=== PATIENT | female | born 1935 | race Caucasian/White ===

== ENCOUNTER 2018-06-21 13:04 | Inpatient (IN) | payer MEDICARE ==
[~2018-06-21] VITALS: Ht 157.5 cm; Wt 98.5 kg
[2018-06-21] MEDS ORDERED: WARF-31 PO (14:57)
[2018-06-21] MEDS ORDERED: MULT1CAP15 PO (14:57)
[2018-06-21] MEDS ORDERED: DOCU-109 PO (14:57)
[2018-06-21] MEDS ORDERED: GARL10002 PO (14:57)
[2018-06-21] MEDS ORDERED: OMEG1CAP38 PO (14:57)
[2018-06-21] MEDS ORDERED: LISI10TA2 PO (14:57)
[2018-06-21] MEDS ORDERED: SIMV40TA3 PO (14:57)
[2018-06-21 15:00] VITALS: BP 118/55
[2018-06-21] MEDS ORDERED: CHOL200074 PO (15:03)
[2018-06-21] MEDS ORDERED: ALEN70TA5 PO (15:03)
[2018-06-21] MEDS ORDERED: ACET500T68 PO (15:03)
[2018-06-21] MEDS ORDERED: INSU100I13 SQ (15:09)
[2018-06-21] MEDS ORDERED: INSU100I17 SQ (15:09)
[2018-06-21] MEDS ORDERED: ISOS30TA4 PO (15:09)
[2018-06-21] MEDS ORDERED: ALPR0.254 PO (15:09)
[2018-06-21] MEDS ORDERED: OMEP20TA63 PO (15:09)
[2018-06-21] MEDS ORDERED: CITA10TA4 PO (15:11)
[2018-06-21] MEDS ORDERED: CLOP75TA PO (15:11)
[2018-06-21] MEDS ORDERED: VIT1TABL32 PO (15:19)
[2018-06-21] MEDS ORDERED: BUME2TAB PO (15:19)
[2018-06-21] MEDS ORDERED: CHOL4POW3 PO (15:19)
[2018-06-21] MEDS ORDERED: DIPH25CA58 PO (15:24)
[2018-06-21] MEDS ORDERED: METH2.5T PO (15:24)
[2018-06-21] MEDS ORDERED: CARV3.122 PO (15:38)
[2018-06-21] MEDS ORDERED: IV NORMAL SALINE 1000ML BAG 1,000 ML IV ONE (15:45)
[2018-06-21 16:24] LABS: BASO % 1 % (0-3); EOS % 0 % (0-3); HEMATOCRIT 24.5 % (36.0-47.0); LYMPH # 0.9 x10^3/uL (1.0-4.8); LYMPH % 11 % (24-48); MEAN CORPUSCULAR HEMOGLOBIN 27 pg (25-35); MEAN CORPUSCULAR HGB CONC 33 g/dL (31-37); MEAN CORPUSCULAR VOLUME 83 fL (79-100); MONO # 0.5 x10^3/uL (0.0-1.1); MONO % 7 % (0-9); NEUT # 6.5 x10^3uL (1.8-7.7); NEUT % 81 % (31-73); PLATELET COUNT 369 x10^3/uL (140-400); RED BLOOD COUNT 2.94 x10^6/uL (3.50-5.40); RED CELL DISTRIBUTION WIDTH 19.7 % (11.5-14.5)
[2018-06-21 16:54] LABS: ALBUMIN 2.4 g/dL (3.4-5.0); ALBUMIN/GLOBULIN RATIO 0.6 (1.0-1.7); CALCIUM 7.7 mg/dL (8.5-10.1); GFR 53.1; POTASSIUM 3.7 mmol/L (3.5-5.1); TOTAL BILIRUBIN 0.5 mg/dL (0.2-1.0); TOTAL PROTEIN 6.6 g/dL (6.4-8.2)
[2018-06-21 19:00] VITALS: BP 126/49
[2018-06-21 19:43] LABS: PROTHROMBIN TIME PATIENT 39.9 SEC (11.7-14.0)
[2018-06-21] MEDS: cefTRIAXone IV Push 1 GM VIAL. IVP SCH (19:50)
[2018-06-21] MEDS: SIMVASTATIN 40 MG TABLET. PO SCH (20:43)
[2018-06-21] MEDS: MULTIVITAMIN I-VITE TABLET. PO SCH (20:43)
[2018-06-21] MEDS: CARVEDILOL 3.125 MG TABLET. PO SCH (20:43)
[2018-06-21] MEDS: ACETAMINOPHEN 500 MG TABLET PO SCH (20:44)
[2018-06-21] MEDS: diphenhydrAMINE HCL 25 MG CAPSULE PO SCH (21:11)
[2018-06-21 23:00] VITALS: BP 125/51
[2018-06-22 02:51] VITALS: BP 122/46
[2018-06-22 07:00] VITALS: BP 127/58
[2018-06-22] MEDS: INSULIN GLARGINE 300 UNITS/3 ML INSULN.PEN. SQ SCH (08:00)
[2018-06-22] MEDS: INSULIN LISPRO 300 UNITS/3 ML INSULN.PEN. SQ SCH ×3 (08:00→17:09)
[2018-06-22] MEDS: CLOPIDOGREL BISULFATE 75 MG TABLET PO SCH (08:33)
[2018-06-22] MEDS: DOCUSATE SODIUM 100 MG CAPSULE. PO SCH (08:33)
[2018-06-22] MEDS: MULTIVITAMIN I-VITE TABLET. PO SCH ×2 (08:33→20:25)
[2018-06-22] MEDS: PANTOPRAZOLE 40 MG TABLET.DR. PO SCH (08:33)
[2018-06-22] MEDS: ACETAMINOPHEN 500 MG TABLET PO SCH ×2 (08:33→20:25)
[2018-06-22] MEDS: CITALOPRAM 10 MG TABLET. PO SCH (08:33)
[2018-06-22] MEDS: CARVEDILOL 3.125 MG TABLET. PO SCH ×2 (08:34→16:10)
[2018-06-22] MEDS: ISOSORBIDE MONONITRATE ER 30 MG TAB.ER.24H PO SCH (08:34)
[2018-06-22] MEDS: BUMETANIDE 1 MG TABLET. PO SCH (08:34)
[2018-06-22] MEDS: OMEGA-3 FATTY ACIDS/FISH OIL 1,000 MG CAPSULE. PO SCH (08:34)
[2018-06-22] MEDS: LISINOPRIL 10 MG TABLET PO SCH (08:34)
[2018-06-22] MEDS: CHOLESTYRAMINE/ASPARTAME 4 GM PACKET PO SCH (08:36)
[2018-06-22 09:52] LABS: BILIRUBIN,URINE NEGATIVE (NEG); CLARITY,URINE CLEAR; COLOR,URINE YELLOW; NITRITE,URINE NEGATIVE (NEG); PROTEIN,URINE NEGATIVE (NEG-TRACE); UROBILINOGEN,URINE 0.2 mg/dL (0.2 mg/dL)
[2018-06-22 10:02] LABS: SQUAMOUS EPITHELIAL CELL,UR FEW /LPF
[2018-06-22 10:04] LABS: BACTERIA,URINE FEW /HPF (0-FEW); RBC,URINE OCC /HPF (0-2)
--- NOTE | 2018-06-22 10:43 | PDOC ---
GENERAL General: feels somewhat better this am. minimal sweating overnight and no chills. remains sob. Hb office earlier this week was 8.6 and is 8.0 this am. willl check cxr this am and get GI consult for iron deficiency anemia. continue antibiotics with profound chills and sweats prior to admission. patient denies any hematochezia, melena, or hematemesis. see dictated H&P. VITAL SIGNS Vital Signs: Vital Signs Date Time Temp Pulse Resp B/P (MAP) Pulse Ox O2 Delivery O2 Flow Rate FiO2 06/22/18 08:34 101 127/58 06/22/18 07:24 Room Air 06/22/18 07:00 97.8 16 98 97.8 I & O I & O Intake and Output 06/22/18 07:00 Intake Total 400 ml Output Total 350 ml Balance 50 ml Intake Oral 400 ml Output Urine Total 350 ml ALLERGIES Allergies: Allergies Coded Allergies Type Severity Reaction Last Updated Verified milk Allergy Intermediate 06/21/18 Yes montelukast Allergy Intermediate 06/21/18 Yes MEDS Medications: Current Medications Medications (Trade) Dose Ordered Sig/Frank Start Time Stop Time Status Last Admin Dose Admin Acetaminophen (Tylenol) 1,000 mg BID 06/21/18 21:00 06/22/18 08:33 1,000 MG Alprazolam (Xanax) 0.25 mg PRN Q6HRS PRN 06/21/18 18:45 Bumetanide (Bumex) 2 mg DAILY 06/22/18 09:00 06/22/18 08:34 2 MG Carvedilol (Coreg) 3.125 mg BIDWMEALS 06/21/18 21:00 06/22/18 08:34 3.125 MG Ceftriaxone Sodium 1 gm/ Dextrose 50 ml @ 100 mls/hr Q24H 06/21/18 15:45 UNV Ceftriaxone Sodium (Rocephin) 1 gm Q24H 06/21/18 17:00 06/21/18 19:50 1 GM Cholestyramine Resin (Questran Light) 4 gm DAILY 06/22/18 09:00 Citalopram Hydrobromide (CeleXA) 10 mg DAILY 06/22/18 09:00 06/22/18 08:33 10 MG Clopidogrel Bisulfate (Plavix) 75 mg DAILY 06/22/18 09:00 06/22/18 08:33 75 MG Diphenhydramine HCl (Benadryl) 50 mg QHS 06/21/18 21:00 06/21/18 21:11 50 MG Docusate Sodium (Colace) 100 mg DAILY 06/22/18 09:00 06/22/18 08:33 100 MG Fish Oil (Fish Oil) 1,000 mg DAILY 06/22/18 09:00 06/22/18 08:34 1,000 MG Insulin Glargine (Lantus) 20 units [id number] 06/22/18 08:00 Insulin Human Lispro (HumaLOG) 5 units TIDWMEALS 06/22/18 08:00 Isosorbide Mononitrate (Imdur) 30 mg DAILY 06/22/18 09:00 06/22/18 08:34 30 MG Lisinopril (Prinivil) 10 mg DAILY 06/22/18 09:00 06/22/18 08:34 10 MG Methotrexate (Rheumatrex) 15 mg WEEKLY 06/27/18 09:00 Multivitamins/ Minerals (I-Myah) 1 tab BID 06/21/18 21:00 06/22/18 08:33 1 TAB Non-Formulary Medication (Alendronate Sodium ) 70 mg WEEKLY 06/28/18 09:00 UNV Pantoprazole Sodium (Protonix) 40 mg DAILYAC 06/22/18 07:30 06/22/18 08:33 40 MG Simvastatin (Zocor) 40 mg QHS 06/21/18 21:00 06/21/18 20:43 40 MG Sodium Chloride 1,000 ml @ 125 mls/hr 1X ONCE 06/21/18 15:45 06/21/18 23:44 DC 06/21/18 19:50 125 MLS/HR Warfarin Sodium (Coumadin Per Physician) 1 each PRN DAILY PRN 06/21/18 20:00 Warfarin Sodium (Coumadin) 7.5 mg DAILY16 06/22/18 16:00 LAB Lab: Laboratory Tests Test 06/21/18 16:05 06/21/18 20:35 06/22/18 07:04 06/22/18 09:20 White Blood Count 8.0 x10^3/uL (4.0-11.0) Red Blood Count 2.94 x10^6/uL (3.50-5.40) Hemoglobin 8.0 g/dL (12.0-15.5) Hematocrit 24.5 % (36.0-47.0) Mean Corpuscular Volume 83 fL (79-100) Mean Corpuscular Hemoglobin 27 pg (25-35) Mean Corpuscular Hemoglobin Concent 33 g/dL (31-37) Red Cell Distribution Width 19.7 % (11.5-14.5) Platelet Count 369 x10^3/uL (140-400) Neutrophils (%) (Auto) 81 % (31-73) Lymphocytes (%) (Auto) 11 % (24-48) Monocytes (%) (Auto) 7 % (0-9) Eosinophils (%) (Auto) 0 % (0-3) Basophils (%) (Auto) 1 % (0-3) Neutrophils # (Auto) 6.5 x10^3uL (1.8-7.7) Lymphocytes # (Auto) 0.9 x10^3/uL (1.0-4.8) Monocytes # (Auto) 0.5 x10^3/uL (0.0-1.1) Eosinophils # (Auto) 0.0 x10^3/uL (0.0-0.7) Basophils # (Auto) 0.0 x10^3/uL (0.0-0.2) Prothrombin Time 39.9 SEC (11.7-14.0) Prothromb Time International Ratio 4.2 (0.8-1.1) Sodium Level 136 mmol/L (136-145) Potassium Level 3.7 mmol/L (3.5-5.1) Chloride Level 102 mmol/L (98-107) Carbon Dioxide Level 26 mmol/L (21-32) Anion Gap 8 (6-14) Blood Urea Nitrogen 17 mg/dL (7-20) Creatinine 1.0 mg/dL (0.6-1.0) Estimated GFR (Cockcroft-Gault) 53.1 BUN/Creatinine Ratio 17 (6-20) Glucose Level 110 mg/dL (70-99) Calcium Level 7.7 mg/dL (8.5-10.1) Iron Level 15 ug/dL (50-170) Total Iron Binding Capacity 216 ug/dL (250-450) Iron Saturation 7 % (15-34) Ferritin 141 ng/mL (8-252) Total Bilirubin 0.5 mg/dL (0.2-1.0) Aspartate Amino Transf (AST/SGOT) 21 U/L (15-37) Alanine Aminotransferase (ALT/SGPT) 27 U/L (14-59) Alkaline Phosphatase 157 U/L (46-116) Total Protein 6.6 g/dL (6.4-8.2) Albumin 2.4 g/dL (3.4-5.0) Albumin/Globulin Ratio 0.6 (1.0-1.7) Glucose (Fingerstick) 98 mg/dL (70-99) 96 mg/dL (70-99) Urine Collection Type Unknown Urine Color Yellow Urine Clarity Clear Urine pH 6.0 Urine Specific [place] 1.015 Urine Protein Negative mg/dL (NEG-TRACE) Urine Glucose (UA) Negative mg/dL (NEG) Urine Ketones (Stick) Negative mg/dL (NEG) Urine Blood Negative (NEG) Urine Nitrite Negative (NEG) Urine Bilirubin Negative (NEG) Urine Urobilinogen Dipstick 0.2 mg/dL (0.2 mg/dL) Urine Leukocyte Esterase Negative (NEG) Urine RBC Occ /HPF (0-2) Urine WBC 1-4 /HPF (0-4) Urine Squamous Epithelial Cells Few /LPF Urine Bacteria Few /HPF (0-FEW) Urine Mucus Slight /LPF ARTHUR GUERRA MD Jun 22, 2018 10:43
[2018-06-22 10:48] VITALS: BP 123/48
--- NOTE | 2018-06-22 11:22 | HP ---
ADMIT DATE: 06/21/2018 CHIEF COMPLAINT AND HISTORY OF PRESENT ILLNESS: This is an 82-year-old white female well known to me from followup in the office. The patient was seen earlier in the week with complaints of shortness of breath with exertion and possibly some chest pressure with the same. Workup at that point in time found her to be anemic with hemoglobin of 8.6 and decreased red blood cell indices. She was rechecked on the day of admission, was worse and now was reporting night sweats as well as chills, soaking sheets in the bed and having to change clothes. She appeared quite ill in the office and it was elected to admit her to have further workup of her new-onset shortness of breath, possibly related to the anemia as well as the sweats and chills. PAST MEDICAL HISTORY: Remarkable for prior TIAs. She has had coronary artery disease with prior stenting. PAST SURGICAL HISTORY: She has had prior breast cancer with a right mastectomy and left lumpectomy. She has had bilateral knee replacements. MEDICATIONS: Brought with the patient, listed on the computer and have been addressed. ALLERGIES: SHE IS ALLERGIC TO MONTELUKAST AND MILK. SOCIAL HISTORY: She is , nonsmoker, nondrinker, does not abuse drugs, has a very supportive family. FAMILY HISTORY: Noncontributory. REVIEW OF SYSTEMS: As mentioned above. PHYSICAL EXAMINATION: GENERAL: She is well-developed, well-nourished white female, who appears ill. VITAL SIGNS: Stable. She is afebrile in the office. Blood pressure is low at 90/50 which is out of character for her; pulse is not elevated, however, and is in the 80s. HEAD, EYES, EARS, NOSE, AND THROAT: Remarkable for pallor of the conjunctivae. NECK: Supple without bruit or thyromegaly. CHEST: Reveals distant breath sounds, but clear. HEART: Irregularly irregular without S3, S4 or murmur. Rate is 80. ABDOMEN: Soft, nontender, without hepatosplenomegaly or mass. EXTREMITIES: Without cyanosis, clubbing, or significant edema. NEUROLOGIC: She is intact. IMPRESSION: 1. New-onset shortness of breath with anemia. 2. Chills, sweats of uncertain etiology. 3. Atrial fibrillation. 4. Coronary artery disease. PLAN: The patient has been admitted, workup for infection as well as followup of her new-onset anemia will be done. I am going to check iron levels. In addition, antibiotics will be started pending further investigation. The patient will be monitored, managed and treated appropriately. ARTHUR GUERRA MD DR: MAYA/vandana JOB#: [id number] / [id number]
--- NOTE | 2018-06-22 12:01 | RAD ---
Chest, PA and Lateral: Technique: PA and lateral views of the chest were obtained. History: Shortness of breath, chills. Comparison: None available. Findings: Mild cardiomegaly. Median sternotomy wires identified. There is mild prominent appearing bilateral interstitial lung markings.. Moderate degenerative changes thoracic spine.. The pleural margins are clear. Impression: Mild prominent appearing bilateral interstitial lung markings likely congestive changes.. Electronically signed by: Driss Gill MD (06/22/2018 11:58 AM) [facility]
[2018-06-22 12:47] LABS: PROTHROMBIN TIME PATIENT 41.1 SEC (11.7-14.0)
[2018-06-22] MEDS: WARFARIN 7.5 MG TABLET. PO SCH (14:15)
--- NOTE | 2018-06-22 14:20 | PDOC2 ---
GI CONSULT Reason For Consult: DANIEL HPI: HPI: Pleasant 82 y/o female admitted for evaluation of recent anemia and BELL. Here has iron studies c/w DANIEL superimposed on ACD. Has h/o heartburn in the past; taking daily omeprazole. Some recent vague swallowing issues, not clearly true dysphagia. No PUD, Liver or Pancreatic history. S/p cole. No tobacco, alcohol use of note. On Plavix and coumadin at home; INR a bit prolonged here. Denies overt blood in stool or melena. No N, V. 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 Has had occasional constipation. Wt/appetite OK. Thinks had remote colonoscopy ([facility]? ) in the past. Recalls no findings. No prior EGD. GIFH negative. PMH: PMH: ASHD, TIA's, HLP, HTN, Breast cancer (rubia?), OA, DM, anxiety/depression. S/p coronary stenting, CABG, left lumpectomy, right mastectomy, bilateral TKR's. FH: Family History: Other (No GI issues.) Social History: Smoke: No ALCOHOL: none Drugs: None ROS: GEN: Denies fevers, chills, sweats HEENT: Denies blurred vision, sore throat CV: Denies chest pain RESP: Exertional shortness of air, no cough GI: Per HPI : Denies hematuria, dysuria ENDO: Denies weight changes NEURO: Denies confusion, dizziness MSK: Denies weakness, joint pain/swelling SKIN: Denies jaundice, pruritus Vitals: Vitals: Vital Signs Date Time Temp Pulse Resp B/P (MAP) Pulse Ox O2 Delivery O2 Flow Rate FiO2 06/22/18 10:48 98.3 89 16 123/48 (73) 93 Room Air 98.3 Labs: Labs: Laboratory Tests Test 06/21/18 16:05 06/21/18 20:35 06/22/18 07:04 06/22/18 09:20 White Blood Count 8.0 x10^3/uL (4.0-11.0) Red Blood Count 2.94 x10^6/uL (3.50-5.40) Hemoglobin 8.0 g/dL (12.0-15.5) Hematocrit 24.5 % (36.0-47.0) Mean Corpuscular Volume 83 fL (79-100) Mean Corpuscular Hemoglobin 27 pg (25-35) Mean Corpuscular Hemoglobin Concent 33 g/dL (31-37) Red Cell Distribution Width 19.7 % (11.5-14.5) Platelet Count 369 x10^3/uL (140-400) Neutrophils (%) (Auto) 81 % (31-73) Lymphocytes (%) (Auto) 11 % (24-48) Monocytes (%) (Auto) 7 % (0-9) Eosinophils (%) (Auto) 0 % (0-3) Basophils (%) (Auto) 1 % (0-3) Neutrophils # (Auto) 6.5 x10^3uL (1.8-7.7) Lymphocytes # (Auto) 0.9 x10^3/uL (1.0-4.8) Monocytes # (Auto) 0.5 x10^3/uL (0.0-1.1) Eosinophils # (Auto) 0.0 x10^3/uL (0.0-0.7) Basophils # (Auto) 0.0 x10^3/uL (0.0-0.2) Prothrombin Time 39.9 SEC (11.7-14.0) Prothromb Time International Ratio 4.2 (0.8-1.1) Sodium Level 136 mmol/L (136-145) Potassium Level 3.7 mmol/L (3.5-5.1) Chloride Level 102 mmol/L (98-107) Carbon Dioxide Level 26 mmol/L (21-32) Anion Gap 8 (6-14) Blood Urea Nitrogen 17 mg/dL (7-20) Creatinine 1.0 mg/dL (0.6-1.0) Estimated GFR (Cockcroft-Gault) 53.1 BUN/Creatinine Ratio 17 (6-20) Glucose Level 110 mg/dL (70-99) Calcium Level 7.7 mg/dL (8.5-10.1) Iron Level 15 ug/dL (50-170) Total Iron Binding Capacity 216 ug/dL (250-450) Iron Saturation 7 % (15-34) Ferritin 141 ng/mL (8-252) Total Bilirubin 0.5 mg/dL (0.2-1.0) Aspartate Amino Transf (AST/SGOT) 21 U/L (15-37) Alanine Aminotransferase (ALT/SGPT) 27 U/L (14-59) Alkaline Phosphatase 157 U/L (46-116) Total Protein 6.6 g/dL (6.4-8.2) Albumin 2.4 g/dL (3.4-5.0) Albumin/Globulin Ratio 0.6 (1.0-1.7) Glucose (Fingerstick) 98 mg/dL (70-99) 96 mg/dL (70-99) Urine Collection Type Unknown Urine Color Yellow Urine Clarity Clear Urine pH 6.0 Urine Specific [place] 1.015 Urine Protein Negative mg/dL (NEG-TRACE) Urine Glucose (UA) Negative mg/dL (NEG) Urine Ketones (Stick) Negative mg/dL (NEG) Urine Blood Negative (NEG) Urine Nitrite Negative (NEG) Urine Bilirubin Negative (NEG) Urine Urobilinogen Dipstick 0.2 mg/dL (0.2 mg/dL) Urine Leukocyte Esterase Negative (NEG) Urine RBC Occ /HPF (0-2) Urine WBC 1-4 /HPF (0-4) Urine Squamous Epithelial Cells Few /LPF Urine Bacteria Few /HPF (0-FEW) Urine Mucus Slight /LPF Test 06/22/18 12:20 06/22/18 12:25 Prothrombin Time 41.1 SEC (11.7-14.0) Prothromb Time International Ratio 4.4 (0.8-1.1) Glucose (Fingerstick) 140 mg/dL (70-99) ACD iron studies, but <10% saturation believable. Allergies: Coded Allergies: milk (Verified Allergy, Intermediate, 06/21/18) montelukast (Verified Allergy, Intermediate, 06/21/18) Medications: Current Medications Medications (Trade) Dose Ordered Sig/Frank Route PRN Reason Start Time Stop Time Status Last Admin Dose Admin Sodium Chloride 1,000 ml @ 125 mls/hr 1X ONCE IV 06/21/18 15:45 06/21/18 23:44 DC 06/21/18 19:50 Ceftriaxone Sodium (Rocephin) 1 gm Q24H IVP 06/21/18 17:00 06/21/18 19:50 Acetaminophen (Tylenol) 1,000 mg BID PO 06/21/18 21:00 06/22/18 08:33 Carvedilol (Coreg) 3.125 mg BIDWMEALS PO 06/21/18 21:00 06/22/18 08:34 Citalopram Hydrobromide (CeleXA) 10 mg DAILY PO 06/22/18 09:00 06/22/18 08:33 Clopidogrel Bisulfate (Plavix) 75 mg DAILY PO 06/22/18 09:00 06/22/18 08:33 Diphenhydramine HCl (Benadryl) 50 mg QHS PO 06/21/18 21:00 06/21/18 21:11 Docusate Sodium (Colace) 100 mg DAILY PO 06/22/18 09:00 06/22/18 08:33 Isosorbide Mononitrate (Imdur) 30 mg DAILY PO 06/22/18 09:00 06/22/18 08:34 Lisinopril (Prinivil) 10 mg DAILY PO 06/22/18 09:00 06/22/18 08:34 Multivitamins/ Minerals (I-Myah) 1 tab BID PO 06/21/18 21:00 06/22/18 08:33 Bumetanide (Bumex) 2 mg DAILY PO 06/22/18 09:00 06/22/18 08:34 Fish Oil (Fish Oil) 1,000 mg DAILY PO 06/22/18 09:00 06/22/18 08:34 Pantoprazole Sodium (Protonix) 40 mg DAILYAC PO 06/22/18 07:30 06/22/18 08:33 Simvastatin (Zocor) 40 mg QHS PO 06/21/18 21:00 06/21/18 20:43 Imaging: Imaging: No GI imaging. PE: GEN: NAD HEENT: Atraumatic, PERRLA LUNGS: CTAB HEART: IRRR, no murmurs ABD: NABS, S/ND/NT, no masses EXTREMITY: Maybe trace edema, LE's SKIN: No rashes, no jaundice NEURO/PSYCH: A & O 3 A/P: A/P: IMP: Iron deficiency anemia, cause uncertain, but worthy of investigation at some point. Clinical GERD, maintained on PPI. S/p cole. 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 H/o remote colonoscopy, findings unclear. Elevated INR above therapeutic. REC: Would continue whatever non-GI w/u you have planned. Hold warfarin and allow INR to fall. Will check our EMR and see if prior endoscopies there. Ultimately should consider holloway-endoscopy. Will check thyroid; apparently some FH of this. --other pending. Thank you for allowing me to assist in the care of this patient. Please call if questions. PAO THOMAS MD Jun 22, 2018 14:20
[2018-06-22 15:00] VITALS: BP 115/40
[2018-06-22] MEDS: cefTRIAXone IV Push 1 GM VIAL. IVP SCH (16:10)
[2018-06-22 19:59] VITALS: BP 133/55
[2018-06-22] MEDS: SIMVASTATIN 40 MG TABLET. PO SCH (20:25)
[2018-06-22] MEDS: diphenhydrAMINE HCL 25 MG CAPSULE PO SCH (20:25)
[2018-06-22 22:54] LABS: FECAL OB PT NEGATIVE (NEG)
[2018-06-22] MEDS: ALPRAZolam 0.25 MG TABLET PO PRN (23:10)
[2018-06-22 23:24] VITALS: BP 147/48
[2018-06-23 03:45] VITALS: BP 137/51
[2018-06-23 05:09] LABS: BASO % 1 % (0-3); EOS # 0.1 x10^3/uL (0.0-0.7); EOS % 1 % (0-3); HEMATOCRIT 23.5 % (36.0-47.0); HEMOGLOBIN 7.8 g/dL (12.0-15.5); LYMPH # 1.2 x10^3/uL (1.0-4.8); LYMPH % 21 % (24-48); MEAN CORPUSCULAR HEMOGLOBIN 28 pg (25-35); MEAN CORPUSCULAR HGB CONC 33 g/dL (31-37); MEAN CORPUSCULAR VOLUME 84 fL (79-100); MONO # 0.6 x10^3/uL (0.0-1.1); MONO % 10 % (0-9); NEUT % 67 % (31-73); PLATELET COUNT 327 x10^3/uL (140-400); RED BLOOD COUNT 2.82 x10^6/uL (3.50-5.40); RED CELL DISTRIBUTION WIDTH 19.4 % (11.5-14.5)
[2018-06-23 05:18] LABS: PROTHROMBIN TIME PATIENT 37.1 SEC (11.7-14.0)
[2018-06-23 07:00] VITALS: BP 113/62
[2018-06-23] MEDS: INSULIN GLARGINE 300 UNITS/3 ML INSULN.PEN. SQ SCH (08:00)
[2018-06-23] MEDS: INSULIN LISPRO 300 UNITS/3 ML INSULN.PEN. SQ SCH ×3 (08:00→16:56)
[2018-06-23] MEDS: OMEGA-3 FATTY ACIDS/FISH OIL 1,000 MG CAPSULE. PO SCH (08:07)
[2018-06-23] MEDS: CLOPIDOGREL BISULFATE 75 MG TABLET PO SCH (08:07)
[2018-06-23] MEDS: BUMETANIDE 1 MG TABLET. PO SCH (08:07)
[2018-06-23] MEDS: MULTIVITAMIN I-VITE TABLET. PO SCH ×2 (08:07→21:07)
[2018-06-23] MEDS: PANTOPRAZOLE 40 MG TABLET.DR. PO SCH (08:08)
[2018-06-23] MEDS: CARVEDILOL 3.125 MG TABLET. PO SCH ×2 (08:08→16:07)
[2018-06-23] MEDS: DOCUSATE SODIUM 100 MG CAPSULE. PO SCH (08:08)
[2018-06-23] MEDS: CITALOPRAM 10 MG TABLET. PO SCH (08:08)
[2018-06-23] MEDS: ACETAMINOPHEN 500 MG TABLET PO SCH ×2 (08:08→21:00)
[2018-06-23] MEDS: ISOSORBIDE MONONITRATE ER 30 MG TAB.ER.24H PO SCH (08:08)
[2018-06-23] MEDS: LISINOPRIL 10 MG TABLET PO SCH (08:08)
[2018-06-23] MEDS: CHOLESTYRAMINE/ASPARTAME 4 GM PACKET PO SCH (08:10)
[2018-06-23] MEDS: WARFARIN 7.5 MG TABLET. PO SCH (08:44)
[2018-06-23 11:00] VITALS: BP 114/57
--- NOTE | 2018-06-23 11:40 | PDOC ---
G I PROGRESS NOTE Subjective Dyspneic last night. Physical Exam Lungs clear anteriorly. RRR Abdomen soft, not tender nor distended. Review of Relevant I have reviewed the following items aviva (where applicable) has been applied. Labs Laboratory Tests Test 06/21/18 16:05 06/21/18 20:35 06/22/18 07:04 06/22/18 09:20 White Blood Count 8.0 x10^3/uL (4.0-11.0) Red Blood Count 2.94 x10^6/uL (3.50-5.40) Hemoglobin 8.0 g/dL (12.0-15.5) Hematocrit 24.5 % (36.0-47.0) Mean Corpuscular Volume 83 fL (79-100) Mean Corpuscular Hemoglobin 27 pg (25-35) Mean Corpuscular Hemoglobin Concent 33 g/dL (31-37) Red Cell Distribution Width 19.7 % (11.5-14.5) Platelet Count 369 x10^3/uL (140-400) Neutrophils (%) (Auto) 81 % (31-73) Lymphocytes (%) (Auto) 11 % (24-48) Monocytes (%) (Auto) 7 % (0-9) Eosinophils (%) (Auto) 0 % (0-3) Basophils (%) (Auto) 1 % (0-3) Neutrophils # (Auto) 6.5 x10^3uL (1.8-7.7) Lymphocytes # (Auto) 0.9 x10^3/uL (1.0-4.8) Monocytes # (Auto) 0.5 x10^3/uL (0.0-1.1) Eosinophils # (Auto) 0.0 x10^3/uL (0.0-0.7) Basophils # (Auto) 0.0 x10^3/uL (0.0-0.2) Prothrombin Time 39.9 SEC (11.7-14.0) Prothromb Time International Ratio 4.2 (0.8-1.1) Sodium Level 136 mmol/L (136-145) Potassium Level 3.7 mmol/L (3.5-5.1) Chloride Level 102 mmol/L (98-107) Carbon Dioxide Level 26 mmol/L (21-32) Anion Gap 8 (6-14) Blood Urea Nitrogen 17 mg/dL (7-20) Creatinine 1.0 mg/dL (0.6-1.0) Estimated GFR (Cockcroft-Gault) 53.1 BUN/Creatinine Ratio 17 (6-20) Glucose Level 110 mg/dL (70-99) Calcium Level 7.7 mg/dL (8.5-10.1) Iron Level 15 ug/dL (50-170) Total Iron Binding Capacity 216 ug/dL (250-450) Iron Saturation 7 % (15-34) Ferritin 141 ng/mL (8-252) Total Bilirubin 0.5 mg/dL (0.2-1.0) Aspartate Amino Transf (AST/SGOT) 21 U/L (15-37) Alanine Aminotransferase (ALT/SGPT) 27 U/L (14-59) Alkaline Phosphatase 157 U/L (46-116) Total Protein 6.6 g/dL (6.4-8.2) Albumin 2.4 g/dL (3.4-5.0) Albumin/Globulin Ratio 0.6 (1.0-1.7) Glucose (Fingerstick) 98 mg/dL (70-99) 96 mg/dL (70-99) Urine Collection Type Unknown Urine Color Yellow Urine Clarity Clear Urine pH 6.0 Urine Specific [place] 1.015 Urine Protein Negative mg/dL (NEG-TRACE) Urine Glucose (UA) Negative mg/dL (NEG) Urine Ketones (Stick) Negative mg/dL (NEG) Urine Blood Negative (NEG) Urine Nitrite Negative (NEG) Urine Bilirubin Negative (NEG) Urine Urobilinogen Dipstick 0.2 mg/dL (0.2 mg/dL) Urine Leukocyte Esterase Negative (NEG) Urine RBC Occ /HPF (0-2) Urine WBC 1-4 /HPF (0-4) Urine Squamous Epithelial Cells Few /LPF Urine Bacteria Few /HPF (0-FEW) Urine Mucus Slight /LPF Test 06/22/18 12:20 06/22/18 12:25 06/22/18 17:02 06/22/18 20:30 Prothrombin Time 41.1 SEC (11.7-14.0) Prothromb Time International Ratio 4.4 (0.8-1.1) Glucose (Fingerstick) 140 mg/dL (70-99) 165 mg/dL (70-99) 139 mg/dL (70-99) Test 06/22/18 22:00 06/23/18 04:30 06/23/18 06:58 06/23/18 10:44 Stool Occult Blood Negative (NEG) White Blood Count 6.0 x10^3/uL (4.0-11.0) Red Blood Count 2.82 x10^6/uL (3.50-5.40) Hemoglobin 7.8 g/dL (12.0-15.5) Hematocrit 23.5 % (36.0-47.0) Mean Corpuscular Volume 84 fL (79-100) Mean Corpuscular Hemoglobin 28 pg (25-35) Mean Corpuscular Hemoglobin Concent 33 g/dL (31-37) Red Cell Distribution Width 19.4 % (11.5-14.5) Platelet Count 327 x10^3/uL (140-400) Neutrophils (%) (Auto) 67 % (31-73) Lymphocytes (%) (Auto) 21 % (24-48) Monocytes (%) (Auto) 10 % (0-9) Eosinophils (%) (Auto) 1 % (0-3) Basophils (%) (Auto) 1 % (0-3) Neutrophils # (Auto) 4.0 x10^3uL (1.8-7.7) Lymphocytes # (Auto) 1.2 x10^3/uL (1.0-4.8) Monocytes # (Auto) 0.6 x10^3/uL (0.0-1.1) Eosinophils # (Auto) 0.1 x10^3/uL (0.0-0.7) Basophils # (Auto) 0.0 x10^3/uL (0.0-0.2) Prothrombin Time 37.1 SEC (11.7-14.0) Prothromb Time International Ratio 3.9 (0.8-1.1) Glucose (Fingerstick) 112 mg/dL (70-99) 191 mg/dL (70-99) Laboratory Tests Test 06/22/18 12:20 06/22/18 12:25 06/22/18 17:02 06/22/18 20:30 Prothrombin Time 41.1 SEC (11.7-14.0) Prothromb Time International Ratio 4.4 (0.8-1.1) Glucose (Fingerstick) 140 mg/dL (70-99) 165 mg/dL (70-99) 139 mg/dL (70-99) Test 06/22/18 22:00 06/23/18 04:30 06/23/18 06:58 06/23/18 10:44 Stool Occult Blood Negative (NEG) White Blood Count 6.0 x10^3/uL (4.0-11.0) Red Blood Count 2.82 x10^6/uL (3.50-5.40) Hemoglobin 7.8 g/dL (12.0-15.5) Hematocrit 23.5 % (36.0-47.0) Mean Corpuscular Volume 84 fL (79-100) Mean Corpuscular Hemoglobin 28 pg (25-35) Mean Corpuscular Hemoglobin Concent 33 g/dL (31-37) Red Cell Distribution Width 19.4 % (11.5-14.5) Platelet Count 327 x10^3/uL (140-400) Neutrophils (%) (Auto) 67 % (31-73) Lymphocytes (%) (Auto) 21 % (24-48) Monocytes (%) (Auto) 10 % (0-9) Eosinophils (%) (Auto) 1 % (0-3) Basophils (%) (Auto) 1 % (0-3) Neutrophils # (Auto) 4.0 x10^3uL (1.8-7.7) Lymphocytes # (Auto) 1.2 x10^3/uL (1.0-4.8) Monocytes # (Auto) 0.6 x10^3/uL (0.0-1.1) Eosinophils # (Auto) 0.1 x10^3/uL (0.0-0.7) Basophils # (Auto) 0.0 x10^3/uL (0.0-0.2) Prothrombin Time 37.1 SEC (11.7-14.0) Prothromb Time International Ratio 3.9 (0.8-1.1) Glucose (Fingerstick) 112 mg/dL (70-99) 191 mg/dL (70-99) Medications Current Medications Sodium Chloride 1,000 ml @ 125 mls/hr 1X ONCE IV Last administered on at 19:50; Start 06/21/18 at 15:45; Stop 06/21/18 at 23:44; Status DC Ceftriaxone Sodium 1 gm/ Dextrose 50 ml @ 100 mls/hr Q24H IV ; Start 06/21/18 at 15:45; Status UNV Ceftriaxone Sodium (Rocephin) 1 gm Q24H IVP Last administered on 06/22/18 16:10 ; Start 06/21/18 at 17:00 Acetaminophen (Tylenol) 1,000 mg BID PO Last administered on 06/23/18 08:08; Start 06/21/18 at 21:00 Alprazolam (Xanax) 0.25 mg PRN Q6HRS PRN PO ANXIETY / AGITATION Last administered on 06/22/18 23:10; Start 06/21/18 at 18:45 Carvedilol (Coreg) 3.125 mg BIDWMEALS PO Last administered on 06/23/18 08:08; Start 06/21/18 at 21:00 Cholestyramine Resin (Questran Light) 4 gm DAILY PO ; Start 06/22/18 at 09:00 Citalopram Hydrobromide (CeleXA) 10 mg DAILY PO Last administered on 06/23/18 08:08; Start 06/22/18 at 09:00 Clopidogrel Bisulfate (Plavix) 75 mg DAILY PO Last administered on 06/23/18 08: 07; Start 06/22/18 at 09:00 Diphenhydramine HCl (Benadryl) 50 mg QHS PO Last administered on 06/22/18at 20:25 ; Start 06/21/18 at 21:00 Docusate Sodium (Colace) 100 mg DAILY PO Last administered on 06/23/18 08:08; Start 06/22/18 at 09:00 Insulin Glargine (Lantus) 20 units DAILYWBKFT SQ ; Start 06/22/18 at 08:00 Isosorbide Mononitrate (Imdur) 30 mg DAILY PO Last administered on 06/23/18 08: 08; Start 06/22/18 at 09:00 Lisinopril (Prinivil) 10 mg DAILY PO Last administered on 06/23/18 08:08; Start 06/22/18 at 09:00 Multivitamins/ Minerals (I-Myah) 1 tab BID PO Last administered on 06/23/18at 08: 07; Start 06/21/18 at 21:00 Non-Formulary Medication (Alendronate Sodium ) 70 mg WEEKLY PO ; Start 06/28/18 at 09:00; Status UNV Bumetanide (Bumex) 2 mg DAILY PO Last administered on 06/23/18at 08:07; Start 06/22/18 at 09:00 Insulin Human Lispro (HumaLOG) 5 units TIDWMEALS SQ Last administered on at 11:26; Start 06/22/18 at 08:00 Methotrexate (Rheumatrex) 15 mg WEEKLY PO ; Start 06/27/18 at 09:00 Fish Oil (Fish Oil) 1,000 mg DAILY PO Last administered on 06/23/18at 08:07; Start 06/22/18 at 09:00 Pantoprazole Sodium (Protonix) 40 mg DAILYAC PO Last administered on 06/23/18at 08:08; Start 06/22/18 at 07:30 Simvastatin (Zocor) 40 mg QHS PO Last administered on 06/22/18at 20:25; Start 06/21/18 at 21:00 Warfarin Sodium (Coumadin) 7.5 mg DAILY16 PO ; Start 06/22/18 at 16:00; Stop 06/23 at 11:25; Status DC Warfarin Sodium (Coumadin Per Physician) 1 each PRN DAILY PRN MC SEE COMMENTS; Start 06/21/18 at 20:00 Active Scripts Active Reported Carvedilol 3.125 Mg Tablet 3.125 Mg PO BID Methotrexate (Methotrexate Sodium) 2.5 Mg Tablet 6 Tab PO WEEKLY Benadryl (Diphenhydramine Hcl) 25 Mg Capsule 2 Cap PO QHS Bumetanide 2 Mg Tablet 2 Mg PO DAILY Ocuvite Tablet (Vit A,C & E/Lutein/Minerals) 1 Each Tablet 1 Each PO BID Prevalite Packet (Cholestyramine/Aspartame) 4 Gm Powd.pack 4 Gm PO Citalopram Hbr (Citalopram Hydrobromide) 10 Mg Tablet 10 Mg PO DAILY Clopidogrel (Clopidogrel Bisulfate) 75 Mg Tablet 75 Mg PO DAILY Alprazolam 0.25 Mg Tablet 0.25 Mg PO PRN Q6HRS PRN Isosorbide Mononitrate Er (Isosorbide Mononitrate) 30 Mg Tab.er.24h 30 Mg PO DAILY Prilosec Otc (Omeprazole Magnesium) 20 Mg Tablet.dr 20 Mg PO DAILY Novolog Flexpen (Insulin Aspart) 100 Unit/1 Ml Insuln.pen 5 Unit SQ TIDBFRMEAL Lantus Solostar (Insulin Glargine,Hum.rec.anlog) 100 Unit/1 Ml Insuln.pen 20 Unit SQ DAILYWBKFT Acetaminophen 500 Mg Tablet 2 Tab PO BID Vitamin D-3 (Cholecalciferol (Vitamin D3)) 2,000 Unit Capsule 1,000 Unit PO Alendronate Sodium 70 Mg Tablet 70 Mg PO WEEKLY Warfarin Sodium 5 Mg Tablet 1.5 Tab PO DAILY Lisinopril 10 Mg Tablet 10 Mg PO DAILY Simvastatin 40 Mg Tablet 40 Mg PO DAILY Colace (Docusate Sodium) 100 Mg Capsule 100 Mg PO Garlic 1,000 Mg Capsule 1,000 Mg PO Multivitamins (Multivitamin) 1 Each Capsule 1 Each PO [place] 3 Fish Oil Softgel ([place]-3 Fatty Acids/Fish Oil) 1 Each Capsule.dr 1 Each PO DAILY Vitals/I & O Vital Sign - Last 24 Hours 06/22/18 06/22/18 06/22/18 06/22/18 15:00 16:10 19:59 20:00 Temp 97.4 97.4 97.4 97.4 Pulse 77 77 85 Resp 28 20 B/P (MAP) 115/40 (65) 115/40 133/55 (81) Pulse Ox 93 96 O2 Delivery Room Air Room Air Room Air 06/22/18 06/23/18 06/23/18 06/23/18 23:24 03:45 07:00 07:03 Temp 97.4 97.5 97.5 97.4 97.5 97.5 Pulse 95 80 85 Resp 20 16 16 B/P (MAP) 147/48 (81) 137/51 (79) 113/62 (79) Pulse Ox 97 96 96 O2 Delivery Nasal Cannula Nasal Cannula Nasal Cannula Room Air O2 Flow Rate 2.0 2.0 2.0 06/23/18 06/23/18 06/23/18 06/23/18 08:08 08:08 08:08 11:00 Temp 98.0 98.0 Pulse 85 85 85 67 Resp 18 B/P (MAP) 113/62 113/62 113/62 114/57 (76) Pulse Ox 96 O2 Delivery Nasal Cannula O2 Flow Rate 2.0 Intake and Output 06/22/18 06/22/18 06/23/18 15:00 23:00 07:00 Intake Total 200 ml 240 ml Balance 200 ml 240 ml Assessment DANIEL H/o Ferrell's, woefully overdue for surveillance. H/o adenoms, same. UTI/breathing issues. Plan of Care: Continue current Tx, Mgmt Plan of Care Note When feasible, merits holloway-endoscopy. PAO THOMAS MD Jun 23, 2018 11:40
[2018-06-23] MEDS ORDERED: FUROSEMIDE 40 MG/4 ML VIAL. IVP ONE (12:00)
[2018-06-23 15:00] VITALS: BP 114/48
[2018-06-23] MEDS: cefTRIAXone IV Push 1 GM VIAL. IVP SCH (16:09)
[2018-06-23 19:05] VITALS: BP 126/45
[2018-06-23] MEDS: diphenhydrAMINE HCL 25 MG CAPSULE PO SCH (21:06)
[2018-06-23] MEDS: SIMVASTATIN 40 MG TABLET. PO SCH (21:07)
[2018-06-23 23:00] VITALS: BP 129/49
[2018-06-23] MEDS: ALPRAZolam 0.25 MG TABLET PO PRN (23:27)
--- NOTE | 2018-06-23 23:59 | PN ---
DATE: 06/23/2018 LOCATION: She is in room 648. SUBJECTIVE: The patient is awake and alert; still having short of breath, particularly overnight. Discussion with nursing states that anytime she does get up and go to the bathroom or anything exertional. She is quite short of breath, but also her heart rate increases up in the 130s and 140s with the AFib, which may be part of her shortness of breath in addition OBJECTIVE: VITAL SIGNS: Stable. She is afebrile. Intake greater than output. Hemoglobin decreased at 7.8 this morning. Heme tested stool has been negative. Sugars are good. INR has drifted down to 3.9 and Coumadin will be held again this morning. Once again, she is having AFib with increased rates with exertion. Her GI suggested TSH and we will check that in addition. CHEST: Clear. HEART: Regular. ABDOMEN: Benign. IMPRESSION: 1. Shortness of breath, multifactorial with possibilities of the iron deficiency anemia, congestive heart failure and atrial fibrillation with rapid ventricular response. 2. Iron deficiency anemia. 3. Diabetes. 4. Coagulopathy. PLAN: I am going to ask Cardiology to see her in consultation today. Her Coumadin will be held. I am also going to give her a dose of IV Lasix x 1 this morning. We will continue to follow INRs. GI is planning for panendoscopy after coagulopathy is resolved as noted. ARTHUR GUERRA MD DR: MAYA/vandana JOB#: [id number] / [id number]
[2018-06-24 03:00] VITALS: BP 99/45
[2018-06-24 05:40] LABS: BASO # 0.1 x10^3/uL (0.0-0.2); BASO % 1 % (0-3); EOS # 0.1 x10^3/uL (0.0-0.7); EOS % 1 % (0-3); HEMATOCRIT 23.7 % (36.0-47.0); HEMOGLOBIN 7.8 g/dL (12.0-15.5); LYMPH # 1.4 x10^3/uL (1.0-4.8); LYMPH % 23 % (24-48); MEAN CORPUSCULAR HEMOGLOBIN 27 pg (25-35); MEAN CORPUSCULAR HGB CONC 33 g/dL (31-37); MEAN CORPUSCULAR VOLUME 83 fL (79-100); MONO # 0.5 x10^3/uL (0.0-1.1); MONO % 9 % (0-9); NEUT % 66 % (31-73); PLATELET COUNT 338 x10^3/uL (140-400); RED BLOOD COUNT 2.85 x10^6/uL (3.50-5.40); RED CELL DISTRIBUTION WIDTH 19.6 % (11.5-14.5); WHITE BLOOD COUNT 6.1 x10^3/uL (4.0-11.0)
[2018-06-24 05:54] LABS: PROTHROMBIN TIME PATIENT 26.8 SEC (11.7-14.0)
[2018-06-24 06:34] LABS: CALCIUM 8.2 mg/dL (8.5-10.1); CREATININE 0.8 mg/dL (0.6-1.0); GFR 68.7; POTASSIUM 3.8 mmol/L (3.5-5.1)
[2018-06-24 07:00] VITALS: BP 114/56
[2018-06-24] MEDS: INSULIN LISPRO 300 UNITS/3 ML INSULN.PEN. SQ SCH ×4 (08:00→18:35)
[2018-06-24] MEDS: CHOLESTYRAMINE/ASPARTAME 4 GM PACKET PO SCH (08:32)
[2018-06-24] MEDS: MULTIVITAMIN I-VITE TABLET. PO SCH ×2 (08:34→20:42)
[2018-06-24] MEDS: CLOPIDOGREL BISULFATE 75 MG TABLET PO SCH (08:34)
[2018-06-24] MEDS: PANTOPRAZOLE 40 MG TABLET.DR. PO SCH (08:34)
[2018-06-24] MEDS: DOCUSATE SODIUM 100 MG CAPSULE. PO SCH (08:34)
[2018-06-24] MEDS: OMEGA-3 FATTY ACIDS/FISH OIL 1,000 MG CAPSULE. PO SCH (08:34)
[2018-06-24] MEDS: CITALOPRAM 10 MG TABLET. PO SCH (08:34)
[2018-06-24] MEDS: ACETAMINOPHEN 500 MG TABLET PO SCH ×2 (08:34→20:42)
[2018-06-24] MEDS: BUMETANIDE 1 MG TABLET. PO SCH (08:34)
[2018-06-24] MEDS: ISOSORBIDE MONONITRATE ER 30 MG TAB.ER.24H PO SCH (08:35)
[2018-06-24] MEDS: LISINOPRIL 10 MG TABLET PO SCH (08:35)
[2018-06-24] MEDS: CARVEDILOL 3.125 MG TABLET. PO SCH ×2 (08:36→18:27)
[2018-06-24] MEDS: INSULIN GLARGINE 300 UNITS/3 ML INSULN.PEN. SQ SCH (10:17)
--- NOTE | 2018-06-24 10:52 | PDOC2 ---
MILDRED BETANCUR CLAIMS COORDINATOR 06/24/18 1052: CARDIAC CONSULT DATE OF CONSULT Date of Consult DATE: 06/24/18 TIME: 10:45 REASON FOR CONSULT Reason for Consult: afib, rvr, chf REFERRING PHYSICIAN Referring Physician: gildardo SOURCE Source: Caregiver, Patient (who is a poor historian) HISTORY OF PRESENT ILLNESS HISTORY OF PRESENT ILLNESS 82 year old female admitted from unknown location fo anemia. EKG demonstrates atrial fibrillation. C/O chest pain in the lower sternal region not clear associated with exertion and without associated symptoms. Has not seen usual neurodiagnostic tech @ [facility] in 2+ years. Anticoagulated with therapeutic INR POA. Hypokalemic POA; Mg level not evaluated. Reason for Visit: atrial fib, CP PAST MEDICAL HISTORY Cardiovascular: CAD, HTN, Hyperlipidemia CENTRAL NERVOUS SYSTEM: CVA, TIA GI: GERD Heme/Onc: Cancer (breast) Musculoskeletal: Osteoarthritis Rheumatologic: Rheumatoid arthritis Endocrine: Diabetes PAST SURGICAL HISTORY Past Surgical History: CABG (details unknown ), Total knee replacement ( bilateral ) FAMILY HISTORY Family History: Family History Unknown SOCIAL HISTORY Smoke: Quit ALCOHOL: other (daily beer ) Drugs: None CURRENT MEDICATIONS CURRENT MEDICATIONS Current Medications Medications (Trade) Dose Ordered Sig/Frank Route PRN Reason Start Time Stop Time Status Last Admin Dose Admin Furosemide (Lasix) 40 mg 1X ONCE IVP 06/23/18 12:00 06/23/18 12:01 DC 06/23/18 12:05 ALLERGIES ALLERGIES: Coded Allergies: milk (Verified Allergy, Intermediate, 06/21/18) montelukast (Verified Allergy, Intermediate, 06/21/18) ROS General: No: Chills, Night Sweats, Fatigue, Malaise, Appetite, Other PSYCHOLOGICAL ROS: No: Anxiety, Behavioral Disorder, Concentration difficultie , Decreased libido, Depression, Disorientation, Hallucinations, Hostility, Irritablity, Memory difficulties, Mood Swings, Obsessive thoughts, Physical abuse, Sexual abuse, Sleep disturbances, Suicidal ideation, Other Eyes: No Blurry vision, No Decreased vision, No Double vision, No Dry eyes, No Excessive tearing, No Eye Pain, No Itchy Eyes, No Loss of vision, No Photophobia , No Scotomata, No Uses contacts, No Uses glasses, No Other HEENT: No: Heacaches, Visual Changes, Hearing change, Nasal congestion, Nasal discharge, Oral lesions, Sinus pain, Sore Throat, Epistaxis, Sneezing, Snoring, Tinnitus, Vertigo, Vocal changes, Other ALLERGY AND IMMUNOLOGY: No: Hives, Insect Bite Sensitivity, Itchy/Watery Eyes, Nasal Congestion, Post Nasal Drip, Seasonal Allergies, Other Hematological and Lymphatic: No: Bleeding Problems, Blood Clots, Blood Transfusions, Brusing, Night Sweats, Pallor, Swollen Lymph Nodes, Other ENDOCRINE: No: Breast Changes, Galactorrhea, Hair Pattern Changes, Hot Flashes , Malaise/lethargy, Mood Swings, Palpitations, Polydipsia/polyuria, Skin Changes , Temperature Intolerance, Unexpected Weight Changes, Other Respiratory: No: Cough, Hemoptysis, Orthopnea, Pleuritic Pain, Shortness of breath, SOB with excertion, Sputum Changes, Stridor, Tachypnea, Wheezing, Other Cardiovascular: yes Chest Pain; No Palpitations, No Orthopnea, No Paroxysmal Noc. Dyspnea, No Edema, No Lt Headedness, No Other Gastrointestinal: No Nausea, No Vomiting, No Abdominal Pain, No Diarrhea, No Constipation, No Melena, No Hematochezia, No Other Genitourinary: No Dysuria, No Frequency, No Incontinence, No Hematuria, No Retention, No Discharge, No Urgency, No Pain, No Flank Pain, No Other Musculoskeletal: No Gait Disturbance, No Joint Pain, No Joint Stiffness, No Joint Swelling, No Muscle Pain, No Muscular Weakness, No Pain In:, No Swelling In:, No Other Neurological: No Behavorial Changes, No Bowel/Bladder ControlChng, No Confusion , No Dizziness, No Gait Disturbance, No Headaches, No Impaired Coord/balance, No Memory Loss, No Numbness/Tingling, No Seizures, No Speech Problems, No Tremors, No Visual Changes, No Weakness, No Other Skin: No Dry Skin, No Eczema, No Hair Changes, No Lumps, No Mole Changes, No Mottling, No Nail Changes, No Pruritus, No Rash, No Skin Lesion Changes, No Other, No Acne PHYSICAL EXAM General: Alert, Cooperative HEENT: Atraumatic Lungs: Clear to auscultation Heart: Normal S1, Normal S2, Other (IRRR) Abdomen: Soft Extremities: Normal pulses Skin: No rashes Neuro: Normal speech Psych/Mental Status: Mood NL MUSCULOSKELETAL: Osteoarthritic changes both hands VITALS VITALS Vital Signs Date Time Temp Pulse Resp B/P (MAP) Pulse Ox O2 Delivery O2 Flow Rate FiO2 06/24/18 08:36 93 114/56 06/24/18 08:00 Nasal Cannula 2.0 06/24/18 07:00 98.1 22 93 98.1 LABS Lab: Laboratory Tests Test 06/23/18 16:40 06/23/18 21:37 06/24/18 04:50 06/24/18 06:59 Glucose (Fingerstick) 137 mg/dL (70-99) 174 mg/dL (70-99) 126 mg/dL (70-99) White Blood Count 6.1 x10^3/uL (4.0-11.0) Red Blood Count 2.85 x10^6/uL (3.50-5.40) Hemoglobin 7.8 g/dL (12.0-15.5) Hematocrit 23.7 % (36.0-47.0) Mean Corpuscular Volume 83 fL (79-100) Mean Corpuscular Hemoglobin 27 pg (25-35) Mean Corpuscular Hemoglobin Concent 33 g/dL (31-37) Red Cell Distribution Width 19.6 % (11.5-14.5) Platelet Count 338 x10^3/uL (140-400) Neutrophils (%) (Auto) 66 % (31-73) Lymphocytes (%) (Auto) 23 % (24-48) Monocytes (%) (Auto) 9 % (0-9) Eosinophils (%) (Auto) 1 % (0-3) Basophils (%) (Auto) 1 % (0-3) Neutrophils # (Auto) 4.0 x10^3uL (1.8-7.7) Lymphocytes # (Auto) 1.4 x10^3/uL (1.0-4.8) Monocytes # (Auto) 0.5 x10^3/uL (0.0-1.1) Eosinophils # (Auto) 0.1 x10^3/uL (0.0-0.7) Basophils # (Auto) 0.1 x10^3/uL (0.0-0.2) Prothrombin Time 26.8 SEC (11.7-14.0) Prothromb Time International Ratio 2.6 (0.8-1.1) Sodium Level 138 mmol/L (136-145) Potassium Level 3.8 mmol/L (3.5-5.1) Chloride Level 102 mmol/L (98-107) Carbon Dioxide Level 26 mmol/L (21-32) Anion Gap 10 (6-14) Blood Urea Nitrogen 15 mg/dL (7-20) Creatinine 0.8 mg/dL (0.6-1.0) Estimated GFR (Cockcroft-Gault) 68.7 Glucose Level 135 mg/dL (70-99) Calcium Level 8.2 mg/dL (8.5-10.1) Test 06/24/18 09:30 Lactic Acid Level 0.7 mmol/L (0.4-2.0) IMAGES IMAGES CXR: Mild prominent appearing bilateral interstitial lung markings likely congestive changes.. ASSESSMENT/PLAN ASSESSMENT/PLAN 1. atrial fibrillation --occurring in the setting of hypokalemia and likely hypomagnesemia; suspect this is not new as she is anticoagulated --replace elytes; recheck labs in a.m. --TTE to evaluate for valvular disease --request records from 2. stroke/TIA history --continue Plavix 3. HTN --control with meds [facility] JIM MD 06/24/18 1939: CARDIAC CONSULT ASSESSMENT/PLAN ASSESSMENT/PLAN Pt. seen and examined. Agree with above ACTUARIAL TRAINEE note with following comments. Presenting with anemia. Likely chronic afib. Echo reviewed - she has severe LV dysfunction. will need to compare to records. No chest pain. with anemia, poor cath candidate. COnsider outpt ICD based on goals of care. Continue excellent HF med regimen. Thanks. Will follow. MILDRED BETANCUR APRN Jun 24, 2018 10:52 MC JIM MD Jun 24, 2018 19:39
[2018-06-24 11:00] VITALS: BP 121/50
[2018-06-24] MEDS ORDERED: POTASSIUM CHLORIDE 20 MEQ TABLET.ER. PO ONE (12:30)
[2018-06-24] MEDS ORDERED: MAGNESIUM SULFATE 4GM 100 ML IV ONE (13:00)
--- NOTE | 2018-06-24 13:27 | PDOC ---
Subjective: Subjective: Just feels "pooped" today. Not much appetite today but ate well yesterday. Objective: Vital Signs: Vital Signs Date Time Temp Pulse Resp B/P (MAP) Pulse Ox O2 Delivery O2 Flow Rate FiO2 06/24/18 11:00 96.4 84 20 121/50 (73) 96 Nasal Cannula 2.0 96.4 Labs: Laboratory Tests Test 06/23/18 16:40 06/23/18 21:37 06/24/18 04:50 06/24/18 06:59 Glucose (Fingerstick) 137 mg/dL 174 mg/dL 126 mg/dL White Blood Count 6.1 x10^3/uL Red Blood Count 2.85 x10^6/uL Hemoglobin 7.8 g/dL Hematocrit 23.7 % Mean Corpuscular Volume 83 fL Mean Corpuscular Hemoglobin 27 pg Mean Corpuscular Hemoglobin Concent 33 g/dL Red Cell Distribution Width 19.6 % Platelet Count 338 x10^3/uL Neutrophils (%) (Auto) 66 % Lymphocytes (%) (Auto) 23 % Monocytes (%) (Auto) 9 % Eosinophils (%) (Auto) 1 % Basophils (%) (Auto) 1 % Neutrophils # (Auto) 4.0 x10^3uL Lymphocytes # (Auto) 1.4 x10^3/uL Monocytes # (Auto) 0.5 x10^3/uL Eosinophils # (Auto) 0.1 x10^3/uL Basophils # (Auto) 0.1 x10^3/uL Prothrombin Time 26.8 SEC Prothromb Time International Ratio 2.6 Sodium Level 138 mmol/L Potassium Level 3.8 mmol/L Chloride Level 102 mmol/L Carbon Dioxide Level 26 mmol/L Anion Gap 10 Blood Urea Nitrogen 15 mg/dL Creatinine 0.8 mg/dL Estimated GFR (Cockcroft-Gault) 68.7 Glucose Level 135 mg/dL Calcium Level 8.2 mg/dL Magnesium Level 1.2 mg/dL Test 06/24/18 09:30 06/24/18 10:23 Lactic Acid Level 0.7 mmol/L Glucose (Fingerstick) 112 mg/dL PE: GEN: NAD, doing crossword puzzle in chair LUNGS: NC HEART: RR ABD: soft, non-tender NEURO/PSYCH: A & O 3 A/P: DANIEL H/o Ferrell's and adenomatous colon polyps - on PPI, overdue for EGD/colon A Fib, coagulopathy - INR 2.6 -- Needs EGD and colonoscopy eventually. Continue PPI. RUBEN BOYD Jun 24, 2018 13:26
[2018-06-24 15:00] VITALS: BP 140/51
[2018-06-24] MEDS: cefTRIAXone IV Push 1 GM VIAL. IVP SCH (18:28)
--- NOTE | 2018-06-24 18:29 | PN ---
DATE: SUBJECTIVE: The patient is sleeping, but awakens easily. States she is still short of breath with any sort of exertion, but is good at rest. She denies any chest pain or feeling of palpitations. OBJECTIVE: VITAL SIGNS: Stable. She is afebrile. CHEST: Clear. HEART: Irregular. ABDOMEN: Benign. EXTREMITIES: Without significant edema. LABORATORY DATA: Hemoglobin is stable at 7.8. Sugars have been good. INR has fallen to 2.6. ASSESSMENT: 1. Shortness of breath, ongoing, multifactorial with iron deficiency anemia as well as AFib with a rapid ventricular response with any sort of activity. 2. Diabetes. 3. Coagulopathy, improving. PLAN: We will continue to hold Coumadin at this point in time and await Cardiology evaluation to try to deal with the AFib issues. GI may indeed do panendoscopy prior to discharge with iron deficiency anemia, although she has had heme-negative stools during this admission. ARTHUR GUERRA MD DR: MAYA/vandana JOB#: [id number] / [id number]
[2018-06-24 19:05] VITALS: BP 126/61
[2018-06-24] MEDS: SIMVASTATIN 40 MG TABLET. PO SCH (20:42)
[2018-06-24] MEDS: diphenhydrAMINE HCL 25 MG CAPSULE PO SCH (20:42)
[2018-06-24 23:05] VITALS: BP 121/49
--- NOTE | 2018-06-25 00:32 | CARD ---
MR#: [id number] Date of Study: 06/24/2018 Ordering Physician: MILDRED BETANCUR, Referring Physician: ARTHUR GUERRA Tech: Sharon Morejon RDCS APPROVED REPORT EXAM: Two-dimensional and M-mode echocardiogram with Doppler and color Doppler. Other Information HR: 87bpm Rhythm : Atrial Fibrillation INDICATION Atrial Fibrillation RISK FACTORS Obesity 2D DIMENSIONS Left Atrium(2D)3.7 (1.6-4.0cm)IVSd1.4 (0.7-1.1cm) Aortic Root(2D)3.2 (2.0-3.7cm)LVDd5.6 (3.9-5.9cm) LVOT Diameter2.0 (1.8-2.4cm)PWd1.0 (0.7-1.1cm) LVDs5.1 (2.5-4.0cm)FS (%) 8.0 % SV26.8 mlLVEF(%)32.0 (>50%) Aortic Valve AoV Peak Brennon.148.0cm/sAoV VTI29.5cm AO Peak GR.8.8mmHgLVOT Peak Brennon.103.3cm/s LVOT VTI 20.01cmAO Mean GR.5mmHg LANA (VMAX)1.52ei1AON (VTI)2.20cm2 Mitral Valve MV E Peak Gr.94mmHgMV DECEL [id number] MV HML75koBDF (PHT)3.74cm2 Pulmonary Valve PV Peak Ngokwsfb42.9cm/sPV Peak Grad.4mmHg Tricuspid Valve TR P. [id number]/sRAP [id number] TR Peak Gr.38mmHg LEFT VENTRICLE The left ventricle is mildly dilated. Proximal septal thickening is noted. Left ventricle systolic fu nction is moderately to severely impaired. The Ejection Fraction is 30-35%. Septal motion consistent with post-operative state. Moderate to severe global hypokinesis. Tissue Doppler imaging reveals mode rate left ventricular diastolic dysfunction. RIGHT VENTRICLE The right ventricle is normal size. There is normal right ventricular wall thickness. The right ventr icular systolic function is mild diminished. ATRIA The left atrium size is normal. The right atrium size is normal. The interatrial septum is intact wit h no evidence for an atrial septal defect or patent foramen ovale as noted on 2-D or Doppler imaging. AORTIC VALVE The aortic valve is calcified and grossly trileaflet. Doppler and Color Flow revealed moderate aortic regurgitation. There is no significant aortic valvular stenosis. MITRAL VALVE Moderate mitral annular calcification. There is no mitral valve stenosis. Doppler and Color-flow reve aled moderate mitral regurgitation. TRICUSPID VALVE The tricuspid valve is normal in structure and function. Doppler and Color Flow revealed moderate tri cuspid regurgitation.The PA pressure was estimated at 53 mmHg. There is no tricuspid valve stenosis. PULMONIC VALVE The pulmonic valve is not well visualized. Doppler and Color Flow revealed trace pulmonic valvular re gurgitation. There is no pulmonic valvular stenosis. GREAT VESSELS The aortic root is normal in size. The IVC is dilated and collapses <50% with inspiration. PERICARDIAL EFFUSION There is no evidence of significant pericardial effusion. Critical Notification Critical Value: No <Conclusion> Left ventricle systolic function is moderately to severely impaired. The Ejection Fraction is 30-35%. Septal motion consistent with post-operative state. Moderate to severe global hypokinesis. The right ventricular systolic function is mild diminished. Doppler and Color Flow revealed moderate aortic regurgitation. Doppler and Color-flow revealed moderate mitral regurgitation. Doppler and Color Flow revealed moderate tricuspid regurgitation.The PA pressure was estimated at 53 mmHg. Signed by : Austen Kimball, Electronically Approved : 06/24/2018 19:26:46
[2018-06-25 03:05] VITALS: BP 130/48
[2018-06-25 04:45] LABS: PROTHROMBIN TIME PATIENT 19.5 SEC (11.7-14.0)
[2018-06-25 07:00] VITALS: BP 134/57
[2018-06-25 08:04] LABS: CALCIUM 8.2 mg/dL (8.5-10.1); CREATININE 0.8 mg/dL (0.6-1.0); GFR 68.7; POTASSIUM 4.3 mmol/L (3.5-5.1)
[2018-06-25] MEDS: INSULIN GLARGINE 300 UNITS/3 ML INSULN.PEN. SQ SCH (08:15)
[2018-06-25] MEDS: BUMETANIDE 1 MG TABLET. PO SCH (08:17)
[2018-06-25] MEDS: OMEGA-3 FATTY ACIDS/FISH OIL 1,000 MG CAPSULE. PO SCH (08:17)
[2018-06-25] MEDS: CLOPIDOGREL BISULFATE 75 MG TABLET PO SCH (08:17)
[2018-06-25] MEDS: PANTOPRAZOLE 40 MG TABLET.DR. PO SCH (08:18)
[2018-06-25] MEDS: CARVEDILOL 3.125 MG TABLET. PO SCH ×2 (08:18→17:53)
[2018-06-25] MEDS: ACETAMINOPHEN 500 MG TABLET PO SCH ×3 (08:18→20:29)
[2018-06-25] MEDS: MULTIVITAMIN I-VITE TABLET. PO SCH ×2 (08:18→20:29)
[2018-06-25] MEDS: CITALOPRAM 10 MG TABLET. PO SCH (08:19)
[2018-06-25] MEDS: DOCUSATE SODIUM 100 MG CAPSULE. PO SCH ×2 (08:19→08:26)
[2018-06-25] MEDS: ISOSORBIDE MONONITRATE ER 30 MG TAB.ER.24H PO SCH (08:19)
[2018-06-25] MEDS: CHOLESTYRAMINE/ASPARTAME 4 GM PACKET PO SCH (08:26)
[2018-06-25] MEDS: LISINOPRIL 10 MG TABLET PO SCH (08:29)
[2018-06-25 11:00] VITALS: BP 122/46
--- NOTE | 2018-06-25 11:40 | PDOC ---
Subjective: Subjective: Some shortness of breath today, just not feeling the best. Appetite is better. Stooled twice today. Was told she'd probably have a colonoscopy tomorrow - wants low-volume prep. Objective: Objective: D/w Armida/cardiology - trying to get outside records, A Fib probably not new but EF 30-35%, valvular disease - consider cath? (though poor candidate w/ anemia) Vital Signs: Vital Signs Date Time Temp Pulse Resp B/P (MAP) Pulse Ox O2 Delivery O2 Flow Rate FiO2 06/25/18 11:00 98.0 91 16 122/46 (71) 93 Room Air 98.0 06/24/18 20:00 2.0 Labs: Laboratory Tests Test 06/24/18 16:30 06/24/18 18:18 06/24/18 20:56 06/25/18 03:00 Glucose (Fingerstick) 65 mg/dL 180 mg/dL 117 mg/dL Prothrombin Time 19.5 SEC Prothromb Time International Ratio 1.7 Sodium Level 138 mmol/L Potassium Level 4.3 mmol/L Chloride Level 103 mmol/L Carbon Dioxide Level 29 mmol/L Anion Gap 6 Blood Urea Nitrogen 13 mg/dL Creatinine 0.8 mg/dL Estimated GFR (Cockcroft-Gault) 68.7 Glucose Level 116 mg/dL Calcium Level 8.2 mg/dL Magnesium Level 2.0 mg/dL Test 06/25/18 07:19 06/25/18 10:33 Glucose (Fingerstick) 114 mg/dL 209 mg/dL Imaging: Echo <Conclusion> Left ventricle systolic function is moderately to severely impaired. The Ejection Fraction is 30-35%. Septal motion consistent with post-operative state. Moderate to severe global hypokinesis. The right ventricular systolic function is mild diminished. Doppler and Color Flow revealed moderate aortic regurgitation. Doppler and Color-flow revealed moderate mitral regurgitation. Doppler and Color Flow revealed moderate tricuspid regurgitation.The PA pressure was estimated at 53 mmHg. 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 A Fib, coagulopathy - INR now 1.7, Warfarin and Plavix held -- Will review timing of EGD/colon w/ Dr. Zabala. RUBEN BOYD Jun 25, 2018 11:40
--- NOTE | 2018-06-25 11:41 | PN ---
DATE: 06/25/2018 LOCATION: Room 648. SUBJECTIVE: The patient is awake, alert, sitting in chair. She is waiting to eat her breakfast this morning due to not receiving pills yet. She states she is still short of breath with going to the bathroom, but no problems at rest. She denies any chest pain or feelings of palpitation once again. OBJECTIVE: VITAL SIGNS: Stable. She is afebrile. CHEST: Clear. HEART: Irregular. ABDOMEN: Benign. EXTREMITIES: Without significant edema. LABORATORY DATA: Sugars have been good, morning BMP is good. INR is down to 1.7 this morning. Echo yesterday shows an ejection fraction of 30%-35%. IMPRESSION: 1. Shortness of breath ongoing, multifactorial with iron deficiency anemia, as well as congestive heart failure. 2. Atrial fibrillation with rapid ventricular response with activity. 3. Cardiomyopathy. 4. Diabetes. 5. Coagulopathy, improving. PLAN: We will continue to hold Coumadin and I have instructed nursing to hold Plavix. Hopefully, able to do panendoscopy tomorrow for the iron deficiency anemia prior to considering discharge. We will await final Cardiology suggestions regarding any further medicine changes, etc. ARTHUR GUERRA MD DR: MAYA/vandana JOB#: [id number] / [id number]
[2018-06-25] MEDS: INSULIN LISPRO 300 UNITS/3 ML INSULN.PEN. SQ SCH ×2 (12:07→18:03)
[2018-06-25 15:00] VITALS: BP 141/47
--- NOTE | 2018-06-25 15:22 | PDOC ---
MILDRED BETANCUR HEAD STILL OPERATOR 06/25/18 1522: CARDIO Progress Notes Date and Time Date of Service 06/25/2018 Time of Evaluation initial evaluation about 1030 returned after evaluation of outside records Subjective Subjective: No Chest Pain, No shortness of breath, No Palpitations, No Dizziness Vitals Vitals Vital Signs Date Time Temp Pulse Resp B/P (MAP) Pulse Ox O2 Delivery O2 Flow Rate FiO2 06/25/18 11:00 98.0 91 16 122/46 (71) 93 Room Air 98.0 06/24/18 20:00 2.0 Weight Weight [ ] Input and Output Intake and Output Intake and Output 06/25/18 07:00 Intake Total 970 ml Balance 970 ml Intake Oral 970 ml # Voids 6 Laboratory Labs Laboratory Tests Test 06/24/18 16:30 06/24/18 18:18 06/24/18 20:56 06/25/18 03:00 Glucose (Fingerstick) 65 mg/dL (70-99) 180 mg/dL (70-99) 117 mg/dL (70-99) Prothrombin Time 19.5 SEC (11.7-14.0) Prothromb Time International Ratio 1.7 (0.8-1.1) Sodium Level 138 mmol/L (136-145) Potassium Level 4.3 mmol/L (3.5-5.1) Chloride Level 103 mmol/L (98-107) Carbon Dioxide Level 29 mmol/L (21-32) Anion Gap 6 (6-14) Blood Urea Nitrogen 13 mg/dL (7-20) Creatinine 0.8 mg/dL (0.6-1.0) Estimated GFR (Cockcroft-Gault) 68.7 Glucose Level 116 mg/dL (70-99) Calcium Level 8.2 mg/dL (8.5-10.1) Magnesium Level 2.0 mg/dL (1.8-2.4) Test 06/25/18 07:19 06/25/18 10:33 Glucose (Fingerstick) 114 mg/dL (70-99) 209 mg/dL (70-99) Microbiology Micro Microbiology 06/24/18 Blood Culture - Preliminary, Resulted NO GROWTH AFTER 1 DAY Physical Exam HEENT: Neck Supple W Full Motion Chest: Symmetric LUNGS: Clear to Auscultation Heart: murmurs (2/6LSB), other (IRRR; tele: atrial fib) Abdomen: Soft N/T Neurology: alert, oriented Assessment Assessment 1. atrial fibrillation --occurring in the setting of hypokalemia and hypomagnesemia; suspect this is not new as she is anticoagulated --K and Mg WNL today --rate controlled --TTE with depressed LVEF of 30-35%; TTE done 03/2017 with EF of 35-40% and noted some improvement since 04/2016; unfortunately no other records received --OAC on hold for GI evaluation 2. stroke/TIA history --continue Plavix 3. cardiomyopathy, presumed ischemic --continue BB, ACEI, and long-acting nitrates --consider diuretics & alpha agonist in the outpatient setting --discuss ICD in outpatient setting --as depressed LVEF not a new finding, would not pursue further evaluation at this point 4. CAD with previous CABG --details unknown 5. HTN --control with meds 6. HLD --check FLP --continue statin therapy 7. anemia --GI evaluation in progress MC JIM MD 06/25/18 1549: CARDIO Progress Notes Plan Plan Agree with above nurse practitioner note. Continue GI evaluation. She'll follow- up in the heart failure clinic in the near future. MILDRED BETANCUR APRN Jun 25, 2018 15:22 MC JIM MD Jun 25, 2018 15:49
[2018-06-25] MEDS: cefTRIAXone IV Push 1 GM VIAL. IVP SCH (18:06)
[2018-06-25 19:05] VITALS: BP 138/51
[2018-06-25] MEDS: SIMVASTATIN 40 MG TABLET. PO SCH (20:29)
[2018-06-25] MEDS: diphenhydrAMINE HCL 25 MG CAPSULE PO SCH (20:30)
[2018-06-25 23:05] VITALS: BP 126/57
[2018-06-25] MEDS: ALPRAZolam 0.25 MG TABLET PO PRN (23:28)
[2018-06-26 01:28] LABS: CHOLESTEROL/HDL RATIO 3.5
[2018-06-26 03:05] VITALS: BP 136/45
[2018-06-26 07:58] VITALS: BP 141/57
[2018-06-26] MEDS: DOCUSATE SODIUM 100 MG CAPSULE. PO SCH (08:57)
[2018-06-26] MEDS: MULTIVITAMIN I-VITE TABLET. PO SCH ×2 (08:57→21:26)
[2018-06-26] MEDS: OMEGA-3 FATTY ACIDS/FISH OIL 1,000 MG CAPSULE. PO SCH (08:57)
[2018-06-26] MEDS: CHOLESTYRAMINE/ASPARTAME 4 GM PACKET PO SCH (08:57)
[2018-06-26] MEDS: PANTOPRAZOLE 40 MG TABLET.DR. PO SCH (08:57)
[2018-06-26] MEDS: ACETAMINOPHEN 500 MG TABLET PO SCH ×2 (08:57→21:47)
[2018-06-26] MEDS: BUMETANIDE 1 MG TABLET. PO SCH (08:57)
[2018-06-26] MEDS: CITALOPRAM 10 MG TABLET. PO SCH (08:57)
[2018-06-26] MEDS: CLOPIDOGREL BISULFATE 75 MG TABLET PO SCH (08:57)
[2018-06-26] MEDS: CARVEDILOL 3.125 MG TABLET. PO SCH ×2 (08:58→16:17)
[2018-06-26] MEDS: LISINOPRIL 10 MG TABLET PO SCH (08:58)
[2018-06-26] MEDS: ISOSORBIDE MONONITRATE ER 30 MG TAB.ER.24H PO SCH (08:58)
[2018-06-26] MEDS: INSULIN LISPRO 300 UNITS/3 ML INSULN.PEN. SQ SCH ×3 (09:20→17:25)
[2018-06-26] MEDS: INSULIN GLARGINE 300 UNITS/3 ML INSULN.PEN. SQ SCH (09:22)
--- NOTE | 2018-06-26 09:26 | PDOC ---
Subjective: Subjective: In restroom, says she's doing fine. Objective: Objective: D/w Armida/cardiology yesterday - ok for 'scopes. 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 -- Prep in progress for EGD and colonoscopy tomorrow afternoon. RUBEN BOYD Jun 26, 2018 09:26
[2018-06-26 10:14] LABS: PROTHROMBIN TIME PATIENT 17.4 SEC (11.7-14.0)
[2018-06-26 11:17] VITALS: BP 136/53
[2018-06-26] MEDS ORDERED: MAGNESIUM CITRATE 296 ML SOLUTION. PO ONE (12:00)
[2018-06-26] MEDS ORDERED: BISACODYL 5 MG TABLET.DR. PO ONE ×2 (12:30→14:00)
[2018-06-26] MEDS ORDERED: POLYETHYLENE GLYCOL 3350 238 GM POWDER PO ONE (13:00)
[2018-06-26 15:34] VITALS: BP 126/43
[2018-06-26] MEDS: cefTRIAXone IV Push 1 GM VIAL. IVP SCH (16:17)
--- NOTE | 2018-06-26 19:14 | PN ---
DATE: 06/26/2018 She is in room 648. SUBJECTIVE: The patient sound asleep this morning, resting quietly. She was not awakened. OBJECTIVE: VITAL SIGNS: Stable. She is afebrile. Sugars have been decent. CHEST: Clear. HEART: Irregular. ABDOMEN: Benign. INR is pending this morning. She has had no hematochezia since admission. IMPRESSION: 1. Shortness of breath, multifactorial with iron deficiency anemia as well as congestive heart failure and atrial fibrillation with at times a rapid response with activity. 2. Cardiomyopathy. 3. Diabetes. 4. Coagulopathy, improving. PLAN: Continue to hold Coumadin with plans on panendoscopy today or tomorrow. Otherwise, same with any further medication adjustments per Cardiology. ARTHUR GUERRA MD DR: MAYA/vandana JOB#: [id number] / [id number]
[2018-06-26 19:37] VITALS: BP 119/81
[2018-06-26] MEDS: SIMVASTATIN 40 MG TABLET. PO SCH (21:26)
[2018-06-26] MEDS: diphenhydrAMINE HCL 25 MG CAPSULE PO SCH (21:47)
[2018-06-26 23:23] VITALS: BP 142/47
[2018-06-27 03:37] VITALS: BP 108/48
[2018-06-27 04:59] LABS: BASO # 0.1 x10^3/uL (0.0-0.2); BASO % 1 % (0-3); EOS # 0.1 x10^3/uL (0.0-0.7); EOS % 2 % (0-3); HEMATOCRIT 26.2 % (36.0-47.0); LYMPH # 1.6 x10^3/uL (1.0-4.8); LYMPH % 22 % (24-48); MEAN CORPUSCULAR HEMOGLOBIN 29 pg (25-35); MEAN CORPUSCULAR HGB CONC 34 g/dL (31-37); MEAN CORPUSCULAR VOLUME 84 fL (79-100); MONO # 0.6 x10^3/uL (0.0-1.1); MONO % 8 % (0-9); NEUT # 4.7 x10^3uL (1.8-7.7); NEUT % 67 % (31-73); PLATELET COUNT 390 x10^3/uL (140-400); RED BLOOD COUNT 3.13 x10^6/uL (3.50-5.40); RED CELL DISTRIBUTION WIDTH 20.1 % (11.5-14.5); WHITE BLOOD COUNT 7.1 x10^3/uL (4.0-11.0)
[2018-06-27 05:06] LABS: PROTHROMBIN TIME PATIENT 16.9 SEC (11.7-14.0)
[2018-06-27 05:54] LABS: ANISOCYTOSIS SLIGHT; PLT ESTIMATE ADEQUATE (ADEQUATE)
[2018-06-27] MEDS ORDERED: IV RINGERS,LACTATED 1000ML 1,000 ML IV SCH (07:00)
[2018-06-27] MEDS: PANTOPRAZOLE 40 MG TABLET.DR. PO SCH (07:30)
[2018-06-27 07:40] VITALS: BP 134/52
[2018-06-27] MEDS: CARVEDILOL 3.125 MG TABLET. PO SCH ×2 (08:00→17:22)
[2018-06-27] MEDS: INSULIN LISPRO 300 UNITS/3 ML INSULN.PEN. SQ SCH ×3 (08:00→17:27)
[2018-06-27] MEDS: INSULIN GLARGINE 300 UNITS/3 ML INSULN.PEN. SQ SCH (08:00)
[2018-06-27] MEDS: ACETAMINOPHEN 500 MG TABLET PO SCH ×2 (09:00→21:24)
[2018-06-27] MEDS: OMEGA-3 FATTY ACIDS/FISH OIL 1,000 MG CAPSULE. PO SCH (09:00)
[2018-06-27] MEDS: CLOPIDOGREL BISULFATE 75 MG TABLET PO SCH (09:00)
[2018-06-27] MEDS: METHOTREXATE SODIUM 2.5 MG TABLET PO SCH (09:00)
[2018-06-27] MEDS: LISINOPRIL 10 MG TABLET PO SCH (09:00)
[2018-06-27] MEDS: CITALOPRAM 10 MG TABLET. PO SCH (09:00)
[2018-06-27] MEDS: BUMETANIDE 1 MG TABLET. PO SCH (09:00)
[2018-06-27] MEDS: CHOLESTYRAMINE/ASPARTAME 4 GM PACKET PO SCH (09:00)
[2018-06-27] MEDS: DOCUSATE SODIUM 100 MG CAPSULE. PO SCH (09:00)
[2018-06-27] MEDS: MULTIVITAMIN I-VITE TABLET. PO SCH ×2 (09:00→21:24)
[2018-06-27] MEDS: ISOSORBIDE MONONITRATE ER 30 MG TAB.ER.24H PO SCH (09:00)
[2018-06-27] MEDS ORDERED: diphenhydrAMINE 50 MG/ML VIAL IVP ONE (09:30)
--- NOTE | 2018-06-27 11:09 | PDOC ---
CARDIO Progress Notes Date and Time Date of Service 06/27/2018 Time of Evaluation 0950 Subjective Subjective: No Chest Pain, No shortness of breath, No Palpitations, No Dizziness Vitals Vitals Vital Signs Date Time Temp Pulse Resp B/P (MAP) Pulse Ox O2 Delivery O2 Flow Rate FiO2 06/27/18 08:00 Room Air 2.0 06/27/18 07:40 97.9 86 20 134/52 (79) 92 97.9 Weight Weight [ ] Input and Output Intake and Output Intake and Output 06/27/18 07:00 Intake Total 1350 ml Output Total 10 ml Balance 1340 ml Intake Oral 1350 ml Urine/Stool Mix 10 ml # Voids 10 Laboratory Labs Laboratory Tests Test 06/26/18 11:46 06/26/18 16:50 06/26/18 20:35 06/27/18 04:00 Glucose (Fingerstick) 112 mg/dL (70-99) 87 mg/dL (70-99) 136 mg/dL (70-99) White Blood Count 7.1 x10^3/uL (4.0-11.0) Red Blood Count 3.13 x10^6/uL (3.50-5.40) Hemoglobin 9.0 g/dL (12.0-15.5) Hematocrit 26.2 % (36.0-47.0) Mean Corpuscular Volume 84 fL (79-100) Mean Corpuscular Hemoglobin 29 pg (25-35) Mean Corpuscular Hemoglobin Concent 34 g/dL (31-37) Red Cell Distribution Width 20.1 % (11.5-14.5) Platelet Count 390 x10^3/uL (140-400) Neutrophils (%) (Auto) 67 % (31-73) Lymphocytes (%) (Auto) 22 % (24-48) Monocytes (%) (Auto) 8 % (0-9) Eosinophils (%) (Auto) 2 % (0-3) Basophils (%) (Auto) 1 % (0-3) Neutrophils # (Auto) 4.7 x10^3uL (1.8-7.7) Lymphocytes # (Auto) 1.6 x10^3/uL (1.0-4.8) Monocytes # (Auto) 0.6 x10^3/uL (0.0-1.1) Eosinophils # (Auto) 0.1 x10^3/uL (0.0-0.7) Basophils # (Auto) 0.1 x10^3/uL (0.0-0.2) Platelet Estimate Adequate (ADEQUATE) Anisocytosis Slight Prothrombin Time 16.9 SEC (11.7-14.0) Prothromb Time International Ratio 1.4 (0.8-1.1) Test 06/27/18 07:26 Glucose (Fingerstick) 112 mg/dL (70-99) Microbiology Micro Microbiology 06/24/18 Blood Culture - Preliminary, Resulted NO GROWTH AFTER 3 DAYS Physical Exam HEENT: Neck Supple W Full Motion Chest: Symmetric LUNGS: Clear to Auscultation Heart: murmurs (2/6LSB), irregularly irregular (AFIB rate controlled) Abdomen: Soft N/T Extremities: No Edema, No Calf Tenderness Neurology: alert, oriented, follow commands Assessment Assessment 1. AFIB: possibly paroxysmal, Presently rate controlled. Was on xarelto in the past. 2. Hx of CVA 3. 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 Compensated 4. CAD with previous CABG x4 on 06/29/2009, TEJEDA to LAD and Diagonal as Y graft , SVG to OM/RCA. Stable no cardiac symptoms. 5. HTN: controlled 6. HLP: well controlled 7. Anemia with possible GI bleed: EGD and colonoscopy today. Hgb now at 9. 8. DM2 Recommendations 1. Continue with current cardiac regimen/secondary prevention measures including diuretic. 2. Pt wishes to follow up in our office as an outpt and will be seen in CHF clinic in 1-2 weeks. 3. Unknown last ischemic workup as records were reviewed and no records noted. Will consider for outpt stress test. 4. Continue with plavix. If warfarin could not be resumed for stroke prevention then may need at least 81 mg of ECASA. 5. Will reevaluate EF with an echo in 3 months and will note any need for AICD. Lifevest is a consideration. 6. FR 2L and daily wt. Tolerated bowel prep. GISELA HALLMAN APRN Jun 27, 2018 11:09
[2018-06-27] MEDS ORDERED: LIDOCAINE 1% PF 2 ML VIAL. ID PRN (13:00)
[2018-06-27] MEDS ORDERED: MIDAZOLAM HCL/PF 2 MG/2 ML VIAL. IV PRN (13:00)
[2018-06-27] MEDS ORDERED: fentaNYL PF VIAL 100 MCG/2 ML VIAL IV PRN ×2 (13:00)
[2018-06-27] MEDS ORDERED: PROPOFOL 20 ML IV ONE (13:08)
[2018-06-27] MEDS: IV RINGERS,LACTATED 1000ML 1,000 ML IV SCH ×2 (13:12→20:54)
[2018-06-27] MEDS ORDERED: LIDOCAINE 2% PF Vial for OR 5 ML VIAL. ONE (13:20)
--- NOTE | 2018-06-27 14:09 | PDOC4 ---
PROCEDURE Procedure EGD/biopsies, colonoscopy Indication: ICA, h/o polyps, h/o Ferrell's w/o surveillance. Meds: per anesthesia Findings: E--Multiple nodules, 30-35 cm, with area on posterior wall at ~31cm suggestive of malignancy. Multiple biopsies taken. G--Small HH D--Normal to second portion. HANNAH: normal --Colonoscope advanced to cecum; appy and ic valve id'd. Mucosa normal/fair prep. No polyps, tics, masses seen. Small IH's on retroflex. Pankaj. well. IMP: Esophageal malignancy suspect, biopsies pending. HH Internal hemorrhoids. REC: Await biopsies. Oncologic opinion re: therapy if malignant; not likely candidate for definitive resection. Thanks. PAO THOMAS MD Jun 27, 2018 14:09
[2018-06-27 15:38] VITALS: BP 158/53
[2018-06-27] MEDS: cefTRIAXone IV Push 1 GM VIAL. IVP SCH (17:23)
[2018-06-27] MEDS ORDERED: IRON SUCROSE COMPLEX 500 MG in IV NORMAL SALINE 250ML 250 ML IV ONE (17:30)
--- NOTE | 2018-06-27 18:12 | PN ---
DATE: 06/27/2018 She is in room 648. SUBJECTIVE: The patient is awake, alert, just finished bath and is getting dressed. She is ready for panendoscopy today per GI. She does state that she is feeling better daily and feels like her shortness of breath is actually quite a bit better than it has been. OBJECTIVE: VITAL SIGNS: Stable. She is afebrile. Sugars have been decent. Hemoglobin is up to 9 this morning. INR is down to 1.4. CHEST: Clear. HEART: Regular. ABDOMEN: Benign. IMPRESSION: 1. Shortness of breath, multifactorial with iron deficiency anemia, congestive heart failure and atrial fibrillation. 2. Cardiomyopathy. 3. Diabetes. 4. Coagulopathy, resolved. PLAN: We will await results of panendoscopy today and final suggestions by Cardiology as far as management of congestive heart failure and atrial fibrillation with a rapid ventricular response at times with likely discharge tomorrow. ARTHUR GUERRA MD DR: MAYA/vandana JOB#: [id number] / [id number]
[2018-06-27 19:00] VITALS: BP 146/46
[2018-06-27] MEDS ORDERED: LACTOBACILLUS RHAMNOSUS GG 1 CAPSULE. PO SCH (21:00)
[2018-06-27] MEDS: diphenhydrAMINE HCL 25 MG CAPSULE PO SCH (21:24)
[2018-06-27] MEDS: SIMVASTATIN 40 MG TABLET. PO SCH (21:24)
[2018-06-27 23:00] VITALS: BP 139/47
[2018-06-28 02:59] VITALS: BP 143/61
--- NOTE | 2018-06-28 03:28 | CONS ---
DATE OF CONSULTATION: 06/27/2018 REQUESTING PHYSICIAN: Dr. Braeden Zabala. REASON FOR CONSULTATION: Possible esophageal cancer. HISTORY OF PRESENT ILLNESS: The patient is an 82-year-old female who was seen by Dr. Diaz in 05/2018 with complaints of shortness of breath with exertion and chest discomfort. Workup at that point revealed that she was anemic with hemoglobin of 8.6. Her symptoms got worse and hence she was admitted to [facility] on 06/21/2018 when her hemoglobin was noted to be 8.0. Iron studies revealed decreased iron saturation of 7% with an iron level of 15 and TIBC 216 and ferritin of 141 on 06/21/2018. GI consultation was obtained and she underwent upper endoscopy on 06/27/2018 which revealed multiple nodules in the esophagus with an area on the posterior wall at 31 cm suggestive of malignancy and biopsies were obtained. I was asked to see the patient for further evaluation of possible malignancy and its management. The patient does report dysphagia to solid foods. She reports that she has not had any significant weight loss or loss of appetite. PAST MEDICAL HISTORY: TIA, coronary artery disease, history of prior stent placement and CABG. She has hyperlipidemia, hypertension, osteoarthritis, breast cancer, diabetes mellitus, anxiety, history of left lumpectomy and right mastectomy. FAMILY HISTORY: Negative for any esophageal cancer. SOCIAL HISTORY: No smoking or alcohol abuse. REVIEW OF SYSTEMS: A 12-point review of system was performed. Pertinent positives are mentioned in the history of present illness. Rest of the system review is negative. PHYSICAL EXAMINATION: GENERAL APPEARANCE: The patient is an 82-year-old female who is in no acute cardiorespiratory distress. VITAL SIGNS: Blood pressure 158/53, temperature 97.5. HEENT: Head atraumatic, normocephalic. Eyes, no icterus. NECK: Supple. CHEST: Bilaterally symmetrical. HEART: S1, S2 normal. ABDOMEN: Soft, nontender. CENTRAL NERVOUS SYSTEM: No focal deficits. LYMPHATICS: No lymphadenopathy. SKIN: No rashes. PSYCHOLOGIC: Mood and affect are appropriate. MUSCULOSKELETAL: No joint effusions. LABORATORY DATA: WBC 8.0, hemoglobin 8, and platelet count 369 on 06/21/2018 with a ferritin of 141, iron saturation 7%, iron level of 15, TIBC 216. Sodium 136, potassium 3.7, creatinine 1.0, calcium 7.7. Alkaline phosphatase 157, albumin 2.4. IMPRESSION AND PLAN: 1. Esophageal nodules clinically concerning for esophageal cancer noted on EGD done on 06/27/2018. Biopsies have been obtained and results are pending. I would proceed with staging workup with a CT chest, abdomen and pelvis and a bone scan. Considering her age and comorbidities, treatment options would be definitive radiation therapy versus combined chemoradiation. I will also consult Radiation Oncology for an opinion. I discussed in detail with the patient. She understands and agrees with the plan. 2. Anemia. Iron deficiency is noted with very decreased iron saturation, but the ferritin is normal. I will proceed with Venofer 500 mg IV x 1 dose. 3. Coronary artery disease. Her ejection fraction on echocardiogram done on 06/24/2018 was only 30-35%. Appreciate Cardiology management. MICHAEL VIDES MD DR: FLETCHER/vandana JOB#: [id number] / [id number]
[2018-06-28] MEDS ORDERED: CONTRAST GIVEN. MC PRN (06:15)
[2018-06-28] MEDS ORDERED: IOHEXOL 240 MG/ML 50ML VIAL. PO ONE (06:15)
[2018-06-28] MEDS ORDERED: IOHEXOL 300 MG/ML 100ML VIAL. IV ONE (06:15)
[2018-06-28 07:00] VITALS: BP 154/56
[2018-06-28 07:28] LABS: BASO # 0.1 x10^3/uL (0.0-0.2); BASO % 1 % (0-3); EOS # 0.1 x10^3/uL (0.0-0.7); EOS % 2 % (0-3); HEMATOCRIT 26.1 % (36.0-47.0); HEMOGLOBIN 8.6 g/dL (12.0-15.5); LYMPH # 1.4 x10^3/uL (1.0-4.8); LYMPH % 22 % (24-48); MEAN CORPUSCULAR HEMOGLOBIN 28 pg (25-35); MEAN CORPUSCULAR HGB CONC 33 g/dL (31-37); MEAN CORPUSCULAR VOLUME 84 fL (79-100); MONO # 0.6 x10^3/uL (0.0-1.1); MONO % 10 % (0-9); NEUT % 65 % (31-73); PLATELET COUNT 361 x10^3/uL (140-400); RED BLOOD COUNT 3.11 x10^6/uL (3.50-5.40); RED CELL DISTRIBUTION WIDTH 20.3 % (11.5-14.5); RETIC COUNT 3.3 % (0.5-2.5); WHITE BLOOD COUNT 6.1 x10^3/uL (4.0-11.0)
[2018-06-28 07:47] LABS: ALBUMIN 2.3 g/dL (3.4-5.0); ALBUMIN/GLOBULIN RATIO 0.5 (1.0-1.7); CALCIUM 8.7 mg/dL (8.5-10.1); CREATININE 0.8 mg/dL (0.6-1.0); GFR 68.7; POTASSIUM 3.8 mmol/L (3.5-5.1); TOTAL BILIRUBIN 0.4 mg/dL (0.2-1.0); TOTAL PROTEIN 6.9 g/dL (6.4-8.2)
[2018-06-28] MEDS: INSULIN GLARGINE 300 UNITS/3 ML INSULN.PEN. SQ SCH (08:00)
[2018-06-28] MEDS: BUMETANIDE 1 MG TABLET. PO SCH (08:57)
[2018-06-28] MEDS: ACETAMINOPHEN 500 MG TABLET PO SCH ×2 (08:57→20:55)
[2018-06-28] MEDS: OMEGA-3 FATTY ACIDS/FISH OIL 1,000 MG CAPSULE. PO SCH (08:58)
[2018-06-28] MEDS: ASPIRIN ENTERIC COATED 81 MG TABLET.DR. PO SCH (08:58)
[2018-06-28] MEDS: CITALOPRAM 10 MG TABLET. PO SCH (08:59)
[2018-06-28] MEDS: MULTIVITAMIN I-VITE TABLET. PO SCH ×2 (08:59→20:55)
[2018-06-28] MEDS: DOCUSATE SODIUM 100 MG CAPSULE. PO SCH (08:59)
[2018-06-28] MEDS: PANTOPRAZOLE 40 MG TABLET.DR. PO SCH (09:00)
[2018-06-28] MEDS ORDERED: NON FORMULARY ITEM (Alendronate Sodium 70 MG) PO SCH (09:00)
[2018-06-28] MEDS: ISOSORBIDE MONONITRATE ER 30 MG TAB.ER.24H PO SCH (09:00)
[2018-06-28] MEDS: LISINOPRIL 10 MG TABLET PO SCH (09:01)
[2018-06-28] MEDS: CARVEDILOL 3.125 MG TABLET. PO SCH ×2 (09:02→17:49)
--- NOTE | 2018-06-28 09:11 | PDOC ---
Objective: Objective: Reviewed w/ RN - out of room for imaging, apparently now admits to some dysphagia. Reviewed Dr. Madera's note. Vital Signs: Vital Signs Date Time Temp Pulse Resp B/P (MAP) Pulse Ox O2 Delivery O2 Flow Rate FiO2 06/28/18 07:00 97.5 79 24 154/56 (88) 96 Nasal Cannula 2.0 97.5 Labs: Laboratory Tests Test 06/27/18 17:16 06/27/18 20:38 06/28/18 06:05 06/28/18 07:42 Glucose (Fingerstick) 196 mg/dL 189 mg/dL 121 mg/dL White Blood Count 6.1 x10^3/uL Red Blood Count 3.11 x10^6/uL Hemoglobin 8.6 g/dL Hematocrit 26.1 % Mean Corpuscular Volume 84 fL Mean Corpuscular Hemoglobin 28 pg Mean Corpuscular Hemoglobin Concent 33 g/dL Red Cell Distribution Width 20.3 % Platelet Count 361 x10^3/uL Neutrophils (%) (Auto) 65 % Lymphocytes (%) (Auto) 22 % Monocytes (%) (Auto) 10 % Eosinophils (%) (Auto) 2 % Basophils (%) (Auto) 1 % Neutrophils # (Auto) 4.0 x10^3uL Lymphocytes # (Auto) 1.4 x10^3/uL Monocytes # (Auto) 0.6 x10^3/uL Eosinophils # (Auto) 0.1 x10^3/uL Basophils # (Auto) 0.1 x10^3/uL Reticulocyte Count (auto) 3.3 % Sodium Level 141 mmol/L Potassium Level 3.8 mmol/L Chloride Level 104 mmol/L Carbon Dioxide Level 28 mmol/L Anion Gap 9 Blood Urea Nitrogen 9 mg/dL Creatinine 0.8 mg/dL Estimated GFR (Cockcroft-Gault) 68.7 BUN/Creatinine Ratio 11 Glucose Level 114 mg/dL Calcium Level 8.7 mg/dL Total Bilirubin 0.4 mg/dL Aspartate Amino Transf (AST/SGOT) 17 U/L Alanine Aminotransferase (ALT/SGPT) 17 U/L Alkaline Phosphatase 125 U/L Total Protein 6.9 g/dL Albumin 2.3 g/dL Albumin/Globulin Ratio 0.5 Imaging: EGD 06/27/18 E--Multiple nodules, 30-35 cm, with area on posterior wall at ~31cm suggestive of malignancy. Multiple biopsies taken. G--Small HH D--Normal to second portion. --Colonoscope advanced to cecum; appy and ic valve id'd. Mucosa normal/fair prep. No polyps, tics, masses seen. Small IH's on retroflex. IMP: Esophageal malignancy suspect, biopsies pending. HH Internal hemorrhoids. 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 RUBEN BOYD Jun 28, 2018 09:11
[2018-06-28] MEDS: INSULIN LISPRO 300 UNITS/3 ML INSULN.PEN. SQ SCH ×3 (09:12→18:04)
--- NOTE | 2018-06-28 10:23 | RAD ---
Examination: CT chest abdomen pelvis with oral and IV contrast HISTORY: History of staging of esophageal cancer COMPARISON: None available TECHNIQUE: Axial CT images of the chest abdomen pelvis were performed with IV contrast. Oral contrast was used. Coronal and sagittally. Performed Exposure: One or more of the following individualized dose reduction techniques were utilized for this examination: 1. Automated exposure control 2. Adjustment of the mA and/or kV according to patient size 3. Use of iterative reconstruction technique FINDINGS: The visualized thyroid gland grossly appears unremarkable. The central airways are patent. Moderate cardiomegaly. Diffuse coronary artery calcifications. Small hiatal hernia is identified. There are multiple mediastinal lymph nodes identified with the largest measuring 1.8 cm in the pretracheal region. There is a small nodule identified in the right apical lung anteriorly measuring 5.5 mm, the smaller nodule identified in the right upper lobe of the lung anteriorly measuring 4 mm, 3 mm nodule identified in the right lateral upper lobe the lung, 5 mm nodule identified in the superior right lower lobe of the lung. Linear airspace opacity identified in the left lingula likely atelectasis or scarring. There is mild prominent appearing bilateral interstitial lung markings. There is heterogeneous appearance of the liver with decreased attenuation likely hepatic steatosis. The visualized spleen demonstrates a few calcified granulomas. Cholecystectomy clips identified. There is mild thickening of the distal esophagus with small hiatal hernia. Few paraesophageal lymph nodes identified to the right of the upper esophagus with the largest measuring 1.9 cm. The stomach is mildly distended. The small bowel is nondilated Feces and gas noted in the colon. The bilateral kidneys enhance symmetrically. Severe aortic atherosclerosis Moderate degenerative changes identified in the thoracic lumbar spine. There are surgical changes in the right breast. IMPRESSION: 1. Multiple mediastinal lymph nodes identified and few paraesophageal lymph nodes could be reactive or metastatic. Consider PET CT scan for further evaluation. 2. Scattered multiple lung nodules with the largest measuring 5.5 mm in the right apical lung. 3. Mild thickening of the distal esophagus. 4. Coronary artery calcifications. 5. Hepatic steatosis. 6. Mild lung congestive changes. Electronically signed by: Driss Gill MD (06/28/2018 10:20 AM) [id number]
[2018-06-28 10:50] VITALS: BP 149/52
[2018-06-28] MEDS: CHOLESTYRAMINE/ASPARTAME 4 GM PACKET PO SCH (12:27)
--- NOTE | 2018-06-28 13:33 | RAD ---
Radionuclide bone scan, 06/28/2018: HISTORY: Esophageal cancer, anemia Whole-body imaging was performed following IV injection of 26.9 mCi of technetium 99m MDP. No previous bone scan is available at this time for comparison purposes. The following findings are delineated: 1. Mildly increased activity at the right wrist, knees and shoulders is likely arthritic in nature. 2. Activity of the radionuclide about the skeleton and major joints is otherwise unremarkable. 3. Normal activity is present in both kidneys and the bladder. IMPRESSION: No bone scan findings to suggest osseous metastatic disease. Electronically signed by: Kobi Sofia MD (06/28/2018 1:29 PM) [facility]
--- NOTE | 2018-06-28 13:38 | PDOC ---
CARDIO Progress Notes Date and Time Date of Service 06/28/2018 Time of Evaluation 1300 Subjective Subjective: No Chest Pain, No shortness of breath, No Palpitations Vitals Vitals Vital Signs Date Time Temp Pulse Resp B/P (MAP) Pulse Ox O2 Delivery O2 Flow Rate FiO2 06/28/18 10:50 96.4 91 20 149/52 (84) 97 Nasal Cannula 2.0 96.4 Weight Weight [ ] Input and Output Intake and Output Intake and Output 06/28/18 07:00 Intake Total 1180 ml Output Total 1 ml Balance 1179 ml Intake Oral 880 ml IV Total 300 ml Urine/Stool Mix 1 ml # Voids 4 Laboratory Labs Laboratory Tests Test 06/27/18 17:16 06/27/18 20:38 06/28/18 06:05 06/28/18 07:42 Glucose (Fingerstick) 196 mg/dL (70-99) 189 mg/dL (70-99) 121 mg/dL (70-99) White Blood Count 6.1 x10^3/uL (4.0-11.0) Red Blood Count 3.11 x10^6/uL (3.50-5.40) Hemoglobin 8.6 g/dL (12.0-15.5) Hematocrit 26.1 % (36.0-47.0) Mean Corpuscular Volume 84 fL (79-100) Mean Corpuscular Hemoglobin 28 pg (25-35) Mean Corpuscular Hemoglobin Concent 33 g/dL (31-37) Red Cell Distribution Width 20.3 % (11.5-14.5) Platelet Count 361 x10^3/uL (140-400) Neutrophils (%) (Auto) 65 % (31-73) Lymphocytes (%) (Auto) 22 % (24-48) Monocytes (%) (Auto) 10 % (0-9) Eosinophils (%) (Auto) 2 % (0-3) Basophils (%) (Auto) 1 % (0-3) Neutrophils # (Auto) 4.0 x10^3uL (1.8-7.7) Lymphocytes # (Auto) 1.4 x10^3/uL (1.0-4.8) Monocytes # (Auto) 0.6 x10^3/uL (0.0-1.1) Eosinophils # (Auto) 0.1 x10^3/uL (0.0-0.7) Basophils # (Auto) 0.1 x10^3/uL (0.0-0.2) Reticulocyte Count (auto) 3.3 % (0.5-2.5) Sodium Level 141 mmol/L (136-145) Potassium Level 3.8 mmol/L (3.5-5.1) Chloride Level 104 mmol/L (98-107) Carbon Dioxide Level 28 mmol/L (21-32) Anion Gap 9 (6-14) Blood Urea Nitrogen 9 mg/dL (7-20) Creatinine 0.8 mg/dL (0.6-1.0) Estimated GFR (Cockcroft-Gault) 68.7 BUN/Creatinine Ratio 11 (6-20) Glucose Level 114 mg/dL (70-99) Calcium Level 8.7 mg/dL (8.5-10.1) Total Bilirubin 0.4 mg/dL (0.2-1.0) Aspartate Amino Transf (AST/SGOT) 17 U/L (15-37) Alanine Aminotransferase (ALT/SGPT) 17 U/L (14-59) Alkaline Phosphatase 125 U/L (46-116) Total Protein 6.9 g/dL (6.4-8.2) Albumin 2.3 g/dL (3.4-5.0) Albumin/Globulin Ratio 0.5 (1.0-1.7) Test 06/28/18 11:50 Glucose (Fingerstick) 130 mg/dL (70-99) Microbiology Micro Microbiology 06/24/18 Blood Culture - Preliminary, Resulted NO GROWTH AFTER 4 DAYS Physical Exam HEENT: Neck Supple W Full Motion Chest: Symmetric LUNGS: Clear to Auscultation Heart: irregularly irregular (AFIB rate controlled) Abdomen: Soft N/T Extremities: No Calf Tenderness Neurology: alert, oriented, follow commands Assessment Assessment 1. AFIB: persistent. remains rate controlled. 2. Hx of CVA 3. 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 Compensated 4. CAD with previous CABG x4 on 06/29/2009, TEJEDA to LAD and Diagonal as Y graft , SVG to OM/RCA. Stable no cardiac symptoms. 5. HTN: controlled 6. HLP: well controlled 7. Anemia with GI bleed: due to #8. Hgb mean at 7-8s currently 8. Esophageal nodules suggesting malignancy: Possible AVM as well per GI. Hemonc following. 9. DM2 Recommendations 1. Continue with current cardiac regimen/secondary prevention measures including diuretic. 2. Pt wishes to follow up in our office as an outpt and could be seen in CHF clinic in 1-2 weeks. 3. Discussed with GI and would prefer to be off plavix and anticoagulation. Continue with ASA for stroke prevention. 4. Awaiting biopsies and potential treatment plan for pt. Will equate CA treatment plan, life expectancy in regards to pursuing future cardiac intervention measures such as ischemic workup, AICD placement 5. FR 2L and daily wt. 6. Discussed with pharmacy and will change the time for jolene. GISELA HALLMAN APRN Jun 28, 2018 13:38
[2018-06-28 14:50] VITALS: BP_SYST 113; BP_SYST 125; BP_DIAS 41; BP_DIAS 43
--- NOTE | 2018-06-28 16:04 | PDOC ---
PROGRESS NOTES Subjective Subjective HPI -f/u of Esophageal nodules clinically concerning for esophageal cancer noted on EGD done on 06/27/2018. ROS - no CP Objective Objective Vital Signs Date Time Temp Pulse Resp B/P (MAP) Pulse Ox O2 Delivery O2 Flow Rate FiO2 06/28/18 14:50 95.7 83 20 125/41 (69) 91 Room Air 95.7 113/43 (66) 06/28/18 10:50 2.0 Intake and Output 06/28/18 07:00 Intake Total 1180 ml Output Total 1 ml Balance 1179 ml Intake Oral 880 ml IV Total 300 ml Urine/Stool Mix 1 ml # Voids 4 Physical Exam Heart: Normal S1, Normal S2 General: Alert, Oriented X3, No acute distress Lungs: Clear to auscultation Neuro: Normal speech Psych/Mental Status: Mental status NL Assessment Assessment IMPRESSION AND PLAN: 1. Esophageal nodules clinically concerning for esophageal cancer noted on EGD done on 06/27/2018. Biopsies have been obtained and results are pending. CT chest, abdomen and pelvis 06/28/18 Multiple mediastinal lymph nodes identified and few paraesophageal lymph nodes could be reactive or metastatic. Plan PET CT scan for further evaluation. Scattered multiple lung nodules with the largest measuring 5.5 mm in the right apical lung. Bone scan 06/28/18 is neg. Considering her age and comorbidities, treatment options would be definitive radiation therapy versus combined chemoradiation. I also d/w DR Alcala, Radiation Oncology and Dr Zabala. I discussed in detail with the patient. She understands and agrees with the plan. 2. Anemia. Iron deficiency is noted with very decreased iron saturation, but the ferritin is normal. s/p Venofer 500 mg IV x 1 dose 06/27/18. 3. Coronary artery disease. Her ejection fraction on echocardiogram done on 06/24/2018 was only 30-35%. Appreciate Cardiology management. Comment Review of Relevant I have reviewed the following items aviva (where applicable) has been applied. Labs Laboratory Tests Test 06/26/18 16:50 06/26/18 20:35 06/27/18 04:00 06/27/18 07:26 Glucose (Fingerstick) 87 mg/dL (70-99) 136 mg/dL (70-99) 112 mg/dL (70-99) White Blood Count 7.1 x10^3/uL (4.0-11.0) Red Blood Count 3.13 x10^6/uL (3.50-5.40) Hemoglobin 9.0 g/dL (12.0-15.5) Hematocrit 26.2 % (36.0-47.0) Mean Corpuscular Volume 84 fL (79-100) Mean Corpuscular Hemoglobin 29 pg (25-35) Mean Corpuscular Hemoglobin Concent 34 g/dL (31-37) Red Cell Distribution Width 20.1 % (11.5-14.5) Platelet Count 390 x10^3/uL (140-400) Neutrophils (%) (Auto) 67 % (31-73) Lymphocytes (%) (Auto) 22 % (24-48) Monocytes (%) (Auto) 8 % (0-9) Eosinophils (%) (Auto) 2 % (0-3) Basophils (%) (Auto) 1 % (0-3) Neutrophils # (Auto) 4.7 x10^3uL (1.8-7.7) Lymphocytes # (Auto) 1.6 x10^3/uL (1.0-4.8) Monocytes # (Auto) 0.6 x10^3/uL (0.0-1.1) Eosinophils # (Auto) 0.1 x10^3/uL (0.0-0.7) Basophils # (Auto) 0.1 x10^3/uL (0.0-0.2) Platelet Estimate Adequate (ADEQUATE) Anisocytosis Slight Prothrombin Time 16.9 SEC (11.7-14.0) Prothromb Time International Ratio 1.4 (0.8-1.1) Test 06/27/18 17:16 06/27/18 20:38 06/28/18 06:05 06/28/18 07:42 Glucose (Fingerstick) 196 mg/dL (70-99) 189 mg/dL (70-99) 121 mg/dL (70-99) White Blood Count 6.1 x10^3/uL (4.0-11.0) Red Blood Count 3.11 x10^6/uL (3.50-5.40) Hemoglobin 8.6 g/dL (12.0-15.5) Hematocrit 26.1 % (36.0-47.0) Mean Corpuscular Volume 84 fL (79-100) Mean Corpuscular Hemoglobin 28 pg (25-35) Mean Corpuscular Hemoglobin Concent 33 g/dL (31-37) Red Cell Distribution Width 20.3 % (11.5-14.5) Platelet Count 361 x10^3/uL (140-400) Neutrophils (%) (Auto) 65 % (31-73) Lymphocytes (%) (Auto) 22 % (24-48) Monocytes (%) (Auto) 10 % (0-9) Eosinophils (%) (Auto) 2 % (0-3) Basophils (%) (Auto) 1 % (0-3) Neutrophils # (Auto) 4.0 x10^3uL (1.8-7.7) Lymphocytes # (Auto) 1.4 x10^3/uL (1.0-4.8) Monocytes # (Auto) 0.6 x10^3/uL (0.0-1.1) Eosinophils # (Auto) 0.1 x10^3/uL (0.0-0.7) Basophils # (Auto) 0.1 x10^3/uL (0.0-0.2) Reticulocyte Count (auto) 3.3 % (0.5-2.5) Sodium Level 141 mmol/L (136-145) Potassium Level 3.8 mmol/L (3.5-5.1) Chloride Level 104 mmol/L (98-107) Carbon Dioxide Level 28 mmol/L (21-32) Anion Gap 9 (6-14) Blood Urea Nitrogen 9 mg/dL (7-20) Creatinine 0.8 mg/dL (0.6-1.0) Estimated GFR (Cockcroft-Gault) 68.7 BUN/Creatinine Ratio 11 (6-20) Glucose Level 114 mg/dL (70-99) Calcium Level 8.7 mg/dL (8.5-10.1) Total Bilirubin 0.4 mg/dL (0.2-1.0) Aspartate Amino Transf (AST/SGOT) 17 U/L (15-37) Alanine Aminotransferase (ALT/SGPT) 17 U/L (14-59) Alkaline Phosphatase 125 U/L (46-116) Total Protein 6.9 g/dL (6.4-8.2) Albumin 2.3 g/dL (3.4-5.0) Albumin/Globulin Ratio 0.5 (1.0-1.7) Test 06/28/18 11:50 Glucose (Fingerstick) 130 mg/dL (70-99) Laboratory Tests Test 06/27/18 17:16 06/27/18 20:38 06/28/18 06:05 06/28/18 07:42 Glucose (Fingerstick) 196 mg/dL (70-99) 189 mg/dL (70-99) 121 mg/dL (70-99) White Blood Count 6.1 x10^3/uL (4.0-11.0) Red Blood Count 3.11 x10^6/uL (3.50-5.40) Hemoglobin 8.6 g/dL (12.0-15.5) Hematocrit 26.1 % (36.0-47.0) Mean Corpuscular Volume 84 fL (79-100) Mean Corpuscular Hemoglobin 28 pg (25-35) Mean Corpuscular Hemoglobin Concent 33 g/dL (31-37) Red Cell Distribution Width 20.3 % (11.5-14.5) Platelet Count 361 x10^3/uL (140-400) Neutrophils (%) (Auto) 65 % (31-73) Lymphocytes (%) (Auto) 22 % (24-48) Monocytes (%) (Auto) 10 % (0-9) Eosinophils (%) (Auto) 2 % (0-3) Basophils (%) (Auto) 1 % (0-3) Neutrophils # (Auto) 4.0 x10^3uL (1.8-7.7) Lymphocytes # (Auto) 1.4 x10^3/uL (1.0-4.8) Monocytes # (Auto) 0.6 x10^3/uL (0.0-1.1) Eosinophils # (Auto) 0.1 x10^3/uL (0.0-0.7) Basophils # (Auto) 0.1 x10^3/uL (0.0-0.2) Reticulocyte Count (auto) 3.3 % (0.5-2.5) Sodium Level 141 mmol/L (136-145) Potassium Level 3.8 mmol/L (3.5-5.1) Chloride Level 104 mmol/L (98-107) Carbon Dioxide Level 28 mmol/L (21-32) Anion Gap 9 (6-14) Blood Urea Nitrogen 9 mg/dL (7-20) Creatinine 0.8 mg/dL (0.6-1.0) Estimated GFR (Cockcroft-Gault) 68.7 BUN/Creatinine Ratio 11 (6-20) Glucose Level 114 mg/dL (70-99) Calcium Level 8.7 mg/dL (8.5-10.1) Total Bilirubin 0.4 mg/dL (0.2-1.0) Aspartate Amino Transf (AST/SGOT) 17 U/L (15-37) Alanine Aminotransferase (ALT/SGPT) 17 U/L (14-59) Alkaline Phosphatase 125 U/L (46-116) Total Protein 6.9 g/dL (6.4-8.2) Albumin 2.3 g/dL (3.4-5.0) Albumin/Globulin Ratio 0.5 (1.0-1.7) Test 06/28/18 11:50 Glucose (Fingerstick) 130 mg/dL (70-99) Microbiology 06/24/18 Blood Culture - Preliminary, Resulted NO GROWTH AFTER 4 DAYS Medications Current Medications Sodium Chloride 1,000 ml @ 125 mls/hr 1X ONCE IV Last administered on 19:50; Start 06/21/18 at 15:45; Stop 06/21/18 at 23:44; Status DC Ceftriaxone Sodium 1 gm/ Dextrose 50 ml @ 100 mls/hr Q24H IV ; Start 06/21/18 at 15:45; Status UNV Ceftriaxone Sodium (Rocephin) 1 gm Q24H IVP Last administered on 06/27/18at 17:23 ; Start 06/21/18 at 17:00 Acetaminophen (Tylenol) 1,000 mg BID PO Last administered on 06/28/18at 08:57; Start 06/21/18 at 21:00 Alprazolam (Xanax) 0.25 mg PRN Q6HRS PRN PO ANXIETY / AGITATION Last administered on 06/25/18at 23:28; Start 06/21/18 at 18:45 Carvedilol (Coreg) 3.125 mg BIDWMEALS PO Last administered on 06/28/18at 09:02; Start 06/21/18 at 21:00 Cholestyramine Resin (Questran Light) 4 gm DAILY PO Last administered on 08:57; Start 06/22/18 at 09:00; Stop 06/28/18 at 07:46; Status DC Citalopram Hydrobromide (CeleXA) 10 mg DAILY PO Last administered on 06/28/18 08:59; Start 06/22/18 at 09:00 Clopidogrel Bisulfate (Plavix) 75 mg DAILY PO Last administered on 06/26/18 08: 57; Start 06/22/18 at 09:00; Stop 06/27/18 at 15:20; Status DC Diphenhydramine HCl (Benadryl) 50 mg QHS PO Last administered on 06/27/18 21:24 ; Start 06/21/18 at 21:00 Docusate Sodium (Colace) 100 mg DAILY PO Last administered on 06/28/18 08:59; Start 06/22/18 at 09:00 Insulin Glargine (Lantus) 20 units DAILYWBKFT SQ Last administered on 08:00; Start 06/22/18 at 08:00 Isosorbide Mononitrate (Imdur) 30 mg DAILY PO Last administered on 06/28/18 09 :00; Start 06/22/18 at 09:00 Lisinopril (Prinivil) 10 mg DAILY PO Last administered on 06/28/18 09:01; Start 06/22/18 at 09:00 Multivitamins/ Minerals (I-Myah) 1 tab BID PO Last administered on 06/28/18 08 :59; Start 06/21/18 at 21:00 Non-Formulary Medication (Alendronate Sodium ) 70 mg WEEKLY PO ; Start 06/28/18 at 09:00; Status UNV Bumetanide (Bumex) 2 mg DAILY PO Last administered on 06/28/18 08:57; Start at 09:00 Insulin Human Lispro (HumaLOG) 5 units TIDWMEALS SQ Last administered on 12:31; Start 06/22/18 at 08:00 Methotrexate (Rheumatrex) 15 mg WEEKLY PO Last administered on 06/27/18at 09:00; Start 06/27/18 at 09:00 Fish Oil (Fish Oil) 1,000 mg DAILY PO Last administered on 06/28/18at 08:58; Start 06/22/18 at 09:00 Pantoprazole Sodium (Protonix) 40 mg DAILYAC PO Last administered on 06/28/18at 09:00; Start 06/22/18 at 07:30 Simvastatin (Zocor) 40 mg QHS PO Last administered on 06/27/18at 21:24; Start 06/21/18 at 21:00 Warfarin Sodium (Coumadin) 7.5 mg DAILY16 PO ; Start 06/22/18 at 16:00; Stop 06/23 at 11:25; Status DC Warfarin Sodium (Coumadin Per Physician) 1 each PRN DAILY PRN MC SEE COMMENTS; Start 06/21/18 at 20:00; Stop 06/27/18 at 15:20; Status DC Furosemide (Lasix) 40 mg 1X ONCE IVP Last administered on 06/23/18at 12:05; Start 06/23/18 at 12:00; Stop 06/23/18 at 12:01; Status DC Magnesium Sulfate/ Dextrose 100 ml @ 25 mls/hr 1X ONCE IV Last administered on 06/24/18at 12:16; Start 06/24/18 at 13:00; Stop 06/24/18 at 16:59; Status DC Potassium Chloride (Klor-Con) 40 meq 1X ONCE PO Last administered on 06/24/18at 12:15; Start 06/24/18 at 12:30; Stop 06/24/18 at 12:31; Status DC Polyethylene Glycol (miraLAX Powder BULK BOTTLE) 238 gm 1X ONCE PO Last administered on 06/26/18at 13:55; Start 06/26/18 at 13:00; Stop 06/26/18 at 13:01; Status DC Magnesium Citrate (Citroma) 296 ml 1X ONCE PO Last administered on 06/26/18at 12 :58; Start 06/26/18 at 12:00; Stop 06/26/18 at 12:01; Status DC Bisacodyl (Dulcolax Tab) 10 mg 1X ONCE PO Last administered on 06/26/18at 12:58 ; Start 06/26/18 at 12:30; Stop 06/26/18 at 12:31; Status DC Bisacodyl (Dulcolax Tab) 10 mg 1X ONCE PO Last administered on 06/26/18at 13:55 ; Start 06/26/18 at 14:00; Stop 06/26/18 at 14:01; Status DC Ringer's Solution 1,000 ml @ 50 mls/hr Q20H IV ; Start 06/27/18 at 07:00; Stop 06/27/18 at 18:59; Status DC Diphenhydramine HCl (Benadryl) 25 mg 1X ONCE IVP Last administered on at 09:30; Start 06/27/18 at 09:30; Stop 06/27/18 at 09:31; Status DC Lactobacillus Rhamnosus (Culturelle) 1 cap BID PO ; Start 06/27/18 at 21:00; Status Cancel Midazolam HCl (Versed) 2 mg PRN 1X PRN IV PRIOR TO PROCEDURE; Start 06/27/18 at 13:00; Stop 06/28/18 at 12:59; Status DC Fentanyl Citrate (Fentanyl 2ml Vial) 25 mcg PRN Q5MIN PRN IV X 2 DOSES FOR PAIN ; Start 06/27/18 at 13:00; Stop 06/28/18 at 12:59; Status DC Fentanyl Citrate (Fentanyl 2ml Vial) 50 mcg PRN Q5MIN PRN IV X 2 DOSES FOR PAIN ; Start 06/27/18 at 13:00; Stop 06/28/18 at 12:59; Status DC Ringer's Solution 1,000 ml @ 125 mls/hr Q8H IV Last administered on 06/27/18at 13:12; Start 06/27/18 at 12:54; Stop 06/27/18 at 22:35; Status DC Lidocaine HCl (Xylocaine-Mpf 1% Vial) 2 ml 1X PRN PRN ID IV START; Start at 13:00; Stop 06/28/18 at 12:59; Status DC Aspirin (Ecotrin) 81 mg DAILYWBKFT PO Last administered on 06/28/18at 08:58; Start 06/28/18 at 08:00 Iron Sucrose 500 mg/Sodium Chloride 275 ml @ 78.571 mls/ hr 1X ONCE IV Last administered on 06/27/18at 17:30; Start 06/27/18 at 17:30; Stop 06/27/18 at 20:59; Status DC Iohexol (Omnipaque 300 Mg/ml) 75 ml 1X ONCE IV Last administered on 06/28/18at 06:15; Start 06/28/18 at 06:15; Stop 06/28/18 at 06:16; Status DC Iohexol (Omnipaque 240 Mg/ml) 50 ml 1X ONCE PO Last administered on 06/28/18at 06:15; Start 06/28/18 at 06:15; Stop 06/28/18 at 06:16; Status DC Info (CONTRAST GIVEN -- Rx MONITORING) 1 each PRN DAILY PRN MC SEE COMMENTS; Start 06/28/18 at 06:15; Stop 06/30/18 at 06:14 Cholestyramine Resin (Questran Light) 4 gm DAILY PO ; Start 06/28/18 at 13:00 Active Scripts Active Reported Carvedilol 3.125 Mg Tablet 3.125 Mg PO BID Methotrexate (Methotrexate Sodium) 2.5 Mg Tablet 6 Tab PO WEEKLY Benadryl (Diphenhydramine Hcl) 25 Mg Capsule 2 Cap PO QHS Bumetanide 2 Mg Tablet 2 Mg PO DAILY Ocuvite Tablet (Vit A,C & E/Lutein/Minerals) 1 Each Tablet 1 Each PO BID Prevalite Packet (Cholestyramine/Aspartame) 4 Gm Powd.pack 4 Gm PO Citalopram Hbr (Citalopram Hydrobromide) 10 Mg Tablet 10 Mg PO DAILY Clopidogrel (Clopidogrel Bisulfate) 75 Mg Tablet 75 Mg PO DAILY Alprazolam 0.25 Mg Tablet 0.25 Mg PO PRN Q6HRS PRN Isosorbide Mononitrate Er (Isosorbide Mononitrate) 30 Mg Tab.er.24h 30 Mg PO DAILY Prilosec Otc (Omeprazole Magnesium) 20 Mg Tablet.dr 20 Mg PO DAILY Novolog Flexpen (Insulin Aspart) 100 Unit/1 Ml Insuln.pen 5 Unit SQ TIDBFRMEAL Lantus Solostar (Insulin Glargine,Hum.rec.anlog) 100 Unit/1 Ml Insuln.pen 20 Unit SQ DAILYWBKFT Acetaminophen 500 Mg Tablet 2 Tab PO BID Vitamin D-3 (Cholecalciferol (Vitamin D3)) 2,000 Unit Capsule 1,000 Unit PO Alendronate Sodium 70 Mg Tablet 70 Mg PO WEEKLY Warfarin Sodium 5 Mg Tablet 1.5 Tab PO DAILY Lisinopril 10 Mg Tablet 10 Mg PO DAILY Simvastatin 40 Mg Tablet 40 Mg PO DAILY Colace (Docusate Sodium) 100 Mg Capsule 100 Mg PO Garlic 1,000 Mg Capsule 1,000 Mg PO Multivitamins (Multivitamin) 1 Each Capsule 1 Each PO [place] 3 Fish Oil Softgel ([place]-3 Fatty Acids/Fish Oil) 1 Each Capsule. 1 Each PO DAILY Vitals/I & O Vital Sign - Last 24 Hours 06/27/18 06/27/18 06/27/18 06/27/18 17:22 19:00 20:00 23:00 Temp 98.0 97.9 98.0 97.9 Pulse 85 88 76 Resp 20 20 B/P (MAP) 158/53 146/46 (79) 139/47 (77) Pulse Ox 97 93 O2 Delivery Nasal Cannula Room Air Room Air O2 Flow Rate 2.0 2.0 06/28/18 06/28/18 06/28/18 06/28/18 02:59 07:00 08:00 09:00 Temp 97.4 97.5 97.4 97.5 Pulse 88 79 79 Resp 18 24 B/P (MAP) 143/61 (88) 154/56 (88) 154/56 Pulse Ox 97 96 O2 Delivery Nasal Cannula Nasal Cannula Room Air O2 Flow Rate 2.0 2.0 06/28/18 06/28/18 06/28/18 06/28/18 09:01 09:02 10:50 14:50 Temp 96.4 95.7 96.4 95.7 Pulse 79 79 91 83 Resp 20 20 B/P (MAP) 154/56 154/56 149/52 (84) 125/41 (69) 113/43 (66) Pulse Ox 97 91 O2 Delivery Nasal Cannula Room Air O2 Flow Rate 2.0 Intake and Output 06/27/18 06/27/18 06/28/18 15:00 23:00 07:00 Intake Total 300 ml 630 ml 250 ml Output Total 1 ml Balance 300 ml 629 ml 250 ml MICHALE VIDES MD Jun 28, 2018 16:04
--- NOTE | 2018-06-28 16:04 | PN ---
DATE: 06/28/2018 ROOM: 648. SUBJECTIVE: The patient is awake and alert, understands the findings on EGD, yesterday was suspicious for an esophageal malignancy and is at peace with it and feels like whatever needs to be done can be done. OBJECTIVE: VITAL SIGNS: Stable. She is afebrile. Hemoglobin is 8.6. Sugars are good. EGD shows a questionable esophageal malignancy with biopsies pending, also showed hiatal hernia. She had internal hemorrhoids on colonoscopy. CHEST: Clear. HEART: Irregular. ABDOMEN: Benign. She is scheduled for CT scanning today for staging of the esophageal process. IMPRESSION: 1. Shortness of breath with iron deficiency anemia, congestive heart failure, atrial fibrillation. 2. Cardiomyopathy. 3. Diabetes. 4. Coagulopathy, resolved with holding Coumadin. 5. Possible esophageal cancer. PLAN: Await CT scanning and opinions of consultants. ARTHUR GUERRA MD DR: MAYA/vandana JOB#: [id number] / [id number]
[2018-06-28] MEDS: cefTRIAXone IV Push 1 GM VIAL. IVP SCH (17:50)
[2018-06-28 19:54] VITALS: BP 118/45
[2018-06-28] MEDS: diphenhydrAMINE HCL 25 MG CAPSULE PO SCH (20:55)
[2018-06-28] MEDS: SIMVASTATIN 40 MG TABLET. PO SCH (20:55)
[2018-06-28 23:50] VITALS: BP 131/51
[2018-06-29 03:30] VITALS: BP 128/46
--- NOTE | 2018-06-29 06:16 | CONS ---
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 She underwent endoscopy and biopsy of a posterior wall lesion at 31 cm suggested for malignancy on 06/27/2018. Result of her biopsy is in progress. We were asked to see her regarding the role of radiation treatment in her care. ICD 10 15.5 The patient is an 82-year-old woman who was admitted here from Dr. Arthur Diaz's office with complaints of shortness of breath, fatigue and absent of energy over a 2-week period. She felt like she was going to pass out. She was found to be anemic with a hemoglobin 8.6. She appeared ill in his office and was admitted for further evaluation. She underwent upper and lower endoscopy by Dr. Braeden Thomas on 06/27/2018. She had multiple nodules at 30-35 cm from the incisors. An area on the posterior wall at 31 cm from the incisors was suggested for malignancy. Multiple biopsies were taken. This was noted to be just below the squamocolumnar junction. Colonoscopy revealed normal mucosa with no polyps, masses. She underwent baseline CT scan of the chest, abdomen and pelvis on 06/28/2018. This revealed multiple mediastinal lymph nodes and paraesophageal lymph nodes reactive or metastatic. Scattered multiple lung nodules measuring up to 5.5 mm in size in the right apical region, mild thickening of the distal esophagus. She notes some difficulty in swallowing solid foods requiring her to drink with swallowing. She has had variable weight. in 12/2017 and now she is recovering with improved appetite. 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 ALLERGIES: MILK AND MONTELUKAST. MEDICATIONS: Furosemide See hospital chart for current medication list. SOCIAL HISTORY: in 12/2017. 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 No living children, 3 in childbirth. She enjoys crafts. She lives alone. She is accompanied by her niece, Candida Little, . She has no other close family here. She has a distant history of smoking and quit in 1986. Social drinker. She does not drive a car. Her niece provides transportation. PHYSICAL EXAMINATION: GENERAL: Revealed a pleasant, alert, cooperative woman in no acute distress. HEENT: Unremarkable. LYMPH NODES: She had no palpable cervical, supraclavicular or axillary adenopathy. LUNGS: Clear. HEART: Regular. ABDOMEN: Unremarkable. EXTREMITIES: She had minimal pedal edema. No clubbing or cyanosis. NEUROLOGIC: Revealed no deficits. LABORATORY STUDIES: CBC from 06/28/2018: Hemoglobin 8.6, white count 6100, platelet count 361,000. Chemistry panel from that day was unremarkable, glucose 114, creatinine 0.8, AST 17, ALT 17, alkaline phosphatase 125, albumin 2.3. 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 She has mediastinal and paraesophageal lymph nodes of uncertain significance. At this time, we await her biopsy outcome. In the event the biopsy does confirm malignancy, we would then complete her staging with outpatient PET CT scan imaging to further assess her extent of her local disease and to assess the significance of her adenopathy seen on initial staging CT scan. Her pulmonary nodules are below the threshold of PET/CT imaging and will likely remain indeterminant in etiology and will need to be followed. In the event she has regionally confined disease, she would then be considered for radiation and chemotherapy as primary treatment. Her age and comorbidities make her a poor candidate for trimodality treatment with chemoradiation followed by surgical resection. I discussed this in detail with the patient, regarding the need for biopsy confirmation and PET CT scan imaging in the event the biopsy does confirm malignancy. Thank you again for allowing us to participate in her evaluation. EULALIA UPTON MD DR: AZAR/vandana JOB#: [id number] / [id number] ARTHUR Blake MD, DORI THOMAS, BRAEDEN HARDY
[2018-06-29 07:36] VITALS: BP 141/49
--- NOTE | 2018-06-29 08:12 | PDOC ---
SUBJECTIVE Subjective Tianna is in good spirits. We discussed how to make a quick pie - whipped cream , condensed milk and koolaid mixed into a janiya cracker crust. Black raspberry is her favorite. No concerns today. Awaiting results. OBJECTIVE Objective Reviewed. Vital Signs Vital Signs Date Time Temp Pulse Resp B/P (MAP) Pulse Ox O2 Delivery O2 Flow Rate FiO2 06/29/18 07:36 97.7 79 18 141/49 (79) 98 Nasal Cannula 97.7 06/29/18 03:30 98.0 70 18 128/46 (73) 94 Room Air 98.0 06/28/18 23:50 97.8 85 18 131/51 (77) 93 Room Air 97.8 06/28/18 20:00 Room Air 2.0 06/28/18 19:54 97.5 80 20 118/45 (69) 94 Room Air 97.5 06/28/18 17:49 83 113/43 06/28/18 14:50 95.7 83 20 125/41 (69) 91 Room Air 95.7 113/43 (66) 06/28/18 10:50 96.4 91 20 149/52 (84) 97 Nasal Cannula 2.0 96.4 06/28/18 09:02 79 154/56 06/28/18 09:01 79 154/56 06/28/18 09:00 79 154/56 I & O Intake and Output 06/29/18 07:00 Intake Total 1350 ml Balance 1350 ml Intake Oral 1350 ml # Voids 7 PHYSICAL EXAM Physical Exam Alert, oriented, smiling RRR CTAB No edema in b/l LEs ASSESSMENT/PLAN Assessment/Plan 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 Diabetes - blood sugars well controlled Coagulopathy, resolved with holding Coumadin. Await biopsy results and further work up as indicated COMMENT Lab Laboratory Tests Test 06/28/18 11:50 06/28/18 17:03 06/28/18 20:16 06/29/18 07:02 Glucose (Fingerstick) 130 mg/dL (70-99) 88 mg/dL (70-99) 105 mg/dL (70-99) 91 mg/dL (70-99) JAYLA JOHNSON MD Jun 29, 2018 08:12
[2018-06-29] MEDS: PANTOPRAZOLE 40 MG TABLET.DR. PO SCH (08:34)
[2018-06-29] MEDS: OMEGA-3 FATTY ACIDS/FISH OIL 1,000 MG CAPSULE. PO SCH (08:34)
[2018-06-29] MEDS: ACETAMINOPHEN 500 MG TABLET PO SCH ×2 (08:35→20:47)
[2018-06-29] MEDS: DOCUSATE SODIUM 100 MG CAPSULE. PO SCH (08:36)
[2018-06-29] MEDS: ASPIRIN ENTERIC COATED 81 MG TABLET.DR. PO SCH (08:36)
[2018-06-29] MEDS: LISINOPRIL 10 MG TABLET PO SCH (08:36)
[2018-06-29] MEDS: BUMETANIDE 1 MG TABLET. PO SCH (08:37)
[2018-06-29] MEDS: CARVEDILOL 3.125 MG TABLET. PO SCH ×2 (08:37→17:26)
[2018-06-29] MEDS: ISOSORBIDE MONONITRATE ER 30 MG TAB.ER.24H PO SCH (08:38)
[2018-06-29] MEDS: CITALOPRAM 10 MG TABLET. PO SCH (08:38)
[2018-06-29] MEDS: CHOLESTYRAMINE/ASPARTAME 4 GM PACKET PO SCH (08:39)
[2018-06-29] MEDS: INSULIN LISPRO 300 UNITS/3 ML INSULN.PEN. SQ SCH ×3 (08:54→17:35)
[2018-06-29] MEDS: INSULIN GLARGINE 300 UNITS/3 ML INSULN.PEN. SQ SCH (08:55)
[2018-06-29 10:57] VITALS: BP 103/41
[2018-06-29] MEDS: MULTIVITAMIN I-VITE TABLET. PO SCH ×2 (12:01→20:48)
[2018-06-29 15:10] VITALS: BP 127/45
[2018-06-29] MEDS: cefTRIAXone IV Push 1 GM VIAL. IVP SCH (17:26)
[2018-06-29 19:52] VITALS: BP 119/38
[2018-06-29] MEDS: diphenhydrAMINE HCL 25 MG CAPSULE PO SCH (20:48)
[2018-06-29] MEDS: SIMVASTATIN 40 MG TABLET. PO SCH (20:48)
[2018-06-29] MEDS: ALPRAZolam 0.25 MG TABLET PO PRN (20:50)
[2018-06-29 23:51] VITALS: BP 154/57
[2018-06-30 03:10] VITALS: BP 135/41
[2018-06-30 05:42] LABS: BASO # 0.1 x10^3/uL (0.0-0.2); BASO % 1 % (0-3); EOS # 0.1 x10^3/uL (0.0-0.7); EOS % 2 % (0-3); HEMATOCRIT 25.3 % (36.0-47.0); HEMOGLOBIN 8.2 g/dL (12.0-15.5); LYMPH # 1.4 x10^3/uL (1.0-4.8); LYMPH % 20 % (24-48); MEAN CORPUSCULAR HEMOGLOBIN 27 pg (25-35); MEAN CORPUSCULAR HGB CONC 32 g/dL (31-37); MEAN CORPUSCULAR VOLUME 84 fL (79-100); MONO # 0.5 x10^3/uL (0.0-1.1); MONO % 7 % (0-9); NEUT # 5.2 x10^3uL (1.8-7.7); NEUT % 71 % (31-73); PLATELET COUNT 364 x10^3/uL (140-400); RED CELL DISTRIBUTION WIDTH 20.7 % (11.5-14.5); WHITE BLOOD COUNT 7.3 x10^3/uL (4.0-11.0)
[2018-06-30 06:09] LABS: ALBUMIN 2.3 g/dL (3.4-5.0); ALBUMIN/GLOBULIN RATIO 0.5 (1.0-1.7); CALCIUM 8.5 mg/dL (8.5-10.1); CREATININE 0.8 mg/dL (0.6-1.0); GFR 68.7; POTASSIUM 3.7 mmol/L (3.5-5.1); TOTAL BILIRUBIN 0.5 mg/dL (0.2-1.0); TOTAL PROTEIN 6.7 g/dL (6.4-8.2)
[2018-06-30 07:00] VITALS: BP 138/51
[2018-06-30] MEDS: BUMETANIDE 1 MG TABLET. PO SCH (08:14)
[2018-06-30] MEDS: MULTIVITAMIN I-VITE TABLET. PO SCH ×2 (08:15→21:04)
[2018-06-30] MEDS: OMEGA-3 FATTY ACIDS/FISH OIL 1,000 MG CAPSULE. PO SCH (08:15)
[2018-06-30] MEDS: ISOSORBIDE MONONITRATE ER 30 MG TAB.ER.24H PO SCH (08:15)
[2018-06-30] MEDS: LISINOPRIL 10 MG TABLET PO SCH (08:16)
[2018-06-30] MEDS: ASPIRIN ENTERIC COATED 81 MG TABLET.DR. PO SCH (08:16)
[2018-06-30] MEDS: CARVEDILOL 3.125 MG TABLET. PO SCH ×2 (08:16→17:30)
[2018-06-30] MEDS: CITALOPRAM 10 MG TABLET. PO SCH (08:16)
[2018-06-30] MEDS: ACETAMINOPHEN 500 MG TABLET PO SCH ×2 (08:17→21:00)
[2018-06-30] MEDS: DOCUSATE SODIUM 100 MG CAPSULE. PO SCH (08:18)
[2018-06-30] MEDS: CHOLESTYRAMINE/ASPARTAME 4 GM PACKET PO SCH (08:18)
[2018-06-30] MEDS: PANTOPRAZOLE 40 MG TABLET.DR. PO SCH (08:19)
--- NOTE | 2018-06-30 08:56 | PDOC ---
SUBJECTIVE Subjective [place] somewhat weak this morning getting up to the bathroom. Hypoglycemia down to 60 last night. OBJECTIVE Objective Reviewed. Vital Signs Vital Signs Date Time Temp Pulse Resp B/P (MAP) Pulse Ox O2 Delivery O2 Flow Rate FiO2 06/30/18 08:16 78 138/51 18 08:16 78 138/51 06/30/18 08:15 78 138/51 06/30/18 07:00 98.0 78 16 138/51 (80) 91 Room Air 98.0 06/30/18 03:10 98.2 85 18 135/41 (72) 95 Room Air 98.2 06/29/18 23:51 98.1 86 20 154/57 (89) 98 Room Air 98.1 06/29/18 20:00 Room Air 06/29/18 19:52 98.0 80 18 119/38 (65) 95 Room Air 98.0 06/29/18 17:26 58 127/45 06/29/18 15:10 97.9 58 17 127/45 (72) 97 Room Air 97.9 06/29/18 10:57 97.7 70 18 103/41 (61) 94 Room Air 97.7 I & O Intake and Output 06/30/18 07:00 Intake Total 1510 ml Balance 1510 ml Intake Oral 1510 ml # Voids 6 # Bowel Movements 1 PHYSICAL EXAM Physical Exam Alert, oriented, smiling RRR CTAB No edema in b/l LEs ASSESSMENT/PLAN Assessment/Plan 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 Diabetes Coagulopathy, resolved with holding Coumadin. Await biopsy results and further work up as indicated Given hypoglycemia, decreased Lantus from 20U to 17U and Novolog from 5U to 4U. Monitor. COMMENT Lab Laboratory Tests Test 06/29/18 11:20 06/29/18 17:25 06/29/18 20:26 06/29/18 21:14 Glucose (Fingerstick) 146 mg/dL (70-99) 72 mg/dL (70-99) 60 mg/dL (70-99) 82 mg/dL (70-99) Test 06/30/18 02:10 06/30/18 04:30 06/30/18 07:01 Glucose (Fingerstick) 125 mg/dL (70-99) 97 mg/dL (70-99) White Blood Count 7.3 x10^3/uL (4.0-11.0) Red Blood Count 3.00 x10^6/uL (3.50-5.40) Hemoglobin 8.2 g/dL (12.0-15.5) Hematocrit 25.3 % (36.0-47.0) Mean Corpuscular Volume 84 fL (79-100) Mean Corpuscular Hemoglobin 27 pg (25-35) Mean Corpuscular Hemoglobin Concent 32 g/dL (31-37) Red Cell Distribution Width 20.7 % (11.5-14.5) Platelet Count 364 x10^3/uL (140-400) Neutrophils (%) (Auto) 71 % (31-73) Lymphocytes (%) (Auto) 20 % (24-48) Monocytes (%) (Auto) 7 % (0-9) Eosinophils (%) (Auto) 2 % (0-3) Basophils (%) (Auto) 1 % (0-3) Neutrophils # (Auto) 5.2 x10^3uL (1.8-7.7) Lymphocytes # (Auto) 1.4 x10^3/uL (1.0-4.8) Monocytes # (Auto) 0.5 x10^3/uL (0.0-1.1) Eosinophils # (Auto) 0.1 x10^3/uL (0.0-0.7) Basophils # (Auto) 0.1 x10^3/uL (0.0-0.2) Sodium Level 137 mmol/L (136-145) Potassium Level 3.7 mmol/L (3.5-5.1) Chloride Level 102 mmol/L (98-107) Carbon Dioxide Level 29 mmol/L (21-32) Anion Gap 6 (6-14) Blood Urea Nitrogen 13 mg/dL (7-20) Creatinine 0.8 mg/dL (0.6-1.0) Estimated GFR (Cockcroft-Gault) 68.7 BUN/Creatinine Ratio 16 (6-20) Glucose Level 100 mg/dL (70-99) Calcium Level 8.5 mg/dL (8.5-10.1) Total Bilirubin 0.5 mg/dL (0.2-1.0) Aspartate Amino Transf (AST/SGOT) 21 U/L (15-37) Alanine Aminotransferase (ALT/SGPT) 17 U/L (14-59) Alkaline Phosphatase 111 U/L (46-116) Total Protein 6.7 g/dL (6.4-8.2) Albumin 2.3 g/dL (3.4-5.0) Albumin/Globulin Ratio 0.5 (1.0-1.7) JAYLA JOHNSON MD Jun 30, 2018 08:56
[2018-06-30 11:00] VITALS: BP 137/47
[2018-06-30] MEDS: INSULIN LISPRO 300 UNITS/3 ML INSULN.PEN. SQ SCH ×2 (12:27→17:40)
[2018-06-30 15:00] VITALS: BP 154/41
--- NOTE | 2018-06-30 15:36 | RAD ---
CT of the head without contrast, 06/30/2018: HISTORY: Left-sided weakness, slurred speech There is mild cerebral atrophy. There are mild patchy lucencies in the deep white matter bilaterally compatible with chronic ischemic change. 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 The ventricles are within normal limits in size. There is no shift of the midline structures. There is no evidence of acute intracranial hemorrhage or mass effect. IMPRESSION: 1. Chronic findings as described above. 2. No acute intracranial abnormality is detected. Note: The findings were called to the patient's nurse on the floor at 3:32 PM on 06/30/2018. PQRS Compliance Statement: One or more of the following individualized dose reduction techniques were utilized for this examination: 1. Automated exposure control 2. Adjustment of the mA and/or kV according to patient size 3. Use of iterative reconstruction technique Electronically signed by: Kobi Sofia MD (06/30/2018 3:32 PM) [facility]
[2018-06-30] MEDS ORDERED: ACETAMINOPHEN 325 MG TABLET. PO PRN (16:15)
[2018-06-30] MEDS ORDERED: HEPARIN 25,000UTS/500ML PREMIX 500 ML IV PRN (16:15)
[2018-06-30] MEDS ORDERED: ACETAMINOPHEN 650 MG SUPP.RECT. PR PRN (16:15)
[2018-06-30] MEDS ORDERED: HEPARIN for IV BOLUS 10,000 UNIT/10 ML VIAL. IV PRN (16:30)
[2018-06-30] MEDS: cefTRIAXone IV Push 1 GM VIAL. IVP SCH (17:00)
[2018-06-30 19:31] VITALS: BP 144/48
[2018-06-30] MEDS: HEPARIN 25,000UTS/500ML PREMIX 500 ML IV PRN (19:47)
[2018-06-30] MEDS: SIMVASTATIN 40 MG TABLET. PO SCH (21:04)
[2018-06-30] MEDS: diphenhydrAMINE HCL 25 MG CAPSULE PO SCH (21:04)
[2018-06-30] MEDS: ALPRAZolam 0.25 MG TABLET PO PRN (21:04)
[2018-06-30 23:40] VITALS: BP 119/44
[2018-07-01 03:24] VITALS: BP 129/40
[2018-07-01 04:30] LABS: RED BLOOD COUNT 2.87 x10^6/uL (3.50-5.40); RED CELL DISTRIBUTION WIDTH 20.6 % (11.5-14.5); WHITE BLOOD COUNT 6.7 x10^3/uL (4.0-11.0)
[2018-07-01 07:37] VITALS: BP 134/50
[2018-07-01] MEDS: BUMETANIDE 1 MG TABLET. PO SCH (08:54)
[2018-07-01] MEDS: PANTOPRAZOLE 40 MG TABLET.DR. PO SCH (08:55)
[2018-07-01] MEDS: LISINOPRIL 10 MG TABLET PO SCH (08:55)
[2018-07-01] MEDS: CARVEDILOL 3.125 MG TABLET. PO SCH ×2 (08:55→17:11)
[2018-07-01] MEDS: CITALOPRAM 10 MG TABLET. PO SCH (08:55)
[2018-07-01] MEDS: ISOSORBIDE MONONITRATE ER 30 MG TAB.ER.24H PO SCH (08:56)
[2018-07-01] MEDS: ASPIRIN ENTERIC COATED 81 MG TABLET.DR. PO SCH (08:56)
[2018-07-01] MEDS: DOCUSATE SODIUM 100 MG CAPSULE. PO SCH (08:56)
[2018-07-01] MEDS: MULTIVITAMIN I-VITE TABLET. PO SCH ×2 (08:56→20:55)
[2018-07-01] MEDS: OMEGA-3 FATTY ACIDS/FISH OIL 1,000 MG CAPSULE. PO SCH (08:57)
[2018-07-01] MEDS: ACETAMINOPHEN 500 MG TABLET PO SCH ×2 (09:00→20:55)
[2018-07-01] MEDS: CHOLESTYRAMINE/ASPARTAME 4 GM PACKET PO SCH (09:00)
[2018-07-01] MEDS: INSULIN GLARGINE 300 UNITS/3 ML INSULN.PEN. SQ SCH (09:06)
[2018-07-01] MEDS: INSULIN LISPRO 300 UNITS/3 ML INSULN.PEN. SQ SCH ×4 (09:07→17:36)
--- NOTE | 2018-07-01 09:58 | RAD ---
Bilateral Duplex Carotid Ultrasound: History: TIA/CVA. Left-sided weakness. Altered speech. Technique: Grayscale, color Doppler, and spectral Doppler imaging was performed of the arteries of the neck. Findings: Peak systolic velocity in right common carotid artery is 80 cm/sec. Peak systolic velocity in the right internal carotid artery is 104 cm/sec. Maximum end-diastolic velocity in the right internal carotid artery is 31 cm/sec. Right ICA/CCA ratio is 1.3. Peak systolic velocity in the right external carotid artery is 153 cm/sec. Peak systolic velocity in left common carotid artery is 123 cm/sec. Peak systolic velocity in the left internal carotid artery is 104 cm/sec. Maximum end-diastolic velocity in the left internal carotid artery is 28 cm/sec. Left ICA/CCA ratio is 0.8. Peak systolic velocity in the left external carotid artery is 133 cm/sec. Both vertebral arteries demonstrate antegrade flow. Grayscale imaging demonstrates calcified plaquing at the right carotid bulb extending into the internal and external carotid arteries. A lesser amount of plaque is seen involving the left carotid bulb. Impression: No hemodynamically significant internal carotid artery stenosis. Note: Stenosis calculations for carotid ultrasound studies are derived from validated velocity criteria which are known to correlate with the NASCET methodology. Electronically signed by: Braeden Hill MD (07/01/2018 9:54 AM) [place] [id number]
[2018-07-01 11:00] VITALS: BP 124/42
--- NOTE | 2018-07-01 11:17 | PDOC ---
Objective: Objective: D/w RN - fell twice yesterday, left-sided weakness, ?TIA Reviewed Dr. Alcala's note. Vital Signs: Vital Signs Date Time Temp Pulse Resp B/P (MAP) Pulse Ox O2 Delivery O2 Flow Rate FiO2 07/01/18 08:56 77 134/50 07/01/18 07:37 98.1 18 100 Room Air 98.1 06/30/18 08:00 2.0 Labs: Laboratory Tests Test 06/30/18 15:03 06/30/18 17:30 06/30/18 20:50 07/01/18 07:12 Glucose (Fingerstick) 142 mg/dL (70-99) 156 mg/dL (70-99) 141 mg/dL (70-99) 100 mg/dL (70-99) Imaging: Chest/A/P CT IMPRESSION: 1. Multiple mediastinal lymph nodes identified and few paraesophageal lymph nodes could be reactive or metastatic. Consider PET CT scan for further evaluation. 2. Scattered multiple lung nodules with the largest measuring 5.5 mm in the right apical lung. 3. Mild thickening of the distal esophagus. 4. Coronary artery calcifications. 5. Hepatic steatosis. 6. Mild lung congestive changes. Bone Scan IMPRESSION: No bone scan findings to suggest osseous metastatic disease. CT Head IMPRESSION: 1. Chronic findings as described above. 2. No acute intracranial abnormality is detected. Carotid Doppler Impression: No hemodynamically significant internal carotid artery stenosis. Brain MRI PENDING PE: Out of room, no exam. 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 RUBEN BOYD Jul 01, 2018 11:17
--- NOTE | 2018-07-01 11:39 | RAD ---
MRI of the brain without contrast 07/01/2018 Clinical History: TIA. Left-sided weakness and slurred speech. Technique: Unenhanced T1-weighted sagittal and axial, T2-weighted axial and coronal and FLAIR, gradient echo and diffusion-weighted axial images of the brain were obtained. Findings: Comparison is made to the patient's CT scan of the head dated 06/30/2018. There is generalized parenchymal atrophy. Patchy, confluent and multiple small focal areas of increased signal intensity are seen within the periventricular and subcortical white matter of both cerebral hemispheres along with the gael on the FLAIR and T2-weighted images consistent with areas of small vessel ischemic disease. Several old areas of infarction are seen scattered throughout the cerebellar hemispheres. These measure 5 mm to 1.6 cm in size. Small rounded/oval-shaped areas of restricted diffusion are seen involving the periventricular white matter of the medial right parietal lobe (measuring 1 cm in greatest diameter), the deep white matter of the left parietal occipital lobe (measuring 5 mm in greatest diameter) and near the genu on the corpus callosum within the medial right frontal lobe (measuring 7 mm in greatest diameter). They are consistent with areas of acute ischemia/infarction. There is no significant surrounding edema or associated mass effect. No additional acute parenchymal abnormality is seen. No extra-axial fluid collection is noted. Mild mucosal thickening is seen scattered throughout the paranasal sinuses. Normal flow voids are seen within the major vascular structures surrounding the brain parenchyma. IMPRESSION: Small areas of acute ischemia/infarction are seen involving the right parietal lobe, the medial left frontal lobe and the left parietal occipital lobe as outlined above. There is no significant surrounding edema or associated mass effect. The patient's nurse was notified of these findings. Electronically signed by: Gilbert Goldsmith MD (07/01/2018 11:34 AM) [id number]
[2018-07-01] MEDS: HEPARIN 25,000UTS/500ML PREMIX 500 ML IV PRN (12:23)
--- NOTE | 2018-07-01 12:37 | PDOC ---
PROGRESS NOTES Subjective Subjective HPI -f/u of Esophageal nodules ROS - fell twice yesterday Objective Objective Vital Signs Date Time Temp Pulse Resp B/P (MAP) Pulse Ox O2 Delivery O2 Flow Rate FiO2 07/01/18 11:00 97.9 79 20 124/42 (69) 92 Room Air 97.9 07/01/18 08:00 2.0 Intake and Output 07/01/18 06:59 Intake Total 825 ml Balance 825 ml Intake Oral 825 ml # Voids 9 Physical Exam Heart: Normal S1, Normal S2 General: Alert, Oriented X3, No acute distress Lungs: Clear to auscultation Neuro: Normal speech Psych/Mental Status: Mental status NL Assessment Assessment IMPRESSION AND PLAN: 1. Esophageal nodules clinically concerning for esophageal cancer noted on EGD done on 06/27/2018. Biopsies have been obtained and results are pending. CT chest, abdomen and pelvis 06/28/18 Multiple mediastinal lymph nodes identified and few paraesophageal lymph nodes could be reactive or metastatic. Plan PET CT scan for further evaluation. Scattered multiple lung nodules with the largest measuring 5.5 mm in the right apical lung. Bone scan 06/28/18 is neg. Considering her age and comorbidities, treatment options would be definitive radiation therapy versus combined chemoradiation. I also d/w DR Alcala, Radiation Oncology and Dr Zabala. I discussed in detail with the patient. She understands and agrees with the plan. 2. Anemia. Iron deficiency is noted with very decreased iron saturation, but the ferritin is normal. s/p Venofer 500 mg IV x 1 dose 06/27/18. Hb worse at 8.0 on 07/01/18, monitor cbc 3. Coronary artery disease. Her ejection fraction on echocardiogram done on 06/24/2018 was only 30-35%. Appreciate Cardiology management. 4. Falls - CT head neg. MRI brain 07/01/18: Small areas of acute ischemia/ infarction are seen involving the right parietal lobe, the medial left frontal lobe and the left parietal occipital lobe. There is no significant surrounding edema or associated mass effect. Management per primary. Comment Review of Relevant I have reviewed the following items aviva (where applicable) has been applied. Labs Laboratory Tests Test 06/29/18 17:25 06/29/18 20:26 06/29/18 21:14 06/30/18 02:10 Glucose (Fingerstick) 72 mg/dL (70-99) 60 mg/dL (70-99) 82 mg/dL (70-99) 125 mg/dL (70-99) Test 06/30/18 04:30 06/30/18 07:01 06/30/18 10:39 06/30/18 15:03 White Blood Count 7.3 x10^3/uL (4.0-11.0) Red Blood Count 3.00 x10^6/uL (3.50-5.40) Hemoglobin 8.2 g/dL (12.0-15.5) Hematocrit 25.3 % (36.0-47.0) Mean Corpuscular Volume 84 fL (79-100) Mean Corpuscular Hemoglobin 27 pg (25-35) Mean Corpuscular Hemoglobin Concent 32 g/dL (31-37) Red Cell Distribution Width 20.7 % (11.5-14.5) Platelet Count 364 x10^3/uL (140-400) Neutrophils (%) (Auto) 71 % (31-73) Lymphocytes (%) (Auto) 20 % (24-48) Monocytes (%) (Auto) 7 % (0-9) Eosinophils (%) (Auto) 2 % (0-3) Basophils (%) (Auto) 1 % (0-3) Neutrophils # (Auto) 5.2 x10^3uL (1.8-7.7) Lymphocytes # (Auto) 1.4 x10^3/uL (1.0-4.8) Monocytes # (Auto) 0.5 x10^3/uL (0.0-1.1) Eosinophils # (Auto) 0.1 x10^3/uL (0.0-0.7) Basophils # (Auto) 0.1 x10^3/uL (0.0-0.2) Sodium Level 137 mmol/L (136-145) Potassium Level 3.7 mmol/L (3.5-5.1) Chloride Level 102 mmol/L (98-107) Carbon Dioxide Level 29 mmol/L (21-32) Anion Gap 6 (6-14) Blood Urea Nitrogen 13 mg/dL (7-20) Creatinine 0.8 mg/dL (0.6-1.0) Estimated GFR (Cockcroft-Gault) 68.7 BUN/Creatinine Ratio 16 (6-20) Glucose Level 100 mg/dL (70-99) Calcium Level 8.5 mg/dL (8.5-10.1) Total Bilirubin 0.5 mg/dL (0.2-1.0) Aspartate Amino Transf (AST/SGOT) 21 U/L (15-37) Alanine Aminotransferase (ALT/SGPT) 17 U/L (14-59) Alkaline Phosphatase 111 U/L (46-116) Total Protein 6.7 g/dL (6.4-8.2) Albumin 2.3 g/dL (3.4-5.0) Albumin/Globulin Ratio 0.5 (1.0-1.7) Glucose (Fingerstick) 97 mg/dL (70-99) 158 mg/dL (70-99) 142 mg/dL (70-99) Test 06/30/18 17:30 06/30/18 20:50 07/01/18 01:40 07/01/18 07:12 Glucose (Fingerstick) 156 mg/dL (70-99) 141 mg/dL (70-99) 100 mg/dL (70-99) White Blood Count 6.7 x10^3/uL (4.0-11.0) Red Blood Count 2.87 x10^6/uL (3.50-5.40) Hemoglobin 8.0 g/dL (12.0-15.5) Hematocrit 24.0 % (36.0-47.0) Mean Corpuscular Volume 84 fL (79-100) Mean Corpuscular Hemoglobin 28 pg (25-35) Mean Corpuscular Hemoglobin Concent 33 g/dL (31-37) Red Cell Distribution Width 20.6 % (11.5-14.5) Platelet Count 344 x10^3/uL (140-400) Heparin Anti-Xa Act, Unfractionated 0.12 IU/mL (0.30-0.70) Test 07/01/18 09:25 07/01/18 11:26 Heparin Anti-Xa Act, Unfractionated 0.27 IU/mL (0.30-0.70) Glucose (Fingerstick) 127 mg/dL (70-99) Laboratory Tests Test 06/30/18 15:03 06/30/18 17:30 06/30/18 20:50 07/01/18 01:40 Glucose (Fingerstick) 142 mg/dL (70-99) 156 mg/dL (70-99) 141 mg/dL (70-99) White Blood Count 6.7 x10^3/uL (4.0-11.0) Red Blood Count 2.87 x10^6/uL (3.50-5.40) Hemoglobin 8.0 g/dL (12.0-15.5) Hematocrit 24.0 % (36.0-47.0) Mean Corpuscular Volume 84 fL (79-100) Mean Corpuscular Hemoglobin 28 pg (25-35) Mean Corpuscular Hemoglobin Concent 33 g/dL (31-37) Red Cell Distribution Width 20.6 % (11.5-14.5) Platelet Count 344 x10^3/uL (140-400) Heparin Anti-Xa Act, Unfractionated 0.12 IU/mL (0.30-0.70) Test 07/01/18 07:12 07/01/18 09:25 07/01/18 11:26 Glucose (Fingerstick) 100 mg/dL (70-99) 127 mg/dL (70-99) Heparin Anti-Xa Act, Unfractionated 0.27 IU/mL (0.30-0.70) Microbiology 06/24/18 Blood Culture - Final, Complete NO GROWTH AFTER 5 DAYS Medications Current Medications Sodium Chloride 1,000 ml @ 125 mls/hr 1X ONCE IV Last administered on at 19:50; Start 06/21/18 at 15:45; Stop 06/21/18 at 23:44; Status DC Ceftriaxone Sodium 1 gm/ Dextrose 50 ml @ 100 mls/hr Q24H IV ; Start 06/21/18 at 15:45; Status UNV Ceftriaxone Sodium (Rocephin) 1 gm Q24H IVP Last administered on 06/29/18at 17: 26; Start 06/21/18 at 17:00 Acetaminophen (Tylenol) 1,000 mg BID PO Last administered on 07/01/18at 09:00; Start 06/21/18 at 21:00 Alprazolam (Xanax) 0.25 mg PRN Q6HRS PRN PO ANXIETY / AGITATION Last administered on 06/30/18at 21:04; Start 06/21/18 at 18:45 Carvedilol (Coreg) 3.125 mg BIDWMEALS PO Last administered on 07/01/18 08:55; Start 06/21/18 at 21:00 Cholestyramine Resin (Questran Light) 4 gm DAILY PO Last administered on 08:57; Start 06/22/18 at 09:00; Stop 06/28/18 at 07:46; Status DC Citalopram Hydrobromide (CeleXA) 10 mg DAILY PO Last administered on 07/01/18 08:55; Start 06/22/18 at 09:00 Clopidogrel Bisulfate (Plavix) 75 mg DAILY PO Last administered on 06/26/18 08: 57; Start 06/22/18 at 09:00; Stop 06/27/18 at 15:20; Status DC Diphenhydramine HCl (Benadryl) 50 mg QHS PO Last administered on 06/30/18at 21: 04; Start 06/21/18 at 21:00 Docusate Sodium (Colace) 100 mg DAILY PO Last administered on 07/01/18 08:56; Start 06/22/18 at 09:00 Insulin Glargine (Lantus) 20 units DAILYWBKFT SQ Last administered on at 08:55; Start 06/22/18 at 08:00; Stop 06/30/18 at 08:32; Status DC Isosorbide Mononitrate (Imdur) 30 mg DAILY PO Last administered on 07/01/18 08 :56; Start 06/22/18 at 09:00 Lisinopril (Prinivil) 10 mg DAILY PO Last administered on 07/01/18 08:55; Start 06/22/18 at 09:00 Multivitamins/ Minerals (I-Myah) 1 tab BID PO Last administered on 07/01/18 08 :56; Start 06/21/18 at 21:00 Non-Formulary Medication (Alendronate Sodium ) 70 mg WEEKLY PO ; Start 06/28/18 at 09:00; Status UNV Bumetanide (Bumex) 2 mg DAILY PO Last administered on 07/01/18at 08:54; Start at 09:00 Insulin Human Lispro (HumaLOG) 5 units TIDWMEALS SQ Last administered on at 17:35; Start 06/22/18 at 08:00; Stop 06/30/18 at 08:32; Status DC Methotrexate (Rheumatrex) 15 mg WEEKLY PO Last administered on 06/27/18at 09:00; Start 06/27/18 at 09:00 Fish Oil (Fish Oil) 1,000 mg DAILY PO Last administered on 07/01/18at 08:57; Start 06/22/18 at 09:00 Pantoprazole Sodium (Protonix) 40 mg DAILYAC PO Last administered on 07/01/18at 08:55; Start 06/22/18 at 07:30 Simvastatin (Zocor) 40 mg QHS PO Last administered on 06/30/18at 21:04; Start at 21:00 Warfarin Sodium (Coumadin) 7.5 mg DAILY16 PO ; Start 06/22/18 at 16:00; Stop 06/23 at 11:25; Status DC Warfarin Sodium (Coumadin Per Physician) 1 each PRN DAILY PRN MC SEE COMMENTS; Start 06/21/18 at 20:00; Stop 06/27/18 at 15:20; Status DC Furosemide (Lasix) 40 mg 1X ONCE IVP Last administered on 06/23/18at 12:05; Start 06/23/18 at 12:00; Stop 06/23/18 at 12:01; Status DC Magnesium Sulfate/ Dextrose 100 ml @ 25 mls/hr 1X ONCE IV Last administered on 06/24/18at 12:16; Start 06/24/18 at 13:00; Stop 06/24/18 at 16:59; Status DC Potassium Chloride (Klor-Con) 40 meq 1X ONCE PO Last administered on 06/24/18at 12:15; Start 06/24/18 at 12:30; Stop 06/24/18 at 12:31; Status DC Polyethylene Glycol (miraLAX Powder BULK BOTTLE) 238 gm 1X ONCE PO Last administered on 06/26/18at 13:55; Start 06/26/18 at 13:00; Stop 06/26/18 at 13:01; Status DC Magnesium Citrate (Citroma) 296 ml 1X ONCE PO Last administered on 06/26/18at 12 :58; Start 06/26/18 at 12:00; Stop 06/26/18 at 12:01; Status DC Bisacodyl (Dulcolax Tab) 10 mg 1X ONCE PO Last administered on 06/26/18at 12:58 ; Start 06/26/18 at 12:30; Stop 06/26/18 at 12:31; Status DC Bisacodyl (Dulcolax Tab) 10 mg 1X ONCE PO Last administered on 06/26/18at 13:55 ; Start 06/26/18 at 14:00; Stop 06/26/18 at 14:01; Status DC Ringer's Solution 1,000 ml @ 50 mls/hr Q20H IV ; Start 06/27/18 at 07:00; Stop 06/27/18 at 18:59; Status DC Diphenhydramine HCl (Benadryl) 25 mg 1X ONCE IVP Last administered on at 09:30; Start 06/27/18 at 09:30; Stop 06/27/18 at 09:31; Status DC Lactobacillus Rhamnosus (Culturelle) 1 cap BID PO ; Start 06/27/18 at 21:00; Status Cancel Midazolam HCl (Versed) 2 mg PRN 1X PRN IV PRIOR TO PROCEDURE; Start 06/27/18 at 13:00; Stop 06/28/18 at 12:59; Status DC Fentanyl Citrate (Fentanyl 2ml Vial) 25 mcg PRN Q5MIN PRN IV X 2 DOSES FOR PAIN ; Start 06/27/18 at 13:00; Stop 06/28/18 at 12:59; Status DC Fentanyl Citrate (Fentanyl 2ml Vial) 50 mcg PRN Q5MIN PRN IV X 2 DOSES FOR PAIN ; Start 06/27/18 at 13:00; Stop 06/28/18 at 12:59; Status DC Ringer's Solution 1,000 ml @ 125 mls/hr Q8H IV Last administered on 06/27/18at 13:12; Start 06/27/18 at 12:54; Stop 06/27/18 at 22:35; Status DC Lidocaine HCl (Xylocaine-Mpf 1% Vial) 2 ml 1X PRN PRN ID IV START; Start at 13:00; Stop 06/28/18 at 12:59; Status DC Aspirin (Ecotrin) 81 mg DAILYWBKFT PO Last administered on 07/01/18at 08:56; Start 06/28/18 at 08:00 Iron Sucrose 500 mg/Sodium Chloride 275 ml @ 78.571 mls/ hr 1X ONCE IV Last administered on 06/27/18at 17:30; Start 06/27/18 at 17:30; Stop 06/27/18 at 20:59; Status DC Iohexol (Omnipaque 300 Mg/ml) 75 ml 1X ONCE IV Last administered on 06/28/18at 06:15; Start 06/28/18 at 06:15; Stop 06/28/18 at 06:16; Status DC Iohexol (Omnipaque 240 Mg/ml) 50 ml 1X ONCE PO Last administered on 06/28/18at 06:15; Start 06/28/18 at 06:15; Stop 06/28/18 at 06:16; Status DC Info (CONTRAST GIVEN -- Rx MONITORING) 1 each PRN DAILY PRN MC SEE COMMENTS; Start 06/28/18 at 06:15; Stop 06/30/18 at 06:14; Status DC Cholestyramine Resin (Questran Light) 4 gm DAILY PO ; Start 06/28/18 at 13:00 Insulin Glargine (Lantus) 17 units DAILYWBKFT SQ Last administered on at 09:06; Start 07/01/18 at 08:00 Insulin Human Lispro (HumaLOG) 4 units TIDWMEALS SQ Last administered on at 12:24; Start 06/30/18 at 12:00 Acetaminophen (Tylenol) 650 mg PRN Q6HRS PRN PO TEMP > 100.4F Last administered on 07/01/18at 08:54; Start 06/30/18 at 16:15 Acetaminophen (Tylenol Supp) 650 mg PRN Q4HRS PRN [place] TEMP > 100.4F; Start 06/30 at 16:15 Heparin Sodium/ Dextrose 500 ml @ 0 mls/hr CONT PRN IV SEE I/O RECORD; Start at 16:15; Status UNV Heparin Sodium/ Dextrose 500 ml @ 0 mls/hr CONT PRN IV SEE I/O RECORD Last administered on 07/01/18at 12:23; Start 06/30/18 at 16:30 Heparin Sodium (Porcine) (Heparin Sodium) 2,600 unit PRN Q6HRS PRN IV FOR UFH LEVEL LESS THAN 0.2 Last administered on 07/01/18at 03:31; Start 06/30/18 at 16: 30 Info (Anti-Coagulation Monitoring By Pharmacy) 1 each PRN DAILY PRN MC SEE COMMENTS; Start 06/30/18 at 16:45 Active Scripts Active Reported Carvedilol 3.125 Mg Tablet 3.125 Mg PO BID Methotrexate (Methotrexate Sodium) 2.5 Mg Tablet 6 Tab PO WEEKLY Benadryl (Diphenhydramine Hcl) 25 Mg Capsule 2 Cap PO QHS Bumetanide 2 Mg Tablet 2 Mg PO DAILY Ocuvite Tablet (Vit A,C & E/Lutein/Minerals) 1 Each Tablet 1 Each PO BID Prevalite Packet (Cholestyramine/Aspartame) 4 Gm Powd.pack 4 Gm PO Citalopram Hbr (Citalopram Hydrobromide) 10 Mg Tablet 10 Mg PO DAILY Clopidogrel (Clopidogrel Bisulfate) 75 Mg Tablet 75 Mg PO DAILY Alprazolam 0.25 Mg Tablet 0.25 Mg PO PRN Q6HRS PRN Isosorbide Mononitrate Er (Isosorbide Mononitrate) 30 Mg Tab.er.24h 30 Mg PO DAILY Prilosec Otc (Omeprazole Magnesium) 20 Mg Tablet.dr 20 Mg PO DAILY Novolog Flexpen (Insulin Aspart) 100 Unit/1 Ml Insuln.pen 5 Unit SQ TIDBFRMEAL Lantus Solostar (Insulin Glargine,Hum.rec.anlog) 100 Unit/1 Ml Insuln.pen 20 Unit SQ DAILYWBKFT Acetaminophen 500 Mg Tablet 2 Tab PO BID Vitamin D-3 (Cholecalciferol (Vitamin D3)) 2,000 Unit Capsule 1,000 Unit PO Alendronate Sodium 70 Mg Tablet 70 Mg PO WEEKLY Warfarin Sodium 5 Mg Tablet 1.5 Tab PO DAILY Lisinopril 10 Mg Tablet 10 Mg PO DAILY Simvastatin 40 Mg Tablet 40 Mg PO DAILY Colace (Docusate Sodium) 100 Mg Capsule 100 Mg PO Garlic 1,000 Mg Capsule 1,000 Mg PO Multivitamins (Multivitamin) 1 Each Capsule 1 Each PO [place] 3 Fish Oil Softgel ([place]-3 Fatty Acids/Fish Oil) 1 Each Capsule.dr 1 Each PO DAILY Vitals/I & O Vital Sign - Last 24 Hours 06/30/18 06/30/18 06/30/18 06/30/18 15:00 17:30 19:31 20:05 Temp 97.5 98.2 97.5 98.2 Pulse 80 82 86 Resp 16 20 B/P (MAP) 154/41 (78) 137/47 144/48 (80) 154/41 (78) Pulse Ox 96 93 O2 Delivery Room Air Room Air Room Air 06/30/18 07/01/18 07/01/18 07/01/18 23:40 03:24 07:37 08:00 Temp 97.6 98.1 97.6 98.1 Pulse 89 84 77 Resp 16 16 18 B/P (MAP) 119/44 (69) 129/40 (69) 134/50 (78) Pulse Ox 92 93 100 O2 Delivery Room Air Room Air Room Air Room Air O2 Flow Rate 2.0 07/01/18 07/01/18 07/01/18 07/01/18 08:55 08:55 08:56 11:00 Temp 97.9 97.9 Pulse 77 77 77 79 Resp 20 B/P (MAP) 134/50 134/50 134/50 124/42 (69) Pulse Ox 92 O2 Delivery Room Air Intake and Output 06/30/18 06/30/18 07/01/18 14:59 22:59 06:59 Intake Total 250 ml 575 ml Balance 250 ml 575 ml MICHAEL VIDES MD Jul 01, 2018 12:37
--- NOTE | 2018-07-01 12:41 | PN ---
DATE: 07/01/2018 She is in room 648. SUBJECTIVE: The patient is awake and alert. Has fell yesterday with left-sided weakness and some facial weakness as well as some dysphagia, was treated with the stroke protocol, which included a CT head, which shows chronic changes, but nothing acute and was started on heparin as her Coumadin has been on hold for her workup including the esophageal biopsies last week. OBJECTIVE: VITAL SIGNS: Stable. She is afebrile. GENERAL: She is awake and alert. CHEST: Clear. HEART: Regular. ABDOMEN: Benign. Esophageal biopsies are still pending. IMPRESSION: 1. CT scanning shows concern for metastatic disease with lymphadenopathy and some pulmonary lesions. 2. Atrial fibrillation. 3. Possible transient ischemic attack as I do not see any evidence of a definite stroke this morning. 4. Cardiomyopathy. 5. Diabetes. 6. Coagulopathy, resolved, withholding Coumadin. 7. Congestive heart failure, stable. PLAN: Await esophageal biopsies. Continue heparin currently per Neuro and will likely need to be started back on her Coumadin. Therapy is ongoing and working with her. ARTHUR GUERRA MD DR: MAYA/vandana JOB#: [id number] / [id number]
[2018-07-01] MEDS: ANTI-COAG MONITOR BY PHARMACY. MC PRN (13:07)
[2018-07-01] MEDS ORDERED: GADOBUTROL 10 MMOL/10 ML VIAL IV ONE (13:45)
--- NOTE | 2018-07-01 14:12 | PATHOLOGY ---
[facility] Accession Number: [id number] . 01 Material submitted: . DISTAL ESOPHAGUS BX AT 30 CM . 01 Clinical history: . Anemia . 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 (JPM:ang; 07/01/2018) QMS/07/01/2018 . 02 Comment: Sections of the distal esophageal biopsy at 30 cm reveal a malignant epithelial neoplasm. The malignant cells are generally present in solid nests which focally show abortive gland formation. The malignant cells possess enlarged, rounded to ovoid nuclei containing prominent nucleoli. There is focal ulceration and necrosis. There are also several segments of Ferrell's change showing low to high-grade dysplasia. The case is also seen by Dr. Leonardo Hussein, who concurs with the diagnosis. (JPM:ang; 07/01/2018) . 02 Electronically signed: . Vicente Garza MD, Pathologist NPI- [id number] . 01 Gross description: . The specimen is received in formalin, labeled "Tianna Greene, distal esophagus biopsy at 30 cm". Received are nine segments of pale enriquez soft tissue ranging in size from 0.2 to 0.5 cm in maximum dimensions. The specimen is submitted entirely in cassette A1. (CAA; 06/28/2018) QAC/QAC . 02 Pathologist provided ICD-10: C15.5, K22.70 . 02 CPT . 276301 Performed at: [address] [id number] [facility] [address], [place], [place] [id number] MD Sawyer Terrazas MD Phone: [phone] Performed at: 02 [facility] [address] [place], [place] [id number] MD Vicente Garza MD Phone: [phone]
--- NOTE | 2018-07-01 14:12 | PDOC ---
Provider Note Provider Note 82 yo woman with fatigue and anemia. UGI revealed suspicious modules in distal esophagus. Bx now positive for adenocarcinoma. CT chest indeterminant nodules in apical right lung, mediastinal and paraesophageal adenopathy thickening of distal esophagus. Over weekend she had urinary incontinence and fell in bathroom. MRI without contrast; Small acute ischemic infarctions right parietal lobe. Now on heparin. Neurological stable now. Impression: Bx proven adenocarcinoma of distal esophagus. She has mediastinal and para esophageal adenopathy worrisome for disease involvement. Lung nodules are indeterminant significance due to small size and location qcit4rsg to one lobe, Once stabilized from her other co morbid issues and discharged, we would then obtain outpatient PET/CT to complete her staging. Discussed with patient and Dr. Madera. EULALIA UPTON MD Jul 01, 2018 14:12
[2018-07-01 15:24] VITALS: BP 124/45
--- NOTE | 2018-07-01 16:21 | PDOC2 ---
NEUROLOGY CONSULT Date of Admission Date of Admission DATE: 07/01/18 TIME: 16:03 Reason for Consult Reason for Consult: IMPRESSION: Left side heaviness/weakness. Falls. Acute small right parietal lobe, left frontal and parieto-occipital lobe infarcts. Brain metastatic diseases on differential. Multiple mediastinal lymph nodes, metastatic ? Multiple lung nodules. Chest pain. AFib. DM. Respiratory distress. Right side breast cancer s/p right mastectomy and left lumpectomy. CAD/sp stents placement. CHF, EF 30-35%. Pulmonary hypertension, PA pressure 53. Anemia. Obesity. RECOMMENDATIONS/PLAN: She has been on Heparin and ASA 81 mg daily. Continue Zocor 40 mg HS. Brain MRI w contrast to help rule out metastatic diseases. Carotid A US + Doppler. Echo on 06/24/18: see above reports. Lipids: WNL. HISTORY OF THE PRESENT ILLNESS: 82-y-old female patient with above medical and oncological diseases was admitted on 06/21/18 due to chest pain, SOB and other complaints. She was noted left side weakness and heaviness, so Neurology was required for consultation. PAST MEDICAL HISTORY Cardiovascular: CAD, HTN, Hyperlipidemia CENTRAL NERVOUS SYSTEM: CVA, TIA GI: GERD Heme/Onc: Cancer (breast) Musculoskeletal: Osteoarthritis Rheumatologic: Rheumatoid arthritis Endocrine: Diabetes PAST SURGICAL HISTORY CABG (details unknown ), Total knee replacement (bilateral ) FAMILY HISTORY Family History Unknown SOCIAL HISTORY Smoke: Quit ALCOHOL: other (daily beer ) Drugs: None ALLERGIES Milk (Verified Allergy, Intermediate, 06/21/18) Montelukast (Verified Allergy, Intermediate, 06/21/18) MEDICATIONS: Refer to [facility] REVIEW OF SYSTEMS: Constitutional: Obesity. Head: No traumatic brain or head injury. Skin: No edema, or rash. Ear: No infection. Eyes: No vision loss or color blindness. Nose: No bleeding or purulent discharges. Hearing: No hearing decrease. Neck: No injury. Breast: Cancer Cardiac: CAD, AFib, s/p CABG, AFib, HTN, HLD. Pulmonary: No COPD. GI: No GI ulcer, GI bleeding. Urinary/genital: UTI. Endocrinologic: DM. Obesity. Skeletomuscular: No muscular atrophy, deformity Neurological: see HP. Psychiatric: Denies drug use/abuse. Otherwise, not [id number] review of systems. PHYSICAL EXAMINATION: General appearance is in subacute distress. HEENT: Normocephalic and nontraumatic. Eyes, nose, ears, and throat are unremarkable. Neck is supple. No lymphadenopathy. No bruits are heard over the carotid artery. No crepitus. Cardiovascular: S1, S2, irregular rate and rhythm. Pulmonary: Clear to auscultation bilaterally. Abdomen: Bowel sounds are positive. Abdomen is soft, nontender, and nondistended. Extremities: No rash, lesions, or edema. No restriction of range of motion NEUROLOGICAL EXAMINATION: Awake. Oriented partially to time, place and person, but reaction was slow. PERRL. EOMI. CN: no focal findings. Muscle tone: within normal. Muscle strength: 4+ DTR: 2- Plantar reflex: eutral response bilaterally Gait: not examined in chair. Sensory exam: no abnormal findings. No cerebellar signs elicited. F-T-N test fine Current Medications Current Medications Current Medications Sodium Chloride 1,000 ml @ 125 mls/hr 1X ONCE IV Last administered on 19:50; Start 06/21/18 at 15:45; Stop 06/21/18 at 23:44; Status DC Ceftriaxone Sodium 1 gm/ Dextrose 50 ml @ 100 mls/hr Q24H IV ; Start 06/21/18 at 15:45; Status UNV Ceftriaxone Sodium (Rocephin) 1 gm Q24H IVP Last administered on 06/29/18 17: 26; Start 06/21/18 at 17:00 Acetaminophen (Tylenol) 1,000 mg BID PO Last administered on 07/01/18 09:00; Start 06/21/18 at 21:00 Alprazolam (Xanax) 0.25 mg PRN Q6HRS PRN PO ANXIETY / AGITATION Last administered on 06/30/18 21:04; Start 06/21/18 at 18:45 Carvedilol (Coreg) 3.125 mg BIDWMEALS PO Last administered on 07/01/18 08:55; Start 06/21/18 at 21:00 Cholestyramine Resin (Questran Light) 4 gm DAILY PO Last administered on 08:57; Start 06/22/18 at 09:00; Stop 06/28/18 at 07:46; Status DC Citalopram Hydrobromide (CeleXA) 10 mg DAILY PO Last administered on 07/01/18 08:55; Start 06/22/18 at 09:00 Clopidogrel Bisulfate (Plavix) 75 mg DAILY PO Last administered on 06/26/18 08: 57; Start 06/22/18 at 09:00; Stop 06/27/18 at 15:20; Status DC Diphenhydramine HCl (Benadryl) 50 mg QHS PO Last administered on 06/30/18 21: 04; Start 06/21/18 at 21:00 Docusate Sodium (Colace) 100 mg DAILY PO Last administered on 07/01/18 08:56; Start 06/22/18 at 09:00 Insulin Glargine (Lantus) 20 units DAILYWBKFT SQ Last administered on 08:55; Start 06/22/18 at 08:00; Stop 06/30/18 at 08:32; Status DC Isosorbide Mononitrate (Imdur) 30 mg DAILY PO Last administered on 07/01/18 08 :56; Start 06/22/18 at 09:00 Lisinopril (Prinivil) 10 mg DAILY PO Last administered on 07/01/18 08:55; Start 06/22/18 at 09:00 Multivitamins/ Minerals (I-Myah) 1 tab BID PO Last administered on 07/01/18 08 :56; Start 06/21/18 at 21:00 Non-Formulary Medication (Alendronate Sodium ) 70 mg WEEKLY PO ; Start 06/28/18 at 09:00; Status UNV Bumetanide (Bumex) 2 mg DAILY PO Last administered on 07/01/18 08:54; Start at 09:00 Insulin Human Lispro (HumaLOG) 5 units TIDWMEALS SQ Last administered on 17:35; Start 06/22/18 at 08:00; Stop 06/30/18 at 08:32; Status DC Methotrexate (Rheumatrex) 15 mg WEEKLY PO Last administered on 06/27/18 09:00; Start 06/27/18 at 09:00 Fish Oil (Fish Oil) 1,000 mg DAILY PO Last administered on 07/01/18 08:57; Start 06/22/18 at 09:00 Pantoprazole Sodium (Protonix) 40 mg DAILYAC PO Last administered on 07/01/18at 08:55; Start 06/22/18 at 07:30 Simvastatin (Zocor) 40 mg QHS PO Last administered on 06/30/18at 21:04; Start at 21:00 Warfarin Sodium (Coumadin) 7.5 mg DAILY16 PO ; Start 06/22/18 at 16:00; Stop 06/23 at 11:25; Status DC Warfarin Sodium (Coumadin Per Physician) 1 each PRN DAILY PRN MC SEE COMMENTS; Start 06/21/18 at 20:00; Stop 06/27/18 at 15:20; Status DC Furosemide (Lasix) 40 mg 1X ONCE IVP Last administered on 06/23/18at 12:05; Start 06/23/18 at 12:00; Stop 06/23/18 at 12:01; Status DC Magnesium Sulfate/ Dextrose 100 ml @ 25 mls/hr 1X ONCE IV Last administered on 06/24/18at 12:16; Start 06/24/18 at 13:00; Stop 06/24/18 at 16:59; Status DC Potassium Chloride (Klor-Con) 40 meq 1X ONCE PO Last administered on 06/24/18at 12:15; Start 06/24/18 at 12:30; Stop 06/24/18 at 12:31; Status DC Polyethylene Glycol (miraLAX Powder BULK BOTTLE) 238 gm 1X ONCE PO Last administered on 06/26/18at 13:55; Start 06/26/18 at 13:00; Stop 06/26/18 at 13:01; Status DC Magnesium Citrate (Citroma) 296 ml 1X ONCE PO Last administered on 06/26/18at 12 :58; Start 06/26/18 at 12:00; Stop 06/26/18 at 12:01; Status DC Bisacodyl (Dulcolax Tab) 10 mg 1X ONCE PO Last administered on 06/26/18at 12:58 ; Start 06/26/18 at 12:30; Stop 06/26/18 at 12:31; Status DC Bisacodyl (Dulcolax Tab) 10 mg 1X ONCE PO Last administered on 06/26/18at 13:55 ; Start 06/26/18 at 14:00; Stop 06/26/18 at 14:01; Status DC Ringer's Solution 1,000 ml @ 50 mls/hr Q20H IV ; Start 06/27/18 at 07:00; Stop 06/27/18 at 18:59; Status DC Diphenhydramine HCl (Benadryl) 25 mg 1X ONCE IVP Last administered on at 09:30; Start 06/27/18 at 09:30; Stop 06/27/18 at 09:31; Status DC Lactobacillus Rhamnosus (Culturelle) 1 cap BID PO ; Start 06/27/18 at 21:00; Status Cancel Midazolam HCl (Versed) 2 mg PRN 1X PRN IV PRIOR TO PROCEDURE; Start 06/27/18 at 13:00; Stop 06/28/18 at 12:59; Status DC Fentanyl Citrate (Fentanyl 2ml Vial) 25 mcg PRN Q5MIN PRN IV X 2 DOSES FOR PAIN ; Start 06/27/18 at 13:00; Stop 06/28/18 at 12:59; Status DC Fentanyl Citrate (Fentanyl 2ml Vial) 50 mcg PRN Q5MIN PRN IV X 2 DOSES FOR PAIN ; Start 06/27/18 at 13:00; Stop 06/28/18 at 12:59; Status DC Ringer's Solution 1,000 ml @ 125 mls/hr Q8H IV Last administered on 06/27/18at 13:12; Start 06/27/18 at 12:54; Stop 06/27/18 at 22:35; Status DC Lidocaine HCl (Xylocaine-Mpf 1% Vial) 2 ml 1X PRN PRN ID IV START; Start at 13:00; Stop 06/28/18 at 12:59; Status DC Aspirin (Ecotrin) 81 mg DAILYWBKFT PO Last administered on 07/01/18at 08:56; Start 06/28/18 at 08:00 Iron Sucrose 500 mg/Sodium Chloride 275 ml @ 78.571 mls/ hr 1X ONCE IV Last administered on 06/27/18at 17:30; Start 06/27/18 at 17:30; Stop 06/27/18 at 20:59; Status DC Iohexol (Omnipaque 300 Mg/ml) 75 ml 1X ONCE IV Last administered on 06/28/18at 06:15; Start 06/28/18 at 06:15; Stop 06/28/18 at 06:16; Status DC Iohexol (Omnipaque 240 Mg/ml) 50 ml 1X ONCE PO Last administered on 06/28/18at 06:15; Start 06/28/18 at 06:15; Stop 06/28/18 at 06:16; Status DC Info (CONTRAST GIVEN -- Rx MONITORING) 1 each PRN DAILY PRN MC SEE COMMENTS; Start 06/28/18 at 06:15; Stop 06/30/18 at 06:14; Status DC Cholestyramine Resin (Questran Light) 4 gm DAILY PO ; Start 06/28/18 at 13:00 Insulin Glargine (Lantus) 17 units DAILYWBKFT SQ Last administered on at 09:06; Start 07/01/18 at 08:00 Insulin Human Lispro (HumaLOG) 4 units TIDWMEALS SQ Last administered on at 12:24; Start 06/30/18 at 12:00 Acetaminophen (Tylenol) 650 mg PRN Q6HRS PRN PO TEMP > 100.4F Last administered on 07/01/18at 08:54; Start 06/30/18 at 16:15 Acetaminophen (Tylenol Supp) 650 mg PRN Q4HRS PRN [place] TEMP > 100.4F; Start 06/30 at 16:15 Heparin Sodium/ Dextrose 500 ml @ 0 mls/hr CONT PRN IV SEE I/O RECORD; Start at 16:15; Status UNV Heparin Sodium/ Dextrose 500 ml @ 0 mls/hr CONT PRN IV SEE I/O RECORD Last administered on 07/01/18at 12:23; Start 06/30/18 at 16:30 Heparin Sodium (Porcine) (Heparin Sodium) 2,600 unit PRN Q6HRS PRN IV FOR UFH LEVEL LESS THAN 0.2 Last administered on 07/01/18at 03:31; Start 06/30/18 at 16: 30 Info (Anti-Coagulation Monitoring By Pharmacy) 1 each PRN DAILY PRN MC SEE COMMENTS Last administered on 07/01/18at 13:07; Start 06/30/18 at 16:45 Gadobutrol (Gadavist) 10 mmol 1X ONCE IV ; Start 07/01/18 at 13:45; Stop at 13:46; Status DC Active Scripts Active Reported Carvedilol 3.125 Mg Tablet 3.125 Mg PO BID Methotrexate (Methotrexate Sodium) 2.5 Mg Tablet 6 Tab PO WEEKLY Benadryl (Diphenhydramine Hcl) 25 Mg Capsule 2 Cap PO QHS Bumetanide 2 Mg Tablet 2 Mg PO DAILY Ocuvite Tablet (Vit A,C & E/Lutein/Minerals) 1 Each Tablet 1 Each PO BID Prevalite Packet (Cholestyramine/Aspartame) 4 Gm Powd.pack 4 Gm PO Citalopram Hbr (Citalopram Hydrobromide) 10 Mg Tablet 10 Mg PO DAILY Clopidogrel (Clopidogrel Bisulfate) 75 Mg Tablet 75 Mg PO DAILY Alprazolam 0.25 Mg Tablet 0.25 Mg PO PRN Q6HRS PRN Isosorbide Mononitrate Er (Isosorbide Mononitrate) 30 Mg Tab.er.24h 30 Mg PO DAILY Prilosec Otc (Omeprazole Magnesium) 20 Mg Tablet.dr 20 Mg PO DAILY Novolog Flexpen (Insulin Aspart) 100 Unit/1 Ml Insuln.pen 5 Unit SQ TIDBFRMEAL Lantus Solostar (Insulin Glargine,Hum.rec.anlog) 100 Unit/1 Ml Insuln.pen 20 Unit SQ DAILYWBKFT Acetaminophen 500 Mg Tablet 2 Tab PO BID Vitamin D-3 (Cholecalciferol (Vitamin D3)) 2,000 Unit Capsule 1,000 Unit PO Alendronate Sodium 70 Mg Tablet 70 Mg PO WEEKLY Warfarin Sodium 5 Mg Tablet 1.5 Tab PO DAILY Lisinopril 10 Mg Tablet 10 Mg PO DAILY Simvastatin 40 Mg Tablet 40 Mg PO DAILY Colace (Docusate Sodium) 100 Mg Capsule 100 Mg PO Garlic 1,000 Mg Capsule 1,000 Mg PO Multivitamins (Multivitamin) 1 Each Capsule 1 Each PO Powers 3 Fish Oil Softgel (Powers-3 Fatty Acids/Fish Oil) 1 Each Capsule. 1 Each PO DAILY Allergies Allergies: Allergies Coded Allergies Type Severity Reaction Last Updated Verified milk Allergy Intermediate 06/27/18 Yes montelukast Allergy Intermediate 06/27/18 Yes ROS Review of System The patient denies any associated fevers, chills, headache, ear pain, rhinorrhea , sore throat, stiff neck, productive cough, chest pain, shortness of breath, back or flank pain, abdominal pain, nausea, vomiting, diarrhea, constipation, dysuria, rash, numbness, weakness, tingling, incontinence, difficulty ambulating, or diaphoresis. Physical Exam Physical Exam General: Well developed, well nourished, no acute distress, well appearing HEENT: Pupils equally round and reactive to light, EOMI, no discharge, normal conjunctiva Neck: Supple, no nuchal rigidity, no JVD, trachea midline, no tenderness Cardiac: RRR, no murmurs, no gallops, no rubs Chest/Lungs: CTAB, no wheeze, no rhonchi, no crackles Abdomen: soft, non-distended, no guarding, no peritoneal signs, non-tender Back: No tenderness Extremities: no edema, pulses intact, non-tender,capillary refill <3 sec bilateral upper and lower extremities, Neuro: Alert and oriented x 4, no focal deficits, normal speech Vitals Vitals: Vital Signs Date Time Temp Pulse Resp B/P (MAP) Pulse Ox O2 Delivery O2 Flow Rate FiO2 07/01/18 15:24 97.4 81 18 124/45 (71) 95 Room Air 97.4 07/01/18 08:00 2.0 Labs Labs Laboratory Tests Test 06/29/18 17:25 06/29/18 20:26 06/29/18 21:14 06/30/18 02:10 Glucose (Fingerstick) 72 mg/dL (70-99) 60 mg/dL (70-99) 82 mg/dL (70-99) 125 mg/dL (70-99) Test 06/30/18 04:30 06/30/18 07:01 06/30/18 10:39 06/30/18 15:03 White Blood Count 7.3 x10^3/uL (4.0-11.0) Red Blood Count 3.00 x10^6/uL (3.50-5.40) Hemoglobin 8.2 g/dL (12.0-15.5) Hematocrit 25.3 % (36.0-47.0) Mean Corpuscular Volume 84 fL (79-100) Mean Corpuscular Hemoglobin 27 pg (25-35) Mean Corpuscular Hemoglobin Concent 32 g/dL (31-37) Red Cell Distribution Width 20.7 % (11.5-14.5) Platelet Count 364 x10^3/uL (140-400) Neutrophils (%) (Auto) 71 % (31-73) Lymphocytes (%) (Auto) 20 % (24-48) Monocytes (%) (Auto) 7 % (0-9) Eosinophils (%) (Auto) 2 % (0-3) Basophils (%) (Auto) 1 % (0-3) Neutrophils # (Auto) 5.2 x10^3uL (1.8-7.7) Lymphocytes # (Auto) 1.4 x10^3/uL (1.0-4.8) Monocytes # (Auto) 0.5 x10^3/uL (0.0-1.1) Eosinophils # (Auto) 0.1 x10^3/uL (0.0-0.7) Basophils # (Auto) 0.1 x10^3/uL (0.0-0.2) Sodium Level 137 mmol/L (136-145) Potassium Level 3.7 mmol/L (3.5-5.1) Chloride Level 102 mmol/L (98-107) Carbon Dioxide Level 29 mmol/L (21-32) Anion Gap 6 (6-14) Blood Urea Nitrogen 13 mg/dL (7-20) Creatinine 0.8 mg/dL (0.6-1.0) Estimated GFR (Cockcroft-Gault) 68.7 BUN/Creatinine Ratio 16 (6-20) Glucose Level 100 mg/dL (70-99) Calcium Level 8.5 mg/dL (8.5-10.1) Total Bilirubin 0.5 mg/dL (0.2-1.0) Aspartate Amino Transf (AST/SGOT) 21 U/L (15-37) Alanine Aminotransferase (ALT/SGPT) 17 U/L (14-59) Alkaline Phosphatase 111 U/L (46-116) Total Protein 6.7 g/dL (6.4-8.2) Albumin 2.3 g/dL (3.4-5.0) Albumin/Globulin Ratio 0.5 (1.0-1.7) Glucose (Fingerstick) 97 mg/dL (70-99) 158 mg/dL (70-99) 142 mg/dL (70-99) Test 06/30/18 17:30 06/30/18 20:50 07/01/18 01:40 07/01/18 07:12 Glucose (Fingerstick) 156 mg/dL (70-99) 141 mg/dL (70-99) 100 mg/dL (70-99) White Blood Count 6.7 x10^3/uL (4.0-11.0) Red Blood Count 2.87 x10^6/uL (3.50-5.40) Hemoglobin 8.0 g/dL (12.0-15.5) Hematocrit 24.0 % (36.0-47.0) Mean Corpuscular Volume 84 fL (79-100) Mean Corpuscular Hemoglobin 28 pg (25-35) Mean Corpuscular Hemoglobin Concent 33 g/dL (31-37) Red Cell Distribution Width 20.6 % (11.5-14.5) Platelet Count 344 x10^3/uL (140-400) Heparin Anti-Xa Act, Unfractionated 0.12 IU/mL (0.30-0.70) Test 07/01/18 09:25 07/01/18 11:26 Heparin Anti-Xa Act, Unfractionated 0.27 IU/mL (0.30-0.70) Glucose (Fingerstick) 127 mg/dL (70-99) Laboratory Tests Test 06/30/18 17:30 06/30/18 20:50 07/01/18 01:40 07/01/18 07:12 Glucose (Fingerstick) 156 mg/dL (70-99) 141 mg/dL (70-99) 100 mg/dL (70-99) White Blood Count 6.7 x10^3/uL (4.0-11.0) Red Blood Count 2.87 x10^6/uL (3.50-5.40) Hemoglobin 8.0 g/dL (12.0-15.5) Hematocrit 24.0 % (36.0-47.0) Mean Corpuscular Volume 84 fL (79-100) Mean Corpuscular Hemoglobin 28 pg (25-35) Mean Corpuscular Hemoglobin Concent 33 g/dL (31-37) Red Cell Distribution Width 20.6 % (11.5-14.5) Platelet Count 344 x10^3/uL (140-400) Heparin Anti-Xa Act, Unfractionated 0.12 IU/mL (0.30-0.70) Test 07/01/18 09:25 07/01/18 11:26 Heparin Anti-Xa Act, Unfractionated 0.27 IU/mL (0.30-0.70) Glucose (Fingerstick) 127 mg/dL (70-99) OLVIN JONES MD Jul 01, 2018 16:21
[2018-07-01] MEDS: cefTRIAXone IV Push 1 GM VIAL. IVP SCH (17:11)
[2018-07-01 19:10] VITALS: BP 140/48
[2018-07-01] MEDS: diphenhydrAMINE HCL 25 MG CAPSULE PO SCH (20:54)
[2018-07-01] MEDS: SIMVASTATIN 40 MG TABLET. PO SCH (20:55)
[2018-07-01 23:05] VITALS: BP 123/45
[2018-07-02] MEDS: HEPARIN 25,000UTS/500ML PREMIX 500 ML IV PRN ×2 (02:34→18:26)
[2018-07-02 03:11] VITALS: BP 130/47
[2018-07-02 07:35] VITALS: BP 128/48
[2018-07-02] MEDS: CHOLESTYRAMINE/ASPARTAME 4 GM PACKET PO SCH (09:00)
[2018-07-02] MEDS: PANTOPRAZOLE 40 MG TABLET.DR. PO SCH (10:21)
[2018-07-02] MEDS: MULTIVITAMIN I-VITE TABLET. PO SCH ×2 (10:21→21:33)
[2018-07-02] MEDS: DOCUSATE SODIUM 100 MG CAPSULE. PO SCH (10:21)
[2018-07-02] MEDS: BUMETANIDE 1 MG TABLET. PO SCH (10:21)
[2018-07-02] MEDS: ACETAMINOPHEN 500 MG TABLET PO SCH ×2 (10:21→21:33)
[2018-07-02] MEDS: OMEGA-3 FATTY ACIDS/FISH OIL 1,000 MG CAPSULE. PO SCH (10:21)
[2018-07-02] MEDS: ISOSORBIDE MONONITRATE ER 30 MG TAB.ER.24H PO SCH (10:22)
[2018-07-02] MEDS: LISINOPRIL 10 MG TABLET PO SCH (10:22)
[2018-07-02] MEDS: CITALOPRAM 10 MG TABLET. PO SCH (10:22)
[2018-07-02] MEDS: ASPIRIN ENTERIC COATED 81 MG TABLET.DR. PO SCH (10:22)
[2018-07-02] MEDS: CARVEDILOL 3.125 MG TABLET. PO SCH ×2 (10:23→18:02)
--- NOTE | 2018-07-02 10:25 | PDOC ---
GISELA HALLMAN CAMBERING MACHINE OPERATOR 07/02/18 1024: CARDIO Progress Notes Date and Time Date of Service 07/02/2018 Time of Evaluation 1015 Subjective Subjective: No Chest Pain, No shortness of breath, No Palpitations, Other ( sitting up, no complaints) Vitals Vitals Vital Signs Date Time Temp Pulse Resp B/P (MAP) Pulse Ox O2 Delivery O2 Flow Rate FiO2 07/02/18 07:35 97.5 80 18 128/48 (74) 96 Room Air 97.5 07/01/18 08:00 2.0 Weight Weight [ ] Input and Output Intake and Output Intake and Output 07/02/18 07:00 Intake Total 1050 ml Balance 1050 ml Intake Oral 1050 ml # Voids 7 Laboratory Labs Laboratory Tests Test 07/01/18 11:26 07/01/18 17:02 07/01/18 18:45 07/01/18 21:12 Glucose (Fingerstick) 127 mg/dL (70-99) 92 mg/dL (70-99) 162 mg/dL (70-99) Heparin Anti-Xa Act, Unfractionated 0.38 IU/mL (0.30-0.70) Test 07/02/18 00:50 07/02/18 07:16 Heparin Anti-Xa Act, Unfractionated 0.60 IU/mL (0.30-0.70) Glucose (Fingerstick) 114 mg/dL (70-99) Microbiology Micro Microbiology 06/24/18 Blood Culture - Final, Complete NO GROWTH AFTER 5 DAYS Physical Exam HEENT: Neck Supple W Full Motion Chest: Symmetric LUNGS: Clear to Auscultation Heart: irregularly irregular (AFIB rate controlled) Abdomen: Soft N/T Extremities: No Edema, No Calf Tenderness Neurology: alert, oriented, follow commands Assessment Assessment 1. Acute small right parietal lobe, left frontal and parieto-occipital lobe infarcts: Noted with facial droop and slurred speech/left side weakness (better) , likely cardioembolic. 2. AFIB: persistent. remains rate controlled. 3. Hx of CVA 4. 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 Compensated 5. CAD with previous CABG x4 on 06/29/2009, TEJEDA to LAD and Diagonal as Y graft, SVG to OM/RCA. Stable no cardiac symptoms. 6. HTN: controlled 7. HLP: well controlled 8. Anemia with GI bleed: due to #8. Hgb mean at 7-8s currently 9. 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 Hemonc following. Hgb trending down again. 10. DM2 Recommendations 1. Was on coumadin prior but DCd due to acute anemia with noted esophageal CA with likely AVMs. On ASA. 2. Heparin started due to acute stroke. Anticoagulation per neurology 3. Again discussed with pt in regards to risk of GI bleed with anticoagulation and risk of stroke if not on anticoagulation. 4. Will equate CA treatment plan, life expectancy in regards to pursuing any future cardiac intervention measures and at this time continue with medical therapy. 5. FR 2L and daily wt. Diurese with bumex. Continue optimization as tolerated. 6. Follow up in office as planned. MC JIM MD 07/02/18 3667: CARDIO Progress Notes Plan Plan Pt. seen and examined. Agree with above GERIATRIC SOCIAL WORKER note. No new cardiac issues. She appears euvolemic. Depending on goals of care and life expectancy, if her life expectancy is greater than 1 year, could then consider short term anticoag for her afib and then refer semi-urgently to [facility] for watchman (left atrial appendage occlusion device) which will mitigate any stroke risk from a cardiac standpoint. The device will not help with hypercoagulable state from cancer, Will follow along. Available for any acute issues. GISELA HALLMAN APRN Jul 02, 2018 10:24 MC JIM MD Jul 02, 2018 22:52
[2018-07-02] MEDS: INSULIN LISPRO 300 UNITS/3 ML INSULN.PEN. SQ SCH ×3 (10:29→18:16)
[2018-07-02] MEDS: INSULIN GLARGINE 300 UNITS/3 ML INSULN.PEN. SQ SCH (10:30)
[2018-07-02 11:00] VITALS: BP 136/50
[2018-07-02] MEDS ORDERED: GADOBUTROL 10 MMOL/10 ML VIAL IV ONE (11:00)
--- NOTE | 2018-07-02 11:41 | PDOC ---
Subjective: Subjective: [place] dizzy, had an accident this morning - little better now. Objective: Vital Signs: Vital Signs Date Time Temp Pulse Resp B/P (MAP) Pulse Ox O2 Delivery O2 Flow Rate FiO2 07/02/18 10:23 80 128/48 07/02/18 08:00 Room Air 07/02/18 07:35 97.5 18 96 97.5 07/01/18 08:00 2.0 Labs: Laboratory Tests Laboratory Tests Test 07/01/18 17:02 07/01/18 18:45 07/01/18 21:12 07/02/18 00:50 Glucose (Fingerstick) 92 mg/dL 162 mg/dL Heparin Anti-Xa Act, Unfractionated 0.38 IU/mL 0.60 IU/mL Test 07/02/18 07:16 07/02/18 09:40 Glucose (Fingerstick) 114 mg/dL Heparin Anti-Xa Act, Unfractionated 0.40 IU/mL Diagnosis: Esophageal biopsies, distal esophagus at 30 cm: - Adenocarcinoma, poorly differentiated, 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 Comment: Sections of the distal esophageal biopsy at 30 cm reveal a malignant epithelial neoplasm. The malignant cells are generally present in solid nests which focally show abortive gland formation. The malignant cells possess enlarged, rounded to ovoid nuclei containing prominent nucleoli. There is focal ulceration and necrosis. There are also several segments of Ferrell's change showing low to high-grade dysplasia. Imaging: Brain MRI 07/01 IMPRESSION: Small areas of acute ischemia/infarction are seen involving the right parietal lobe, the medial left frontal lobe and the left parietal occipital lobe as outlined above. There is no significant surrounding edema or associated mass effect. The patient's nurse was notified of these findings. Brain MRI 07/02 PENDING PE: GEN: NAD, up to chair LUNGS: CTAB HEART: RRR ABD: NABS, S/ND/NT NEURO/PSYCH: A & O 3 A/P: Esophageal adenocarcinoma DANIEL A Fib Right parietal lobe, left frontal and parieto-occipital lobe infarcts -- Continue same per GI - plans per Dr. Madera and Dr. Alcala. RUBEN BOYD Jul 02, 2018 11:40
--- NOTE | 2018-07-02 12:25 | RAD ---
MRI of the brain with contrast 07/02/2018 CLINICAL HISTORY: Left-sided weakness and slurred speech. Possible lung mass and mediastinal lymphadenopathy seen on recent CT scan of the chest. TECHNIQUE: After the intravenous administration of 9 cc of Gadavist, enhanced T1-weighted sagittal, axial and coronal images of the brain were obtained. FINDINGS: Comparison is made to the patient's MRI of the brain performed 07/01/2018. There is generalized parenchymal atrophy. Several old areas of infarction are again seen scattered throughout both cerebellar hemispheres. No area of abnormal contrast enhancement is seen. IMPRESSION: No area of abnormal contrast enhancement is seen. Electronically signed by: Gilbert Goldsmith MD (07/02/2018 12:22 PM) [id number]
[2018-07-02] MEDS: ANTI-COAG MONITOR BY PHARMACY. MC PRN (12:46)
--- NOTE | 2018-07-02 12:47 | PDOC ---
PROGRESS NOTES Subjective Subjective HPI - f/u of Esophageal adenocarcinoma diagnosed 06/27/18 ROS - no CP Objective Objective Vital Signs Date Time Temp Pulse Resp B/P (MAP) Pulse Ox O2 Delivery O2 Flow Rate FiO2 07/02/18 10:23 80 128/48 07/02/18 08:00 Room Air 07/02/18 07:35 97.5 18 96 97.5 07/01/18 08:00 2.0 Intake and Output 07/02/18 07:00 Intake Total 1050 ml Balance 1050 ml Intake Oral 1050 ml # Voids 7 Physical Exam Heart: Normal S1, Normal S2 General: Alert, Oriented X3, No acute distress Neuro: Normal speech Psych/Mental Status: Mental status NL Assessment Assessment IMPRESSION AND PLAN: 1. Esophageal adenocarcinoma diagnosed 06/27/18 - nodules noted on EGD done on 06/27/2018. history of Ferrell esophagus. CT chest, abdomen and pelvis 06/28/18 Multiple mediastinal lymph nodes identified and few paraesophageal lymph nodes could be reactive or metastatic. Plan PET CT scan for further evaluation. Scattered multiple lung nodules with the largest measuring 5.5 mm in the right apical lung. Bone scan 06/28/18 is neg. Considering her age and comorbidities, treatment options would be definitive radiation therapy versus combined chemoradiation. I also d/w DR Alcala, Radiation Oncology and Dr Zabala. 2. Anemia. Iron deficiency is noted with very decreased iron saturation, but the ferritin is normal. s/p Venofer 500 mg IV x 1 dose 06/27/18. Hb worse at 8.0 on 07/01/18, monitor cbc 3. Coronary artery disease. Her ejection fraction on echocardiogram done on 06/24/2018 was only 30-35%. Appreciate Cardiology management. 4. Falls - CT head neg. MRI brain 07/01/18: Small areas of acute ischemia/ infarction are seen involving the right parietal lobe, the medial left frontal lobe and the left parietal occipital lobe. There is no significant surrounding edema or associated mass effect. Management per primary. Comment Review of Relevant I have reviewed the following items aviva (where applicable) has been applied. Labs Laboratory Tests Test 06/30/18 15:03 06/30/18 17:30 06/30/18 20:50 07/01/18 01:40 Glucose (Fingerstick) 142 mg/dL (70-99) 156 mg/dL (70-99) 141 mg/dL (70-99) White Blood Count 6.7 x10^3/uL (4.0-11.0) Red Blood Count 2.87 x10^6/uL (3.50-5.40) Hemoglobin 8.0 g/dL (12.0-15.5) Hematocrit 24.0 % (36.0-47.0) Mean Corpuscular Volume 84 fL (79-100) Mean Corpuscular Hemoglobin 28 pg (25-35) Mean Corpuscular Hemoglobin Concent 33 g/dL (31-37) Red Cell Distribution Width 20.6 % (11.5-14.5) Platelet Count 344 x10^3/uL (140-400) Heparin Anti-Xa Act, Unfractionated 0.12 IU/mL (0.30-0.70) Test 07/01/18 07:12 07/01/18 09:25 07/01/18 11:26 07/01/18 17:02 Glucose (Fingerstick) 100 mg/dL (70-99) 127 mg/dL (70-99) 92 mg/dL (70-99) Heparin Anti-Xa Act, Unfractionated 0.27 IU/mL (0.30-0.70) Test 07/01/18 18:45 07/01/18 21:12 07/02/18 00:50 07/02/18 07:16 Heparin Anti-Xa Act, Unfractionated 0.38 IU/mL (0.30-0.70) 0.60 IU/mL (0.30-0.70) Glucose (Fingerstick) 162 mg/dL (70-99) 114 mg/dL (70-99) Test 07/02/18 09:40 07/02/18 12:04 Heparin Anti-Xa Act, Unfractionated 0.40 IU/mL (0.30-0.70) Glucose (Fingerstick) 180 mg/dL (70-99) Laboratory Tests Test 07/01/18 17:02 07/01/18 18:45 07/01/18 21:12 07/02/18 00:50 Glucose (Fingerstick) 92 mg/dL (70-99) 162 mg/dL (70-99) Heparin Anti-Xa Act, Unfractionated 0.38 IU/mL (0.30-0.70) 0.60 IU/mL (0.30-0.70) Test 07/02/18 07:16 07/02/18 09:40 07/02/18 12:04 Glucose (Fingerstick) 114 mg/dL (70-99) 180 mg/dL (70-99) Heparin Anti-Xa Act, Unfractionated 0.40 IU/mL (0.30-0.70) Microbiology 06/24/18 Blood Culture - Final, Complete NO GROWTH AFTER 5 DAYS Medications Current Medications Sodium Chloride 1,000 ml @ 125 mls/hr 1X ONCE IV Last administered on 19:50; Start 06/21/18 at 15:45; Stop 06/21/18 at 23:44; Status DC Ceftriaxone Sodium 1 gm/ Dextrose 50 ml @ 100 mls/hr Q24H IV ; Start 06/21/18 at 15:45; Status UNV Ceftriaxone Sodium (Rocephin) 1 gm Q24H IVP Last administered on 07/01/18at 17: 11; Start 06/21/18 at 17:00 Acetaminophen (Tylenol) 1,000 mg BID PO Last administered on 07/02/18at 10:21; Start 06/21/18 at 21:00 Alprazolam (Xanax) 0.25 mg PRN Q6HRS PRN PO ANXIETY / AGITATION Last administered on 06/30/18at 21:04; Start 06/21/18 at 18:45 Carvedilol (Coreg) 3.125 mg BIDWMEALS PO Last administered on 07/02/18 10:23; Start 06/21/18 at 21:00 Cholestyramine Resin (Questran Light) 4 gm DAILY PO Last administered on 08:57; Start 06/22/18 at 09:00; Stop 06/28/18 at 07:46; Status DC Citalopram Hydrobromide (CeleXA) 10 mg DAILY PO Last administered on 07/02/18 10:22; Start 06/22/18 at 09:00 Clopidogrel Bisulfate (Plavix) 75 mg DAILY PO Last administered on 06/26/18 08: 57; Start 06/22/18 at 09:00; Stop 06/27/18 at 15:20; Status DC Diphenhydramine HCl (Benadryl) 50 mg QHS PO Last administered on 07/01/18 20: 54; Start 06/21/18 at 21:00 Docusate Sodium (Colace) 100 mg DAILY PO Last administered on 07/02/18 10:21; Start 06/22/18 at 09:00 Insulin Glargine (Lantus) 20 units DAILYWBKFT SQ Last administered on 08:55; Start 06/22/18 at 08:00; Stop 06/30/18 at 08:32; Status DC Isosorbide Mononitrate (Imdur) 30 mg DAILY PO Last administered on 07/02/18 10 :22; Start 06/22/18 at 09:00 Lisinopril (Prinivil) 10 mg DAILY PO Last administered on 07/02/18 10:22; Start 06/22/18 at 09:00 Multivitamins/ Minerals (I-Myah) 1 tab BID PO Last administered on 07/02/18 10 :21; Start 06/21/18 at 21:00 Non-Formulary Medication (Alendronate Sodium ) 70 mg WEEKLY PO ; Start 06/28/18 at 09:00; Status UNV Bumetanide (Bumex) 2 mg DAILY PO Last administered on 07/02/18 10:21; Start at 09:00 Insulin Human Lispro (HumaLOG) 5 units TIDWMEALS SQ Last administered on 17:35; Start 06/22/18 at 08:00; Stop 06/30/18 at 08:32; Status DC Methotrexate (Rheumatrex) 15 mg WEEKLY PO Last administered on 06/27/18 09:00; Start 06/27/18 at 09:00 Fish Oil (Fish Oil) 1,000 mg DAILY PO Last administered on 07/02/18 10:21; Start 06/22/18 at 09:00 Pantoprazole Sodium (Protonix) 40 mg DAILYAC PO Last administered on 07/02/18 10:21; Start 06/22/18 at 07:30 Simvastatin (Zocor) 40 mg QHS PO Last administered on 07/01/18 20:55; Start at 21:00 Warfarin Sodium (Coumadin) 7.5 mg DAILY16 PO ; Start 06/22/18 at 16:00; Stop 06/23 at 11:25; Status DC Warfarin Sodium (Coumadin Per Physician) 1 each PRN DAILY PRN [facility] SEE COMMENTS; Start 06/21/18 at 20:00; Stop 06/27/18 at 15:20; Status DC Furosemide (Lasix) 40 mg 1X ONCE IVP Last administered on 06/23/18at 12:05; Start 06/23/18 at 12:00; Stop 06/23/18 at 12:01; Status DC Magnesium Sulfate/ Dextrose 100 ml @ 25 mls/hr 1X ONCE IV Last administered on 06/24/18at 12:16; Start 06/24/18 at 13:00; Stop 06/24/18 at 16:59; Status DC Potassium Chloride (Klor-Con) 40 meq 1X ONCE PO Last administered on 06/24/18at 12:15; Start 06/24/18 at 12:30; Stop 06/24/18 at 12:31; Status DC Polyethylene Glycol (miraLAX Powder BULK BOTTLE) 238 gm 1X ONCE PO Last administered on 06/26/18at 13:55; Start 06/26/18 at 13:00; Stop 06/26/18 at 13:01; Status DC Magnesium Citrate (Citroma) 296 ml 1X ONCE PO Last administered on 06/26/18at 12 :58; Start 06/26/18 at 12:00; Stop 06/26/18 at 12:01; Status DC Bisacodyl (Dulcolax Tab) 10 mg 1X ONCE PO Last administered on 06/26/18at 12:58 ; Start 06/26/18 at 12:30; Stop 06/26/18 at 12:31; Status DC Bisacodyl (Dulcolax Tab) 10 mg 1X ONCE PO Last administered on 06/26/18at 13:55 ; Start 06/26/18 at 14:00; Stop 06/26/18 at 14:01; Status DC Ringer's Solution 1,000 ml @ 50 mls/hr Q20H IV ; Start 06/27/18 at 07:00; Stop 06/27/18 at 18:59; Status DC Diphenhydramine HCl (Benadryl) 25 mg 1X ONCE IVP Last administered on at 09:30; Start 06/27/18 at 09:30; Stop 06/27/18 at 09:31; Status DC Lactobacillus Rhamnosus (Culturelle) 1 cap BID PO ; Start 06/27/18 at 21:00; Status Cancel Midazolam HCl (Versed) 2 mg PRN 1X PRN IV PRIOR TO PROCEDURE; Start 06/27/18 at 13:00; Stop 06/28/18 at 12:59; Status DC Fentanyl Citrate (Fentanyl 2ml Vial) 25 mcg PRN Q5MIN PRN IV X 2 DOSES FOR PAIN ; Start 06/27/18 at 13:00; Stop 06/28/18 at 12:59; Status DC Fentanyl Citrate (Fentanyl 2ml Vial) 50 mcg PRN Q5MIN PRN IV X 2 DOSES FOR PAIN ; Start 06/27/18 at 13:00; Stop 06/28/18 at 12:59; Status DC Ringer's Solution 1,000 ml @ 125 mls/hr Q8H IV Last administered on 06/27/18at 13:12; Start 06/27/18 at 12:54; Stop 06/27/18 at 22:35; Status DC Lidocaine HCl (Xylocaine-Mpf 1% Vial) 2 ml 1X PRN PRN ID IV START; Start at 13:00; Stop 06/28/18 at 12:59; Status DC Aspirin (Ecotrin) 81 mg DAILYWBKFT PO Last administered on 07/02/18at 10:22; Start 06/28/18 at 08:00 Iron Sucrose 500 mg/Sodium Chloride 275 ml @ 78.571 mls/ hr 1X ONCE IV Last administered on 06/27/18at 17:30; Start 06/27/18 at 17:30; Stop 06/27/18 at 20:59; Status DC Iohexol (Omnipaque 300 Mg/ml) 75 ml 1X ONCE IV Last administered on 06/28/18at 06:15; Start 06/28/18 at 06:15; Stop 06/28/18 at 06:16; Status DC Iohexol (Omnipaque 240 Mg/ml) 50 ml 1X ONCE PO Last administered on 06/28/18at 06:15; Start 06/28/18 at 06:15; Stop 06/28/18 at 06:16; Status DC Info (CONTRAST GIVEN -- Rx MONITORING) 1 each PRN DAILY PRN MC SEE COMMENTS; Start 06/28/18 at 06:15; Stop 06/30/18 at 06:14; Status DC Cholestyramine Resin (Questran Light) 4 gm DAILY PO ; Start 06/28/18 at 13:00 Insulin Glargine (Lantus) 17 units DAILYWBKFT SQ Last administered on at 10:30; Start 07/01/18 at 08:00 Insulin Human Lispro (HumaLOG) 4 units TIDWMEALS SQ Last administered on at 10:29; Start 06/30/18 at 12:00 Acetaminophen (Tylenol) 650 mg PRN Q6HRS PRN PO TEMP > 100.4F Last administered on 07/01/18at 08:54; Start 06/30/18 at 16:15 Acetaminophen (Tylenol Supp) 650 mg PRN Q4HRS PRN [place] TEMP > 100.4F; Start 06/30 at 16:15 Heparin Sodium/ Dextrose 500 ml @ 0 mls/hr CONT PRN IV SEE I/O RECORD; Start at 16:15; Status UNV Heparin Sodium/ Dextrose 500 ml @ 0 mls/hr CONT PRN IV SEE I/O RECORD Last administered on 07/02/18at 02:34; Start 06/30/18 at 16:30 Heparin Sodium (Porcine) (Heparin Sodium) 2,600 unit PRN Q6HRS PRN IV FOR UFH LEVEL LESS THAN 0.2 Last administered on 07/01/18at 03:31; Start 06/30/18 at 16: 30 Info (Anti-Coagulation Monitoring By Pharmacy) 1 each PRN DAILY PRN MC SEE COMMENTS Last administered on 07/01/18at 13:07; Start 06/30/18 at 16:45 Gadobutrol (Gadavist) 10 mmol 1X ONCE IV ; Start 07/01/18 at 13:45; Stop at 13:46; Status DC Propofol 20 ml @ As Directed STK-MED ONCE IV ; Start 06/27/18 at 13:08; Stop at 16:42; Status DC Lidocaine HCl (Lidocaine Pf 2% Vial) 5 ml STK-MED ONCE .ROUTE ; Start 06/27/18 at 13:20; Stop 07/01/18 at 16:42; Status DC Nystatin (Nystop) 1 hanh BID TP ; Start 07/02/18 at 21:00 Gadobutrol (Gadavist) 9 mmol 1X ONCE IV Last administered on 07/02/18at 11:29; Start 07/02/18 at 11:00; Stop 07/02/18 at 11:01; Status DC Active Scripts Active Reported Carvedilol 3.125 Mg Tablet 3.125 Mg PO BID Methotrexate (Methotrexate Sodium) 2.5 Mg Tablet 6 Tab PO WEEKLY Benadryl (Diphenhydramine Hcl) 25 Mg Capsule 2 Cap PO QHS Bumetanide 2 Mg Tablet 2 Mg PO DAILY Ocuvite Tablet (Vit A,C & E/Lutein/Minerals) 1 Each Tablet 1 Each PO BID Prevalite Packet (Cholestyramine/Aspartame) 4 Gm Powd.pack 4 Gm PO Citalopram Hbr (Citalopram Hydrobromide) 10 Mg Tablet 10 Mg PO DAILY Clopidogrel (Clopidogrel Bisulfate) 75 Mg Tablet 75 Mg PO DAILY Alprazolam 0.25 Mg Tablet 0.25 Mg PO PRN Q6HRS PRN Isosorbide Mononitrate Er (Isosorbide Mononitrate) 30 Mg Tab.er.24h 30 Mg PO DAILY Prilosec Otc (Omeprazole Magnesium) 20 Mg Tablet.dr 20 Mg PO DAILY Novolog Flexpen (Insulin Aspart) 100 Unit/1 Ml Insuln.pen 5 Unit SQ TIDBFRMEAL Lantus Solostar (Insulin Glargine,Hum.rec.anlog) 100 Unit/1 Ml Insuln.pen 20 Unit SQ DAILYWBKFT Acetaminophen 500 Mg Tablet 2 Tab PO BID Vitamin D-3 (Cholecalciferol (Vitamin D3)) 2,000 Unit Capsule 1,000 Unit PO Alendronate Sodium 70 Mg Tablet 70 Mg PO WEEKLY Warfarin Sodium 5 Mg Tablet 1.5 Tab PO DAILY Lisinopril 10 Mg Tablet 10 Mg PO DAILY Simvastatin 40 Mg Tablet 40 Mg PO DAILY Colace (Docusate Sodium) 100 Mg Capsule 100 Mg PO Garlic 1,000 Mg Capsule 1,000 Mg PO Multivitamins (Multivitamin) 1 Each Capsule 1 Each PO [place] 3 Fish Oil Softgel ([place]-3 Fatty Acids/Fish Oil) 1 Each Capsule.dr 1 Each PO DAILY Vitals/I & O Vital Sign - Last 24 Hours 07/01/18 07/01/18 07/01/18 07/01/18 15:24 17:11 19:10 20:00 Temp 97.4 97.9 97.4 97.9 Pulse 81 81 74 Resp 18 18 B/P (MAP) 124/45 (71) 124/45 140/48 (78) Pulse Ox 95 93 O2 Delivery Room Air Room Air Room Air 07/01/18 07/02/18 07/02/18 07/02/18 23:05 03:11 07:35 08:00 Temp 97.7 97.4 97.5 97.7 97.4 97.5 Pulse 93 78 80 Resp 18 16 18 B/P (MAP) 123/45 (71) 130/47 (74) 128/48 (74) Pulse Ox 94 95 96 O2 Delivery Room Air Room Air Room Air Room Air 07/02/18 07/02/18 07/02/18 10:22 10:22 10:23 Pulse 80 80 80 B/P (MAP) 128/48 128/48 128/48 Intake and Output 07/01/18 07/01/18 07/02/18 15:00 23:00 07:00 Intake Total 300 ml 750 ml Balance 300 ml 750 ml MICHAEL VIDES MD Jul 02, 2018 12:47
[2018-07-02 15:37] LABS: HEMATOCRIT 28.2 % (36.0-47.0); RED BLOOD COUNT 3.27 x10^6/uL (3.50-5.40); RED CELL DISTRIBUTION WIDTH 21.1 % (11.5-14.5); WHITE BLOOD COUNT 6.3 x10^3/uL (4.0-11.0)
[2018-07-02 15:39] LABS: CALCIUM 8.8 mg/dL (8.5-10.1); CREATININE 0.9 mg/dL (0.6-1.0); GFR 59.9; MAGNESIUM 1.5 mg/dL (1.8-2.4)
[2018-07-02 15:48] VITALS: BP 120/43
--- NOTE | 2018-07-02 17:04 | PDOC ---
PROGRESS NOTES Assessment Assessment Left side heaviness/weakness. Falls. Acute small right parietal lobe, left frontal and parieto-occipital lobe infarcts. Multiple mediastinal lymph nodes, metastatic ? Multiple lung nodules. Chest pain. AFib. DM. Respiratory distress. Right side breast cancer s/p right mastectomy and left lumpectomy. CAD/sp stents placement. CHF, EF 30-35%. Pulmonary hypertension, PA pressure 53. Anemia. Obesity. No brain metastatic disease this time. RECOMMENDATIONS/PLAN: She has been on Heparin and ASA 81 mg daily. Continue Zocor 40 mg HS. Treat medical and cardiac diseases. OT/PT. Echo on 06/24/18: see above reports. Lipids: WNL. HISTORY OF THE PRESENT ILLNESS: 82-y-old female patient with above medical and oncological diseases was admitted on 06/21/18 due to chest pain, SOB and other complaints. She was noted left side weakness and heaviness, so Neurology was required for consultation. PAST MEDICAL HISTORY Cardiovascular: CAD, HTN, Hyperlipidemia CENTRAL NERVOUS SYSTEM: CVA, TIA GI: GERD Heme/Onc: Cancer (breast) Musculoskeletal: Osteoarthritis Rheumatologic: Rheumatoid arthritis Endocrine: Diabetes PAST SURGICAL HISTORY CABG (details unknown ), Total knee replacement (bilateral ) FAMILY HISTORY Family History Unknown SOCIAL HISTORY Smoke: Quit ALCOHOL: other (daily beer ) Drugs: None ALLERGIES Milk (Verified Allergy, Intermediate, 06/21/18) Montelukast (Verified Allergy, Intermediate, 06/21/18) MEDICATIONS: Refer to [facility] REVIEW OF SYSTEMS: Constitutional: Obesity. Head: No traumatic brain or head injury. Skin: No edema, or rash. Ear: No infection. Eyes: No vision loss or color blindness. Nose: No bleeding or purulent discharges. Hearing: No hearing decrease. Neck: No injury. Breast: Cancer Cardiac: CAD, AFib, s/p CABG, AFib, HTN, HLD. Pulmonary: No COPD. GI: No GI ulcer, GI bleeding. Urinary/genital: UTI. Endocrinologic: DM. Obesity. Skeletomuscular: No muscular atrophy, deformity Neurological: see HP. Psychiatric: Denies drug use/abuse. Otherwise, not [id number] review of systems. PHYSICAL EXAMINATION: General appearance is in subacute distress. HEENT: Normocephalic and nontraumatic. Eyes, nose, ears, and throat are unremarkable. Neck is supple. No lymphadenopathy. No bruits are heard over the carotid artery. No crepitus. Cardiovascular: S1, S2, irregular rate and rhythm. Pulmonary: Clear to auscultation bilaterally. Abdomen: Bowel sounds are positive. Abdomen is soft, nontender, and nondistended. Extremities: No rash, lesions, or edema. No restriction of range of motion NEUROLOGICAL EXAMINATION: Awake. Oriented partially to time, place and person, but reaction was slow. PERRL. EOMI. CN: no focal findings. Muscle tone: within normal. Muscle strength: 4+ DTR: 2- Plantar reflex: eutral response bilaterally Gait: not examined in chair. Sensory exam: no abnormal findings. No cerebellar signs elicited. F-T-N test fine. Objective Objective Vital Signs Date Time Temp Pulse Resp B/P (MAP) Pulse Ox O2 Delivery O2 Flow Rate FiO2 07/02/18 15:48 98.8 82 20 120/43 (68) 95 Room Air 98.8 07/01/18 08:00 2.0 Intake and Output 07/02/18 07:00 Intake Total 1050 ml Balance 1050 ml Intake Oral 1050 ml # Voids 7 Vitals Signs Vitals VS - Last 72 Hours, by Label Date Time Temp Pulse Resp B/P (MAP) Pulse Ox O2 Delivery O2 Flow Rate FiO2 07/02/18 15:48 98.8 82 20 120/43 (68) 95 Room Air 98.8 07/02/18 11:00 97.9 95 20 136/50 (78) 94 Room Air 97.9 07/02/18 10:23 80 128/48 07/02/18 10:22 80 128/48 07/02/18 10:22 80 128/48 07/02/18 08:00 Room Air 07/02/18 07:35 97.5 80 18 128/48 (74) 96 Room Air 97.5 07/02/18 03:11 97.4 78 16 130/47 (74) 95 Room Air 97.4 07/01/18 23:05 97.7 93 18 123/45 (71) 94 Room Air 97.7 07/01/18 20:00 Room Air 07/01/18 19:10 97.9 74 18 140/48 (78) 93 Room Air 97.9 07/01/18 17:11 81 124/45 8/13/18 15:24 97.4 81 18 124/45 (71) 95 Room Air 97.4 07/01/18 11:00 97.9 79 20 124/42 (69) 92 Room Air 97.9 07/01/18 08:56 77 134/50 07/01/18 08:55 77 134/50 07/01/18 08:55 77 134/50 07/01/18 08:00 Room Air 2.0 07/01/18 07:37 98.1 77 18 134/50 (78) 100 Room Air 98.1 Laboratory Laboratory Laboratory Tests Test 07/01/18 18:45 07/01/18 21:12 07/02/18 00:50 07/02/18 07:16 Heparin Anti-Xa Act, Unfractionated 0.38 IU/mL (0.30-0.70) 0.60 IU/mL (0.30-0.70) Glucose (Fingerstick) 162 mg/dL (70-99) 114 mg/dL (70-99) Test 07/02/18 09:40 07/02/18 12:04 07/02/18 15:40 White Blood Count 6.3 x10^3/uL (4.0-11.0) Red Blood Count 3.27 x10^6/uL (3.50-5.40) Hemoglobin 9.0 g/dL (12.0-15.5) Hematocrit 28.2 % (36.0-47.0) Mean Corpuscular Volume 86 fL (79-100) Mean Corpuscular Hemoglobin 28 pg (25-35) Mean Corpuscular Hemoglobin Concent 32 g/dL (31-37) Red Cell Distribution Width 21.1 % (11.5-14.5) Platelet Count 371 x10^3/uL (140-400) Heparin Anti-Xa Act, Unfractionated 0.40 IU/mL (0.30-0.70) 0.40 IU/mL (0.30-0.70) Sodium Level 139 mmol/L (136-145) Potassium Level 4.0 mmol/L (3.5-5.1) Chloride Level 101 mmol/L (98-107) Carbon Dioxide Level 31 mmol/L (21-32) Anion Gap 7 (6-14) Blood Urea Nitrogen 13 mg/dL (7-20) Creatinine 0.9 mg/dL (0.6-1.0) Estimated GFR (Cockcroft-Gault) 59.9 Glucose Level 152 mg/dL (70-99) Calcium Level 8.8 mg/dL (8.5-10.1) Magnesium Level 1.5 mg/dL (1.8-2.4) Glucose (Fingerstick) 180 mg/dL (70-99) Microbiology 06/24/18 Blood Culture - Final, Complete NO GROWTH AFTER 5 DAYS Medication Medications Current Medications Gadobutrol (Gadavist) 9 mmol 1X ONCE IV Last administered on 07/02/18at 11:29; Start 07/02/18 at 11:00; Stop 07/02/18 at 11:01; Status DC Nystatin (Nystop) 1 hanh BID TP ; Start 07/02/18 at 21:00 Comment Review of Relevant I have reviewed the following items aviva (where applicable) has been applied. OLVIN JONES MD Jul 02, 2018 17:04
[2018-07-02] MEDS: cefTRIAXone IV Push 1 GM VIAL. IVP SCH (18:01)
[2018-07-02 19:05] VITALS: BP 125/41
[2018-07-02] MEDS: SIMVASTATIN 40 MG TABLET. PO SCH (21:33)
[2018-07-02] MEDS: diphenhydrAMINE HCL 25 MG CAPSULE PO SCH (21:33)
[2018-07-02] MEDS: NYSTATIN TOPICAL POWDER 15GM BOTTLE. TP SCH (21:34)
[2018-07-02] MEDS: ALPRAZolam 0.25 MG TABLET PO PRN (21:37)
[2018-07-02 23:05] VITALS: BP 131/42
--- NOTE | 2018-07-02 23:44 | PN ---
DATE: 07/02/2018 LOCATION: She is in room 648. SUBJECTIVE: The patient is awake and alert, feels like her breathing has improved. She is very concerned and obviously upset about the diagnosis of carcinoma of the esophagus. OBJECTIVE: VITAL SIGNS: Stable. She is afebrile. GENERAL: She is awake and alert. Sugars are good carotid Dopplers are negative. MRI of the head yesterday showed several small infarcts predominantly right parietal, left frontal and left occipital area suggesting a shower of emboli from her atrial fib for which she has been off the Coumadin due to coagulopathy and need for the EGD, colonoscopy and biopsies. She is currently on heparin for the same. NEUROLOGIC: Her speech may be just minimally effective, but I see no other focal neurological signs. ASSESSMENT: 1. 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 2. Atrial fibrillation. 3. 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 4. Cardiomyopathy. 5. Diabetes. 6. Coagulopathy, resolved. 7. Congestive heart failure, stable. PLAN: At this point, Oncology and Radiation recommend PET scanning as an outpatient when she is neurologically stable. At this point, Coumadin either needs to be restarted while she is on the heparin or we need to consider one of the newer anticoagulants. I am going to discuss the same with Neurology to try to figure out what the best plan regarding this, although one of the newer agents would allow her to be discharged sooner and begin further workup and treatment of adenocarcinoma of the esophagus. ARTHUR GUERRA MD DR: MAYA/vandana JOB#: [id number] / [id number]
[2018-07-03 03:05] VITALS: BP 116/42
[2018-07-03 05:06] LABS: HEMATOCRIT 23.7 % (36.0-47.0); HEMOGLOBIN 7.9 g/dL (12.0-15.5); RED BLOOD COUNT 2.81 x10^6/uL (3.50-5.40); WHITE BLOOD COUNT 5.9 x10^3/uL (4.0-11.0)
[2018-07-03 07:00] VITALS: BP 154/54
[2018-07-03] MEDS: CHOLESTYRAMINE/ASPARTAME 4 GM PACKET PO SCH (09:00)
[2018-07-03] MEDS: BUMETANIDE 1 MG TABLET. PO SCH (09:31)
[2018-07-03] MEDS: ACETAMINOPHEN 500 MG TABLET PO SCH ×2 (09:31→20:10)
[2018-07-03] MEDS: OMEGA-3 FATTY ACIDS/FISH OIL 1,000 MG CAPSULE. PO SCH (09:31)
[2018-07-03] MEDS: PANTOPRAZOLE 40 MG TABLET.DR. PO SCH (09:31)
[2018-07-03] MEDS: CARVEDILOL 3.125 MG TABLET. PO SCH ×2 (09:32→17:50)
[2018-07-03] MEDS: DOCUSATE SODIUM 100 MG CAPSULE. PO SCH (09:32)
[2018-07-03] MEDS: ISOSORBIDE MONONITRATE ER 30 MG TAB.ER.24H PO SCH (09:32)
[2018-07-03] MEDS: ASPIRIN ENTERIC COATED 81 MG TABLET.DR. PO SCH (09:32)
[2018-07-03] MEDS: MULTIVITAMIN I-VITE TABLET. PO SCH ×2 (09:33→20:10)
[2018-07-03] MEDS: CITALOPRAM 10 MG TABLET. PO SCH (09:33)
[2018-07-03] MEDS: LISINOPRIL 10 MG TABLET PO SCH (09:33)
[2018-07-03] MEDS: NYSTATIN TOPICAL POWDER 15GM BOTTLE. TP SCH ×2 (09:35→20:11)
[2018-07-03] MEDS: INSULIN LISPRO 300 UNITS/3 ML INSULN.PEN. SQ SCH ×3 (09:43→17:00)
[2018-07-03] MEDS: INSULIN GLARGINE 300 UNITS/3 ML INSULN.PEN. SQ SCH (09:44)
[2018-07-03 11:00] VITALS: BP 144/46
--- NOTE | 2018-07-03 11:08 | PDOC ---
Subjective: Subjective: Has questions about stopping Heparin. Says eating and stooling w/o issue, less weak today. Objective: Vital Signs: Vital Signs Date Time Temp Pulse Resp B/P (MAP) Pulse Ox O2 Delivery O2 Flow Rate FiO2 07/03/18 09:33 84 154/54 07/03/18 08:00 Room Air 07/03/18 07:00 97.7 24 94 97.7 07/02/18 20:00 2.0 Labs: Laboratory Tests Test 07/02/18 12:04 07/02/18 15:40 07/02/18 16:45 07/02/18 20:43 Glucose (Fingerstick) 180 mg/dL 142 mg/dL 112 mg/dL Heparin Anti-Xa Act, Unfractionated 0.40 IU/mL Test 07/03/18 04:55 07/03/18 07:44 White Blood Count 5.9 x10^3/uL Red Blood Count 2.81 x10^6/uL Hemoglobin 7.9 g/dL Hematocrit 23.7 % Mean Corpuscular Volume 84 fL Mean Corpuscular Hemoglobin 28 pg Mean Corpuscular Hemoglobin Concent 33 g/dL Red Cell Distribution Width 21.0 % Platelet Count 315 x10^3/uL Heparin Anti-Xa Act, Unfractionated 0.54 IU/mL Vitamin B12 Level 476 pg/mL Serum Folate 9.30 ng/ml Glucose (Fingerstick) 125 mg/dL PE: GEN: NAD, up to chair LUNGS: CTAB HEART: RR ABD: S/ND/NT NEURO/PSYCH: A & O 3 A/P: Esophageal adenocarcinoma, DANIEL A Fib, acute right parietal lobe, left frontal and parieto-occipital lobe infarcts -- Defer anti-coagulation to other specialists. RUBEN BOYD Jul 03, 2018 11:08
[2018-07-03] MEDS: HEPARIN 25,000UTS/500ML PREMIX 500 ML IV PRN (11:37)
[2018-07-03] MEDS: ANTI-COAG MONITOR BY PHARMACY. MC PRN (13:57)
--- NOTE | 2018-07-03 14:30 | PDOC ---
PROGRESS NOTES Assessment Assessment Left side heaviness/weakness. Falls. Acute small right parietal lobe, left frontal and parieto-occipital lobe infarcts. Multiple mediastinal lymph nodes, metastatic ? Multiple lung nodules. Chest pain. AFib. DM. Respiratory distress. Right side breast cancer s/p right mastectomy and left lumpectomy. CAD/sp stents placement. CHF, EF 30-35%. Pulmonary hypertension, PA pressure 53. Anemia. Obesity. No brain metastatic disease this time. RECOMMENDATIONS/PLAN: She has been on Heparin and ASA 81 mg daily. Continue Zocor 40 mg HS. Treat medical and cardiac diseases. OT/PT. Echo on 06/24/18: see above reports. Lipids: WNL. HISTORY OF THE PRESENT ILLNESS: 82-y-old female patient with above medical and oncological diseases was admitted on 06/21/18 due to chest pain, SOB and other complaints. She was noted left side weakness and heaviness, so Neurology was required for consultation. PAST MEDICAL HISTORY Cardiovascular: CAD, HTN, Hyperlipidemia CENTRAL NERVOUS SYSTEM: CVA, TIA GI: GERD Heme/Onc: Cancer (breast) Musculoskeletal: Osteoarthritis Rheumatologic: Rheumatoid arthritis Endocrine: Diabetes PAST SURGICAL HISTORY CABG (details unknown ), Total knee replacement (bilateral ) FAMILY HISTORY Family History Unknown SOCIAL HISTORY Smoke: Quit ALCOHOL: other (daily beer ) Drugs: None ALLERGIES Milk (Verified Allergy, Intermediate, 06/21/18) Montelukast (Verified Allergy, Intermediate, 06/21/18) MEDICATIONS: Refer to [facility] REVIEW OF SYSTEMS: Constitutional: Obesity. Head: No traumatic brain or head injury. Skin: No edema, or rash. Ear: No infection. Eyes: No vision loss or color blindness. Nose: No bleeding or purulent discharges. Hearing: No hearing decrease. Neck: No injury. Breast: Cancer Cardiac: CAD, AFib, s/p CABG, AFib, HTN, HLD. Pulmonary: No COPD. GI: No GI ulcer, GI bleeding. Urinary/genital: UTI. Endocrinologic: DM. Obesity. Skeletomuscular: No muscular atrophy, deformity Neurological: see HP. Psychiatric: Denies drug use/abuse. Otherwise, not [id number] review of systems. PHYSICAL EXAMINATION: General appearance is in subacute distress. HEENT: Normocephalic and nontraumatic. Eyes, nose, ears, and throat are unremarkable. Neck is supple. No lymphadenopathy. No bruits are heard over the carotid artery. No crepitus. Cardiovascular: S1, S2, irregular rate and rhythm. Pulmonary: Clear to auscultation bilaterally. Abdomen: Bowel sounds are positive. Abdomen is soft, nontender, and nondistended. Extremities: No rash, lesions, or edema. No restriction of range of motion NEUROLOGICAL EXAMINATION: Awake. Oriented partially to time, place and person, but reaction was slow. PERRL. EOMI. CN: no focal findings. Muscle tone: within normal. Muscle strength: 4+ DTR: 2- Plantar reflex: eutral response bilaterally Gait: Able to walk with a walker with assistance. Sensory exam: no abnormal findings. No cerebellar signs elicited. F-T-N test fine. Objective Objective Vital Signs Date Time Temp Pulse Resp B/P (MAP) Pulse Ox O2 Delivery O2 Flow Rate FiO2 07/03/18 11:00 96.3 78 16 144/46 (78) 95 Room Air 96.3 07/02/18 20:00 2.0 Intake and Output 07/03/18 07:00 Intake Total 700 ml Output Total 1200 ml Balance -500 ml Intake Oral 700 ml Output Urine Total 1200 ml # Voids 2 Vitals Signs Vitals VS - Last 72 Hours, by Label Date Time Temp Pulse Resp B/P (MAP) Pulse Ox O2 Delivery O2 Flow Rate FiO2 07/03/18 11:00 96.3 78 16 144/46 (78) 95 Room Air 96.3 07/03/18 09:33 84 154/54 07/03/18 09:32 84 154/54 07/03/18 09:32 84 154/54 07/03/18 08:00 Room Air 07/03/18 07:00 97.7 84 24 154/54 (87) 94 Room Air 97.7 07/03/18 03:05 97.5 82 16 116/42 (66) 94 Room Air 97.5 07/02/18 23:05 98.3 79 16 131/42 (71) 93 Room Air 98.3 07/02/18 20:00 Room Air 2.0 07/02/18 19:05 97.7 83 16 125/41 (69) 95 Room Air 97.7 07/02/18 18:02 82 120/43 07/02/18 15:48 98.8 82 20 120/43 (68) 95 Room Air 98.8 07/02/18 11:00 97.9 95 20 136/50 (78) 94 Room Air 97.9 07/02/18 10:23 80 128/48 07/02/18 10:22 80 128/48 07/02/18 10:22 80 128/48 07/02/18 08:00 Room Air 07/02/18 07:35 97.5 80 18 128/48 (74) 96 Room Air 97.5 Laboratory Laboratory Laboratory Tests Test 07/02/18 15:40 07/02/18 16:45 07/02/18 20:43 07/03/18 04:55 Heparin Anti-Xa Act, Unfractionated 0.40 IU/mL (0.30-0.70) 0.54 IU/mL (0.30-0.70) Glucose (Fingerstick) 142 mg/dL (70-99) 112 mg/dL (70-99) White Blood Count 5.9 x10^3/uL (4.0-11.0) Red Blood Count 2.81 x10^6/uL (3.50-5.40) Hemoglobin 7.9 g/dL (12.0-15.5) Hematocrit 23.7 % (36.0-47.0) Mean Corpuscular Volume 84 fL (79-100) Mean Corpuscular Hemoglobin 28 pg (25-35) Mean Corpuscular Hemoglobin Concent 33 g/dL (31-37) Red Cell Distribution Width 21.0 % (11.5-14.5) Platelet Count 315 x10^3/uL (140-400) Vitamin B12 Level 476 pg/mL (247-911) Serum Folate 9.30 ng/ml (3.2-20.0) Test 07/03/18 07:44 Glucose (Fingerstick) 125 mg/dL (70-99) Microbiology 06/24/18 Blood Culture - Final, Complete NO GROWTH AFTER 5 DAYS Medication Medications Current Medications Nystatin (Nystop) 1 hanh BID TP Last administered on 07/03/18at 09:35; Start at 21:00 Comment Review of Relevant I have reviewed the following items aviva (where applicable) has been applied. OLVIN JONES MD Jul 03, 2018 14:30
[2018-07-03 15:00] VITALS: BP 125/38
[2018-07-03] MEDS: cefTRIAXone IV Push 1 GM VIAL. IVP SCH (17:50)
[2018-07-03 19:05] VITALS: BP 127/35
[2018-07-03] MEDS: diphenhydrAMINE HCL 25 MG CAPSULE PO SCH (20:10)
[2018-07-03] MEDS: ALPRAZolam 0.25 MG TABLET PO PRN (20:11)
[2018-07-03] MEDS: SIMVASTATIN 40 MG TABLET. PO SCH (20:11)
--- NOTE | 2018-07-03 23:29 | PN ---
DATE: 07/03/2018 She is in room 648. SUBJECTIVE: The patient is awake, alert, getting ready to eat breakfast. Feels like the shortness of breath has improved. She feels like she is fairly steady on her feet. When asked about someone to help her out after discharge, she has a sister that likely will be coming to help, but will be able to come for a week or so. OBJECTIVE: VITAL SIGNS: Stable. She is afebrile. Sugars are good. CHEST: Clear. HEART: Irregular. ABDOMEN: Benign. MRI with contrast showed no evidence of enhancing lesions, just suggesting these were all embolic cerebrovascular accidents. She remains on heparin and will need to be transitioned to an oral agent and I am going to leave the timing of this up to Neurology, although I feel if we want one of the newer anticoagulants, we could solve this fairly quickly. It would also be beneficial if anyone on the case has any reasons why she should not be anticoagulated to let me know, although I can see no reasons at this point in time. IMPRESSION: 1. 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 2. Atrial fibrillation. 3. 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 4. Cardiomyopathy. 5. Diabetes. 6. Coagulopathy, resolved. 7. Congestive heart failure, stable. 8. Therapy recommendations at care home. PLAN: At this point, we will ask for a care home evaluation. Await Neurology suggestions on anticoagulation changed to something by mouth with further plans. Oncology and Radiation planning on PET scan as an outpatient upon discharge. ARTHUR GUERRA MD DR: MAYA/vandana JOB#: [id number] / [id number]
[2018-07-03 23:38] VITALS: BP 126/43
[2018-07-04 03:11] VITALS: BP 109/47
[2018-07-04 04:45] LABS: BASO % 0 % (0-3); EOS # 0.1 x10^3/uL (0.0-0.7); EOS % 3 % (0-3); HEMATOCRIT 24.5 % (36.0-47.0); HEMOGLOBIN 8.2 g/dL (12.0-15.5); LYMPH # 1.3 x10^3/uL (1.0-4.8); LYMPH % 26 % (24-48); MEAN CORPUSCULAR HEMOGLOBIN 28 pg (25-35); MEAN CORPUSCULAR HGB CONC 33 g/dL (31-37); MEAN CORPUSCULAR VOLUME 85 fL (79-100); MONO # 0.5 x10^3/uL (0.0-1.1); MONO % 9 % (0-9); NEUT # 3.2 x10^3uL (1.8-7.7); NEUT % 62 % (31-73); PLATELET COUNT 319 x10^3/uL (140-400); RED BLOOD COUNT 2.89 x10^6/uL (3.50-5.40); RED CELL DISTRIBUTION WIDTH 21.3 % (11.5-14.5); WHITE BLOOD COUNT 5.2 x10^3/uL (4.0-11.0)
[2018-07-04 07:00] VITALS: BP 159/64
[2018-07-04] MEDS: BUMETANIDE 1 MG TABLET. PO SCH (08:09)
[2018-07-04] MEDS: DOCUSATE SODIUM 100 MG CAPSULE. PO SCH (08:10)
[2018-07-04] MEDS: ASPIRIN ENTERIC COATED 81 MG TABLET.DR. PO SCH (08:10)
[2018-07-04] MEDS: PANTOPRAZOLE 40 MG TABLET.DR. PO SCH (08:10)
[2018-07-04] MEDS: MULTIVITAMIN I-VITE TABLET. PO SCH ×2 (08:11→20:48)
[2018-07-04] MEDS: CARVEDILOL 3.125 MG TABLET. PO SCH ×2 (08:12→18:04)
[2018-07-04] MEDS: ISOSORBIDE MONONITRATE ER 30 MG TAB.ER.24H PO SCH (08:12)
[2018-07-04] MEDS: LISINOPRIL 10 MG TABLET PO SCH (08:12)
[2018-07-04] MEDS: CITALOPRAM 10 MG TABLET. PO SCH (08:12)
[2018-07-04] MEDS: OMEGA-3 FATTY ACIDS/FISH OIL 1,000 MG CAPSULE. PO SCH (08:13)
[2018-07-04] MEDS: ACETAMINOPHEN 500 MG TABLET PO SCH ×2 (08:13→20:48)
[2018-07-04] MEDS: NYSTATIN TOPICAL POWDER 15GM BOTTLE. TP SCH ×2 (08:14→20:50)
[2018-07-04] MEDS: INSULIN GLARGINE 300 UNITS/3 ML INSULN.PEN. SQ SCH (08:21)
[2018-07-04] MEDS: METHOTREXATE SODIUM 2.5 MG TABLET PO SCH (08:21)
[2018-07-04] MEDS: INSULIN LISPRO 300 UNITS/3 ML INSULN.PEN. SQ SCH ×3 (08:22→18:16)
[2018-07-04] MEDS: CHOLESTYRAMINE/ASPARTAME 4 GM PACKET PO SCH (08:23)
--- NOTE | 2018-07-04 08:47 | PDOC ---
PROGRESS NOTES Subjective Subjective HPI - f/u of Esophageal adenocarcinoma ROS - no CP Objective Objective Vital Signs Date Time Temp Pulse Resp B/P (MAP) Pulse Ox O2 Delivery O2 Flow Rate FiO2 07/04/18 08:12 90 159/64 07/04/18 07:00 96.1 20 95 Room Air 96.1 07/03/18 20:00 2.0 Intake and Output 07/04/18 07:00 Intake Total 1490 ml Balance 1490 ml Intake Oral 1490 ml # Voids 7 # Bowel Movements 1 Physical Exam Heart: Normal S1, Normal S2 General: Alert, Oriented X3, No acute distress Lungs: Normal air movement Neuro: Normal speech Psych/Mental Status: Mental status NL Assessment Assessment IMPRESSION AND PLAN: 1. Esophageal adenocarcinoma diagnosed 06/27/18 - nodules noted on EGD done on 06/27/2018. history of Ferrell esophagus. CT chest, abdomen and pelvis 06/28/18 Multiple mediastinal lymph nodes identified and few paraesophageal lymph nodes could be reactive or metastatic. Plan PET CT scan for further evaluation (outpatient). Scattered multiple lung nodules with the largest measuring 5.5 mm in the right apical lung. Bone scan 06/28/18 is neg. Considering her age and comorbidities, treatment options would be definitive radiation therapy versus combined chemoradiation. I also d/w DR Alcala, Radiation Oncology and Dr Zabala. 2. Anemia. Iron deficiency is noted with very decreased iron saturation, but the ferritin is normal. s/p Venofer 500 mg IV x 1 dose 06/27/18. Hb 8.2 on 07/04/18, monitor cbc 3. Coronary artery disease. Her ejection fraction on echocardiogram done on 06/24/2018 was only 30-35%. Appreciate Cardiology management. 4. Falls - CT head neg. MRI brain 07/01/18: Small areas of acute ischemia/ infarction are seen involving the right parietal lobe, the medial left frontal lobe and the left parietal occipital lobe. There is no significant surrounding edema or associated mass effect. Management per neurology. 5. Rheumatoid arthritis - on Methotrexate weekly. Comment Review of Relevant I have reviewed the following items aviva (where applicable) has been applied. Labs Laboratory Tests Test 07/02/18 09:40 07/02/18 12:04 07/02/18 15:40 07/02/18 16:45 White Blood Count 6.3 x10^3/uL (4.0-11.0) Red Blood Count 3.27 x10^6/uL (3.50-5.40) Hemoglobin 9.0 g/dL (12.0-15.5) Hematocrit 28.2 % (36.0-47.0) Mean Corpuscular Volume 86 fL (79-100) Mean Corpuscular Hemoglobin 28 pg (25-35) Mean Corpuscular Hemoglobin Concent 32 g/dL (31-37) Red Cell Distribution Width 21.1 % (11.5-14.5) Platelet Count 371 x10^3/uL (140-400) Heparin Anti-Xa Act, Unfractionated 0.40 IU/mL (0.30-0.70) 0.40 IU/mL (0.30-0.70) Sodium Level 139 mmol/L (136-145) Potassium Level 4.0 mmol/L (3.5-5.1) Chloride Level 101 mmol/L (98-107) Carbon Dioxide Level 31 mmol/L (21-32) Anion Gap 7 (6-14) Blood Urea Nitrogen 13 mg/dL (7-20) Creatinine 0.9 mg/dL (0.6-1.0) Estimated GFR (Cockcroft-Gault) 59.9 Glucose Level 152 mg/dL (70-99) Calcium Level 8.8 mg/dL (8.5-10.1) Magnesium Level 1.5 mg/dL (1.8-2.4) Glucose (Fingerstick) 180 mg/dL (70-99) 142 mg/dL (70-99) Test 07/02/18 20:43 07/03/18 04:55 07/03/18 07:44 07/03/18 11:41 Glucose (Fingerstick) 112 mg/dL (70-99) 125 mg/dL (70-99) 149 mg/dL (70-99) White Blood Count 5.9 x10^3/uL (4.0-11.0) Red Blood Count 2.81 x10^6/uL (3.50-5.40) Hemoglobin 7.9 g/dL (12.0-15.5) Hematocrit 23.7 % (36.0-47.0) Mean Corpuscular Volume 84 fL (79-100) Mean Corpuscular Hemoglobin 28 pg (25-35) Mean Corpuscular Hemoglobin Concent 33 g/dL (31-37) Red Cell Distribution Width 21.0 % (11.5-14.5) Platelet Count 315 x10^3/uL (140-400) Heparin Anti-Xa Act, Unfractionated 0.54 IU/mL (0.30-0.70) Vitamin B12 Level 476 pg/mL (247-911) Serum Folate 9.30 ng/ml (3.2-20.0) Test 07/03/18 16:43 07/03/18 21:20 07/04/18 03:35 07/04/18 07:16 Glucose (Fingerstick) 105 mg/dL (70-99) 180 mg/dL (70-99) 111 mg/dL (70-99) White Blood Count 5.2 x10^3/uL (4.0-11.0) Red Blood Count 2.89 x10^6/uL (3.50-5.40) Hemoglobin 8.2 g/dL (12.0-15.5) Hematocrit 24.5 % (36.0-47.0) Mean Corpuscular Volume 85 fL (79-100) Mean Corpuscular Hemoglobin 28 pg (25-35) Mean Corpuscular Hemoglobin Concent 33 g/dL (31-37) Red Cell Distribution Width 21.3 % (11.5-14.5) Platelet Count 319 x10^3/uL (140-400) Neutrophils (%) (Auto) 62 % (31-73) Lymphocytes (%) (Auto) 26 % (24-48) Monocytes (%) (Auto) 9 % (0-9) Eosinophils (%) (Auto) 3 % (0-3) Basophils (%) (Auto) 0 % (0-3) Neutrophils # (Auto) 3.2 x10^3uL (1.8-7.7) Lymphocytes # (Auto) 1.3 x10^3/uL (1.0-4.8) Monocytes # (Auto) 0.5 x10^3/uL (0.0-1.1) Eosinophils # (Auto) 0.1 x10^3/uL (0.0-0.7) Basophils # (Auto) 0.0 x10^3/uL (0.0-0.2) Laboratory Tests Test 07/03/18 11:41 07/03/18 16:43 07/03/18 21:20 07/04/18 03:35 Glucose (Fingerstick) 149 mg/dL (70-99) 105 mg/dL (70-99) 180 mg/dL (70-99) White Blood Count 5.2 x10^3/uL (4.0-11.0) Red Blood Count 2.89 x10^6/uL (3.50-5.40) Hemoglobin 8.2 g/dL (12.0-15.5) Hematocrit 24.5 % (36.0-47.0) Mean Corpuscular Volume 85 fL (79-100) Mean Corpuscular Hemoglobin 28 pg (25-35) Mean Corpuscular Hemoglobin Concent 33 g/dL (31-37) Red Cell Distribution Width 21.3 % (11.5-14.5) Platelet Count 319 x10^3/uL (140-400) Neutrophils (%) (Auto) 62 % (31-73) Lymphocytes (%) (Auto) 26 % (24-48) Monocytes (%) (Auto) 9 % (0-9) Eosinophils (%) (Auto) 3 % (0-3) Basophils (%) (Auto) 0 % (0-3) Neutrophils # (Auto) 3.2 x10^3uL (1.8-7.7) Lymphocytes # (Auto) 1.3 x10^3/uL (1.0-4.8) Monocytes # (Auto) 0.5 x10^3/uL (0.0-1.1) Eosinophils # (Auto) 0.1 x10^3/uL (0.0-0.7) Basophils # (Auto) 0.0 x10^3/uL (0.0-0.2) Test 07/04/18 07:16 Glucose (Fingerstick) 111 mg/dL (70-99) Microbiology 06/24/18 Blood Culture - Final, Complete NO GROWTH AFTER 5 DAYS Medications Current Medications Sodium Chloride 1,000 ml @ 125 mls/hr 1X ONCE IV Last administered on at 19:50; Start 06/21/18 at 15:45; Stop 06/21/18 at 23:44; Status DC Ceftriaxone Sodium 1 gm/ Dextrose 50 ml @ 100 mls/hr Q24H IV ; Start 06/21/18 at 15:45; Status UNV Ceftriaxone Sodium (Rocephin) 1 gm Q24H IVP Last administered on 07/03/18 17: 50; Start 06/21/18 at 17:00 Acetaminophen (Tylenol) 1,000 mg BID PO Last administered on 07/04/18 08:13; Start 06/21/18 at 21:00 Alprazolam (Xanax) 0.25 mg PRN Q6HRS PRN PO ANXIETY / AGITATION Last administered on 07/03/18 20:11; Start 06/21/18 at 18:45 Carvedilol (Coreg) 3.125 mg BIDWMEALS PO Last administered on 07/04/18 08:12; Start 06/21/18 at 21:00 Cholestyramine Resin (Questran Light) 4 gm DAILY PO Last administered on 08:57; Start 06/22/18 at 09:00; Stop 06/28/18 at 07:46; Status DC Citalopram Hydrobromide (CeleXA) 10 mg DAILY PO Last administered on 07/04/18 08:12; Start 06/22/18 at 09:00 Clopidogrel Bisulfate (Plavix) 75 mg DAILY PO Last administered on 06/26/18 08: 57; Start 06/22/18 at 09:00; Stop 06/27/18 at 15:20; Status DC Diphenhydramine HCl (Benadryl) 50 mg QHS PO Last administered on 07/03/18 20: 10; Start 06/21/18 at 21:00 Docusate Sodium (Colace) 100 mg DAILY PO Last administered on 07/04/18 08:10; Start 06/22/18 at 09:00 Insulin Glargine (Lantus) 20 units DAILYWBKFT SQ Last administered on 08:55; Start 06/22/18 at 08:00; Stop 06/30/18 at 08:32; Status DC Isosorbide Mononitrate (Imdur) 30 mg DAILY PO Last administered on 07/04/18 08 :12; Start 06/22/18 at 09:00 Lisinopril (Prinivil) 10 mg DAILY PO Last administered on 07/04/18at 08:12; Start 06/22/18 at 09:00 Multivitamins/ Minerals (I-Myah) 1 tab BID PO Last administered on 07/04/18at 08 :11; Start 06/21/18 at 21:00 Non-Formulary Medication (Alendronate Sodium ) 70 mg WEEKLY PO ; Start 06/28/18 at 09:00; Status UNV Bumetanide (Bumex) 2 mg DAILY PO Last administered on 07/04/18at 08:09; Start at 09:00 Insulin Human Lispro (HumaLOG) 5 units TIDWMEALS SQ Last administered on at 17:35; Start 06/22/18 at 08:00; Stop 06/30/18 at 08:32; Status DC Methotrexate (Rheumatrex) 15 mg WEEKLY PO Last administered on 07/04/18at 08:21 ; Start 06/27/18 at 09:00 Fish Oil (Fish Oil) 1,000 mg DAILY PO Last administered on 07/04/18at 08:13; Start 06/22/18 at 09:00 Pantoprazole Sodium (Protonix) 40 mg DAILYAC PO Last administered on 07/04/18at 08:10; Start 06/22/18 at 07:30 Simvastatin (Zocor) 40 mg QHS PO Last administered on 07/03/18at 20:11; Start at 21:00 Warfarin Sodium (Coumadin) 7.5 mg DAILY16 PO ; Start 06/22/18 at 16:00; Stop 06/23 at 11:25; Status DC Warfarin Sodium (Coumadin Per Physician) 1 each PRN DAILY PRN MC SEE COMMENTS; Start 06/21/18 at 20:00; Stop 06/27/18 at 15:20; Status DC Furosemide (Lasix) 40 mg 1X ONCE IVP Last administered on 06/23/18at 12:05; Start 06/23/18 at 12:00; Stop 06/23/18 at 12:01; Status DC Magnesium Sulfate/ Dextrose 100 ml @ 25 mls/hr 1X ONCE IV Last administered on 06/24/18at 12:16; Start 06/24/18 at 13:00; Stop 06/24/18 at 16:59; Status DC Potassium Chloride (Klor-Con) 40 meq 1X ONCE PO Last administered on 06/24/18at 12:15; Start 06/24/18 at 12:30; Stop 06/24/18 at 12:31; Status DC Polyethylene Glycol (miraLAX Powder BULK BOTTLE) 238 gm 1X ONCE PO Last administered on 06/26/18at 13:55; Start 06/26/18 at 13:00; Stop 06/26/18 at 13:01; Status DC Magnesium Citrate (Citroma) 296 ml 1X ONCE PO Last administered on 06/26/18at 12 :58; Start 06/26/18 at 12:00; Stop 06/26/18 at 12:01; Status DC Bisacodyl (Dulcolax Tab) 10 mg 1X ONCE PO Last administered on 06/26/18at 12:58 ; Start 06/26/18 at 12:30; Stop 06/26/18 at 12:31; Status DC Bisacodyl (Dulcolax Tab) 10 mg 1X ONCE PO Last administered on 06/26/18at 13:55 ; Start 06/26/18 at 14:00; Stop 06/26/18 at 14:01; Status DC Ringer's Solution 1,000 ml @ 50 mls/hr Q20H IV ; Start 06/27/18 at 07:00; Stop 06/27/18 at 18:59; Status DC Diphenhydramine HCl (Benadryl) 25 mg 1X ONCE IVP Last administered on at 09:30; Start 06/27/18 at 09:30; Stop 06/27/18 at 09:31; Status DC Lactobacillus Rhamnosus (Culturelle) 1 cap BID PO ; Start 06/27/18 at 21:00; Status Cancel Midazolam HCl (Versed) 2 mg PRN 1X PRN IV PRIOR TO PROCEDURE; Start 06/27/18 at 13:00; Stop 06/28/18 at 12:59; Status DC Fentanyl Citrate (Fentanyl 2ml Vial) 25 mcg PRN Q5MIN PRN IV X 2 DOSES FOR PAIN ; Start 06/27/18 at 13:00; Stop 06/28/18 at 12:59; Status DC Fentanyl Citrate (Fentanyl 2ml Vial) 50 mcg PRN Q5MIN PRN IV X 2 DOSES FOR PAIN ; Start 06/27/18 at 13:00; Stop 06/28/18 at 12:59; Status DC Ringer's Solution 1,000 ml @ 125 mls/hr Q8H IV Last administered on 06/27/18at 13:12; Start 06/27/18 at 12:54; Stop 06/27/18 at 22:35; Status DC Lidocaine HCl (Xylocaine-Mpf 1% Vial) 2 ml 1X PRN PRN ID IV START; Start at 13:00; Stop 06/28/18 at 12:59; Status DC Aspirin (Ecotrin) 81 mg DAILYWBKFT PO Last administered on 07/04/18at 08:10; Start 06/28/18 at 08:00 Iron Sucrose 500 mg/Sodium Chloride 275 ml @ 78.571 mls/ hr 1X ONCE IV Last administered on 06/27/18at 17:30; Start 06/27/18 at 17:30; Stop 06/27/18 at 20:59; Status DC Iohexol (Omnipaque 300 Mg/ml) 75 ml 1X ONCE IV Last administered on 06/28/18at 06:15; Start 06/28/18 at 06:15; Stop 06/28/18 at 06:16; Status DC Iohexol (Omnipaque 240 Mg/ml) 50 ml 1X ONCE PO Last administered on 06/28/18at 06:15; Start 06/28/18 at 06:15; Stop 06/28/18 at 06:16; Status DC Info (CONTRAST GIVEN -- Rx MONITORING) 1 each PRN DAILY PRN MC SEE COMMENTS; Start 06/28/18 at 06:15; Stop 06/30/18 at 06:14; Status DC Cholestyramine Resin (Questran Light) 4 gm DAILY PO ; Start 06/28/18 at 13:00 Insulin Glargine (Lantus) 17 units DAILYWBKFT SQ Last administered on at 08:21; Start 07/01/18 at 08:00 Insulin Human Lispro (HumaLOG) 4 units TIDWMEALS SQ Last administered on at 08:22; Start 06/30/18 at 12:00 Acetaminophen (Tylenol) 650 mg PRN Q6HRS PRN PO TEMP > 100.4F Last administered on 07/01/18at 08:54; Start 06/30/18 at 16:15 Acetaminophen (Tylenol Supp) 650 mg PRN Q4HRS PRN AL TEMP > 100.4F; Start 06/30 at 16:15 Heparin Sodium/ Dextrose 500 ml @ 0 mls/hr CONT PRN IV SEE I/O RECORD; Start at 16:15; Status UNV Heparin Sodium/ Dextrose 500 ml @ 0 mls/hr CONT PRN IV SEE I/O RECORD Last administered on 07/03/18at 11:37; Start 06/30/18 at 16:30; Stop 07/03/18 at 16:49 ; Status DC Heparin Sodium (Porcine) (Heparin Sodium) 2,600 unit PRN Q6HRS PRN IV FOR UFH LEVEL LESS THAN 0.2 Last administered on 07/01/18at 03:31; Start 06/30/18 at 16: 30; Stop 07/03/18 at 16:49; Status DC Info (Anti-Coagulation Monitoring By Pharmacy) 1 each PRN DAILY PRN MC SEE COMMENTS Last administered on 07/03/18at 13:57; Start 06/30/18 at 16:45 Gadobutrol (Gadavist) 10 mmol 1X ONCE IV ; Start 07/01/18 at 13:45; Stop at 13:46; Status DC Propofol 20 ml @ As Directed STK-MED ONCE IV ; Start 06/27/18 at 13:08; Stop at 16:42; Status DC Lidocaine HCl (Lidocaine Pf 2% Vial) 5 ml STK-MED ONCE .ROUTE ; Start 06/27/18 at 13:20; Stop 07/01/18 at 16:42; Status DC Nystatin (Nystop) 1 hanh BID TP Last administered on 07/04/18at 08:14; Start at 21:00 Gadobutrol (Gadavist) 9 mmol 1X ONCE IV Last administered on 07/02/18at 11:29; Start 07/02/18 at 11:00; Stop 07/02/18 at 11:01; Status DC Active Scripts Active Reported Carvedilol 3.125 Mg Tablet 3.125 Mg PO BID Methotrexate (Methotrexate Sodium) 2.5 Mg Tablet 6 Tab PO WEEKLY Benadryl (Diphenhydramine Hcl) 25 Mg Capsule 2 Cap PO QHS Bumetanide 2 Mg Tablet 2 Mg PO DAILY Ocuvite Tablet (Vit A,C & E/Lutein/Minerals) 1 Each Tablet 1 Each PO BID Prevalite Packet (Cholestyramine/Aspartame) 4 Gm Powd.pack 4 Gm PO Citalopram Hbr (Citalopram Hydrobromide) 10 Mg Tablet 10 Mg PO DAILY Clopidogrel (Clopidogrel Bisulfate) 75 Mg Tablet 75 Mg PO DAILY Alprazolam 0.25 Mg Tablet 0.25 Mg PO PRN Q6HRS PRN Isosorbide Mononitrate Er (Isosorbide Mononitrate) 30 Mg Tab.er.24h 30 Mg PO DAILY Prilosec Otc (Omeprazole Magnesium) 20 Mg Tablet.dr 20 Mg PO DAILY Novolog Flexpen (Insulin Aspart) 100 Unit/1 Ml Insuln.pen 5 Unit SQ TIDBFRMEAL Lantus Solostar (Insulin Glargine,Hum.rec.anlog) 100 Unit/1 Ml Insuln.pen 20 Unit SQ DAILYWBKFT Acetaminophen 500 Mg Tablet 2 Tab PO BID Vitamin D-3 (Cholecalciferol (Vitamin D3)) 2,000 Unit Capsule 1,000 Unit PO Alendronate Sodium 70 Mg Tablet 70 Mg PO WEEKLY Warfarin Sodium 5 Mg Tablet 1.5 Tab PO DAILY Lisinopril 10 Mg Tablet 10 Mg PO DAILY Simvastatin 40 Mg Tablet 40 Mg PO DAILY Colace (Docusate Sodium) 100 Mg Capsule 100 Mg PO Garlic 1,000 Mg Capsule 1,000 Mg PO Multivitamins (Multivitamin) 1 Each Capsule 1 Each PO Brooks 3 Fish Oil Softgel (Brooks-3 Fatty Acids/Fish Oil) 1 Each Capsule. 1 Each PO DAILY Vitals/I & O Vital Sign - Last 24 Hours 07/03/18 07/03/18 07/03/18 07/03/18 09:32 09:32 09:33 11:00 Temp 96.3 96.3 Pulse 84 84 84 78 Resp 16 B/P (MAP) 154/54 154/54 154/54 144/46 (78) Pulse Ox 95 O2 Delivery Room Air 07/03/18 07/03/18 07/03/18 07/03/18 15:00 17:50 19:05 20:00 Temp 97.7 98.1 97.7 98.1 Pulse 86 78 83 Resp 24 16 B/P (MAP) 125/38 (67) 128/45 127/35 (65) Pulse Ox 95 92 O2 Delivery Room Air Room Air Room Air O2 Flow Rate 2.0 07/03/18 07/04/18 07/04/18 07/04/18 23:38 03:11 07:00 08:12 Temp 98.8 97.6 96.1 98.8 97.6 96.1 Pulse 92 82 90 90 Resp 16 18 20 B/P (MAP) 126/43 (70) 109/47 (67) 159/64 (95) 159/64 Pulse Ox 93 95 95 O2 Delivery Room Air Room Air Room Air 07/04/18 07/04/18 08:12 08:12 Pulse 90 90 B/P (MAP) 159/64 159/64 Intake and Output 07/03/18 07/03/18 07/04/18 15:00 23:00 07:00 Intake Total 360 ml 630 ml 500 ml Balance 360 ml 630 ml 500 ml MICHAEL VIDES MD Jul 04, 2018 08:47
[2018-07-04 11:00] VITALS: BP 128/41
--- NOTE | 2018-07-04 12:00 | PDOC ---
Objective: Objective: Reviewed chart. Has Delphine ordered, accepted at [facility]. Vital Signs: Vital Signs Date Time Temp Pulse Resp B/P (MAP) Pulse Ox O2 Delivery O2 Flow Rate FiO2 07/04/18 11:00 97.5 82 16 128/41 (70) 96 Room Air 97.5 07/03/18 20:00 2.0 Labs: Laboratory Tests Test 07/03/18 16:43 07/03/18 21:20 07/04/18 03:35 07/04/18 07:16 Glucose (Fingerstick) 105 mg/dL 180 mg/dL 111 mg/dL White Blood Count 5.2 x10^3/uL Red Blood Count 2.89 x10^6/uL Hemoglobin 8.2 g/dL Hematocrit 24.5 % Mean Corpuscular Volume 85 fL Mean Corpuscular Hemoglobin 28 pg Mean Corpuscular Hemoglobin Concent 33 g/dL Red Cell Distribution Width 21.3 % Platelet Count 319 x10^3/uL Neutrophils (%) (Auto) 62 % Lymphocytes (%) (Auto) 26 % Monocytes (%) (Auto) 9 % Eosinophils (%) (Auto) 3 % Basophils (%) (Auto) 0 % Neutrophils # (Auto) 3.2 x10^3uL Lymphocytes # (Auto) 1.3 x10^3/uL Monocytes # (Auto) 0.5 x10^3/uL Eosinophils # (Auto) 0.1 x10^3/uL Basophils # (Auto) 0.0 x10^3/uL PE: GEN: NAD LUNGS: room air NEURO/PSYCH: asleep in reclined w/ washcloth over eyes A/P: Esophageal adenocarcinoma -- Continue same per GI. RUBEN BOYD Jul 04, 2018 12:00
--- NOTE | 2018-07-04 13:44 | PN ---
DATE: 07/04/2018 LOCATION: Room 648. SUBJECTIVE: The patient is awake, alert, voices no significant complaints this morning, shortness of breath remains better. OBJECTIVE: VITAL SIGNS: Stable. She is afebrile. Sugars are good. Hemoglobin is 8.2. She has a negative 500 mL fluid balance. CHEST: Clear. HEART: Irregular, controlled rate. ABDOMEN: Benign. EXTREMITIES: Without cyanosis, clubbing, or significant edema. NEUROLOGIC: She seems nonfocal. Heparin has been stopped for the patient this morning, but no other anticoagulant has been added, and she is going to be on another anticoagulant prior with what she has done here with the stroke, we are holding the Coumadin for the GI evaluation. IMPRESSION: 1. Embolic cerebrovascular accident. 2. Poorly differentiated adenocarcinoma of the esophagus. 3. Atrial fibrillation. 4. Cardiomyopathy. 5. Diabetes. 6. Coagulopathy, resolved. 7. Congestive heart failure, stable. PLAN: At this point, she is considering [facility] at [facility]. I am going to start her on one of the newer anticoagulants with likely discharge in the morning to [facility] if all is stable. ARTHUR GUERRA MD DR: MAYA/vandana JOB#: [id number] / [id number]
[2018-07-04] MEDS: ANTI-COAG MONITOR BY PHARMACY. MC PRN (14:52)
[2018-07-04 15:00] VITALS: BP 123/43
[2018-07-04] MEDS ORDERED: RIVAROXABAN 10 MG TABLET. PO SCH (17:00)
[2018-07-04] MEDS ORDERED: RIVAROXABAN 15 MG TABLET. PO SCH (17:00)
--- NOTE | 2018-07-04 17:21 | PDOC ---
PROGRESS NOTES Assessment Assessment Left side heaviness/weakness. Falls. Acute small right parietal lobe, left frontal and parieto-occipital lobe infarcts. Multiple mediastinal lymph nodes, metastatic ? Multiple lung nodules. Chest pain. AFib. DM. Respiratory distress. Right side breast cancer s/p right mastectomy and left lumpectomy. CAD/sp stents placement. CHF, EF 30-35%. Pulmonary hypertension, PA pressure 53. Anemia. Obesity. Esophageal cancer, adenocarcinoma. No brain metastatic disease this time. RECOMMENDATIONS/PLAN: She has been on Heparin and ASA 81 mg daily. Continue Zocor 40 mg HS. Treat medical and cardiac diseases. OT/PT. Echo on 06/24/18: see above reports. Lipids: WNL. HISTORY OF THE PRESENT ILLNESS: 82-y-old female patient with above medical and oncological diseases was admitted on 06/21/18 due to chest pain, SOB and other complaints. She was noted left side weakness and heaviness, so Neurology was required for consultation. PAST MEDICAL HISTORY Cardiovascular: CAD, HTN, Hyperlipidemia CENTRAL NERVOUS SYSTEM: CVA, TIA GI: GERD Heme/Onc: Cancer (breast) Musculoskeletal: Osteoarthritis Rheumatologic: Rheumatoid arthritis Endocrine: Diabetes PAST SURGICAL HISTORY CABG (details unknown ), Total knee replacement (bilateral ) FAMILY HISTORY Family History Unknown SOCIAL HISTORY Smoke: Quit ALCOHOL: other (daily beer ) Drugs: None ALLERGIES Milk (Verified Allergy, Intermediate, 06/21/18) Montelukast (Verified Allergy, Intermediate, 06/21/18) MEDICATIONS: Refer to MAR REVIEW OF SYSTEMS: Constitutional: Obesity. Head: No traumatic brain or head injury. Skin: No edema, or rash. Ear: No infection. Eyes: No vision loss or color blindness. Nose: No bleeding or purulent discharges. Hearing: No hearing decrease. Neck: No injury. Breast: Cancer Cardiac: CAD, AFib, s/p CABG, AFib, HTN, HLD. Pulmonary: No COPD. GI: No GI ulcer, GI bleeding. Urinary/genital: UTI. Endocrinologic: DM. Obesity. Skeletomuscular: No muscular atrophy, deformity Neurological: see HP. Psychiatric: Denies drug use/abuse. Otherwise, not [id number] review of systems. PHYSICAL EXAMINATION: General appearance is in subacute distress. HEENT: Normocephalic and nontraumatic. Eyes, nose, ears, and throat are unremarkable. Neck is supple. No lymphadenopathy. No bruits are heard over the carotid artery. No crepitus. Cardiovascular: S1, S2, irregular rate and rhythm. Pulmonary: Clear to auscultation bilaterally. Abdomen: Bowel sounds are positive. Abdomen is soft, nontender, and nondistended. Extremities: No rash, lesions, or edema. No restriction of range of motion NEUROLOGICAL EXAMINATION: Awake. Oriented to time, place and person, but reaction. PERRL. EOMI. CN: no focal findings. Muscle tone: within normal. Muscle strength: 4+ DTR: 2- Plantar reflex: Neutral response bilaterally Gait: Able to walk with a walker with assistance. Sensory exam: no abnormal findings. No cerebellar signs elicited. F-T-N test fine. Objective Objective Vital Signs Date Time Temp Pulse Resp B/P (MAP) Pulse Ox O2 Delivery O2 Flow Rate FiO2 07/04/18 15:00 97.7 81 24 123/43 (69) 94 Room Air 97.7 07/04/18 08:00 2.0 Intake and Output 07/04/18 07:00 Intake Total 1490 ml Balance 1490 ml Intake Oral 1490 ml # Voids 7 # Bowel Movements 1 Vitals Signs Vitals VS - Last 72 Hours, by Label Date Time Temp Pulse Resp B/P (MAP) Pulse Ox O2 Delivery O2 Flow Rate FiO2 07/04/18 15:00 97.7 81 24 123/43 (69) 94 Room Air 97.7 07/04/18 11:00 97.5 82 16 128/41 (70) 96 Room Air 97.5 07/04/18 08:12 90 159/64 07/04/18 08:12 90 159/64 07/04/18 08:12 90 159/64 07/04/18 08:00 Room Air 2.0 07/04/18 07:00 96.1 90 20 159/64 (95) 95 Room Air 96.1 07/04/18 03:11 97.6 82 18 109/47 (67) 95 Room Air 97.6 07/03/18 23:38 98.8 92 16 126/43 (70) 93 Room Air 98.8 07/03/18 20:00 Room Air 2.0 07/03/18 19:05 98.1 83 16 127/35 (65) 92 Room Air 98.1 07/03/18 17:50 78 128/45 07/03/18 15:00 97.7 86 24 125/38 (67) 95 Room Air 97.7 07/03/18 11:00 96.3 78 16 144/46 (78) 95 Room Air 96.3 07/03/18 09:33 84 154/54 07/03/18 09:32 84 154/54 07/03/18 09:32 84 154/54 07/03/18 08:00 Room Air 07/03/18 07:00 97.7 84 24 154/54 (87) 94 Room Air 97.7 Laboratory Laboratory Laboratory Tests Test 07/03/18 21:20 07/04/18 03:35 07/04/18 07:16 07/04/18 11:48 Glucose (Fingerstick) 180 mg/dL (70-99) 111 mg/dL (70-99) 124 mg/dL (70-99) White Blood Count 5.2 x10^3/uL (4.0-11.0) Red Blood Count 2.89 x10^6/uL (3.50-5.40) Hemoglobin 8.2 g/dL (12.0-15.5) Hematocrit 24.5 % (36.0-47.0) Mean Corpuscular Volume 85 fL (79-100) Mean Corpuscular Hemoglobin 28 pg (25-35) Mean Corpuscular Hemoglobin Concent 33 g/dL (31-37) Red Cell Distribution Width 21.3 % (11.5-14.5) Platelet Count 319 x10^3/uL (140-400) Neutrophils (%) (Auto) 62 % (31-73) Lymphocytes (%) (Auto) 26 % (24-48) Monocytes (%) (Auto) 9 % (0-9) Eosinophils (%) (Auto) 3 % (0-3) Basophils (%) (Auto) 0 % (0-3) Neutrophils # (Auto) 3.2 x10^3uL (1.8-7.7) Lymphocytes # (Auto) 1.3 x10^3/uL (1.0-4.8) Monocytes # (Auto) 0.5 x10^3/uL (0.0-1.1) Eosinophils # (Auto) 0.1 x10^3/uL (0.0-0.7) Basophils # (Auto) 0.0 x10^3/uL (0.0-0.2) Test 07/04/18 16:39 Glucose (Fingerstick) 111 mg/dL (70-99) Microbiology 06/24/18 Blood Culture - Final, Complete NO GROWTH AFTER 5 DAYS Medication Medications Current Medications Rivaroxaban (Xarelto) 10 mg DAILYWSUP PO ; Start 07/04/18 at 17:00; Stop at 17:00; Status DC Rivaroxaban (Xarelto) 15 mg DAILYWSUP PO ; Start 07/04/18 at 17:00 Comment Review of Relevant I have reviewed the following items aviva (where applicable) has been applied. OLVIN JONES MD Jul 04, 2018 17:21
[2018-07-04] MEDS: cefTRIAXone IV Push 1 GM VIAL. IVP SCH (18:04)
[2018-07-04 19:46] VITALS: BP 116/50
[2018-07-04] MEDS: SIMVASTATIN 40 MG TABLET. PO SCH (20:48)
[2018-07-04] MEDS: diphenhydrAMINE HCL 25 MG CAPSULE PO SCH (20:48)
--- NOTE | 2018-07-04 22:53 | PDOC ---
Provider Note Provider Note No new cardiac recs. upon DC would set up appt with her primary carbonation equipment tender at for consideration of watchman device to help avoid anticoagulation. Would be happy to help facilitate for patient. thanks MC JIM MD Jul 04, 2018 22:53
[2018-07-04 23:03] VITALS: BP 114/37
[2018-07-05 03:16] VITALS: BP 126/39
[2018-07-05 06:55] VITALS: BP 117/65
[2018-07-05] MEDS: OMEGA-3 FATTY ACIDS/FISH OIL 1,000 MG CAPSULE. PO SCH (07:52)
[2018-07-05] MEDS: PANTOPRAZOLE 40 MG TABLET.DR. PO SCH (07:52)
[2018-07-05] MEDS: DOCUSATE SODIUM 100 MG CAPSULE. PO SCH (07:52)
[2018-07-05] MEDS: ISOSORBIDE MONONITRATE ER 30 MG TAB.ER.24H PO SCH (07:53)
[2018-07-05] MEDS: CITALOPRAM 10 MG TABLET. PO SCH (07:53)
[2018-07-05] MEDS: ASPIRIN ENTERIC COATED 81 MG TABLET.DR. PO SCH (07:53)
[2018-07-05] MEDS: ACETAMINOPHEN 500 MG TABLET PO SCH (07:53)
[2018-07-05] MEDS: CARVEDILOL 3.125 MG TABLET. PO SCH (07:54)
[2018-07-05] MEDS: CHOLESTYRAMINE/ASPARTAME 4 GM PACKET PO SCH (07:54)
[2018-07-05] MEDS: BUMETANIDE 1 MG TABLET. PO SCH (07:54)
[2018-07-05] MEDS: LISINOPRIL 10 MG TABLET PO SCH (07:54)
[2018-07-05] MEDS: INSULIN GLARGINE 300 UNITS/3 ML INSULN.PEN. SQ SCH (08:10)
[2018-07-05] MEDS: INSULIN LISPRO 300 UNITS/3 ML INSULN.PEN. SQ SCH (08:10)
--- NOTE | 2018-07-05 08:29 | PDOC ---
GENERAL General: see dictated discharge summary. VITAL SIGNS Vital Signs: Vital Signs Date Time Temp Pulse Resp B/P (MAP) Pulse Ox O2 Delivery O2 Flow Rate FiO2 07/05/18 08:00 Room Air 2.0 07/05/18 07:54 60 117/65 07/05/18 06:55 97.4 18 92 97.4 I & O I & O Intake and Output 07/05/18 07:00 Intake Total 900 ml Balance 900 ml Intake Oral 900 ml # Voids 4 # Bowel Movements 1 ALLERGIES Allergies: Allergies Coded Allergies Type Severity Reaction Last Updated Verified milk Allergy Intermediate 06/27/18 Yes montelukast Allergy Intermediate 06/27/18 Yes MEDS Medications: Current Medications Medications (Trade) Dose Ordered Sig/Frank Start Time Stop Time Status Last Admin Dose Admin Acetaminophen (Tylenol Supp) 650 mg PRN Q4HRS PRN 06/30/18 16:15 Acetaminophen (Tylenol) 650 mg PRN Q6HRS PRN 06/30/18 16:15 07/01/18 08:54 650 MG Alprazolam (Xanax) 0.25 mg PRN Q6HRS PRN 06/21/18 18:45 07/03/18 20:11 0.25 MG Aspirin (Ecotrin) 81 mg DAILYWBKFT 06/28/18 08:00 07/05/18 07:53 81 MG Bisacodyl (Dulcolax Tab) 10 mg 1X ONCE 06/26/18 14:00 06/26/18 14:01 DC 06/26/18 13:55 10 MG Bumetanide (Bumex) 2 mg DAILY 06/22/18 09:00 07/05/18 07:54 2 MG Carvedilol (Coreg) 3.125 mg BIDWMEALS 06/21/18 21:00 07/05/18 07:54 3.125 MG Ceftriaxone Sodium 1 gm/ Dextrose 50 ml @ 100 mls/hr Q24H 06/21/18 15:45 UNV Ceftriaxone Sodium (Rocephin) 1 gm Q24H 06/21/18 17:00 07/04/18 18:04 1 GM Cholestyramine Resin (Questran Light) 4 gm DAILY 06/28/18 13:00 Citalopram Hydrobromide (CeleXA) 10 mg DAILY 06/22/18 09:00 07/05/18 07:53 10 MG Clopidogrel Bisulfate (Plavix) 75 mg DAILY 06/22/18 09:00 06/27/18 15:20 DC 06/26/18 08:57 75 MG Diphenhydramine HCl (Benadryl) 25 mg 1X ONCE 06/27/18 09:30 06/27/18 09:31 DC 06/27/18 09:30 25 MG Docusate Sodium (Colace) 100 mg DAILY 06/22/18 09:00 07/05/18 07:52 100 MG Fentanyl Citrate (Fentanyl 2ml Vial) 50 mcg PRN Q5MIN PRN 06/27/18 13:00 06/28/18 12:59 DC Fish Oil (Fish Oil) 1,000 mg DAILY 06/22/18 09:00 07/05/18 07:52 1,000 MG Furosemide (Lasix) 40 mg 1X ONCE 06/23/18 12:00 06/23/18 12:01 DC 06/23/18 12:05 40 MG Gadobutrol (Gadavist) 9 mmol 1X ONCE 07/02/18 11:00 07/02/18 11:01 DC 07/02/18 11:29 9 MMOL Heparin Sodium (Porcine) (Heparin Sodium) 2,600 unit PRN Q6HRS PRN 06/30/18 16:30 07/03/18 16:49 DC 07/01/18 03:31 2,600 UNIT Heparin Sodium/ Dextrose 500 ml @ 0 mls/hr CONT PRN 06/30/18 16:30 07/03/18 16:49 DC 07/03/18 11:37 31.5 MLS/HR Info (Anti-Coagulation Monitoring By Pharmacy) 1 each PRN DAILY PRN 06/30/18 16:45 07/04/18 14:52 1 EACH Info (CONTRAST GIVEN -- Rx MONITORING) 1 each PRN DAILY PRN 06/28/18 06:15 06/30/18 06:14 DC Insulin Glargine (Lantus) 17 units DAILYWBKFT 07/01/18 08:00 07/05/18 08:10 17 UNITS Insulin Human Lispro (HumaLOG) 4 units TIDWMEALS 06/30/18 12:00 07/05/18 08:10 4 UNITS Iohexol (Omnipaque 240 Mg/ml) 50 ml 1X ONCE 06/28/18 06:15 06/28/18 06:16 DC 06/28/18 06:15 50 ML Iohexol (Omnipaque 300 Mg/ml) 75 ml 1X ONCE 06/28/18 06:15 06/28/18 06:16 DC 06/28/18 06:15 75 ML Iron Sucrose 500 mg/Sodium Chloride 275 ml @ 78.571 mls/ hr 1X ONCE 06/27/18 17:30 06/27/18 20:59 DC 06/27/18 17:30 78.571 MLS/HR Isosorbide Mononitrate (Imdur) 30 mg DAILY 06/22/18 09:00 07/05/18 07:53 30 MG Lactobacillus Rhamnosus (Culturelle) 1 cap BID 06/27/18 21:00 Cancel Lidocaine HCl (Lidocaine Pf 2% Vial) 5 ml STK-MED ONCE 06/27/18 13:20 07/01/18 16:42 DC Lidocaine HCl (Xylocaine-Mpf 1% Vial) 2 ml 1X PRN PRN 06/27/18 13:00 06/28/18 12:59 DC Lisinopril (Prinivil) 10 mg DAILY 06/22/18 09:00 07/05/18 07:54 10 MG Magnesium Citrate (Citroma) 296 ml 1X ONCE 06/26/18 12:00 06/26/18 12:01 DC 06/26/18 12:58 296 ML Magnesium Sulfate/ Dextrose 100 ml @ 25 mls/hr 1X ONCE 06/24/18 13:00 06/24/18 16:59 DC 06/24/18 12:16 25 MLS/HR Methotrexate (Rheumatrex) 15 mg WEEKLY 06/27/18 09:00 07/04/18 08:21 15 MG Midazolam HCl (Versed) 2 mg PRN 1X PRN 06/27/18 13:00 06/28/18 12:59 DC Multivitamins/ Minerals (I-Myah) 1 tab BID 06/21/18 21:00 07/04/18 20:48 1 TAB Non-Formulary Medication (Alendronate Sodium ) 70 mg WEEKLY 06/28/18 09:00 UNV Nystatin (Nystop) 1 hanh BID 07/02/18 21:00 07/04/18 20:50 1 HANH Pantoprazole Sodium (Protonix) 40 mg DAILYAC 06/22/18 07:30 07/05/18 07:52 40 MG Polyethylene Glycol (miraLAX Powder BULK BOTTLE) 238 gm 1X ONCE 06/26/18 13:00 06/26/18 13:01 DC 06/26/18 13:55 238 GM Potassium Chloride (Klor-Con) 40 meq 1X ONCE 06/24/18 12:30 06/24/18 12:31 DC 06/24/18 12:15 40 MEQ Propofol 20 ml @ As Directed STK-MED ONCE 06/27/18 13:08 07/01/18 16:42 DC Ringer's Solution 1,000 ml @ 125 mls/hr Q8H 06/27/18 12:54 06/27/18 22:35 DC 06/27/18 13:12 125 MLS/HR Rivaroxaban (Xarelto) 15 mg DAILYWSUP 07/04/18 17:00 07/04/18 18:04 15 MG Simvastatin (Zocor) 40 mg QHS 06/21/18 21:00 07/04/18 20:48 40 MG Sodium Chloride 1,000 ml @ 125 mls/hr 1X ONCE 06/21/18 15:45 06/21/18 23:44 DC 06/21/18 19:50 125 MLS/HR Warfarin Sodium (Coumadin Per Physician) 1 each PRN DAILY PRN 06/21/18 20:00 06/27/18 15:20 DC Warfarin Sodium (Coumadin) 7.5 mg DAILY16 06/22/18 16:00 06/23/18 11:25 DC LAB Lab: Laboratory Tests Test 07/04/18 11:48 07/04/18 16:39 07/04/18 20:29 07/05/18 07:12 Glucose (Fingerstick) 124 mg/dL (70-99) 111 mg/dL (70-99) 143 mg/dL (70-99) 125 mg/dL (70-99) ARTHUR GUERRA MD Jul 05, 2018 08:29
--- NOTE | 2018-07-05 08:59 | PDOC ---
PROGRESS NOTES Subjective Subjective HPI - f/u of Poorly differentiated Esophageal adenocarcinoma diagnosed 06/27/18 ROS - no CP, no dysphagia Objective Objective Vital Signs Date Time Temp Pulse Resp B/P (MAP) Pulse Ox O2 Delivery O2 Flow Rate FiO2 07/05/18 08:00 Room Air 2.0 07/05/18 07:54 60 117/65 07/05/18 06:55 97.4 18 92 97.4 Intake and Output 07/05/18 07:00 Intake Total 900 ml Balance 900 ml Intake Oral 900 ml # Voids 4 # Bowel Movements 1 Physical Exam Heart: Normal S1, Normal S2 General: Alert, Oriented X3, No acute distress Lungs: Clear to auscultation Neuro: Normal speech Psych/Mental Status: Mental status NL Assessment Assessment IMPRESSION AND PLAN: 1. Poorly differentiated Esophageal adenocarcinoma diagnosed 06/27/18 - nodules noted on EGD done on 06/27/2018. history of Ferrell esophagus. CT chest, abdomen and pelvis 06/28/18 Multiple mediastinal lymph nodes identified and few paraesophageal lymph nodes could be reactive or metastatic. Plan PET CT scan for further evaluation (outpatient). Scattered multiple lung nodules with the largest measuring 5.5 mm in the right apical lung. Bone scan 06/28/18 is neg. Considering her age and comorbidities, treatment options would be definitive radiation therapy versus combined chemoradiation. I also d/w DR Alcala, Radiation Oncology and Dr Zabala. f/u with me in 2 weeks. 2. Anemia. Iron deficiency is noted with very decreased iron saturation, but the ferritin is normal. s/p Venofer 500 mg IV x 1 dose 06/27/18. Hb 8.2 on 07/04/18, monitor cbc 3. Coronary artery disease. Her ejection fraction on echocardiogram done on 06/24/2018 was only 30-35%. Appreciate Cardiology management. 4. Acute CVA - Falls - CT head neg. MRI brain 07/01/18: Small areas of acute ischemia/infarction are seen involving the right parietal lobe, the medial left frontal lobe and the left parietal occipital lobe. There is no significant surrounding edema or associated mass effect. Left side heaviness/weakness. Management per neurology. 5. Rheumatoid arthritis - on Methotrexate weekly. 6. A.fib - she is on anticoagulation. I d/w cardiology Comment Review of Relevant I have reviewed the following items aviva (where applicable) has been applied. Labs Laboratory Tests Test 07/03/18 11:41 07/03/18 16:43 07/03/18 21:20 07/04/18 03:35 Glucose (Fingerstick) 149 mg/dL (70-99) 105 mg/dL (70-99) 180 mg/dL (70-99) White Blood Count 5.2 x10^3/uL (4.0-11.0) Red Blood Count 2.89 x10^6/uL (3.50-5.40) Hemoglobin 8.2 g/dL (12.0-15.5) Hematocrit 24.5 % (36.0-47.0) Mean Corpuscular Volume 85 fL (79-100) Mean Corpuscular Hemoglobin 28 pg (25-35) Mean Corpuscular Hemoglobin Concent 33 g/dL (31-37) Red Cell Distribution Width 21.3 % (11.5-14.5) Platelet Count 319 x10^3/uL (140-400) Neutrophils (%) (Auto) 62 % (31-73) Lymphocytes (%) (Auto) 26 % (24-48) Monocytes (%) (Auto) 9 % (0-9) Eosinophils (%) (Auto) 3 % (0-3) Basophils (%) (Auto) 0 % (0-3) Neutrophils # (Auto) 3.2 x10^3uL (1.8-7.7) Lymphocytes # (Auto) 1.3 x10^3/uL (1.0-4.8) Monocytes # (Auto) 0.5 x10^3/uL (0.0-1.1) Eosinophils # (Auto) 0.1 x10^3/uL (0.0-0.7) Basophils # (Auto) 0.0 x10^3/uL (0.0-0.2) Test 07/04/18 07:16 07/04/18 11:48 07/04/18 16:39 07/04/18 20:29 Glucose (Fingerstick) 111 mg/dL (70-99) 124 mg/dL (70-99) 111 mg/dL (70-99) 143 mg/dL (70-99) Test 07/05/18 07:12 Glucose (Fingerstick) 125 mg/dL (70-99) Laboratory Tests Test 07/04/18 11:48 8/16/18 16:39 07/04/18 20:29 07/05/18 07:12 Glucose (Fingerstick) 124 mg/dL (70-99) 111 mg/dL (70-99) 143 mg/dL (70-99) 125 mg/dL (70-99) Microbiology 06/24/18 Blood Culture - Final, Complete NO GROWTH AFTER 5 DAYS Medications Current Medications Sodium Chloride 1,000 ml @ 125 mls/hr 1X ONCE IV Last administered on 19:50; Start 06/21/18 at 15:45; Stop 06/21/18 at 23:44; Status DC Ceftriaxone Sodium 1 gm/ Dextrose 50 ml @ 100 mls/hr Q24H IV ; Start 06/21/18 at 15:45; Status UNV Ceftriaxone Sodium (Rocephin) 1 gm Q24H IVP Last administered on 07/04/18 18: 04; Start 06/21/18 at 17:00 Acetaminophen (Tylenol) 1,000 mg BID PO Last administered on 07/05/18 07:53; Start 06/21/18 at 21:00 Alprazolam (Xanax) 0.25 mg PRN Q6HRS PRN PO ANXIETY / AGITATION Last administered on 07/03/18 20:11; Start 06/21/18 at 18:45 Carvedilol (Coreg) 3.125 mg BIDWMEALS PO Last administered on 07/05/18 07:54; Start 06/21/18 at 21:00 Cholestyramine Resin (Questran Light) 4 gm DAILY PO Last administered on 08:57; Start 06/22/18 at 09:00; Stop 06/28/18 at 07:46; Status DC Citalopram Hydrobromide (CeleXA) 10 mg DAILY PO Last administered on 07/05/18 07:53; Start 06/22/18 at 09:00 Clopidogrel Bisulfate (Plavix) 75 mg DAILY PO Last administered on 06/26/18 08: 57; Start 06/22/18 at 09:00; Stop 06/27/18 at 15:20; Status DC Diphenhydramine HCl (Benadryl) 50 mg QHS PO Last administered on 07/04/18 20: 48; Start 06/21/18 at 21:00 Docusate Sodium (Colace) 100 mg DAILY PO Last administered on 07/05/18 07:52; Start 06/22/18 at 09:00 Insulin Glargine (Lantus) 20 units DAILYWBKFT SQ Last administered on at 08:55; Start 06/22/18 at 08:00; Stop 06/30/18 at 08:32; Status DC Isosorbide Mononitrate (Imdur) 30 mg DAILY PO Last administered on 07/05/18 07 :53; Start 06/22/18 at 09:00 Lisinopril (Prinivil) 10 mg DAILY PO Last administered on 07/05/18 07:54; Start 06/22/18 at 09:00 Multivitamins/ Minerals (I-Myah) 1 tab BID PO Last administered on 07/04/18 20 :48; Start 06/21/18 at 21:00 Non-Formulary Medication (Alendronate Sodium ) 70 mg WEEKLY PO ; Start 06/28/18 at 09:00; Status UNV Bumetanide (Bumex) 2 mg DAILY PO Last administered on 07/05/18at 07:54; Start at 09:00 Insulin Human Lispro (HumaLOG) 5 units TIDWMEALS SQ Last administered on 17:35; Start 06/22/18 at 08:00; Stop 06/30/18 at 08:32; Status DC Methotrexate (Rheumatrex) 15 mg WEEKLY PO Last administered on 07/04/18at 08:21 ; Start 06/27/18 at 09:00 Fish Oil (Fish Oil) 1,000 mg DAILY PO Last administered on 07/05/18 07:52; Start 06/22/18 at 09:00 Pantoprazole Sodium (Protonix) 40 mg DAILYAC PO Last administered on 07/05/18 07:52; Start 06/22/18 at 07:30 Simvastatin (Zocor) 40 mg QHS PO Last administered on 07/04/18 20:48; Start at 21:00 Warfarin Sodium (Coumadin) 7.5 mg DAILY16 PO ; Start 06/22/18 at 16:00; Stop 06/23 at 11:25; Status DC Warfarin Sodium (Coumadin Per Physician) 1 each PRN DAILY PRN MC SEE COMMENTS; Start 06/21/18 at 20:00; Stop 06/27/18 at 15:20; Status DC Furosemide (Lasix) 40 mg 1X ONCE IVP Last administered on 06/23/18at 12:05; Start 06/23/18 at 12:00; Stop 06/23/18 at 12:01; Status DC Magnesium Sulfate/ Dextrose 100 ml @ 25 mls/hr 1X ONCE IV Last administered on 06/24/18at 12:16; Start 06/24/18 at 13:00; Stop 06/24/18 at 16:59; Status DC Potassium Chloride (Klor-Con) 40 meq 1X ONCE PO Last administered on 06/24/18at 12:15; Start 06/24/18 at 12:30; Stop 06/24/18 at 12:31; Status DC Polyethylene Glycol (miraLAX Powder BULK BOTTLE) 238 gm 1X ONCE PO Last administered on 06/26/18at 13:55; Start 06/26/18 at 13:00; Stop 06/26/18 at 13:01; Status DC Magnesium Citrate (Citroma) 296 ml 1X ONCE PO Last administered on 06/26/18at 12 :58; Start 06/26/18 at 12:00; Stop 06/26/18 at 12:01; Status DC Bisacodyl (Dulcolax Tab) 10 mg 1X ONCE PO Last administered on 06/26/18at 12:58 ; Start 06/26/18 at 12:30; Stop 06/26/18 at 12:31; Status DC Bisacodyl (Dulcolax Tab) 10 mg 1X ONCE PO Last administered on 06/26/18at 13:55 ; Start 06/26/18 at 14:00; Stop 06/26/18 at 14:01; Status DC Ringer's Solution 1,000 ml @ 50 mls/hr Q20H IV ; Start 06/27/18 at 07:00; Stop 06/27/18 at 18:59; Status DC Diphenhydramine HCl (Benadryl) 25 mg 1X ONCE IVP Last administered on at 09:30; Start 06/27/18 at 09:30; Stop 06/27/18 at 09:31; Status DC Lactobacillus Rhamnosus (Culturelle) 1 cap BID PO ; Start 06/27/18 at 21:00; Status Cancel Midazolam HCl (Versed) 2 mg PRN 1X PRN IV PRIOR TO PROCEDURE; Start 06/27/18 at 13:00; Stop 06/28/18 at 12:59; Status DC Fentanyl Citrate (Fentanyl 2ml Vial) 25 mcg PRN Q5MIN PRN IV X 2 DOSES FOR PAIN ; Start 06/27/18 at 13:00; Stop 06/28/18 at 12:59; Status DC Fentanyl Citrate (Fentanyl 2ml Vial) 50 mcg PRN Q5MIN PRN IV X 2 DOSES FOR PAIN ; Start 06/27/18 at 13:00; Stop 06/28/18 at 12:59; Status DC Ringer's Solution 1,000 ml @ 125 mls/hr Q8H IV Last administered on 06/27/18at 13:12; Start 06/27/18 at 12:54; Stop 06/27/18 at 22:35; Status DC Lidocaine HCl (Xylocaine-Mpf 1% Vial) 2 ml 1X PRN PRN ID IV START; Start at 13:00; Stop 06/28/18 at 12:59; Status DC Aspirin (Ecotrin) 81 mg DAILYWBKFT PO Last administered on 07/05/18at 07:53; Start 06/28/18 at 08:00 Iron Sucrose 500 mg/Sodium Chloride 275 ml @ 78.571 mls/ hr 1X ONCE IV Last administered on 06/27/18at 17:30; Start 06/27/18 at 17:30; Stop 06/27/18 at 20:59; Status DC Iohexol (Omnipaque 300 Mg/ml) 75 ml 1X ONCE IV Last administered on 06/28/18at 06:15; Start 06/28/18 at 06:15; Stop 06/28/18 at 06:16; Status DC Iohexol (Omnipaque 240 Mg/ml) 50 ml 1X ONCE PO Last administered on 06/28/18at 06:15; Start 06/28/18 at 06:15; Stop 06/28/18 at 06:16; Status DC Info (CONTRAST GIVEN -- Rx MONITORING) 1 each PRN DAILY PRN MC SEE COMMENTS; Start 06/28/18 at 06:15; Stop 06/30/18 at 06:14; Status DC Cholestyramine Resin (Questran Light) 4 gm DAILY PO ; Start 06/28/18 at 13:00 Insulin Glargine (Lantus) 17 units DAILYWBKFT SQ Last administered on at 08:10; Start 07/01/18 at 08:00 Insulin Human Lispro (HumaLOG) 4 units TIDWMEALS SQ Last administered on at 08:10; Start 06/30/18 at 12:00 Acetaminophen (Tylenol) 650 mg PRN Q6HRS PRN PO TEMP > 100.4F Last administered on 07/01/18at 08:54; Start 06/30/18 at 16:15 Acetaminophen (Tylenol Supp) 650 mg PRN Q4HRS PRN MD TEMP > 100.4F; Start 06/30 at 16:15 Heparin Sodium/ Dextrose 500 ml @ 0 mls/hr CONT PRN IV SEE I/O RECORD; Start at 16:15; Status UNV Heparin Sodium/ Dextrose 500 ml @ 0 mls/hr CONT PRN IV SEE I/O RECORD Last administered on 07/03/18at 11:37; Start 06/30/18 at 16:30; Stop 07/03/18 at 16:49 ; Status DC Heparin Sodium (Porcine) (Heparin Sodium) 2,600 unit PRN Q6HRS PRN IV FOR UFH LEVEL LESS THAN 0.2 Last administered on 07/01/18at 03:31; Start 06/30/18 at 16: 30; Stop 07/03/18 at 16:49; Status DC Info (Anti-Coagulation Monitoring By Pharmacy) 1 each PRN DAILY PRN MC SEE COMMENTS Last administered on 07/04/18at 14:52; Start 06/30/18 at 16:45 Gadobutrol (Gadavist) 10 mmol 1X ONCE IV ; Start 07/01/18 at 13:45; Stop at 13:46; Status DC Propofol 20 ml @ As Directed STK-MED ONCE IV ; Start 06/27/18 at 13:08; Stop at 16:42; Status DC Lidocaine HCl (Lidocaine Pf 2% Vial) 5 ml STK-MED ONCE .ROUTE ; Start 06/27/18 at 13:20; Stop 07/01/18 at 16:42; Status DC Nystatin (Nystop) 1 hanh BID TP Last administered on 07/04/18at 20:50; Start at 21:00 Gadobutrol (Gadavist) 9 mmol 1X ONCE IV Last administered on 07/02/18at 11:29; Start 07/02/18 at 11:00; Stop 07/02/18 at 11:01; Status DC Rivaroxaban (Xarelto) 10 mg DAILYWSUP PO ; Start 07/04/18 at 17:00; Stop at 17:00; Status DC Rivaroxaban (Xarelto) 15 mg DAILYWSUP PO Last administered on 07/04/18at 18:04; Start 07/04/18 at 17:00 Active Scripts Active Reported Carvedilol 3.125 Mg Tablet 3.125 Mg PO BID Methotrexate (Methotrexate Sodium) 2.5 Mg Tablet 6 Tab PO WEEKLY Benadryl (Diphenhydramine Hcl) 25 Mg Capsule 2 Cap PO QHS Bumetanide 2 Mg Tablet 2 Mg PO DAILY Ocuvite Tablet (Vit A,C & E/Lutein/Minerals) 1 Each Tablet 1 Each PO BID Prevalite Packet (Cholestyramine/Aspartame) 4 Gm Powd.pack 4 Gm PO Citalopram Hbr (Citalopram Hydrobromide) 10 Mg Tablet 10 Mg PO DAILY Clopidogrel (Clopidogrel Bisulfate) 75 Mg Tablet 75 Mg PO DAILY Alprazolam 0.25 Mg Tablet 0.25 Mg PO PRN Q6HRS PRN Isosorbide Mononitrate Er (Isosorbide Mononitrate) 30 Mg Tab.er.24h 30 Mg PO DAILY Prilosec Otc (Omeprazole Magnesium) 20 Mg Tablet.dr 20 Mg PO DAILY Novolog Flexpen (Insulin Aspart) 100 Unit/1 Ml Insuln.pen 5 Unit SQ TIDBFRMEAL Lantus Solostar (Insulin Glargine,Hum.rec.anlog) 100 Unit/1 Ml Insuln.pen 20 Unit SQ DAILYWBKFT Acetaminophen 500 Mg Tablet 2 Tab PO BID Vitamin D-3 (Cholecalciferol (Vitamin D3)) 2,000 Unit Capsule 1,000 Unit PO Alendronate Sodium 70 Mg Tablet 70 Mg PO WEEKLY Warfarin Sodium 5 Mg Tablet 1.5 Tab PO DAILY Lisinopril 10 Mg Tablet 10 Mg PO DAILY Simvastatin 40 Mg Tablet 40 Mg PO DAILY Colace (Docusate Sodium) 100 Mg Capsule 100 Mg PO Garlic 1,000 Mg Capsule 1,000 Mg PO Multivitamins (Multivitamin) 1 Each Capsule 1 Each PO [place] 3 Fish Oil Softgel ([place]-3 Fatty Acids/Fish Oil) 1 Each Capsule. 1 Each PO DAILY Vitals/I & O Vital Sign - Last 24 Hours 07/04/18 07/04/18 07/04/18 07/04/18 11:00 15:00 18:04 19:46 Temp 97.5 97.7 98.3 97.5 97.7 98.3 Pulse 82 81 81 83 Resp 18 B/P (MAP) 128/41 (70) 123/43 (69) 123/43 116/50 (72) Pulse Ox 96 94 96 O2 Delivery Room Air Room Air Room Air 07/04/18 07/04/18 07/05/18 07/05/18 20:00 23:03 03:16 06:55 Temp 98.8 98.0 97.4 98.8 98.0 97.4 Pulse 84 71 60 Resp 18 B/P (MAP) 114/37 (62) 126/39 (68) 117/65 (82) Pulse Ox 93 94 92 O2 Delivery Room Air Room Air Room Air Room Air 07/05/18 07/05/18 07/05/18 07/05/18 07:53 07:54 07:54 08:00 Pulse 60 60 60 B/P (MAP) 117/65 117/65 117/65 O2 Delivery Room Air O2 Flow Rate 2.0 Intake and Output 07/04/18 07/04/18 07/05/18 15:00 23:00 07:00 Intake Total 360 ml 330 ml 210 ml Balance 360 ml 330 ml 210 ml MICHAEL VIDES MD Jul 05, 2018 08:59
--- NOTE | 2018-07-05 09:14 | PDOC ---
Provider Note Provider Note 82 yo woman with bx proven adenocarcinoma of distal esophagus found during assessment of anemia. Had acute CVA while hospitalized. MRI revealed small infarcts in right parietal, left frontal and left parietal occipital lobes. Now on anticoagulation. Staging CT scan did reveal thickening of distal esophagus and para-esophageal and mediastinal adenopathy possibly reactive vs metastatic in nature. Tiny lung nodules in apical RUL. Now feeling better overall. No neuro sxs. Able to eat solid foods better and no longer requiring fluids to wash solid food down. Good appetite. No abdominal or chest pain, nausea or vomiting. Impression: Distal esophageal adenocarcinoma. Multiple co-morbidities. Plan on discharge now to [facility] for rehab. Plan on outpatient PET CT to complete staging. If she is doing well in rehab, will pursue this nest week or the week after with follow-up to discuss results. Dr. Madera will see patient in follow-up in two weeks. Thorough discussion with patient. EULALIA UPTON MD Jul 05, 2018 09:14
--- NOTE | 2018-07-05 10:45 | DS ---
DATE OF DISCHARGE: 07/05/2018 PRIMARY DIAGNOSES: 1. Shortness of breath with anemia. 2. Chills and sweats on admission. 3. Atrial fibrillation. 4. Coronary artery disease. 5. New diagnosis of adenocarcinoma of the esophagus. 6. Cerebrovascular accident due to atrial fibrillation during stay with minimal residual. 7. Diabetes. CHIEF COMPLAINT AND HISTORY OF PRESENT ILLNESS: This 82-year-old white female was seen in the office earlier in the week with complaints of shortness of breath with exertion and chest pressure. Workup at that point found her to be anemic with hemoglobin of 8.6 with decreased red blood cell indices. She was rechecked on the day of admission, was worse with night sweats as well as chills, soaking ____ sheets in bed, had to change clothes at night. ____ ill in the office and was admitted for new onset shortness of breath, possibly felt to be related to anemia as well as chills and sweats that she was having. SUMMARY OF STAY: The patient was admitted. Hemoglobin remained relatively stable throughout the stay. She was initially coagulopathic with warfarin with an INR in the 4 range and this was held, particularly for GI to do GI workup for the anemia. Iron level was low at 15. Ferritin was normal at 141. GI evaluation for the anemia led to the findings of poorly differentiated adenocarcinoma ____ with CT scanning showing evidence of metastatic disease in the chest. Colonoscopy was normal during the stay. Dr. Madera from Oncology and Dr. Alcala from Radiation Therapy were consulted and their feelings were when she was stabilized as an outpatient to get a PET scan. Neurology saw her when she developed neurological symptoms during the stay and was found by brain MRI to have multiple cerebral infarcts, particularly in the area of the right parietal lobe, medial left frontal lobe and left parietal occipital lobe. This was felt to be due to the AFib with holding anticoagulation for the GI workup. She was transitioned from heparin to eventually Xarelto by the time of discharge. She was weak and felt necessary for [facility] at the time of discharge and this was accomplished on the day of dismissal. DISPOSITION: The patient is discharged to [facility]. Please see orders regarding diet, medication, activity, etc. We will continue to follow her there. ARTHUR A. APPL, MD DR: MAYA/vandana JOB#: [id number] / [id number]
[2018-07-05 10:50] VITALS: BP 138/49
--- NOTE | 2018-07-05 11:19 | PDOC ---
Subjective: Subjective: Discharging today, playing cards with her daughter. Objective: Vital Signs: Vital Signs Date Time Temp Pulse Resp B/P (MAP) Pulse Ox O2 Delivery O2 Flow Rate FiO2 07/05/18 10:50 97.5 87 18 138/49 (78) 94 Room Air 97.5 07/05/18 08:00 2.0 Labs: Laboratory Tests Test 07/04/18 11:48 07/04/18 16:39 07/04/18 20:29 07/05/18 07:12 Glucose (Fingerstick) 124 mg/dL (70-99) 111 mg/dL (70-99) 143 mg/dL (70-99) 125 mg/dL (70-99) PE: GEN: NAD, in chair LUNGS: room air NEURO/PSYCH: A & O 3 A/P: Esophageal adenocarcinoma -- DC to PP per primary. Plans for PET scan and follow-up w/ Dr. Madera. RUBEN BOYD Jul 05, 2018 11:19
== END 2018-07-05 11:10 | DRG 374 ==
LOC: 6 SOUTH 14:12
PROVIDERS: ADMIT Family Medicine; ATTEND Family Medicine
PROC: 0DB38ZX Excision of Lower Esophagus, Via Natural or Artificial Opening Endoscopic, Diagnostic (ICD-10-PCS; principal; 2018-06-27 14:30)
PROC: 0DJD8ZZ Inspection of Lower Intestinal Tract, Via Natural or Artificial Opening Endoscopic (ICD-10-PCS; 2018-06-27 14:30)
DX: C15.5 Malignant neoplasm of lower third of esophagus (principal); I50.21 Acute systolic (congestive) heart failure; E43 Unspecified severe protein-calorie malnutrition; I63.40 Cerebral infarction due to embolism of unspecified cerebral artery; D68.9 Coagulation defect, unspecified; N39.0 Urinary tract infection, site not specified; D50.9 Iron deficiency anemia, unspecified; Z68.39 Body mass index [BMI] 39.0-39.9, adult; B96.81 Helicobacter pylori [H. pylori] as the cause of diseases classified elsewhere; D50.0 Iron deficiency anemia secondary to blood loss (chronic); E11.649 Type 2 diabetes mellitus with hypoglycemia without coma; E66.9 Obesity, unspecified; E78.5 Hyperlipidemia, unspecified; E83.42 Hypomagnesemia; E87.6 Hypokalemia; I11.0 Hypertensive heart disease with heart failure; I25.10 Atherosclerotic heart disease of native coronary artery without angina pectoris; I25.5 Ischemic cardiomyopathy; I27.20 Pulmonary hypertension, unspecified; I48.0 Paroxysmal atrial fibrillation; K21.9 Gastro-esophageal reflux disease without esophagitis; Z96.653 Presence of artificial knee joint, bilateral; K44.9 Diaphragmatic hernia without obstruction or gangrene; F32.9 Major depressive disorder, single episode, unspecified; F41.9 Anxiety disorder, unspecified; M19.90 Unspecified osteoarthritis, unspecified site; R91.8 Other nonspecific abnormal finding of lung field; K29.70 Gastritis, unspecified, without bleeding; K57.90 Diverticulosis of intestine, part unspecified, without perforation or abscess without bleeding; K59.00 Constipation, unspecified; K64.8 Other hemorrhoids; K76.0 Fatty (change of) liver, not elsewhere classified; M06.9 Rheumatoid arthritis, unspecified; Z79.01 Long term (current) use of anticoagulants; Z79.82 Long term (current) use of aspirin; Z79.899 Other long term (current) drug therapy; Z85.3 Personal history of malignant neoplasm of breast; Z87.891 Personal history of nicotine dependence; Z90.13 Acquired absence of bilateral breasts and nipples; Z95.1 Presence of aortocoronary bypass graft; Z95.5 Presence of coronary angioplasty implant and graft; Z88.8 Allergy status to other drugs, medicaments and biological substances; Z91.011 Allergy to milk products
CPT/HCPCS: 36415; 45378; 70450; 70551; 70552; 71046; 71260; 74177; 78306; 80048; 80053; 80061; 81001; 82274; 82607; 82728; 82746; 82962; 83540; 83550; 83605; 83735; 84443; 85025; 85027; 85045; 85520; 85610; 87040; 88305; 93306; 93880; A9503; A9585; J0696; J1200; J1644; J1756; J1815; J1940; J2001; J2704; J3475; J7030; J7050; J7120; J8610; Q0163; Q9966; Q9967; 92610; 97110; 97116; 97530; 97535

== ENCOUNTER → 2018-07-18 | Outpatient (CLI) | payer MEDICARE ==
[2018-07-05 10:50] VITALS: BP 138/49
[~2018-07-18] MED LIST: ACET500T68 PO; ALEN70TA5 PO; ALPR0.254 PO; BUME2TAB PO; CARV3.122 PO; CHOL200074 PO; CHOL4POW3 PO; CITA10TA4 PO; CLOP75TA PO; DIPH25CA58 PO; DOCU-109 PO; GARL10002 PO; INSU100I13 SQ; INSU100I17 SQ; ISOS30TA4 PO; LISI10TA2 PO; METH2.5T PO; MULT1CAP15 PO; OMEG1CAP38 PO; OMEP20TA63 PO; SIMV40TA3 PO; VIT1TABL32 PO; WARF-31 PO
--- NOTE | 2018-07-18 12:17 | RAD ---
FDG tumor localization scan, PET/CT, 07/18/2018: History: Esophageal cancer initial staging, previous right breast cancer Following IV injection of 14.3 mCi of 18 F-FDG, imaging was performed from the skull base to the proximal thighs. The noncontrast CT component was performed for attenuation correction and anatomic localization purposes rather than for primary diagnosis. The patient's blood glucose level at the time of injection was 187 MG/DL. Physiologic FDG activity is evident in the neck. There is a 6 mm hypermetabolic nodule in the anterior aspect of the right upper lobe demonstrating a maximum SUV of 3.1. A 5 mm nodule in the lateral aspect of the right lower lobe as seen on image [address] series #3 demonstrates low level FDG uptake with a maximum SUV of only 1.6. This lack of avid uptake may be due to its small size. A a similar size small subpleural nodule seen laterally in the left upper lobe demonstrates low level FDG uptake with a maximum SUV of 2.2. There are multiple smaller tiny bilateral pulmonary nodules which do not demonstrate hypermetabolic activity, although again, that may be due to their small sizes. There is hypermetabolic activity related to the thick-walled distal esophagus compatible with the patient's known malignancy. The maximum SUV in this region is 15.8. No definite separate hypermetabolic mediastinal adenopathy is seen. Normal GI tract and urinary tract activity is present in the abdomen and pelvis. There is a focus of hypermetabolic activity corresponding location to the posterior inferior margin of the right lobe of the liver. The CT component shows no obvious mass at this level. It is possible that this may actually represent mis registered bowel activity. The recent CT abdomen study did not demonstrate a mass in this region. There is also a small focus of increased activity in the left lobe without a corresponding CT abnormality. The abdominal and pelvic FDG uptake is otherwise unremarkable. No hypermetabolic bony lesion is seen. IMPRESSION: 1. Hypermetabolic distal esophageal mass compatible with patient's known esophageal malignancy. 2. No definite hypermetabolic mediastinal adenopathy is delineated. 3. Hypermetabolic right upper lobe pulmonary nodule with several other small pulmonary nodule demonstrating low level FDG uptake. These findings may be inflammatory or metastatic. 4. Questionable hypermetabolic liver lesions with no corresponding abnormality evident on the recent CT study. Hepatic protocol MR imaging may be useful for further evaluation
== END | disposition home or self-care (01) ==
LOC: PETSC 09:09
PROVIDERS: ATTEND Radiology Radiation Oncology
DX: C15.5 Malignant neoplasm of lower third of esophagus (principal); E11.9 Type 2 diabetes mellitus without complications; E78.5 Hyperlipidemia, unspecified; I48.0 Paroxysmal atrial fibrillation; I25.10 Atherosclerotic heart disease of native coronary artery without angina pectoris; K21.9 Gastro-esophageal reflux disease without esophagitis; R91.1 Solitary pulmonary nodule; Z95.5 Presence of coronary angioplasty implant and graft; Z96.653 Presence of artificial knee joint, bilateral; Z95.1 Presence of aortocoronary bypass graft; Z87.891 Personal history of nicotine dependence; Z85.3 Personal history of malignant neoplasm of breast; Z79.01 Long term (current) use of anticoagulants; Z90.13 Acquired absence of bilateral breasts and nipples; Z86.2 Personal history of diseases of the blood and blood-forming organs and certain disorders involving the immune mechanism
CPT/HCPCS: 78815; A9552

== ENCOUNTER 2018-08-05 08:21 | Outpatient (CLI) | payer MEDICARE ==
[~2018-08-05] VITALS: Ht 149.9 cm; Wt 96.6 kg
[~2018-08-05 08:21] MED LIST changes: +FURO-69 PO
[2018-08-05] MEDS ORDERED: ACET500T68 PO (09:17)
[2018-08-05] MEDS ORDERED: RIVA15TA PO (09:17)
[2018-08-05 10:01] LABS: BASO # 0.1 x10^3/uL (0.0-0.2); BASO % 1 % (0-3); EOS # 0.2 x10^3/uL (0.0-0.7); EOS % 3 % (0-3); HEMATOCRIT 28.5 % (36.0-47.0); HEMOGLOBIN 9.4 g/dL (12.0-15.5); LYMPH # 0.8 x10^3/uL (1.0-4.8); LYMPH % 16 % (24-48); MEAN CORPUSCULAR HEMOGLOBIN 29 pg (25-35); MEAN CORPUSCULAR HGB CONC 33 g/dL (31-37); MEAN CORPUSCULAR VOLUME 87 fL (79-100); MONO # 0.3 x10^3/uL (0.0-1.1); MONO % 5 % (0-9); NEUT # 3.9 x10^3uL (1.8-7.7); NEUT % 75 % (31-73); PLATELET COUNT 216 x10^3/uL (140-400); RED BLOOD COUNT 3.29 x10^6/uL (3.50-5.40); RED CELL DISTRIBUTION WIDTH 20.4 % (11.5-14.5); WHITE BLOOD COUNT 5.1 x10^3/uL (4.0-11.0)
[2018-08-05 10:11] LABS: PROTHROMBIN TIME PATIENT 15.6 SEC (11.7-14.0)
[2018-08-05] MEDS ORDERED: LIDOCAINE 1%/EPI 1:100,000 20 ML VIAL. ONE ×2 (10:26→11:00)
[2018-08-05] MEDS ORDERED: HEPARIN PF 500 UNIT/5 ML DISP.SYRIN. IV ONE (10:26)
[2018-08-05] MEDS ORDERED: MIDAZOLAM HCL/PF 2 MG/2 ML VIAL. ONE ×2 (10:43→11:00)
[2018-08-05] MEDS ORDERED: fentaNYL PF VIAL 100 MCG/2 ML VIAL ONE ×2 (10:43→11:00)
[2018-08-05 10:47] LABS: ANISOCYTOSIS SLIGHT; PLT ESTIMATE ADEQUATE (ADEQUATE)
[2018-08-05] MEDS ORDERED: ceFAZolin 2GM PREMIX 2 GM/50 ML BAG IV ONE (11:00)
[2018-08-05 11:45] VITALS: BP 133/71
--- NOTE | 2018-08-05 11:46 | PDOC ---
BRIEF OPERATIVE NOTE Pre-Op Diagnosis esophageal cancer Post-Op Diagnosis same Procedure Performed [facility] Anesthesia Type: Conscious Sedation Findings Left IJ port Complications No immediate NICOLE HAMILTON MD Aug 05, 2018 11:46
--- NOTE | 2018-08-05 11:47 | PDOC ---
MODERATE SEDATION ASSESSMENT RISKS/ALTERNATIVES Risks/Alternatives Risks and alternatives of this type of sedation and procedure discussed with: RISK/ALTERNATIVES: Patient H & P ON CHART H & P H & P on chart and reviewed for co-morbid conditions and appropriate labs. H&P ON CHART: Yes STATUS PREG STATUS ASSESSED: Yes MEDS/ALLERGIES REVIEWED Meds/Allergies Reviewed Medications and Allergies including time and route of recently administered narcotics and sedatives. MEDS/ALLERGIES REVIEWED: Yes ASA RATING ASA RATING: II AIRWAY ASSESSMENT Airway Assessment Airway patency, oral function limitations, presence of caps, crowns, dentures, partials, and ability to extend neck assessed. AIRWAY ASSESSMENT: Yes MALLAMPATI SCORE MALLAMPATI SCORE: II PRE-SEDATION ASSESSMENT PRE-SEDATION ASSESSMENT: Yes NICOLE HAMILTON MD Aug 05, 2018 11:47
--- NOTE | 2018-08-05 11:48 | PDOC1 ---
History and Physical Date of Procedure Date of Admission History of Present Illness Reason for Visit Adult with esophageal cancer Past Medical History Past Medical History see nursing pre-op assessment Current Medications Current Medications Current Medications Cefazolin Sodium/ Dextrose 50 ml @ 100 mls/hr 1X ONCE IV ; Start 08/05/18 at 10:00; Stop 08/05/18 at 10:29; Status DC Lidocaine/ Epinephrine (LIDOCAINE 1%-EPI 1:100,000 Multi-Dose) 20 ml STK-MED ONCE .ROUTE ; Start 08/05/18 at 10:26; Stop 08/05/18 at 10:27; Status DC Heparin Sodium (Porcine) (Hep Lock Adult) 500 unit STK-MED ONCE IV ; Start 08/05 at 10:26; Stop 08/05/18 at 10:27; Status DC Midazolam HCl (Versed) 2 mg STK-MED ONCE .ROUTE ; Start 08/05/18 at 10:43; Stop 08/05/18 at 10:44; Status DC Fentanyl Citrate (Fentanyl 2ml Vial) 100 mcg STK-MED ONCE .ROUTE ; Start at 10:43; Stop 08/05/18 at 10:44; Status DC Cefazolin Sodium/ Dextrose 50 ml @ As Directed STK-MED ONCE IV ; Start 08/05/18 at 10:43; Stop 08/05/18 at 10:44; Status DC Active Scripts Active Reported Acetaminophen 500 Mg Tablet 0.5 Tab PO Q6HRS Xarelto (Rivaroxaban) 15 Mg Tablet 15 Mg PO DAILY Carvedilol 3.125 Mg Tablet 3.125 Mg PO BID Methotrexate (Methotrexate Sodium) 2.5 Mg Tablet 6 Tab PO WEEKLY Benadryl (Diphenhydramine Hcl) 25 Mg Capsule 2 Cap PO QHS Bumetanide 2 Mg Tablet 2 Mg PO DAILY Ocuvite Tablet (Vit A,C & E/Lutein/Minerals) 1 Each Tablet 1 Each PO BID Citalopram Hbr (Citalopram Hydrobromide) 10 Mg Tablet 10 Mg PO DAILY Alprazolam 0.25 Mg Tablet 0.25 Mg PO PRN Q6HRS PRN Isosorbide Mononitrate Er (Isosorbide Mononitrate) 30 Mg Tab.er.24h 30 Mg PO DAILY Prilosec Otc (Omeprazole Magnesium) 20 Mg Tablet.dr 20 Mg PO DAILY Novolog Flexpen (Insulin Aspart) 100 Unit/1 Ml Insuln.pen 4 Unit SQ TIDBFRMEAL Lantus Solostar (Insulin Glargine,Hum.rec.anlog) 100 Unit/1 Ml Insuln.pen 17 Unit SQ DAILYWBKFT Vitamin D-3 (Cholecalciferol (Vitamin D3)) 2,000 Unit Capsule 1,000 Unit PO DAILY Lisinopril 10 Mg Tablet 10 Mg PO DAILY Simvastatin 40 Mg Tablet 40 Mg PO DAILY Colace (Docusate Sodium) 100 Mg Capsule 100 Mg PO DAILY Garlic 1,000 Mg Capsule 1,000 Mg PO DAILY Multivitamins (Multivitamin) 1 Each Capsule 1 Each PO DAILY Allergies Allergies: Coded Allergies: milk (Verified Allergy, Intermediate, 06/27/18) montelukast (Verified Allergy, Intermediate, 06/27/18) Physical Exam Other see nursing pre-op assessment Assessment Assessment Esophageal cancer Plan Plan NICOLE Chin MD Aug 05, 2018 11:48
[2018-08-05 12:00] VITALS: BP 120/54
[2018-08-05 12:15] VITALS: BP 128/48
[2018-08-05 12:30] VITALS: BP 138/60
[2018-08-05 13:00] VITALS: BP 134/53
[2018-08-05 13:30] VITALS: BP 140/53
--- NOTE | 2018-08-05 16:11 | RAD ---
Procedure: Port-A-Cath placement Clinical Indication: 83-year-old female with history of esophageal cancer Sedation: Conscious sedation was administered with a total intraprocedural [id number] time of 35 minutes. The patient was monitored by a qualified independent observer throughout the time of sedation. Please refer to the medical record for exact doses of medications utilized to achieve moderate sedation. Antibiotics: Antibiotic was administered intravenously within 1 hour of the procedure start time. Exposure: Fluoro Time: 0.4 minutes Images: 1 Contrast: None Sterility: All elements of maximal sterile barrier technique including the use of a cap, mask, sterile gown, sterile gloves, large sterile sheet, appropriate hand hygiene, and 2% chlorhexidine for cutaneous antisepsis (or acceptable alternative antiseptic per current guidelines) were followed for this procedure. Consent: The procedure was explained in its entirety to the patient or the patients designated telephone sales representative by a member of the treatment team, including a discussion of the risks, benefits and commonly accepted alternatives to the procedure, as well as the expected consequences of no therapy whatsoever. Discussion of the risks included, but was not limited to, those that are most frequent and those that are rare but possibly severe or life-threatening, as well as the possibility of unforeseen complications. Technique and Findings: Ultrasound interrogation of the left neck revealed patency and compressibility of the internal jugular vein. A hardcopy ultrasound image was recorded as a 21-gauge micropuncture needle was used to gain access to this vessel. The needle was exchanged over a wire for a peel-away sheath. The skin over the ipsilateral anterior chest wall was then copiously anesthetized with 1% lidocaine plus epinephrine, and a small dermatotomy was made. Blunt dissection techniques were used to create a pocket for the port. The port was then tunneled subcutaneously towards the neck dermatotomy then deployed under fluoroscopic guidance through the peel-away sheath such that the distal tip resided in the proximal right atrium. The port was accessed and found to flush and aspirate with ease. The port was packed with heparin. The pocket was copiously irrigated with sterile saline then closed with deep interrupted and running subcuticular 4-0 Vicryl suture. Dermabond was used to close the neck dermatotomy. Complications: No immediate Impression: 1. Left IJ Port-A-Cath placement as described.
== END 2018-08-05 14:20 | disposition home or self-care (01) ==
LOC: INTRAD 08:21
PROVIDERS: ATTEND Internal Medicine Hematology & Oncology
DX: C15.9 Malignant neoplasm of esophagus, unspecified (principal); Z88.8 Allergy status to other drugs, medicaments and biological substances; Z91.011 Allergy to milk products; Z79.01 Long term (current) use of anticoagulants; Z79.899 Other long term (current) drug therapy
CPT/HCPCS: 36415; 36561; 76937; 77001; 85025; 85610; 99152; 99153; C1769; C1788; C1892; J0690; J2250; J3010; J3490; C1751

== ENCOUNTER 2018-09-19 11:32 | Inpatient (IN) | payer MEDICARE ==
[~2018-09-19] VITALS: Ht 149.9 cm; Wt 93.4 kg
[~2018-09-19 11:32] MED LIST changes: +ONDA8TAB9 PO; +RIVA15TA PO
[2018-09-19 15:00] VITALS: BP 135/61
[2018-09-19] MEDS ORDERED: CIPR250T PO (17:09)
[2018-09-19] MEDS ORDERED: FAMC500T PO (17:09)
[2018-09-19] MEDS: LISINOPRIL 10 MG TABLET PO SCH (17:53)
[2018-09-19] MEDS: ISOSORBIDE MONONITRATE ER 30 MG TAB.ER.24H PO SCH (17:53)
[2018-09-19] MEDS: RIVAROXABAN 15 MG TABLET. PO SCH (17:53)
[2018-09-19] MEDS: CITALOPRAM 10 MG TABLET. PO SCH (17:53)
[2018-09-19] MEDS: PANTOPRAZOLE 40 MG TABLET.DR. PO SCH (17:54)
[2018-09-19] MEDS: METHOTREXATE SODIUM 2.5 MG TABLET PO SCH (17:55)
[2018-09-19] MEDS: MULTIVITAMIN with MINERAL TABLET. PO SCH (17:57)
[2018-09-19] MEDS: BUMETANIDE 1 MG TABLET. PO SCH (17:58)
[2018-09-19] MEDS: POTASSIUM CL 20MEQ-0.45% NACL 1,000 ML IV SCH (17:58)
[2018-09-19] MEDS: DOCUSATE SODIUM 100 MG CAPSULE. PO SCH (18:00)
[2018-09-19] MEDS ORDERED: CHOLECALCIFEROL (VITAMIN D3) 1,000 UNIT TABLET PO SCH (18:00)
[2018-09-19] MEDS: CARVEDILOL 3.125 MG TABLET. PO SCH (18:03)
[2018-09-19 18:05] LABS: BASO % 1 % (0-3); EOS % 0 % (0-3); HEMATOCRIT 27.4 % (36.0-47.0); HEMOGLOBIN 9.4 g/dL (12.0-15.5); LYMPH # 0.4 x10^3/uL (1.0-4.8); LYMPH % 20 % (24-48); MEAN CORPUSCULAR HEMOGLOBIN 29 pg (25-35); MEAN CORPUSCULAR HGB CONC 34 g/dL (31-37); MEAN CORPUSCULAR VOLUME 85 fL (79-100); MONO # 0.5 x10^3/uL (0.0-1.1); MONO % 26 % (0-9); NEUT % 53 % (31-73); PLATELET COUNT 218 x10^3/uL (140-400); RED BLOOD COUNT 3.22 x10^6/uL (3.50-5.40); RED CELL DISTRIBUTION WIDTH 19.6 % (11.5-14.5)
[2018-09-19 18:08] LABS: WHITE BLOOD COUNT 1.8 x10^3/uL (4.0-11.0)
[2018-09-19] MEDS: INSULIN LISPRO 300 UNITS/3 ML INSULN.PEN. SQ SCH (18:21)
[2018-09-19 18:55] LABS: ALBUMIN 2.8 g/dL (3.4-5.0); ALBUMIN/GLOBULIN RATIO 0.7 (1.0-1.7); CALCIUM 8.6 mg/dL (8.5-10.1); CREATININE 0.8 mg/dL (0.6-1.0); GFR 68.5; POTASSIUM 3.6 mmol/L (3.5-5.1); TOTAL BILIRUBIN 0.5 mg/dL (0.2-1.0); TOTAL PROTEIN 6.7 g/dL (6.4-8.2)
[2018-09-19 19:00] VITALS: BP 148/59
[2018-09-19] MEDS ORDERED: ACETAMINOPHEN 500 MG TABLET PO PRN (19:00)
[2018-09-19 19:48] LABS: % ATYL 4 % (0-0); % BANDS 9 % (0-9); % LYMPHS 13 % (24-48); % MONOS 22 % (0-10); % SEGS 52 % (35-66)
[2018-09-19 19:50] LABS: OVALOCYTES OCC; PLT ESTIMATE ADEQUATE (ADEQUATE); ROULEAUX PRESENT
[2018-09-19 19:57] LABS: BILIRUBIN,URINE NEGATIVE (NEG); CLARITY,URINE CLEAR; COLOR,URINE AMBER; NITRITE,URINE NEGATIVE (NEG); PH,URINE 5.5; PROTEIN,URINE >=300 mg/dL (NEG-TRACE); UROBILINOGEN,URINE 0.2 mg/dL (0.2 mg/dL)
[2018-09-19 20:10] LABS: BACTERIA,URINE MANY /HPF (0-FEW); GRANULAR CASTS,URINE FEW /HPF; HYALINE CASTS, URINE MANY /HPF; SQUAMOUS EPITHELIAL CELL,UR FEW /LPF
[2018-09-19] MEDS ORDERED: LACTOBACILLUS RHAMNOSUS GG 1 CAPSULE. PO SCH (21:00)
[2018-09-19] MEDS: CIPROFLOXACIN HCL 250 MG TABLET. PO SCH (22:20)
[2018-09-19] MEDS: SIMVASTATIN 40 MG TABLET. PO SCH (22:22)
[2018-09-19] MEDS: ALPRAZolam 0.25 MG TABLET PO PRN (22:22)
[2018-09-19] MEDS: diphenhydrAMINE HCL 25 MG CAPSULE PO SCH (22:22)
[2018-09-19] MEDS: FAMCICLOVIR 500 MG TABLET PO SCH (22:22)
[2018-09-19] MEDS: MULTIVITAMIN I-VITE TABLET. PO SCH (22:25)
[2018-09-19 23:00] VITALS: BP 132/60
[2018-09-20 03:00] VITALS: BP 109/53
[2018-09-20] MEDS: POTASSIUM CL 20MEQ-0.45% NACL 1,000 ML IV SCH ×2 (03:49→17:52)
[2018-09-20] MEDS: PANTOPRAZOLE 40 MG TABLET.DR. PO SCH (06:36)
[2018-09-20 07:00] VITALS: BP 122/55
[2018-09-20] MEDS: INSULIN LISPRO 300 UNITS/3 ML INSULN.PEN. SQ SCH ×3 (08:00→17:00)
--- NOTE | 2018-09-20 10:06 | HP ---
ADMIT DATE: 09/19/2018 CHIEF COMPLAINT AND HISTORY OF PRESENT ILLNESS: This 83-year-old white female is well known to me from followup in the office. The patient was admitted with vomiting and diarrhea and inability to keep food down since the weekend. She is undergoing chemoradiation for cancer of the esophagus, currently. The patient was felt to be dehydrated and admitted for fluids as well as comfort care. PAST MEDICAL HISTORY: Remarkable for anemia, atrial fibrillation, coronary artery disease, adenocarcinoma of the esophagus, diabetes, CVA. She has a history of coronary artery disease with prior stenting as well as a right mastectomy and left lumpectomy for breast cancer and bilateral knee replacements. MEDICATIONS: Brought with the patient, listed on the computer and have been addressed. ALLERGIES: She is allergic to SINGULAIR and MILK. SOCIAL HISTORY: She is , nonsmoker, nondrinker, does not abuse drugs. FAMILY HISTORY: Noncontributory. REVIEW OF SYSTEMS: Remarkable for the weakness. She denies any hematemesis, melena with this. PHYSICAL EXAMINATION: GENERAL: She is a well-developed, well-nourished, ill-appearing white female, no severe distress. VITAL SIGNS: Stable. She did have a temperature of 101.3 on admission and I was not notified of the same. I have discussed this with Oncology and with this and leukopenia present on admission from the chemo, ID will be consulted regarding the fever and need for antibiotics. HEAD, EYES, EARS, NOSE AND THROAT: Remarkable for some dryness of mucous membranes. NECK: Supple, without adenopathy or thyromegaly. CHEST: Clear to auscultation. HEART: Irregularly irregular with controlled rate. ABDOMEN: Soft, nontender, without hepatosplenomegaly or masses. EXTREMITIES: Without cyanosis, clubbing, edema. NEUROLOGIC: She is intact. IMPRESSION: 1. Nausea, vomiting, diarrhea with dehydration in the face of ongoing chemoradiation for cancer of the esophagus and leukopenia as well as stable anemia on admission. 2. Diabetes. 3. Multiple other problems listed above. PLAN: The patient has been admitted, ongoing hydration will be obtained. Oncology is going to add white blood cell stimulating agents. ID will be consulted and the patient will be monitored, managed and treated appropriately. ARTHUR GUERRA MD DR: MAYA/vandana JOB#: [id number] / [id number]
[2018-09-20] MEDS: BUMETANIDE 1 MG TABLET. PO SCH (10:43)
[2018-09-20] MEDS: CITALOPRAM 10 MG TABLET. PO SCH (10:45)
[2018-09-20] MEDS: MULTIVITAMIN I-VITE TABLET. PO SCH ×2 (10:45→21:16)
[2018-09-20] MEDS: ISOSORBIDE MONONITRATE ER 30 MG TAB.ER.24H PO SCH (10:45)
[2018-09-20] MEDS: MULTIVITAMIN with MINERAL TABLET. PO SCH (10:45)
[2018-09-20] MEDS: DOCUSATE SODIUM 100 MG CAPSULE. PO SCH (10:45)
[2018-09-20] MEDS: CIPROFLOXACIN HCL 250 MG TABLET. PO SCH (10:45)
[2018-09-20] MEDS: LISINOPRIL 10 MG TABLET PO SCH (10:46)
[2018-09-20] MEDS: CARVEDILOL 3.125 MG TABLET. PO SCH ×2 (10:47→18:22)
[2018-09-20] MEDS: FAMCICLOVIR 500 MG TABLET PO SCH ×3 (10:48→21:00)
[2018-09-20] MEDS: INSULIN GLARGINE 300 UNITS/3 ML INSULN.PEN. SQ SCH (10:55)
[2018-09-20 11:00] VITALS: BP 125/55
[2018-09-20] MEDS: ANTI-COAG MONITOR BY PHARMACY. MC PRN (13:40)
[2018-09-20 14:25] LABS: BASO % 1 % (0-3); EOS % 1 % (0-3); HEMATOCRIT 24.8 % (36.0-47.0); HEMOGLOBIN 8.6 g/dL (12.0-15.5); LYMPH # 0.3 x10^3/uL (1.0-4.8); LYMPH % 13 % (24-48); MEAN CORPUSCULAR HEMOGLOBIN 29 pg (25-35); MEAN CORPUSCULAR HGB CONC 35 g/dL (31-37); MEAN CORPUSCULAR VOLUME 84 fL (79-100); MONO # 0.4 x10^3/uL (0.0-1.1); MONO % 20 % (0-9); NEUT # 1.3 x10^3uL (1.8-7.7); NEUT % 66 % (31-73); PLATELET COUNT 203 x10^3/uL (140-400); RED BLOOD COUNT 2.94 x10^6/uL (3.50-5.40)
[2018-09-20 15:00] VITALS: BP 121/52
--- NOTE | 2018-09-20 15:52 | PDOC ---
Infectious Disease Note Vital Sign Vital Signs Vital Signs Date Time Temp Pulse Resp B/P (MAP) Pulse Ox O2 Delivery O2 Flow Rate FiO2 09/20/18 11:00 98.0 100 20 125/55 (78) 93 Room Air 98.0 Labs Lab Laboratory Tests Test 09/19/18 17:54 09/19/18 17:55 09/19/18 19:00 09/19/18 20:21 Glucose (Fingerstick) 162 mg/dL (70-99) 133 mg/dL (70-99) White Blood Count 1.8 x10^3/uL (4.0-11.0) Red Blood Count 3.22 x10^6/uL (3.50-5.40) Hemoglobin 9.4 g/dL (12.0-15.5) Hematocrit 27.4 % (36.0-47.0) Mean Corpuscular Volume 85 fL (79-100) Mean Corpuscular Hemoglobin 29 pg (25-35) Mean Corpuscular Hemoglobin Concent 34 g/dL (31-37) Red Cell Distribution Width 19.6 % (11.5-14.5) Platelet Count 218 x10^3/uL (140-400) Neutrophils (%) (Auto) 53 % (31-73) Lymphocytes (%) (Auto) 20 % (24-48) Monocytes (%) (Auto) 26 % (0-9) Eosinophils (%) (Auto) 0 % (0-3) Basophils (%) (Auto) 1 % (0-3) Neutrophils # (Auto) 1.0 x10^3uL (1.8-7.7) Lymphocytes # (Auto) 0.4 x10^3/uL (1.0-4.8) Monocytes # (Auto) 0.5 x10^3/uL (0.0-1.1) Eosinophils # (Auto) 0.0 x10^3/uL (0.0-0.7) Basophils # (Auto) 0.0 x10^3/uL (0.0-0.2) Segmented Neutrophils % 52 % (35-66) Band Neutrophils % 9 % (0-9) Lymphocytes % 13 % (24-48) Atypical Lymphocytes % (Manual) 4 % (0-0) Monocytes % 22 % (0-10) Platelet Estimate Adequate (ADEQUATE) Ovalocytes Occ Rouleau Present Sodium Level 135 mmol/L (136-145) Potassium Level 3.6 mmol/L (3.5-5.1) Chloride Level 99 mmol/L (98-107) Carbon Dioxide Level 24 mmol/L (21-32) Anion Gap 12 (6-14) Blood Urea Nitrogen 16 mg/dL (7-20) Creatinine 0.8 mg/dL (0.6-1.0) Estimated GFR (Cockcroft-Gault) 68.5 BUN/Creatinine Ratio 20 (6-20) Glucose Level 171 mg/dL (70-99) Calcium Level 8.6 mg/dL (8.5-10.1) Total Bilirubin 0.5 mg/dL (0.2-1.0) Aspartate Amino Transf (AST/SGOT) 22 U/L (15-37) Alanine Aminotransferase (ALT/SGPT) 17 U/L (14-59) Alkaline Phosphatase 76 U/L (46-116) Total Protein 6.7 g/dL (6.4-8.2) Albumin 2.8 g/dL (3.4-5.0) Albumin/Globulin Ratio 0.7 (1.0-1.7) Urine Collection Type Unknown Urine Color Izzy Urine Clarity Clear Urine pH 5.5 Urine Specific Withams 1.025 Urine Protein >=300 mg/dL (NEG-TRACE) Urine Glucose (UA) Negative mg/dL (NEG) Urine Ketones (Stick) Trace mg/dL (NEG) Urine Blood Small (NEG) Urine Nitrite Negative (NEG) Urine Bilirubin Negative (NEG) Urine Urobilinogen Dipstick 0.2 mg/dL (0.2 mg/dL) Urine Leukocyte Esterase Negative (NEG) Urine RBC 1-2 /HPF (0-2) Urine WBC 11-20 /HPF (0-4) Urine Squamous Epithelial Cells Few /LPF Urine Bacteria Many /HPF (0-FEW) Urine Hyaline Casts Many /HPF Urine Granular Casts Few /HPF Urine Mucus Marked /LPF Test 09/20/18 07:37 09/20/18 10:46 09/20/18 13:50 Glucose (Fingerstick) 95 mg/dL (70-99) 163 mg/dL (70-99) White Blood Count 2.0 x10^3/uL (4.0-11.0) Red Blood Count 2.94 x10^6/uL (3.50-5.40) Hemoglobin 8.6 g/dL (12.0-15.5) Hematocrit 24.8 % (36.0-47.0) Mean Corpuscular Volume 84 fL (79-100) Mean Corpuscular Hemoglobin 29 pg (25-35) Mean Corpuscular Hemoglobin Concent 35 g/dL (31-37) Red Cell Distribution Width 20.0 % (11.5-14.5) Platelet Count 203 x10^3/uL (140-400) Neutrophils (%) (Auto) 66 % (31-73) Lymphocytes (%) (Auto) 13 % (24-48) Monocytes (%) (Auto) 20 % (0-9) Eosinophils (%) (Auto) 1 % (0-3) Basophils (%) (Auto) 1 % (0-3) Neutrophils # (Auto) 1.3 x10^3uL (1.8-7.7) Lymphocytes # (Auto) 0.3 x10^3/uL (1.0-4.8) Monocytes # (Auto) 0.4 x10^3/uL (0.0-1.1) Eosinophils # (Auto) 0.0 x10^3/uL (0.0-0.7) Basophils # (Auto) 0.0 x10^3/uL (0.0-0.2) Objective Assessment Fever Leukopenia. A dose Granix scheduled for tonight Immunosuppression s/p chemoradiation Diarrhea. C.diff pending Herpes Zoster. - Finished 7-day Famciclovir OP recently. Pyuria, ? UTI - on cipro OP per PCP Dysphagia Esophageal cancer, stage II s/p chemoradiation -Diagnosed in June 2018 -s/p Port placement on 08/05/2018 RA - on methotrexate A-fib, Xarelto DM w/ hypoglycemic episode of 60 CAD h/o stroke Plan Plan of Care BC x 2 C. diff pending CXR for dyspnea D/c cipro Dose IV/po vanc, cefepime and micafungin need to cover potential port infection Monitor labs/temp and renal function closely f/u cultures results D/w RN Thank you Attending Co-Sign Attending Co-Sign The patient was seen and interviewed as well as examined at the bedside. The chart was reviewed. The case was discussed. Agree with the plan of care. DEXTER MICHEL APRN Sep 20, 2018 15:51 YENI OROPEZA MD Sep 20, 2018 16:20
[2018-09-20] MEDS ORDERED: VANCOMYCIN 2 GM in IV NORMAL SALINE 500ML BAG 500 ML IV ONE (16:30)
[2018-09-20] MEDS: CEFEPIME HCL IV Push 1 GM VIAL. IVP SCH ×2 (17:53→22:15)
[2018-09-20] MEDS: MICAFUNGIN 100 MG in IV DEXTROSE 5% 100ML 100 ML IV SCH (17:54)
--- NOTE | 2018-09-20 18:15 | RAD ---
Examination: CHEST AP ONLY History: INPATIENT. DYSPNEA. PRIOR XRAY Comparison/Correlation: CT chest abdomen and pelvis with contrast 06/28/2018 Findings: Portable upright frontal views of the chest were obtained. Left internal jugular infusion port catheter tip terminates overlying superior vena cava. Sternal wires and mediastinal clips are present. Heart size is mildly enlarged. Pulmonary vasculature is mildly congested. No focal consolidation. No pneumothorax. Surgical clips involve the right axillary region. Minimal left costophrenic angle blunting is present. Impression: Mild CHF. Small left effusion. Electronically signed by: Kwaku Ryan MD (09/20/2018 6:12 PM) [facility]
[2018-09-20] MEDS: RIVAROXABAN 15 MG TABLET. PO SCH (18:22)
[2018-09-20 19:00] VITALS: BP 129/46
[2018-09-20] MEDS: VANCOMYCIN PER PHARMACY MC PRN (19:48)
[2018-09-20] MEDS: SIMVASTATIN 40 MG TABLET. PO SCH (21:14)
[2018-09-20] MEDS: diphenhydrAMINE HCL 25 MG CAPSULE PO SCH (21:14)
[2018-09-20] MEDS: TBO-FILGRASTIM 480 MCG/0.8 ML SYRINGE. SQ SCH (21:15)
[2018-09-20] MEDS ORDERED: CEFEPIME HCL 1 GM in IV DEXTROSE 5% 50 ML IV SCH (22:00)
--- NOTE | 2018-09-20 22:56 | CONS ---
DATE OF CONSULTATION: 09/20/2018 REQUESTING PHYSICIAN: Dr. Mark Thrasher REASON FOR CONSULTATION: Esophageal cancer, status post chemoradiation therapy. HISTORY OF PRESENT ILLNESS: The patient is an 83-year-old female who was noted to have anemia in 06/2018 with hemoglobin of 8.0. She underwent upper endoscopy on 06/27/2018 which revealed multiple nodules in the esophagus suggestive of malignancy. Biopsy revealed poorly differentiated esophageal adenocarcinoma. CT scan of the chest, abdomen and pelvis on 06/28/2018 revealed multiple mediastinal lymph nodes. However, the PET scan on 07/18/2018 revealed hypermetabolic distal esophageal mass, but no evidence of mediastinal lymphadenopathy. She was staged as a T1b N0 M0, stage I esophageal cancer. She was started on concurrent chemoradiation therapy with carboplatin and Taxol on 08/07/2018. She received fourth dose on 09/11/2018 with carboplatin and Taxol. She then developed significant nausea, vomiting, generalized weakness, urinary tract infection and shingles. Hence chemotherapy was discontinued. She mentions that the radiation has also been discontinued. She was admitted to [facility] on 09/19/2018 with poor oral intake, generalized weakness and she also had a fever. She also reports nausea, vomiting and diarrhea. The temperature was 101.3 on 09/19/2018. PAST MEDICAL HISTORY: TIA, coronary artery disease, CABG, hyperlipidemia, hypertension, osteoarthritis, breast cancer, diabetes mellitus, anxiety, history of left lumpectomy and right mastectomy. FAMILY HISTORY: Negative for esophageal cancer. SOCIAL HISTORY: No smoking or alcohol abuse. REVIEW OF SYSTEMS: A 12-point review of system was performed. Pertinent positives are mentioned in the history of present illness. Rest of the system review is negative. PHYSICAL EXAMINATION: GENERAL APPEARANCE: The patient is an 83-year-old female who is in no acute cardiorespiratory distress. VITAL SIGNS: Blood pressure 125/55, temperature 98 degrees. HEENT: Head is atraumatic, normocephalic. Eyes: No icterus. NECK: Supple. CHEST: Bilaterally symmetrical. HEART: S1, S2 normal. ABDOMEN: Soft, nontender. CENTRAL NERVOUS SYSTEM: No focal deficits. LYMPHATICS: No lymphadenopathy. SKIN: Dry and warm. PSYCHOLOGIC: Mood and affect are appropriate. MUSCULOSKELETAL: No joint effusion. LABORATORY DATA: WBC 1.8, hemoglobin 9.4, platelet count 218, bands 9%. Creatinine 0.8, calcium 8.6. IMPRESSION AND PLAN: 1. 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 She was started on concurrent chemoradiation on 08/07/2018. She received her fourth dose of carboplatin and Taxol on 09/11/2018. Chemo was then discontinued because of toxicities. She had nausea, vomiting and generalized weakness. She subsequently also developed shingles. No further chemotherapy planned. I will plan for a followup CT scan in about 2 months to evaluate for response. 2. Neutropenia due to chemotherapy. I will recheck CBC today. Plan to start Granix 480 mcg at bedtime. 3. Fever of 101.3 on 09/19/2018. Consult Infectious Diseases. Fever has now improved. 4. Rheumatoid arthritis. She is on methotrexate weekly. 5. Atrial fibrillation. Follow up with Cardiology. 6. History of cerebrovascular accident. 7. Anemia. Hemoglobin 9.4. Continue to monitor. I discussed with Dr. Diaz. MICHAEL VIDES MD DR: FLETCHER/vandana JOB#: [id number] / [id number]
[2018-09-20 23:00] VITALS: BP 117/52
[2018-09-21 03:00] VITALS: BP 118/55
--- NOTE | 2018-09-21 03:27 | CONS ---
DATE OF CONSULTATION: 09/20/2018 REFERRING PHYSICIAN: Dr. Madera. REASON FOR CONSULT: Fever, status post chemotherapy. HISTORY OF PRESENT ILLNESS: The patient is an 83-year-old female who was diagnosed with stage 2 poorly-differentiated adenocarcinoma of the distal esophagus in 06/2018. She completed 25 rounds of radiation and 3 rounds of chemotherapy over a week ago. Soon after, she developed herpes zoster over her sacral region for which she completed a 7-day course of famciclovir. During the last 3 days or so, she has developed nausea, vomiting and diarrhea. She became very weak and fatigued and had fallen at home. She said she had a fever of 106.2 with chills. Her white blood cell count was 1800, segs 52%, bands 9%. She was dehydrated and was given IV fluids. During the interview, she started to feel dizzy and a bit shaky. Glucose reading was 60. Symptoms resolved after she ate. The nausea and vomiting has since settled down, but she continues to have frequent runny stools with urgency and at times incontinence and abdominal bloating. She was recently diagnosed with urinary tract infection and started Cipro prior to admission. She had had some burning sensation "inside my body that traveled up to my chest" when she urinated. She has been feeling increasingly short of air with a mild dry cough and painful and at times difficult to swallow. She had a port placed in July and denies having any issues. She denies headaches or confusion. She says the rash about the sacral area jay and itches. 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 Herpes zoster over sacral region. Ferrell esophagus. Atrial fibrillation, rheumatoid arthritis, on weekly methotrexate treatment. Coronary artery disease, diabetes mellitus. History of stroke/TIA. Hypercholesterolemia, hypertension, depression, anxiety, anemia. History of breast cancer, pulmonary hypertension. PAST SURGICAL HISTORY: Port-A-Cath placement on 08/05/2018, tonsillectomy, coronary artery bypass graft, cholecystectomy, right mastectomy, left lumpectomy, bilateral knee surgery. SOCIAL HISTORY: The patient became a in December of this year. She has no living children, 3 in childbirth. She lives at home alone. She is a former smoker who quit in 1986. She drinks alcohol socially. FAMILY HISTORY: Noncontributory. ALLERGIES: MILK and MONTELUKAST. REVIEW OF SYSTEMS: Per HPI, otherwise all other review of systems are negative. PHYSICAL EXAMINATION: GENERAL: The patient is slightly propped up in bed, alert, in no apparent distress. VITAL SIGNS: Temperature is 98.0, T-max 101.3, blood pressure 125/55, heart rate 100, respiratory rate 20, pulse oximetry is 93% on room air. BMI 41. HEENT: Pupils equally round. Normal conjunctivae. Oral cavity, pharynx is pink and moist. No thrush. Upper dentures in place. NECK: Supple. LUNGS: Diminished aeration. HEART: S1 and S2. ABDOMEN: Obese, bowel sounds hyperactive, soft, nontender. EXTREMITIES: No gross edema or cyanosis. SKIN: Warm. She has a localized rash over a sacral region covered with a topical cream. Left-sided Port-A-Cath site without redness, swelling or drainage. NEUROLOGIC: Alert and oriented x 3. She moves all extremities and is ambulatory. LABORATORY DATA: Today's WBC 2.0, hemoglobin 8.6, platelet count 203,000, neutrophils 66,000. Sodium 135, potassium 3.6, creatinine 0.8. BUN 16, glucose 171, total bilirubin 0.5, AST 22, ALT 17, albumin 2.8. Urinalysis showed wbc's 11-20, many bacteria and a few squamous epithelial cells. Urine culture in process. C. diff PCR pending. IMPRESSION: 1. Fever. 2. Leukopenia. 3. Immunosuppression, status post chemoradiation. 4. Diarrhea. 5. Herpes zoster treated with a 7-day course of famciclovir. 6. Pyuria. 7. Dysphagia. 8. Esophageal cancer, status post chemoradiation. 9. Rheumatoid arthritis, on weekly methotrexate treatments. 10. Atrial fibrillation. 11. Diabetes mellitus with hypoglycemic episode. 12. Coronary artery disease. PLAN: Two sets of blood cultures have been ordered along with a chest x-ray. We will broaden antibiotics to cover for infection with vancomycin, cefepime and micafungin. We will also add p.o. vancomycin empirically as we wait for the C. diff PCR results. We will discontinue the Cipro. Continue to monitor laboratory values, temperature and renal function closely. We will follow up on culture results. Supportive care. Discussed with RN. Thank you, Dr. Madera for asking us to participate in this patient's care. Should you have further questions or concerns, please call. The patient seen, examined and plan of care implemented by Dr. Yeni Oropeza. DICTATED BY: This is Ian Church, nursing practitioner YENI OROPEZA MD DR: CAROLINA/vandana JOB#: [id number] / [id number]
[2018-09-21 05:27] LABS: CREATININE 0.7 mg/dL (0.6-1.0); GFR 79.9
[2018-09-21] MEDS: CEFEPIME HCL IV Push 1 GM VIAL. IVP SCH ×3 (06:14→23:21)
[2018-09-21] MEDS: POTASSIUM CL 20MEQ-0.45% NACL 1,000 ML IV SCH ×3 (06:17→20:29)
[2018-09-21 07:00] VITALS: BP 136/47
[2018-09-21] MEDS: FAMCICLOVIR 500 MG TABLET PO SCH ×3 (09:00→20:31)
[2018-09-21] MEDS: DOCUSATE SODIUM 100 MG CAPSULE. PO SCH (09:00)
[2018-09-21] MEDS: PANTOPRAZOLE 40 MG TABLET.DR. PO SCH (09:09)
[2018-09-21] MEDS: CARVEDILOL 3.125 MG TABLET. PO SCH ×2 (09:09→17:34)
[2018-09-21] MEDS: CITALOPRAM 10 MG TABLET. PO SCH ×2 (09:11→20:32)
[2018-09-21] MEDS: BUMETANIDE 1 MG TABLET. PO SCH (09:11)
[2018-09-21] MEDS: MULTIVITAMIN with MINERAL TABLET. PO SCH (09:11)
[2018-09-21] MEDS: LISINOPRIL 10 MG TABLET PO SCH (09:11)
[2018-09-21] MEDS: ISOSORBIDE MONONITRATE ER 30 MG TAB.ER.24H PO SCH (09:12)
[2018-09-21] MEDS: INSULIN LISPRO 300 UNITS/3 ML INSULN.PEN. SQ SCH ×3 (09:20→17:00)
[2018-09-21] MEDS: INSULIN GLARGINE 300 UNITS/3 ML INSULN.PEN. SQ SCH (09:21)
[2018-09-21] MEDS: MULTIVITAMIN I-VITE TABLET. PO SCH ×2 (09:26→20:32)
[2018-09-21 11:00] VITALS: BP 117/52
[2018-09-21 11:33] LABS: BASO % 1 % (0-3); EOS % 0 % (0-3); HEMATOCRIT 25.9 % (36.0-47.0); HEMOGLOBIN 8.6 g/dL (12.0-15.5); LYMPH # 0.2 x10^3/uL (1.0-4.8); LYMPH % 6 % (24-48); MEAN CORPUSCULAR HEMOGLOBIN 29 pg (25-35); MEAN CORPUSCULAR HGB CONC 33 g/dL (31-37); MEAN CORPUSCULAR VOLUME 86 fL (79-100); MONO # 0.2 x10^3/uL (0.0-1.1); MONO % 6 % (0-9); NEUT # 3.3 x10^3uL (1.8-7.7); NEUT % 87 % (31-73); PLATELET COUNT 211 x10^3/uL (140-400); RED CELL DISTRIBUTION WIDTH 20.1 % (11.5-14.5); WHITE BLOOD COUNT 3.8 x10^3/uL (4.0-11.0)
--- NOTE | 2018-09-21 11:39 | PDOC ---
Infectious Disease Note Subjective Subjective Rough morning + diarrhea w/ urgency Wore self out after showering and brushing teeth + chills No fevers last 24 hours ROS ROS per HPI otherwise neg Vital Sign Vital Signs Vital Signs Date Time Temp Pulse Resp B/P (MAP) Pulse Ox O2 Delivery O2 Flow Rate FiO2 09/21/18 09:12 111 136/47 09/21/18 08:00 Room Air 09/21/18 07:00 97.7 20 92 97.7 Physical Exam PHYSICAL EXAM GENERAL: Sitting in the chair, alert, NAD looks well HEENT: Pupils equally round. Normal conjunctivae. Oral cavity, pharynx is pink and moist. No thrush. NECK: Supple. LUNGS: Diminished aeration. HEART: S1 and S2. ABDOMEN: Obese, bowel sounds hyperactive, soft, nontender. EXTREMITIES: No gross edema or cyanosis. SKIN: Warm. Localized rash over a sacral region NEUROLOGIC: Alert and oriented x 3. Left-sided Port-A-Cath site without redness, swelling Labs Lab Laboratory Tests Test 09/20/18 13:50 09/20/18 15:18 09/20/18 16:19 09/20/18 21:04 White Blood Count 2.0 x10^3/uL (4.0-11.0) Red Blood Count 2.94 x10^6/uL (3.50-5.40) Hemoglobin 8.6 g/dL (12.0-15.5) Hematocrit 24.8 % (36.0-47.0) Mean Corpuscular Volume 84 fL (79-100) Mean Corpuscular Hemoglobin 29 pg (25-35) Mean Corpuscular Hemoglobin Concent 35 g/dL (31-37) Red Cell Distribution Width 20.0 % (11.5-14.5) Platelet Count 203 x10^3/uL (140-400) Neutrophils (%) (Auto) 66 % (31-73) Lymphocytes (%) (Auto) 13 % (24-48) Monocytes (%) (Auto) 20 % (0-9) Eosinophils (%) (Auto) 1 % (0-3) Basophils (%) (Auto) 1 % (0-3) Neutrophils # (Auto) 1.3 x10^3uL (1.8-7.7) Lymphocytes # (Auto) 0.3 x10^3/uL (1.0-4.8) Monocytes # (Auto) 0.4 x10^3/uL (0.0-1.1) Eosinophils # (Auto) 0.0 x10^3/uL (0.0-0.7) Basophils # (Auto) 0.0 x10^3/uL (0.0-0.2) Glucose (Fingerstick) 60 mg/dL (70-99) 100 mg/dL (70-99) 164 mg/dL (70-99) Test 09/21/18 04:00 09/21/18 08:22 Creatinine 0.7 mg/dL (0.6-1.0) Estimated GFR (Cockcroft-Gault) 79.9 Glucose (Fingerstick) 135 mg/dL (70-99) CXR Findings: Portable upright frontal views of the chest were obtained. Left internal jugular infusion port catheter tip terminates overlying superior vena cava. Sternal wires and mediastinal clips are present. Heart size is mildly enlarged. Pulmonary vasculature is mildly congested. No focal consolidation. No pneumothorax. Surgical clips involve the right axillary region. Minimal left costophrenic angle blunting is present. Impression: Mild CHF. Small left effusion Objective Assessment Fever - looks better Leukopenia. s/p Granix 09/20 Immunosuppression s/p chemoradiation Diarrhea. C.diff pending Herpes Zoster. - Finished 7-day Famciclovir OP recently. Pyuria, ? UTI - on cipro OP per PCP Dysphagia Esophageal cancer, stage II s/p chemoradiation -Diagnosed in June 2018 -s/p Port placement on 08/05/2018 RA - on methotrexate A-fib, Xarelto DM w/ hypoglycemic episode of 60 CAD h/o stroke Mild CHF on cxr Plan Plan of Care BC x 2 in process Continue IV vanc, cefepime and micafungin to need to cover potential port infection Empiric po vanc. C. diff PCR pending Monitor labs/temp and renal function closely f/u cultures results Supportive care Attending Co-Sign Attending Co-Sign The patient was seen and interviewed as well as examined at the bedside. The chart was reviewed. The case was discussed. Agree with the plan of care. DEXTER MICHEL APRN Sep 21, 2018 11:39 YENI OROPEZA MD Sep 21, 2018 13:21
--- NOTE | 2018-09-21 11:56 | PN ---
DATE: 09/21/2018 LOCATION: She is in room 550. SUBJECTIVE: The patient is awake, alert, sitting on the toilet, just had an accident with diarrhea and is being cleaned out. She does feel like she feels somewhat better than she has. She does admit sweating during the night at least on several occasions where she had to bathe and change clothes. OBJECTIVE: VITAL SIGNS: Stable. She has been afebrile for the last 24 hours. GENERAL: She is awake and alert. CHEST: Clear with diminished breath sounds at bases. HEART: Regular. ABDOMEN: Benign. LABORATORY DATA: White count was 2000 yesterday and hemoglobin was 8.6, platelet count of 203,000. She is receiving Neupogen for her leukopenia related to chemoradiation. She has 11-20 white blood cells on her admission urine. ID has got involved yesterday and have placed her on vancomycin as well as micafungin and cefepime. Blood cultures have been drawn and are negative today. IMPRESSION: 1. Fever with leukopenia in a patient on chemoradiation for cancer of the esophagus. 2. Diabetes. 3. Vomiting and diarrhea. 4. Anemia. 5. Leukopenia. 6. Atrial fibrillation. 7. Coronary artery disease. 8. Diabetes. 9. Prior cerebrovascular accident. PLAN: Continue supportive care, IV antibiotics, await cultures and treat symptomatically otherwise. ARTHUR GUERRA MD DR: MAYA/vandana JOB#: [id number] / [id number]
[2018-09-21] MEDS: VANCOMYCIN 125 MG/2.5 ML ORAL SOLUTION. PO SCH ×3 (12:46→20:32)
[2018-09-21 15:00] VITALS: BP 111/46
[2018-09-21] MEDS ORDERED: DEXTROSE 50% 25 GM / 50ML DISP.SYRIN. IV PRN (17:00)
[2018-09-21] MEDS: MICAFUNGIN 100 MG in IV DEXTROSE 5% 100ML 100 ML IV SCH (17:33)
[2018-09-21] MEDS: RIVAROXABAN 15 MG TABLET. PO SCH (17:34)
[2018-09-21 19:00] VITALS: BP 97/49
[2018-09-21] MEDS: VANCOMYCIN 1.5 GM in IV NORMAL SALINE 500ML BAG 500 ML IV SCH (20:29)
[2018-09-21] MEDS: diphenhydrAMINE HCL 25 MG CAPSULE PO SCH (20:32)
[2018-09-21] MEDS: SIMVASTATIN 40 MG TABLET. PO SCH (20:32)
[2018-09-21] MEDS: ALPRAZolam 0.25 MG TABLET PO PRN (20:37)
[2018-09-21] MEDS: TBO-FILGRASTIM 480 MCG/0.8 ML SYRINGE. SQ SCH (20:38)
[2018-09-21 23:00] VITALS: BP 114/48
[2018-09-22 03:00] VITALS: BP 93/46
[2018-09-22] MEDS: CEFEPIME HCL IV Push 1 GM VIAL. IVP SCH ×3 (06:11→21:05)
[2018-09-22 07:00] VITALS: BP_SYST 124; BP_SYST 131; BP_DIAS 53; BP_DIAS 74
[2018-09-22] MEDS: POTASSIUM CL 20MEQ-0.45% NACL 1,000 ML IV SCH ×2 (07:43→16:46)
[2018-09-22] MEDS: INSULIN LISPRO 300 UNITS/3 ML INSULN.PEN. SQ SCH ×3 (08:00→17:00)
[2018-09-22] MEDS: INSULIN GLARGINE 300 UNITS/3 ML INSULN.PEN. SQ SCH (08:00)
[2018-09-22] MEDS: PANTOPRAZOLE 40 MG TABLET.DR. PO SCH (08:16)
[2018-09-22] MEDS: FAMCICLOVIR 500 MG TABLET PO SCH ×3 (08:17→21:00)
[2018-09-22] MEDS: CARVEDILOL 3.125 MG TABLET. PO SCH ×2 (08:17→16:48)
[2018-09-22] MEDS: ISOSORBIDE MONONITRATE ER 30 MG TAB.ER.24H PO SCH (08:18)
[2018-09-22] MEDS: BUMETANIDE 1 MG TABLET. PO SCH (08:18)
[2018-09-22] MEDS: DOCUSATE SODIUM 100 MG CAPSULE. PO SCH (08:18)
[2018-09-22] MEDS: MULTIVITAMIN I-VITE TABLET. PO SCH ×2 (08:18→21:05)
[2018-09-22] MEDS: MULTIVITAMIN with MINERAL TABLET. PO SCH (08:19)
[2018-09-22] MEDS: LISINOPRIL 10 MG TABLET PO SCH (08:19)
[2018-09-22] MEDS: VANCOMYCIN 125 MG/2.5 ML ORAL SOLUTION. PO SCH (10:13)
--- NOTE | 2018-09-22 10:41 | PDOC ---
Infectious Disease Note Subjective Subjective Feeling better over-all but still having ongoing diarrhea w/ stomach "rumblings, " 3 so far this morning Had some urinary retention early that released Appetite good Denies N/V/F/C/SOA ROS ROS per HPI otherwise neg Vital Sign Vital Signs Vital Signs Date Time Temp Pulse Resp B/P (MAP) Pulse Ox O2 Delivery O2 Flow Rate FiO2 09/22/18 08:19 109 124/53 09/22/18 08:00 Room Air 09/22/18 07:00 97.9 20 93 97.9 09/21/18 23:00 2.0 Physical Exam PHYSICAL EXAM GENERAL: Propped up in bed, alert, relaxed appearance HEENT: Pupils equally round. Normal conjunctivae. Oral cavity, pharynx is pink and moist. No thrush. NECK: Supple. LUNGS: Diminished aeration. HEART: S1 and S2. ABDOMEN: Obese, bowel sounds hyperactive, soft, nontender. EXTREMITIES: No gross edema or cyanosis. SKIN: Warm. Localized rash over a sacral region NEUROLOGIC: Alert and oriented x 3. Left-sided Port-A-Cath site without redness, swelling Labs Lab Laboratory Tests Test 09/21/18 10:57 09/21/18 16:11 09/21/18 16:35 09/21/18 18:19 Glucose (Fingerstick) 150 mg/dL (70-99) 56 mg/dL (70-99) 61 mg/dL (70-99) 96 mg/dL (70-99) Test 09/22/18 07:16 Glucose (Fingerstick) 90 mg/dL (70-99) Micro 09/21/18 Blood Culture - Preliminary, Resulted NO GROWTH AFTER 1 DAY URINE CULTURE RES 1 Preliminary Comment Staphylococcus species 25,000-50,000 colony forming units per mL Objective Assessment Fever - resolved Leukopenia. s/p Granix 09/20 - improving Immunosuppression s/p chemoradiation Diarrhea. C.diff neg 09/21 - ? Sec to chemo radiation Herpes Zoster. - Finished 7-day Famciclovir OP recently. Pyuria, ? UTI - on cipro OP per PCP Dysphagia Esophageal cancer, stage II s/p chemoradiation -Diagnosed in June 2018 -s/p Port placement on 08/05/2018 RA - on methotrexate A-fib, Xarelto DM w/ hypoglycemic episode of 60 CAD h/o stroke Mild CHF on cxr Plan Plan of Care BC NGTD Continue IV vanc, cefepime and micafungin D/c po vanc Check Stool cults - may need GI eval or scan Monitor labs/temp and renal function closely Supportive care D/w RN Attending Co-Sign Attending Co-Sign The patient was seen and interviewed as well as examined at the bedside. The chart was reviewed. The case was discussed. Agree with the plan of care. DEXTER MICHEL APRN Sep 22, 2018 10:41 YENI OROPEZA MD Sep 22, 2018 13:50
[2018-09-22 10:47] VITALS: BP 122/58
[2018-09-22] MEDS: VANCOMYCIN PER PHARMACY MC PRN (12:10)
[2018-09-22] MEDS: ANTI-COAG MONITOR BY PHARMACY. MC PRN (14:39)
[2018-09-22 15:00] VITALS: BP 125/60
[2018-09-22] MEDS: MICAFUNGIN 100 MG in IV DEXTROSE 5% 100ML 100 ML IV SCH (16:47)
[2018-09-22] MEDS: RIVAROXABAN 15 MG TABLET. PO SCH (16:47)
[2018-09-22 19:00] VITALS: BP 112/46
[2018-09-22 20:16] LABS: VANC TR 11.8 mcg/mL (10.0-20.0)
[2018-09-22] MEDS: SIMVASTATIN 40 MG TABLET. PO SCH (21:05)
[2018-09-22] MEDS: ALPRAZolam 0.25 MG TABLET PO PRN (21:05)
[2018-09-22] MEDS: diphenhydrAMINE HCL 25 MG CAPSULE PO SCH (21:05)
[2018-09-22] MEDS: CITALOPRAM 10 MG TABLET. PO SCH (21:05)
[2018-09-22] MEDS: VANCOMYCIN 1.5 GM in IV NORMAL SALINE 500ML BAG 500 ML IV SCH (21:07)
[2018-09-22] MEDS: TBO-FILGRASTIM 480 MCG/0.8 ML SYRINGE. SQ SCH (21:08)
[2018-09-22 23:00] VITALS: BP 142/42
[2018-09-23] MEDS: VANCOMYCIN PER PHARMACY MC PRN (00:04)
--- NOTE | 2018-09-23 01:54 | PN ---
DATE: 09/22/2018 ROOM: 550. SUBJECTIVE: The patient is awake and alert, feeling somewhat better. Does admit to 5 loose stools since I have seen her yesterday. OBJECTIVE: VITAL SIGNS: Stable. She is afebrile. GENERAL: She is awake and alert. She remains mildly tachycardic with a heart rate of approximately 100. LABORATORY DATA: Stool for C. diff is negative. Sugars have been good. White count is up to 3800 this morning. Hemoglobin was stable at 8.6. Blood cultures are negative to date. There are some Staph 25-50,000 growth on her urine culture. IMPRESSION: 1. Neutropenic fever, on broad spectrum IV antibiotics without a definite source for infection to date. 2. Diarrhea, negative for Clostridium difficile. 3. Herpes zoster within the last couple of weeks, finished 7-day Famvir prescription. 4. Esophageal cancer, undergoing chemoradiation. 5. Rheumatoid arthritis, on methotrexate. 6. Atrial fibrillation, on Xarelto. 7. Diabetes with good blood sugars. 8. Coronary artery disease. PLAN: Continue present IV antibiotics per Pulmonology. Stool cultures will be checked. If her diarrhea does not slow, GI may need to be involved here also. ARTHUR GUERRA MD DR: MAYA/vandana JOB#: [id number] / [id number]
[2018-09-23 03:00] VITALS: BP 97/40
[2018-09-23 05:48] LABS: BASO # 0.1 x10^3/uL (0.0-0.2); BASO % 1 % (0-3); EOS % 0 % (0-3); HEMATOCRIT 26.6 % (36.0-47.0); HEMOGLOBIN 8.8 g/dL (12.0-15.5); LYMPH # 0.4 x10^3/uL (1.0-4.8); LYMPH % 2 % (24-48); MEAN CORPUSCULAR HEMOGLOBIN 28 pg (25-35); MEAN CORPUSCULAR HGB CONC 33 g/dL (31-37); MEAN CORPUSCULAR VOLUME 86 fL (79-100); MONO # 0.9 x10^3/uL (0.0-1.1); MONO % 4 % (0-9); NEUT # 18.6 x10^3uL (1.8-7.7); NEUT % 93 % (31-73); PLATELET COUNT 228 x10^3/uL (140-400); RED CELL DISTRIBUTION WIDTH 20.1 % (11.5-14.5)
[2018-09-23] MEDS: POTASSIUM CL 20MEQ-0.45% NACL 1,000 ML IV SCH ×3 (05:54→20:25)
[2018-09-23] MEDS: CEFEPIME HCL IV Push 1 GM VIAL. IVP SCH ×3 (05:55→21:57)
[2018-09-23 06:03] LABS: CALCIUM 7.1 mg/dL (8.5-10.1); CREATININE 0.8 mg/dL (0.6-1.0); GFR 68.5
[2018-09-23 07:00] VITALS: BP 121/54
[2018-09-23] MEDS: INSULIN LISPRO 300 UNITS/3 ML INSULN.PEN. SQ SCH ×3 (08:00→17:00)
[2018-09-23] MEDS: BUMETANIDE 1 MG TABLET. PO SCH (08:38)
[2018-09-23] MEDS: MULTIVITAMIN I-VITE TABLET. PO SCH ×2 (08:39→20:24)
[2018-09-23] MEDS: MULTIVITAMIN with MINERAL TABLET. PO SCH (08:39)
[2018-09-23] MEDS: ISOSORBIDE MONONITRATE ER 30 MG TAB.ER.24H PO SCH (08:39)
[2018-09-23] MEDS: DOCUSATE SODIUM 100 MG CAPSULE. PO SCH (08:39)
[2018-09-23] MEDS: PANTOPRAZOLE 40 MG TABLET.DR. PO SCH (08:40)
[2018-09-23] MEDS: CARVEDILOL 3.125 MG TABLET. PO SCH ×2 (08:40→17:32)
[2018-09-23] MEDS: LISINOPRIL 10 MG TABLET PO SCH (08:41)
[2018-09-23] MEDS: INSULIN GLARGINE 300 UNITS/3 ML INSULN.PEN. SQ SCH (08:53)
[2018-09-23] MEDS: FAMCICLOVIR 500 MG TABLET PO SCH ×3 (09:00→20:27)
--- NOTE | 2018-09-23 09:13 | PDOC ---
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 ROS - no fever Objective Objective Vital Signs Date Time Temp Pulse Resp B/P (MAP) Pulse Ox O2 Delivery O2 Flow Rate FiO2 09/23/18 08:41 99 121/54 09/23/18 07:00 98.2 20 96 Room Air 98.2 09/23/18 03:00 2.0 Intake and Output 09/23/18 07:00 Intake Total 2400 ml Output Total 1850 ml Balance 550 ml Intake Oral 900 ml IV Total 1500 ml Output Urine Total 1400 ml Urine/Stool Mix 450 ml # Voids 3 # Bowel Movements 2 Physical Exam Heart: Normal S1, Normal S2 General: Alert, Oriented X3, No acute distress Lungs: Clear to auscultation Neuro: Normal speech Psych/Mental Status: Mental status NL Assessment Assessment IMPRESSION AND PLAN: 1. 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 She was started on concurrent chemoradiation on 08/07/2018. She received her fourth dose of carboplatin and Taxol on 09/11/2018. Chemo was then discontinued because of toxicities. She had nausea, vomiting and generalized weakness. She subsequently also developed shingles. No further chemotherapy planned. I will plan for a followup CT scan in about 2 months to evaluate for response. 2. Neutropenia due to chemotherapy. On Granix 480 mcg 09/20/18. d/c on 09/23/18 as wbc 20 on 09/23/18. 3. Fever of 101.3 on 09/19/2018. Consulted Infectious Diseases. Fever has now improved. 4. Rheumatoid arthritis. She is on methotrexate weekly. 5. Atrial fibrillation. Follow up with Cardiology. 6. History of cerebrovascular accident. 7. Anemia. Hemoglobin 9.4. Continue to monitor. I discussed with Dr. Diaz. Comment Review of Relevant I have reviewed the following items aviva (where applicable) has been applied. Labs Laboratory Tests Test 09/21/18 10:57 09/21/18 16:11 09/21/18 16:35 09/21/18 18:19 Glucose (Fingerstick) 150 mg/dL (70-99) 56 mg/dL (70-99) 61 mg/dL (70-99) 96 mg/dL (70-99) Test 09/22/18 07:16 11/4/18 12:25 09/22/18 16:26 09/22/18 19:45 Glucose (Fingerstick) 90 mg/dL (70-99) 159 mg/dL (70-99) 154 mg/dL (70-99) Vancomycin Level Trough 11.8 mcg/mL (10.0-20.0) Vancomycin Last Dose Date Unk Vancomycin Last Dose Time Unk Test 09/22/18 20:17 09/23/18 03:50 09/23/18 07:16 Glucose (Fingerstick) 142 mg/dL (70-99) 103 mg/dL (70-99) White Blood Count 20.0 x10^3/uL (4.0-11.0) Red Blood Count 3.10 x10^6/uL (3.50-5.40) Hemoglobin 8.8 g/dL (12.0-15.5) Hematocrit 26.6 % (36.0-47.0) Mean Corpuscular Volume 86 fL (79-100) Mean Corpuscular Hemoglobin 28 pg (25-35) Mean Corpuscular Hemoglobin Concent 33 g/dL (31-37) Red Cell Distribution Width 20.1 % (11.5-14.5) Platelet Count 228 x10^3/uL (140-400) Neutrophils (%) (Auto) 93 % (31-73) Lymphocytes (%) (Auto) 2 % (24-48) Monocytes (%) (Auto) 4 % (0-9) Eosinophils (%) (Auto) 0 % (0-3) Basophils (%) (Auto) 1 % (0-3) Neutrophils # (Auto) 18.6 x10^3uL (1.8-7.7) Lymphocytes # (Auto) 0.4 x10^3/uL (1.0-4.8) Monocytes # (Auto) 0.9 x10^3/uL (0.0-1.1) Eosinophils # (Auto) 0.0 x10^3/uL (0.0-0.7) Basophils # (Auto) 0.1 x10^3/uL (0.0-0.2) Sodium Level 135 mmol/L (136-145) Potassium Level 4.0 mmol/L (3.5-5.1) Chloride Level 101 mmol/L (98-107) Carbon Dioxide Level 26 mmol/L (21-32) Anion Gap 8 (6-14) Blood Urea Nitrogen 6 mg/dL (7-20) Creatinine 0.8 mg/dL (0.6-1.0) Estimated GFR (Cockcroft-Gault) 68.5 Glucose Level 78 mg/dL (70-99) Calcium Level 7.1 mg/dL (8.5-10.1) Laboratory Tests Test 09/22/18 12:25 09/22/18 16:26 09/22/18 19:45 09/22/18 20:17 Glucose (Fingerstick) 159 mg/dL (70-99) 154 mg/dL (70-99) 142 mg/dL (70-99) Vancomycin Level Trough 11.8 mcg/mL (10.0-20.0) Vancomycin Last Dose Date Unk Vancomycin Last Dose Time Unk Test 09/23/18 03:50 09/23/18 07:16 White Blood Count 20.0 x10^3/uL (4.0-11.0) Red Blood Count 3.10 x10^6/uL (3.50-5.40) Hemoglobin 8.8 g/dL (12.0-15.5) Hematocrit 26.6 % (36.0-47.0) Mean Corpuscular Volume 86 fL (79-100) Mean Corpuscular Hemoglobin 28 pg (25-35) Mean Corpuscular Hemoglobin Concent 33 g/dL (31-37) Red Cell Distribution Width 20.1 % (11.5-14.5) Platelet Count 228 x10^3/uL (140-400) Neutrophils (%) (Auto) 93 % (31-73) Lymphocytes (%) (Auto) 2 % (24-48) Monocytes (%) (Auto) 4 % (0-9) Eosinophils (%) (Auto) 0 % (0-3) Basophils (%) (Auto) 1 % (0-3) Neutrophils # (Auto) 18.6 x10^3uL (1.8-7.7) Lymphocytes # (Auto) 0.4 x10^3/uL (1.0-4.8) Monocytes # (Auto) 0.9 x10^3/uL (0.0-1.1) Eosinophils # (Auto) 0.0 x10^3/uL (0.0-0.7) Basophils # (Auto) 0.1 x10^3/uL (0.0-0.2) Sodium Level 135 mmol/L (136-145) Potassium Level 4.0 mmol/L (3.5-5.1) Chloride Level 101 mmol/L (98-107) Carbon Dioxide Level 26 mmol/L (21-32) Anion Gap 8 (6-14) Blood Urea Nitrogen 6 mg/dL (7-20) Creatinine 0.8 mg/dL (0.6-1.0) Estimated GFR (Cockcroft-Gault) 68.5 Glucose Level 78 mg/dL (70-99) Calcium Level 7.1 mg/dL (8.5-10.1) Glucose (Fingerstick) 103 mg/dL (70-99) Microbiology 09/21/18 Blood Culture - Preliminary, Resulted NO GROWTH AFTER 2 DAYS 09/19/18 Urine Culture - Final, Complete 09/19/18 Urine Culture Result 1 (NICK) - Final, Complete 09/19/18 Antimicrobic Susceptibility - Final, Complete Medications Current Medications Potassium Chloride/Sodium Chloride 1,000 ml @ 100 mls/hr Q10H IV Last administered on 09/23/18 05:54; Start 09/19/18 at 17:30 Alprazolam (Xanax) 0.25 mg PRN Q6HRS PRN PO ANXIETY / AGITATION Last administered on 09/22/18 21:05; Start 09/19/18 at 17:15 Carvedilol (Coreg) 3.125 mg BIDWMEALS PO Last administered on 09/23/18at 08:40; Start 09/19/18 at 18:00 Ciprofloxacin (Cipro) 250 mg BID PO Last administered on 09/20/18 10:45; Start 09/19/18 at 21:00; Stop 09/20/18 at 15:50; Status DC Citalopram Hydrobromide (CeleXA) 10 mg DAILY PO Last administered on 09/20/18 10:45; Start 09/19/18 at 18:00; Stop 09/21/18 at 18:26; Status DC Diphenhydramine HCl (Benadryl) 50 mg QHS PO Last administered on 09/22/18at 21: 05; Start 09/19/18 at 21:00 Docusate Sodium (Colace) 100 mg DAILY PO Last administered on 09/23/18 08:39; Start 09/19/18 at 18:00 Insulin Glargine (Lantus) 17 units DAILYWBKFT SQ Last administered on 08:53; Start 09/20/18 at 08:00 Isosorbide Mononitrate (Imdur) 30 mg DAILY PO Last administered on 09/23/18 08 :39; Start 09/19/18 at 18:00 Lisinopril (Prinivil) 10 mg DAILY PO Last administered on 09/23/18 08:41; Start 09/19/18 at 18:00 Rivaroxaban (Xarelto) 15 mg DAILYWSUP PO Last administered on 09/22/18 16:47; Start 09/19/18 at 18:00 Multivitamins/ Minerals (I-Myah) 1 tab BID PO Last administered on 09/23/18 08 :39; Start 09/19/18 at 21:00 Bumetanide (Bumex) 2 mg DAILY PO Last administered on 09/23/18 08:38; Start 09/19/18 at 18:00 Vitamin D (Vitamin D3) 1,000 unit DAILY PO Last administered on 09/19/18 17:53 ; Start 09/19/18 at 18:00; Stop 09/19/18 at 19:01; Status DC Non-Formulary Medication 1 ea TID PO Last administered on 09/20/18 10:48; Start 09/19/18 at 21:00 Insulin Human Lispro (HumaLOG) 4 units TIDWMEALS SQ Last administered on 17:00; Start 09/19/18 at 18:00 Methotrexate (Rheumatrex) 15 mg WEEKLY PO Last administered on 09/19/18 17:55 ; Start 09/19/18 at 18:00 Multivitamins (Thera M Plus) 1 tab DAILY PO Last administered on 09/23/18 08: 39; Start 09/19/18 at 18:00 Pantoprazole Sodium (Protonix) 40 mg DAILYAC PO Last administered on 09/23/18 08:40; Start 09/19/18 at 18:00 Ondansetron HCl (Zofran Odt) 8 mg PRN BID PRN PO NAUSEA/VOMITING; Start at 17:30 Simvastatin (Zocor) 40 mg QHS PO Last administered on 09/22/18 21:05; Start 09/19/18 at 21:00 Info (Anti-Coagulation Monitoring By Pharmacy) 1 each PRN DAILY PRN MC SEE COMMENTS Last administered on 09/22/18at 14:39; Start 09/19/18 at 17:30 Lactobacillus Rhamnosus (Culturelle) 1 cap BID PO Last administered on at 22:22; Start 09/19/18 at 21:00; Stop 09/20/18 at 08:28; Status DC Acetaminophen (Tylenol) 500 mg PRN Q6HRS PRN PO MILD PAIN / TEMP; Start at 19:00 Tbo-Filgrastim (Granix) 480 mcg QHS SQ Last administered on 09/22/18 21:08; Start 09/20/18 at 21:00; Stop 09/23/18 at 08:17; Status DC Vancomycin HCl (Vanco Per Pharmacy) 1 each PRN DAILY PRN MC SEE COMMENTS Last administered on 09/23/18at 00:04; Start 09/20/18 at 15:45 Cefepime HCl 1 gm/ Dextrose 50 ml @ 100 mls/hr Q8HRS IV ; Start 09/20/18 at 22: 00; Status UNV Micafungin Sodium 100 mg/Dextrose 100 ml @ 100 mls/hr Q24H IV Last administered on 09/22/18 16:47; Start 09/20/18 at 17:00 Cefepime HCl (Maxipime) 1 gm Q8HRS IVP Last administered on 09/23/18 05:55; Start 09/20/18 at 16:30 Vancomycin HCl 2 gm/Sodium Chloride 500 ml @ 250 mls/hr 1X ONCE IV Last administered on 09/20/18 19:36; Start 09/20/18 at 16:30; Stop 09/20/18 at 18:29 ; Status DC Vancomycin HCl 1.5 gm/Sodium Chloride 500 ml @ 250 mls/hr Q24H IV Last administered on 09/22/18 21:07; Start 09/21/18 at 19:30; Stop 09/22/18 at 23:53 ; Status DC Vancomycin HCl (Vancomycin Trough Level) 1 each 1X ONCE MC Last administered on 09/22/18at 19:00; Start 09/22/18 at 19:00; Stop 09/22/18 at 19:01; Status DC Vancomycin HCl (Vancomycin Oral Solution) 125 mg [id number] PO Last administered on 09/22/18at 10:13; Start 09/21/18 at 13:00; Stop 09/22/18 at 10:42; Status DC Dextrose (Dextrose 50%-Water Syringe) 12.5 gm PRN Q15MIN PRN IV SEE COMMENTS; Start 09/21/18 at 17:00 Citalopram Hydrobromide (CeleXA) 10 mg QHS PO Last administered on 09/22/18at 21 :05; Start 09/21/18 at 21:00 Vancomycin HCl 1.5 gm/Sodium Chloride 500 ml @ 250 mls/hr Q18H IV ; Start 09/23 at 15:30 Vancomycin HCl (Vancomycin Trough Level) 1 each 1X ONCE MC ; Start 09/24/18 at 09:00; Stop 09/24/18 at 09:01 Active Scripts Active Reported Famciclovir 500 Mg Tablet 500 Mg PO TID 1 Days Ciprofloxacin Hcl 250 Mg Tablet 1 Tab PO BID Zofran (Ondansetron Hcl) 8 Mg Tablet 8 Mg PO BID PRN Xarelto (Rivaroxaban) 15 Mg Tablet 15 Mg PO DAILY Carvedilol 3.125 Mg Tablet 3.125 Mg PO BID Methotrexate (Methotrexate Sodium) 2.5 Mg Tablet 6 Tab PO WEEKLY Benadryl (Diphenhydramine Hcl) 25 Mg Capsule 2 Cap PO QHS Bumetanide 2 Mg Tablet 2 Mg PO DAILY Ocuvite Tablet (Vit A,C & E/Lutein/Minerals) 1 Each Tablet 1 Each PO BID Citalopram Hbr (Citalopram Hydrobromide) 10 Mg Tablet 10 Mg PO DAILY Alprazolam 0.25 Mg Tablet 0.25 Mg PO PRN Q6HRS PRN Isosorbide Mononitrate Er (Isosorbide Mononitrate) 30 Mg Tab.er.24h 30 Mg PO DAILY Prilosec Otc (Omeprazole Magnesium) 20 Mg Tablet.dr 20 Mg PO DAILY Novolog Flexpen (Insulin Aspart) 100 Unit/1 Ml Insuln.pen 4 Unit SQ TIDBFRMEAL Lantus Solostar (Insulin Glargine,Hum.rec.anlog) 100 Unit/1 Ml Insuln.pen 17 Unit SQ DAILYWBKFT Vitamin D-3 (Cholecalciferol (Vitamin D3)) 2,000 Unit Capsule 1,000 Unit PO DAILY Lisinopril 10 Mg Tablet 10 Mg PO DAILY Simvastatin 40 Mg Tablet 40 Mg PO DAILY Colace (Docusate Sodium) 100 Mg Capsule 100 Mg PO DAILY Garlic 1,000 Mg Capsule 1,000 Mg PO DAILY Multivitamins (Multivitamin) 1 Each Capsule 1 Each PO DAILY Vitals/I & O Vital Sign - Last 24 Hours 09/22/18 09/22/18 09/22/18 09/22/18 10:47 15:00 16:48 19:00 Temp 97.8 97.8 99.9 97.8 97.8 99.9 Pulse 101 104 104 97 Resp 20 20 18 B/P (MAP) 122/58 (79) 125/60 (81) 125/60 112/46 (68) Pulse Ox 94 95 93 O2 Delivery Room Air Room Air Room Air 09/22/18 09/22/18 09/23/18 09/23/18 20:00 23:00 03:00 07:00 Temp 99.3 98.2 98.2 99.3 98.2 98.2 Pulse 96 97 99 Resp 18 18 20 B/P (MAP) 142/42 (75) 97/40 (59) 121/54 (76) Pulse Ox 98 95 96 O2 Delivery Room Air Nasal Cannula Nasal Cannula Room Air O2 Flow Rate 2.0 2.0 09/23/18 09/23/18 09/23/18 08:39 08:40 08:41 Pulse 99 99 99 B/P (MAP) 121/54 121/54 121/54 Intake and Output 09/22/18 09/22/18 09/23/18 15:00 23:00 07:00 Intake Total 600 ml 300 ml 1500 ml Output Total 1400 ml 450 ml 0 ml Balance -800 ml -150 ml 1500 ml MICHAEL VIDES MD Sep 23, 2018 09:13
[2018-09-23 09:29] LABS: % BANDS 20 % (0-9); % LYMPHS 1 % (24-48); % MONOS 6 % (0-10); % SEGS 73 % (35-66); ANISOCYTOSIS MOD; PLT ESTIMATE ADEQUATE (ADEQUATE)
[2018-09-23 11:00] VITALS: BP 142/62
--- NOTE | 2018-09-23 12:04 | PDOC ---
Infectious Disease Note Subjective Subjective Less diarrhea and urgency Appetite diminished, Hurts to swallow Less sacral pain/burning No F/C/S/SOA Vital Sign Vital Signs Vital Signs Date Time Temp Pulse Resp B/P (MAP) Pulse Ox O2 Delivery O2 Flow Rate FiO2 09/23/18 11:00 98.2 119 20 142/62 (88) 90 Room Air 98.2 09/23/18 03:00 2.0 Physical Exam PHYSICAL EXAM GENERAL: Propped up in bed, alert, relaxed appearance HEENT: Oral cavity, pharynx is pink and moist. NECK: Supple. LUNGS: Diminished aeration. HEART: S1 and S2. ABDOMEN: Obese, bowel sounds hyperactive, soft, nontender. EXTREMITIES: No gross edema or cyanosis. SKIN: Warm. Localized rash over a sacral region - better NEUROLOGIC: Alert and oriented x 3. Left-sided Port-A-Cath site without redness, swelling Labs Lab Laboratory Tests Test 09/22/18 12:25 09/22/18 16:26 09/22/18 19:45 09/22/18 20:17 Glucose (Fingerstick) 159 mg/dL (70-99) 154 mg/dL (70-99) 142 mg/dL (70-99) Vancomycin Level Trough 11.8 mcg/mL (10.0-20.0) Vancomycin Last Dose Date Unk Vancomycin Last Dose Time Unk Test 09/23/18 03:50 09/23/18 07:16 09/23/18 10:39 White Blood Count 20.0 x10^3/uL (4.0-11.0) Red Blood Count 3.10 x10^6/uL (3.50-5.40) Hemoglobin 8.8 g/dL (12.0-15.5) Hematocrit 26.6 % (36.0-47.0) Mean Corpuscular Volume 86 fL (79-100) Mean Corpuscular Hemoglobin 28 pg (25-35) Mean Corpuscular Hemoglobin Concent 33 g/dL (31-37) Red Cell Distribution Width 20.1 % (11.5-14.5) Platelet Count 228 x10^3/uL (140-400) Neutrophils (%) (Auto) 93 % (31-73) Lymphocytes (%) (Auto) 2 % (24-48) Monocytes (%) (Auto) 4 % (0-9) Eosinophils (%) (Auto) 0 % (0-3) Basophils (%) (Auto) 1 % (0-3) Neutrophils # (Auto) 18.6 x10^3uL (1.8-7.7) Lymphocytes # (Auto) 0.4 x10^3/uL (1.0-4.8) Monocytes # (Auto) 0.9 x10^3/uL (0.0-1.1) Eosinophils # (Auto) 0.0 x10^3/uL (0.0-0.7) Basophils # (Auto) 0.1 x10^3/uL (0.0-0.2) Segmented Neutrophils % 73 % (35-66) Band Neutrophils % 20 % (0-9) Lymphocytes % 1 % (24-48) Monocytes % 6 % (0-10) Platelet Estimate Adequate (ADEQUATE) Large Platelets Occ Anisocytosis Mod Sodium Level 135 mmol/L (136-145) Potassium Level 4.0 mmol/L (3.5-5.1) Chloride Level 101 mmol/L (98-107) Carbon Dioxide Level 26 mmol/L (21-32) Anion Gap 8 (6-14) Blood Urea Nitrogen 6 mg/dL (7-20) Creatinine 0.8 mg/dL (0.6-1.0) Estimated GFR (Cockcroft-Gault) 68.5 Glucose Level 78 mg/dL (70-99) Calcium Level 7.1 mg/dL (8.5-10.1) Glucose (Fingerstick) 103 mg/dL (70-99) 171 mg/dL (70-99) Micro 09/21/18 Blood Culture - Preliminary, Resulted NO GROWTH AFTER 2 DAY URINE CULTURE RES 1 Final Staphylococcus aureus 25,000-50,000 colony forming units per mL MICS are expressed in micrograms per mL Antibiotic RSLT#1 Ciprofloxacin R>=8 Gentamicin S<=0.5 Levofloxacin R>=8 Linezolid S =4 Nitrofurantoin S<=16 Oxacillin R>=4 Penicillin R>=0.5 Rifampin S<=0.5 Tetracycline S<=1 Trimethoprim/Sulfa S<=10 Vancomycin S =1 Objective Assessment Fever - resolved Leukopenia. s/p Granix 09/20 - improved Immunosuppression s/p chemoradiation Diarrhea. C.diff neg 09/21 - ? Sec to chemo radiation. Staph aureus can cause GI issues Herpes Zoster. - Finished 7-day Famciclovir OP recently. Pyuria, ? UTI - on cipro OP per PCP- MRSA on cult - ? contamination given neg nitrate/LE and + squamous cells Dysphagia Esophageal cancer, stage II s/p chemoradiation -Diagnosed in June 2018 -s/p Port placement on 08/05/2018 RA - on methotrexate A-fib, Xarelto DM w/ hypoglycemic episode of 60 CAD h/o stroke Mild CHF on cxr MRSA in urine, 09/19 Plan Plan of Care BC NGTD Continue IV vanc, cefepime and micafungin wean soon Trough 11.8 Stool cults pending- Given MRSA in urine will check CT scan oral contrast Monitor labs/temp and renal function closely Supportive care D/w RN Attending Co-Sign Attending Co-Sign The patient was seen and interviewed as well as examined at the bedside. The chart was reviewed. The case was discussed. Agree with the plan of care. DEXTER MICHEL APRN Sep 23, 2018 12:04 YENI OROPEZA MD Sep 23, 2018 14:34
[2018-09-23 15:00] VITALS: BP 122/46
[2018-09-23] MEDS ORDERED: IOHEXOL 240 MG/ML 50ML VIAL. PO ONE ×2 (15:00)
[2018-09-23] MEDS ORDERED: CONTRAST GIVEN. MC PRN (15:15)
[2018-09-23] MEDS ORDERED: VANCOMYCIN 1.5 GM in IV NORMAL SALINE 500ML BAG 500 ML IV SCH (15:30)
[2018-09-23] MEDS: RIVAROXABAN 15 MG TABLET. PO SCH (17:32)
[2018-09-23 19:00] VITALS: BP 100/58
[2018-09-23] MEDS: MICAFUNGIN 100 MG in IV DEXTROSE 5% 100ML 100 ML IV SCH (19:41)
[2018-09-23] MEDS: SIMVASTATIN 40 MG TABLET. PO SCH (20:24)
[2018-09-23] MEDS: diphenhydrAMINE HCL 25 MG CAPSULE PO SCH (20:24)
[2018-09-23] MEDS: CITALOPRAM 10 MG TABLET. PO SCH (20:24)
[2018-09-23] MEDS: ALPRAZolam 0.25 MG TABLET PO PRN (20:30)
[2018-09-23 23:00] VITALS: BP 116/46
[2018-09-24 03:00] VITALS: BP 136/54
--- NOTE | 2018-09-24 05:03 | RAD ---
PQRS Compliance Statement: One or more of the following individualized dose reduction techniques were utilized for this examination: 1. Automated exposure control 2. Adjustment of the mA and/or kV according to patient size 3. Use of iterative reconstruction technique CT CHEST ABDOMEN PELVIS WO Clinical Indication: MRSA IN URINE. Loose stool. Comparison: FDG PET/CT, skull base to upper thighs, July 18, 2018. Technique: Helical CT imaging of the chest, abdomen and pelvis is performed without IV contrast. Findings: Evaluation of vascular structures and solid organs is limited without IV contrast, decreasing sensitivity for detection of pathology. Left chest Port-A-Cath. Right mastectomy. Right axillary surgical clips. Coronary artery disease, median sternotomy wires, prior CABG. Pulmonary trunk is dilated suggestive of pulmonary arterial hypertension. Mediastinal lymph nodes, no adenopathy. Cardiomegaly. No pericardial effusion. No pleural effusion. Central airways are patent. Respiratory motion artifact. A few subcentimeter lung nodules are unchanged, for example image 25 in the right lung. Mild atelectasis or scarring in the lower lobes. Right middle lobe calcified granuloma. Unchanged thickening of the distal esophagus. Cholecystectomy. Subtle hypodense liver masses are similar to prior study, much more conspicuous on PET. Calcified granulomas in the spleen. Pancreas, adrenal glands, and abdominal aorta caliber are normal. Moderate atherosclerotic calcification of the abdominal aorta. No hydronephrosis. Right extrarenal pelvis. Stomach unremarkable. No small bowel obstruction. There is no colon wall thickening. Urinary bladder is normal. Atrophic uterus. No pelvic free fluid. Degenerative spondylosis of the lumbar spine. Grade 1 anterolisthesis of L4 on L5 and L5 on S1. Grade 1 retrolisthesis of L3 on L4 and L2 on L3. IMPRESSION: 1. Unchanged thickening of the distal esophagus. 2. Subtle hypodense liver masses are not significantly changed. 3. There are a few subcentimeter pulmonary nodules that are unchanged. Electronically signed by: Chad Sharma MD (09/24/2018 5:00 AM) [facility]
[2018-09-24] MEDS: CEFEPIME HCL IV Push 1 GM VIAL. IVP SCH (05:33)
[2018-09-24 07:00] VITALS: BP 118/54
--- NOTE | 2018-09-24 07:07 | PN ---
DATE: 09/23/2018 LOCATION: She is in room 550. SUBJECTIVE: The patient is awake and alert, feeling somewhat better; however, is still having multiple stools with greater than 10 in the last 24 hours. OBJECTIVE: VITAL SIGNS: Stable. T-max 99.9. LABORATORY DATA: [place] [address] this morning with white cell stimulator per heme/onc. Hemoglobin is stable at 8.8, platelets are 228,000. BMP is essentially unremarkable, although her calcium is depressed at 7.1, which is definitely different than on admission where it was 8.6 with an albumin of 2.8. Stool for C. diff is negative. Other stool studies are pending at this point in time that GI have ordered. ASSESSMENT: 1. Neutropenic fever, improving on broad spectrum antibiotics. 2. Neutropenia, resolved. 3. Ongoing chemoradiation for adenocarcinoma of the esophagus. 4. Rheumatoid arthritis. 5. Atrial fibrillation. 6. History of cerebrovascular accident. 7. Anemia. PLAN: Continue antibiotics per ID. Await final stool studies. I would prefer to wait to give her something to slow down stools prior to knowing all the stool cultures are negative. Otherwise same. ARTHUR GUERRA MD DR: MAYA/vandana JOB#: [id number] / [id number]
[2018-09-24] MEDS: POTASSIUM CL 20MEQ-0.45% NACL 1,000 ML IV SCH ×2 (08:24→17:30)
[2018-09-24] MEDS: PANTOPRAZOLE 40 MG TABLET.DR. PO SCH (08:26)
[2018-09-24] MEDS: FAMCICLOVIR 500 MG TABLET PO SCH (08:29)
[2018-09-24] MEDS: MULTIVITAMIN with MINERAL TABLET. PO SCH (08:29)
[2018-09-24] MEDS: BUMETANIDE 1 MG TABLET. PO SCH (08:29)
[2018-09-24] MEDS: MULTIVITAMIN I-VITE TABLET. PO SCH ×2 (08:46→20:30)
[2018-09-24] MEDS: ISOSORBIDE MONONITRATE ER 30 MG TAB.ER.24H PO SCH (08:47)
[2018-09-24] MEDS: LISINOPRIL 10 MG TABLET PO SCH (08:47)
[2018-09-24] MEDS: CARVEDILOL 3.125 MG TABLET. PO SCH ×2 (08:48→17:29)
[2018-09-24] MEDS: ONDANSETRON ODT 4 MG TAB.RAPDIS. PO PRN (08:52)
[2018-09-24] MEDS: DOCUSATE SODIUM 100 MG CAPSULE. PO SCH (08:53)
[2018-09-24] MEDS: INSULIN LISPRO 300 UNITS/3 ML INSULN.PEN. SQ SCH ×3 (09:03→17:35)
[2018-09-24] MEDS: INSULIN GLARGINE 300 UNITS/3 ML INSULN.PEN. SQ SCH (09:04)
[2018-09-24 09:35] LABS: VANC TR 22.5 mcg/mL (10.0-20.0)
--- NOTE | 2018-09-24 10:01 | PDOC ---
Infectious Disease Note Subjective Subjective Had loose stool this am and felt sweats Still Appetite diminished, Hurts to swallow Less sacral pain/burning No F/C/S/SOA ROS ROS o/w neg Vital Sign Vital Signs Vital Signs Date Time Temp Pulse Resp B/P (MAP) Pulse Ox O2 Delivery O2 Flow Rate FiO2 09/24/18 08:48 100 118/54 09/24/18 07:00 100.0 20 93 Room Air 100.0 Physical Exam PHYSICAL EXAM GENERAL: Propped up in bed, alert, relaxed appearance HEENT: Oral cavity, pharynx is pink and moist. NECK: Supple. LUNGS: Diminished aeration. HEART: S1 and S2. ABDOMEN: Obese, bowel sounds hyperactive, soft, nontender. EXTREMITIES: No gross edema or cyanosis. SKIN: Warm. Localized rash over a sacral region - better NEUROLOGIC: Alert and oriented x 3. Left-sided Port-A-Cath site without redness, swelling Labs Lab Laboratory Tests Test 09/23/18 10:39 09/23/18 16:27 09/24/18 07:57 09/24/18 08:45 Glucose (Fingerstick) 171 mg/dL (70-99) 98 mg/dL (70-99) 117 mg/dL (70-99) Vancomycin Level Trough 22.5 mcg/mL (10.0-20.0) Vancomycin Last Dose Date 09/23/18 Vancomycin Last Dose Time 1530 Micro Left chest Port-A-Cath. Right mastectomy. Right axillary surgical clips. Coronary artery disease, median sternotomy wires, prior CABG. Pulmonary trunk is dilated suggestive of pulmonary arterial hypertension. Mediastinal lymph nodes, no adenopathy. Cardiomegaly. No pericardial effusion. No pleural effusion. Central airways are patent. Respiratory motion artifact. A few subcentimeter lung nodules are unchanged, for example image 25 in the right lung. Mild atelectasis or scarring in the lower lobes. Right middle lobe calcified granuloma. Unchanged thickening of the distal esophagus. Cholecystectomy. Subtle hypodense liver masses are similar to prior study, much more conspicuous on PET. Calcified granulomas in the spleen. Pancreas, adrenal glands, and abdominal aorta caliber are normal. Moderate atherosclerotic calcification of the abdominal aorta. No hydronephrosis. Right extrarenal pelvis. Stomach unremarkable. No small bowel obstruction. There is no colon wall thickening. Urinary bladder is normal. Atrophic uterus. No pelvic free fluid. Degenerative spondylosis of the lumbar spine. Grade 1 anterolisthesis of L4 on L5 and L5 on S1. Grade 1 retrolisthesis of L3 on L4 and L2 on L3. IMPRESSION: 1. Unchanged thickening of the distal esophagus. 2. Subtle hypodense liver masses are not significantly changed. 3. There are a few subcentimeter pulmonary nodules that are unchanged. Microbiology 09/21/18 Blood Culture - Preliminary, Resulted NO GROWTH AFTER 3 DAYS 09/19/18 Urine Culture - Final, Complete 09/19/18 Urine Culture Result 1 (NICK) - Final, Complete 09/19/18 Antimicrobic Susceptibility - Final, Complete Objective Assessment Fever - resolved - back ? Vanc MRSA in urine Leukopenia. s/p Granix 09/20 - improved Immunosuppression s/p chemoradiation Diarrhea. C.diff neg 09/21 - ? Sec to chemo radiation. Staph aureus can cause GI issues. Hopefully contrast induced loose stool. CT unrevealing Herpes Zoster. - Finished 7-day Famciclovir OP recently. Pyuria, ? UTI - on cipro OP per PCP- MRSA on cult - ? contamination given neg nitrate/LE and + squamous cells Dysphagia Esophageal cancer, stage II s/p chemoradiation -Diagnosed in June 2018 -s/p Port placement on 08/05/2018 RA - on methotrexate A-fib, Xarelto DM w/ hypoglycemic episode of 60 CAD h/o stroke Mild CHF on cxr MRSA in urine, 09/19 Plan Plan of Care NGTD Discontinue IV vanc and begin Zyvox (IV given loose stools) Cont cefepime and micafungin wean soon. Dose Zyvox Stool cults pending Monitor labs in am /temp and renal function closely Supportive care D/w YENI BENITEZ MD Sep 24, 2018 10:01
--- NOTE | 2018-09-24 11:46 | PDOC ---
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 ROS - no CP, no fever Objective Objective Vital Signs Date Time Temp Pulse Resp B/P (MAP) Pulse Ox O2 Delivery O2 Flow Rate FiO2 09/24/18 08:48 100 118/54 09/24/18 07:00 100.0 20 93 Room Air 100.0 09/23/18 03:00 2.0 Intake and Output 09/24/18 07:00 Intake Total 2270 ml Output Total 200 ml Balance 2070 ml Intake Oral 1020 ml IV Total 1250 ml Output Urine Total 200 ml # Voids 2 Physical Exam Heart: Normal S1, Normal S2 General: Alert, Oriented X3 Lungs: Clear to auscultation Neuro: Normal speech Psych/Mental Status: Mental status NL Assessment Assessment IMPRESSION AND PLAN: 1. 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 She was started on concurrent chemoradiation on 08/07/2018. She received her fourth dose of carboplatin and Taxol on 09/11/2018. Chemo was then discontinued because of toxicities. She had nausea, vomiting and generalized weakness. She subsequently also developed shingles. No further chemotherapy planned. I will plan for a followup CT scan in about 2 months to evaluate for response. 2. Neutropenia due to chemotherapy. On Granix 480 mcg 09/20/18. d/c on 09/23/18 as wbc 20 on 09/23/18. 3. Fever of 101.3 on 09/19/2018. Consulted Infectious Diseases. Fever has now improved. 4. Rheumatoid arthritis. She is on methotrexate weekly. 5. Atrial fibrillation. Follow up with Cardiology. 6. History of cerebrovascular accident. 7. Anemia. Hemoglobin 8.8. Continue to monitor. Comment Review of Relevant I have reviewed the following items aviva (where applicable) has been applied. Labs Laboratory Tests Test 09/22/18 12:25 09/22/18 16:26 09/22/18 19:45 09/22/18 20:17 Glucose (Fingerstick) 159 mg/dL (70-99) 154 mg/dL (70-99) 142 mg/dL (70-99) Vancomycin Level Trough 11.8 mcg/mL (10.0-20.0) Vancomycin Last Dose Date Unk Vancomycin Last Dose Time Unk Test 09/23/18 03:50 09/23/18 07:16 11/5/18 10:39 09/23/18 16:27 White Blood Count 20.0 x10^3/uL (4.0-11.0) Red Blood Count 3.10 x10^6/uL (3.50-5.40) Hemoglobin 8.8 g/dL (12.0-15.5) Hematocrit 26.6 % (36.0-47.0) Mean Corpuscular Volume 86 fL (79-100) Mean Corpuscular Hemoglobin 28 pg (25-35) Mean Corpuscular Hemoglobin Concent 33 g/dL (31-37) Red Cell Distribution Width 20.1 % (11.5-14.5) Platelet Count 228 x10^3/uL (140-400) Neutrophils (%) (Auto) 93 % (31-73) Lymphocytes (%) (Auto) 2 % (24-48) Monocytes (%) (Auto) 4 % (0-9) Eosinophils (%) (Auto) 0 % (0-3) Basophils (%) (Auto) 1 % (0-3) Neutrophils # (Auto) 18.6 x10^3uL (1.8-7.7) Lymphocytes # (Auto) 0.4 x10^3/uL (1.0-4.8) Monocytes # (Auto) 0.9 x10^3/uL (0.0-1.1) Eosinophils # (Auto) 0.0 x10^3/uL (0.0-0.7) Basophils # (Auto) 0.1 x10^3/uL (0.0-0.2) Segmented Neutrophils % 73 % (35-66) Band Neutrophils % 20 % (0-9) Lymphocytes % 1 % (24-48) Monocytes % 6 % (0-10) Platelet Estimate Adequate (ADEQUATE) Large Platelets Occ Anisocytosis Mod Sodium Level 135 mmol/L (136-145) Potassium Level 4.0 mmol/L (3.5-5.1) Chloride Level 101 mmol/L (98-107) Carbon Dioxide Level 26 mmol/L (21-32) Anion Gap 8 (6-14) Blood Urea Nitrogen 6 mg/dL (7-20) Creatinine 0.8 mg/dL (0.6-1.0) Estimated GFR (Cockcroft-Gault) 68.5 Glucose Level 78 mg/dL (70-99) Calcium Level 7.1 mg/dL (8.5-10.1) Glucose (Fingerstick) 103 mg/dL (70-99) 171 mg/dL (70-99) 98 mg/dL (70-99) Test 09/24/18 07:57 09/24/18 08:45 09/24/18 11:20 Glucose (Fingerstick) 117 mg/dL (70-99) 151 mg/dL (70-99) Vancomycin Level Trough 22.5 mcg/mL (10.0-20.0) Vancomycin Last Dose Date 09/23/18 Vancomycin Last Dose Time 1530 Laboratory Tests Test 09/23/18 16:27 09/24/18 07:57 09/24/18 08:45 09/24/18 11:20 Glucose (Fingerstick) 98 mg/dL (70-99) 117 mg/dL (70-99) 151 mg/dL (70-99) Vancomycin Level Trough 22.5 mcg/mL (10.0-20.0) Vancomycin Last Dose Date 09/23/18 Vancomycin Last Dose Time 1530 Microbiology 09/21/18 Blood Culture - Preliminary, Resulted NO GROWTH AFTER 3 DAYS 09/19/18 Urine Culture - Final, Complete 09/19/18 Urine Culture Result 1 (NICK) - Final, Complete 09/19/18 Antimicrobic Susceptibility - Final, Complete Medications Current Medications Potassium Chloride/Sodium Chloride 1,000 ml @ 100 mls/hr Q10H IV Last administered on 09/24/18at 08:24; Start 09/19/18 at 17:30 Alprazolam (Xanax) 0.25 mg PRN Q6HRS PRN PO ANXIETY / AGITATION Last administered on 09/23/18at 20:30; Start 09/19/18 at 17:15 Carvedilol (Coreg) 3.125 mg BIDWMEALS PO Last administered on 09/24/18at 08:48; Start 09/19/18 at 18:00 Ciprofloxacin (Cipro) 250 mg BID PO Last administered on 09/20/18at 10:45; Start 09/19/18 at 21:00; Stop 09/20/18 at 15:50; Status DC Citalopram Hydrobromide (CeleXA) 10 mg DAILY PO Last administered on 09/20/18 10:45; Start 09/19/18 at 18:00; Stop 09/21/18 at 18:26; Status DC Diphenhydramine HCl (Benadryl) 50 mg QHS PO Last administered on 09/23/18 20: 24; Start 09/19/18 at 21:00 Docusate Sodium (Colace) 100 mg DAILY PO Last administered on 09/23/18 08:39; Start 09/19/18 at 18:00 Insulin Glargine (Lantus) 17 units DAILYWBKFT SQ Last administered on 09:04; Start 09/20/18 at 08:00 Isosorbide Mononitrate (Imdur) 30 mg DAILY PO Last administered on 09/24/18 08 :47; Start 09/19/18 at 18:00 Lisinopril (Prinivil) 10 mg DAILY PO Last administered on 09/24/18 08:47; Start 09/19/18 at 18:00 Rivaroxaban (Xarelto) 15 mg DAILYWSUP PO Last administered on 09/23/18 17:32; Start 09/19/18 at 18:00 Multivitamins/ Minerals (I-Myah) 1 tab BID PO Last administered on 09/24/18 08 :46; Start 09/19/18 at 21:00 Bumetanide (Bumex) 2 mg DAILY PO Last administered on 09/24/18 08:29; Start 09/19/18 at 18:00 Vitamin D (Vitamin D3) 1,000 unit DAILY PO Last administered on 09/19/18 17:53 ; Start 09/19/18 at 18:00; Stop 09/19/18 at 19:01; Status DC Non-Formulary Medication 1 ea TID PO Last administered on 09/20/18 10:48; Start 09/19/18 at 21:00 Insulin Human Lispro (HumaLOG) 4 units TIDWMEALS SQ Last administered on 09:03; Start 09/19/18 at 18:00 Methotrexate (Rheumatrex) 15 mg WEEKLY PO Last administered on 09/19/18 17:55 ; Start 09/19/18 at 18:00 Multivitamins (Thera M Plus) 1 tab DAILY PO Last administered on 09/24/18 08: 29; Start 09/19/18 at 18:00 Pantoprazole Sodium (Protonix) 40 mg DAILYAC PO Last administered on 09/24/18 08:26; Start 09/19/18 at 18:00 Ondansetron HCl (Zofran Odt) 8 mg PRN BID PRN PO NAUSEA/VOMITING Last administered on 09/24/18 08:52; Start 09/19/18 at 17:30 Simvastatin (Zocor) 40 mg QHS PO Last administered on 09/23/18 20:24; Start 09/19/18 at 21:00 Info (Anti-Coagulation Monitoring By Pharmacy) 1 each PRN DAILY PRN MC SEE COMMENTS Last administered on 09/22/18 14:39; Start 09/19/18 at 17:30 Lactobacillus Rhamnosus (Culturelle) 1 cap BID PO Last administered on 22:22; Start 09/19/18 at 21:00; Stop 09/20/18 at 08:28; Status DC Acetaminophen (Tylenol) 500 mg PRN Q6HRS PRN PO MILD PAIN / TEMP; Start at 19:00 Tbo-Filgrastim (Granix) 480 mcg QHS SQ Last administered on 09/22/18 21:08; Start 09/20/18 at 21:00; Stop 09/23/18 at 08:17; Status DC Vancomycin HCl (Vanco Per Pharmacy) 1 each PRN DAILY PRN MC SEE COMMENTS Last administered on 09/23/18 00:04; Start 09/20/18 at 15:45; Stop 09/24/18 at 09:43 ; Status DC Cefepime HCl 1 gm/ Dextrose 50 ml @ 100 mls/hr Q8HRS IV ; Start 09/20/18 at 22: 00; Status UNV Micafungin Sodium 100 mg/Dextrose 100 ml @ 100 mls/hr Q24H IV Last administered on 09/23/18at 19:41; Start 09/20/18 at 17:00 Cefepime HCl (Maxipime) 1 gm Q8HRS IVP Last administered on 09/24/18 05:33; Start 09/20/18 at 16:30; Stop 09/24/18 at 09:43; Status DC Vancomycin HCl 2 gm/Sodium Chloride 500 ml @ 250 mls/hr 1X ONCE IV Last administered on 09/20/18at 19:36; Start 09/20/18 at 16:30; Stop 09/20/18 at 18:29 ; Status DC Vancomycin HCl 1.5 gm/Sodium Chloride 500 ml @ 250 mls/hr Q24H IV Last administered on 09/22/18at 21:07; Start 09/21/18 at 19:30; Stop 09/22/18 at 23:53 ; Status DC Vancomycin HCl (Vancomycin Trough Level) 1 each 1X ONCE MC Last administered on 09/22/18at 19:00; Start 09/22/18 at 19:00; Stop 09/22/18 at 19:01; Status DC Vancomycin HCl (Vancomycin Oral Solution) 125 mg [id number] PO Last administered on 09/22/18at 10:13; Start 09/21/18 at 13:00; Stop 09/22/18 at 10:42; Status DC Dextrose (Dextrose 50%-Water Syringe) 12.5 gm PRN Q15MIN PRN IV SEE COMMENTS; Start 09/21/18 at 17:00 Citalopram Hydrobromide (CeleXA) 10 mg QHS PO Last administered on 09/23/18at 20 :24; Start 09/21/18 at 21:00 Vancomycin HCl 1.5 gm/Sodium Chloride 500 ml @ 250 mls/hr Q18H IV Last administered on 09/23/18at 15:40; Start 09/23/18 at 15:30; Stop 09/24/18 at 09:42 ; Status DC Vancomycin HCl (Vancomycin Trough Level) 1 each 1X ONCE MC Last administered on 09/24/18at 08:48; Start 09/24/18 at 09:00; Stop 09/24/18 at 09:01; Status DC Iohexol (Omnipaque 240 Mg/ml) 50 ml 1X ONCE PO ; Start 09/23/18 at 15:00; Stop 09/23/18 at 15:08; Status DC Iohexol (Omnipaque 240 Mg/ml) 50 ml 1X ONCE PO ; Start 09/23/18 at 15:00; Stop 09/23/18 at 15:08; Status DC Info (CONTRAST GIVEN -- Rx MONITORING) 1 each PRN DAILY PRN MC SEE COMMENTS; Start 09/23/18 at 15:15; Stop 09/25/18 at 15:14 Linezolid/Dextrose 300 ml @ 300 mls/hr Q12HR IV Last administered on at 11:00; Start 09/24/18 at 10:00 Active Scripts Active Reported Famciclovir 500 Mg Tablet 500 Mg PO TID 1 Days Ciprofloxacin Hcl 250 Mg Tablet 1 Tab PO BID Zofran (Ondansetron Hcl) 8 Mg Tablet 8 Mg PO BID PRN Xarelto (Rivaroxaban) 15 Mg Tablet 15 Mg PO DAILY Carvedilol 3.125 Mg Tablet 3.125 Mg PO BID Methotrexate (Methotrexate Sodium) 2.5 Mg Tablet 6 Tab PO WEEKLY Benadryl (Diphenhydramine Hcl) 25 Mg Capsule 2 Cap PO QHS Bumetanide 2 Mg Tablet 2 Mg PO DAILY Ocuvite Tablet (Vit A,C & E/Lutein/Minerals) 1 Each Tablet 1 Each PO BID Citalopram Hbr (Citalopram Hydrobromide) 10 Mg Tablet 10 Mg PO DAILY Alprazolam 0.25 Mg Tablet 0.25 Mg PO PRN Q6HRS PRN Isosorbide Mononitrate Er (Isosorbide Mononitrate) 30 Mg Tab.er.24h 30 Mg PO DAILY Prilosec Otc (Omeprazole Magnesium) 20 Mg Tablet.dr 20 Mg PO DAILY Novolog Flexpen (Insulin Aspart) 100 Unit/1 Ml Insuln.pen 4 Unit SQ TIDBFRMEAL Lantus Solostar (Insulin Glargine,Hum.rec.anlog) 100 Unit/1 Ml Insuln.pen 17 Unit SQ DAILYWBKFT Vitamin D-3 (Cholecalciferol (Vitamin D3)) 2,000 Unit Capsule 1,000 Unit PO DAILY Lisinopril 10 Mg Tablet 10 Mg PO DAILY Simvastatin 40 Mg Tablet 40 Mg PO DAILY Colace (Docusate Sodium) 100 Mg Capsule 100 Mg PO DAILY Garlic 1,000 Mg Capsule 1,000 Mg PO DAILY Multivitamins (Multivitamin) 1 Each Capsule 1 Each PO DAILY Vitals/I & O Vital Sign - Last 24 Hours 09/23/18 09/23/18 09/23/18 09/23/18 15:00 17:32 19:00 20:03 Temp 98.4 98.1 98.4 98.1 Pulse 94 94 94 Resp 20 16 B/P (MAP) 122/46 (71) 122/46 100/58 (72) Pulse Ox 90 94 O2 Delivery Room Air Room Air Room Air 09/23/18 09/24/18 09/24/18 09/24/18 23:00 03:00 07:00 08:47 Temp 98.3 98.3 100.0 98.3 98.3 100.0 Pulse 97 94 100 100 Resp 17 16 20 B/P (MAP) 116/46 (69) 136/54 (81) 118/54 (75) 118/54 Pulse Ox 96 94 93 O2 Delivery Room Air Room Air Room Air 09/24/18 09/24/18 08:47 08:48 Pulse 100 100 B/P (MAP) 118/54 118/54 Intake and Output 09/23/18 09/23/18 09/24/18 15:00 23:00 07:00 Intake Total 600 ml 520 ml 1150 ml Output Total 200 ml Balance 600 ml 520 ml 950 ml MICHAEL VIDES MD Sep 24, 2018 11:46
[2018-09-24 12:13] VITALS: BP 126/60
[2018-09-24 15:49] VITALS: BP 120/47
[2018-09-24] MEDS: MICAFUNGIN 100 MG in IV DEXTROSE 5% 100ML 100 ML IV SCH (17:29)
[2018-09-24] MEDS: RIVAROXABAN 15 MG TABLET. PO SCH (17:29)
[2018-09-24 19:00] VITALS: BP 109/50
[2018-09-24] MEDS: SIMVASTATIN 40 MG TABLET. PO SCH (20:25)
[2018-09-24] MEDS: CITALOPRAM 10 MG TABLET. PO SCH (20:25)
[2018-09-24] MEDS: diphenhydrAMINE HCL 25 MG CAPSULE PO SCH (20:25)
[2018-09-24] MEDS: ALPRAZolam 0.25 MG TABLET PO PRN (20:30)
--- NOTE | 2018-09-24 21:28 | PN ---
DATE: 09/24/2018 LOCATION: She is in room 550. SUBJECTIVE: The patient is awake and alert, has just finished taking a shower and feels better. She does state that her stooling is slowing down. OBJECTIVE: Vital signs are stable. She is afebrile. LABORATORY DATA: Sugars are good. Again, white count yesterday was up to 20,000 with stimulation from her admission leukopenia. Final urine culture is growing out 25-50 thousand of colony-forming units per mL of MRSA and ID is dealing with the same. She did have CT scan of abdomen and pelvis yesterday showing no changes from prior scanning with some thickening of the distal esophagus or from her known adenocarcinoma with a subtle hypodense liver mass that has not significantly changed and a few subcentimeter pulmonary nodules that were unchanged. I can find no stool culture results available yet with the only stool being negative so far was for C. diff. IMPRESSION: 1. Neutropenic fever, improved. 2. Neutropenia, resolved. 3. Ongoing chemoradiation for adenocarcinoma of the esophagus. 4. Rheumatoid arthritis, on methotrexate. 5. Atrial fibrillation. 6. History of cerebrovascular accident. 7. Anemia. 8. Diarrhea, which is finally starting to improve. PLAN: Continue present antibiotics per ID. Await final stool studies. I am going to continue to hold on anything to slow down stools until final culture results of everything is back. ARTHUR GUERRA MD DR: MAYA/vandana JOB#: [id number] / [id number]
[2018-09-24 22:53] VITALS: BP 127/43
[2018-09-25] MEDS: POTASSIUM CL 20MEQ-0.45% NACL 1,000 ML IV SCH ×2 (02:04→12:59)
[2018-09-25 03:00] VITALS: BP 129/45
[2018-09-25 07:00] VITALS: BP 144/54
[2018-09-25 07:20] LABS: CALCIUM 7.1 mg/dL (8.5-10.1); POTASSIUM 3.4 mmol/L (3.5-5.1)
[2018-09-25 07:36] LABS: BASO % 0 % (0-3); EOS % 0 % (0-3); HEMATOCRIT 26.1 % (36.0-47.0); HEMOGLOBIN 8.9 g/dL (12.0-15.5); LYMPH # 0.5 x10^3/uL (1.0-4.8); LYMPH % 6 % (24-48); MEAN CORPUSCULAR HEMOGLOBIN 29 pg (25-35); MEAN CORPUSCULAR HGB CONC 34 g/dL (31-37); MEAN CORPUSCULAR VOLUME 85 fL (79-100); MONO # 0.9 x10^3/uL (0.0-1.1); MONO % 11 % (0-9); NEUT % 82 % (31-73); PLATELET COUNT 203 x10^3/uL (140-400); RED BLOOD COUNT 3.07 x10^6/uL (3.50-5.40); RED CELL DISTRIBUTION WIDTH 20.5 % (11.5-14.5); WHITE BLOOD COUNT 8.5 x10^3/uL (4.0-11.0)
--- NOTE | 2018-09-25 08:49 | PDOC ---
Infectious Disease Note Subjective Subjective Had loose stool this am and felt sweats Still Appetite diminished, Hurts to swallow Less sacral pain/burning No F/C/S/SOA Vital Sign Vital Signs Vital Signs Date Time Temp Pulse Resp B/P (MAP) Pulse Ox O2 Delivery O2 Flow Rate FiO2 09/25/18 03:00 97.8 91 18 129/45 (73) 95 Room Air 97.8 Physical Exam PHYSICAL EXAM GENERAL: Propped up in chair, alert, relaxed appearance HEENT: Oral cavity, pharynx is pink and moist. NECK: Supple. LUNGS: Diminished aeration. HEART: S1 and S2. ABDOMEN: Obese, bowel sounds hyperactive, soft, nontender. EXTREMITIES: No gross edema or cyanosis. SKIN: Warm. Localized rash over a sacral region - better NEUROLOGIC: Alert and oriented x 3. Left-sided Port-A-Cath site without redness, swelling Labs Lab Laboratory Tests Test 09/24/18 11:20 09/24/18 16:37 09/24/18 20:50 09/25/18 06:40 Glucose (Fingerstick) 151 mg/dL (70-99) 169 mg/dL (70-99) 164 mg/dL (70-99) White Blood Count 8.5 x10^3/uL (4.0-11.0) Red Blood Count 3.07 x10^6/uL (3.50-5.40) Hemoglobin 8.9 g/dL (12.0-15.5) Hematocrit 26.1 % (36.0-47.0) Mean Corpuscular Volume 85 fL (79-100) Mean Corpuscular Hemoglobin 29 pg (25-35) Mean Corpuscular Hemoglobin Concent 34 g/dL (31-37) Red Cell Distribution Width 20.5 % (11.5-14.5) Platelet Count 203 x10^3/uL (140-400) Neutrophils (%) (Auto) 82 % (31-73) Lymphocytes (%) (Auto) 6 % (24-48) Monocytes (%) (Auto) 11 % (0-9) Eosinophils (%) (Auto) 0 % (0-3) Basophils (%) (Auto) 0 % (0-3) Neutrophils # (Auto) 7.0 x10^3uL (1.8-7.7) Lymphocytes # (Auto) 0.5 x10^3/uL (1.0-4.8) Monocytes # (Auto) 0.9 x10^3/uL (0.0-1.1) Eosinophils # (Auto) 0.0 x10^3/uL (0.0-0.7) Basophils # (Auto) 0.0 x10^3/uL (0.0-0.2) Sodium Level 137 mmol/L (136-145) Potassium Level 3.4 mmol/L (3.5-5.1) Chloride Level 101 mmol/L (98-107) Carbon Dioxide Level 28 mmol/L (21-32) Anion Gap 8 (6-14) Blood Urea Nitrogen 6 mg/dL (7-20) Creatinine 1.0 mg/dL (0.6-1.0) Estimated GFR (Cockcroft-Gault) 53.0 Glucose Level 99 mg/dL (70-99) Calcium Level 7.1 mg/dL (8.5-10.1) Micro Left chest Port-A-Cath. Right mastectomy. Right axillary surgical clips. Coronary artery disease, median sternotomy wires, prior CABG. Pulmonary trunk is dilated suggestive of pulmonary arterial hypertension. Mediastinal lymph nodes, no adenopathy. Cardiomegaly. No pericardial effusion. No pleural effusion. Central airways are patent. Respiratory motion artifact. A few subcentimeter lung nodules are unchanged, for example image 25 in the right lung. Mild atelectasis or scarring in the lower lobes. Right middle lobe calcified granuloma. Unchanged thickening of the distal esophagus. Cholecystectomy. Subtle hypodense liver masses are similar to prior study, much more conspicuous on PET. Calcified granulomas in the spleen. Pancreas, adrenal glands, and abdominal aorta caliber are normal. Moderate atherosclerotic calcification of the abdominal aorta. No hydronephrosis. Right extrarenal pelvis. Stomach unremarkable. No small bowel obstruction. There is no colon wall thickening. Urinary bladder is normal. Atrophic uterus. No pelvic free fluid. Degenerative spondylosis of the lumbar spine. Grade 1 anterolisthesis of L4 on L5 and L5 on S1. Grade 1 retrolisthesis of L3 on L4 and L2 on L3. IMPRESSION: 1. Unchanged thickening of the distal esophagus. 2. Subtle hypodense liver masses are not significantly changed. 3. There are a few subcentimeter pulmonary nodules that are unchanged. Microbiology 09/21/18 Blood Culture - Preliminary, Resulted NO GROWTH AFTER 3 DAYS 09/19/18 Urine Culture - Final, Complete 09/19/18 Urine Culture Result 1 (NICK) - Final, Complete 09/19/18 Antimicrobic Susceptibility - Final, Complete Objective Assessment Fever - resolved - back ? Vanc MRSA in urine - on Zyvox possible contamination with squamous cells in UA/blood cults neg. CT without gross finding although without IV contrast Leukopenia. s/p Granix 09/20 - improved Immunosuppression s/p chemoradiation Diarrhea. C.diff neg 09/21 - ? Sec to chemo radiation. w/u for infection neg Herpes Zoster. - Finished 7-day Famciclovir OP recently. Pyuria, ? UTI - on cipro OP per PCP- MRSA on cult - ? contamination given neg nitrate/LE and + squamous cells Dysphagia Esophageal cancer, stage II s/p chemoradiation -Diagnosed in June 2018 -s/p Port placement on 08/05/2018 RA - on methotrexate A-fib, Xarelto DM w/ hypoglycemic episode of 60 CAD h/o stroke Mild CHF on cxr MRSA in urine, 09/19 Plan Plan of Care BC NGTD D/c Zyvox/Micafungin May need Gi eval Monitor labs in am /temp and renal function closely Supportive care D/w YENI BENITEZ MD Sep 25, 2018 08:49
[2018-09-25] MEDS: DOCUSATE SODIUM 100 MG CAPSULE. PO SCH (09:00)
[2018-09-25] MEDS: DIPHENOXYLATE/ATROPINE TABLET. PO PRN (09:24)
[2018-09-25] MEDS: PANTOPRAZOLE 40 MG TABLET.DR. PO SCH (09:25)
[2018-09-25] MEDS: BUMETANIDE 1 MG TABLET. PO SCH (09:26)
[2018-09-25] MEDS: MULTIVITAMIN I-VITE TABLET. PO SCH ×2 (09:28→20:43)
[2018-09-25] MEDS: ONDANSETRON ODT 4 MG TAB.RAPDIS. PO PRN (09:28)
[2018-09-25] MEDS: MULTIVITAMIN with MINERAL TABLET. PO SCH (09:28)
[2018-09-25] MEDS: CARVEDILOL 3.125 MG TABLET. PO SCH ×2 (09:29→17:39)
[2018-09-25] MEDS: LISINOPRIL 10 MG TABLET PO SCH (09:29)
[2018-09-25] MEDS: ISOSORBIDE MONONITRATE ER 30 MG TAB.ER.24H PO SCH (09:30)
[2018-09-25] MEDS: INSULIN GLARGINE 300 UNITS/3 ML INSULN.PEN. SQ SCH (09:46)
[2018-09-25] MEDS: INSULIN LISPRO 300 UNITS/3 ML INSULN.PEN. SQ SCH ×3 (09:48→17:00)
[2018-09-25 11:00] VITALS: BP 114/51
[2018-09-25 11:55] LABS: % BANDS 15 % (0-9); % EOS 1 % (0-5); % LYMPHS 2 % (24-48); % METAS 1 % (0-0); % MONOS 15 % (0-10); % SEGS 66 % (35-66); PLT ESTIMATE ADEQUATE (ADEQUATE)
[2018-09-25] MEDS: ANTI-COAG MONITOR BY PHARMACY. MC PRN (14:11)
[2018-09-25 15:00] VITALS: BP 113/43
--- NOTE | 2018-09-25 16:27 | EKG ---
[facility] [address] [place] [address] Test Date: 2018-09-25 Test Time: 16:23:06 Pat Name: DILMA BRUNO Department: Room: [facility] Gender: F [employer] Supervisor: : 1935 Requested By: ARTHUR GUERRA Order Number: [id number] Reading MD: Austen Kimball MD Measurements Intervals [place] Rate: 85 P: CA: QRS: 30 QRSD: 94 T: -154 QT: 368 QTc: 443 Interpretive Statements ATRIAL FIBRILLATION WITH CONTROLLED VENTRICULAR RESPONSE NON-SPECIFIC ST/T CHANGES Electronically Signed On 09-25-2018 17:59:50 [employer]ER by Austen Kimball MD
[2018-09-25] MEDS: RIVAROXABAN 15 MG TABLET. PO SCH (17:38)
[2018-09-25] MEDS: MICAFUNGIN 100 MG in IV DEXTROSE 5% 100ML 100 ML IV SCH (17:40)
[2018-09-25 19:00] VITALS: BP 121/57
[2018-09-25] MEDS: CITALOPRAM 10 MG TABLET. PO SCH (20:42)
[2018-09-25] MEDS: ALPRAZolam 0.25 MG TABLET PO PRN (20:42)
[2018-09-25] MEDS: diphenhydrAMINE HCL 25 MG CAPSULE PO SCH (20:43)
[2018-09-25] MEDS: SIMVASTATIN 40 MG TABLET. PO SCH (20:43)
--- NOTE | 2018-09-25 21:44 | PN ---
DATE: 09/25/2018 LOCATION: She is in room 550. SUBJECTIVE: The patient is awake, alert, still having frequent diarrhea and worse than yesterday morning when I talked to her. She feels overall worn out and tired. OBJECTIVE: VITAL SIGNS: Stable. She is afebrile. CHEST: Clear. HEART: Irregular. ABDOMEN: Benign. LABORATORY DATA: White count is 8500, hemoglobin 8.9. Potassium 3.4. ID is recommending ongoing IV antibiotics as late as yesterday and these are ongoing currently. Stool cultures finally reported on and there is no growth. I am going to add some Lomotil to her regimen today and otherwise we will continue the same. IMPRESSION: 1. Diarrhea. 2. Leukopenia, improved. 3. Neutropenic fever, on broad spectrum antibiotics, improved. 4. Adenocarcinoma of the esophagus, undergoing chemoradiation. PLAN: As noted above. Will need longterm on discharge, but will need to be done with IV antibiotics prior to the same. ARTHUR GUERRA MD DR: MAYA/vandana JOB#: [id number] / [id number]
[2018-09-25 23:00] VITALS: BP 120/59
[2018-09-26] MEDS: POTASSIUM CL 20MEQ-0.45% NACL 1,000 ML IV SCH ×2 (00:57→09:30)
[2018-09-26 03:00] VITALS: BP 107/54
[2018-09-26 07:00] VITALS: BP 130/55
[2018-09-26] MEDS: DOCUSATE SODIUM 100 MG CAPSULE. PO SCH (07:59)
[2018-09-26] MEDS: INSULIN LISPRO 300 UNITS/3 ML INSULN.PEN. SQ SCH ×2 (07:59→12:00)
--- NOTE | 2018-09-26 08:45 | PDOC ---
Infectious Disease Note Subjective Subjective Had loose stool this am but less Appetite and swallow some better, Waiting for Card f/u Less sacral pain/burning No F/C/S/SOA Vital Sign Vital Signs Vital Signs Date Time Temp Pulse Resp B/P (MAP) Pulse Ox O2 Delivery O2 Flow Rate FiO2 09/26/18 07:00 98.5 103 20 130/55 (80) 94 Room Air 98.5 Physical Exam PHYSICAL EXAM GENERAL: Propped up in chair, alert, relaxed appearance - looks better HEENT: Oral cavity, pharynx is pink and moist. NECK: Supple. LUNGS: Diminished aeration. HEART: S1 and S2. ABDOMEN: Obese, bowel sounds hyperactive, soft, nontender. EXTREMITIES: No gross edema or cyanosis. SKIN: Warm. NEUROLOGIC: Alert and oriented x 3. Left-sided Port-A-Cath site without redness, swelling Labs Lab Laboratory Tests Test 09/25/18 11:34 09/25/18 16:46 09/25/18 20:48 09/26/18 07:51 Glucose (Fingerstick) 119 mg/dL (70-99) 106 mg/dL (70-99) 140 mg/dL (70-99) 98 mg/dL (70-99) Micro Left chest Port-A-Cath. Right mastectomy. Right axillary surgical clips. Coronary artery disease, median sternotomy wires, prior CABG. Pulmonary trunk is dilated suggestive of pulmonary arterial hypertension. Mediastinal lymph nodes, no adenopathy. Cardiomegaly. No pericardial effusion. No pleural effusion. Central airways are patent. Respiratory motion artifact. A few subcentimeter lung nodules are unchanged, for example image 25 in the right lung. Mild atelectasis or scarring in the lower lobes. Right middle lobe calcified granuloma. Unchanged thickening of the distal esophagus. Cholecystectomy. Subtle hypodense liver masses are similar to prior study, much more conspicuous on PET. Calcified granulomas in the spleen. Pancreas, adrenal glands, and abdominal aorta caliber are normal. Moderate atherosclerotic calcification of the abdominal aorta. No hydronephrosis. Right extrarenal pelvis. Stomach unremarkable. No small bowel obstruction. There is no colon wall thickening. Urinary bladder is normal. Atrophic uterus. No pelvic free fluid. Degenerative spondylosis of the lumbar spine. Grade 1 anterolisthesis of L4 on L5 and L5 on S1. Grade 1 retrolisthesis of L3 on L4 and L2 on L3. IMPRESSION: 1. Unchanged thickening of the distal esophagus. 2. Subtle hypodense liver masses are not significantly changed. 3. There are a few subcentimeter pulmonary nodules that are unchanged. Microbiology 09/21/18 Blood Culture - Preliminary, Resulted NO GROWTH AFTER 3 DAYS 09/19/18 Urine Culture - Final, Complete 09/19/18 Urine Culture Result 1 (NICK) - Final, Complete 09/19/18 Antimicrobic Susceptibility - Final, Complete Objective Assessment Fever - resolved - back ? Vanc MRSA in urine - on Zyvox possible contamination with squamous cells in UA/blood cults neg. CT without gross finding although without IV contrast Leukopenia. s/p Granix 09/20 - improved Immunosuppression s/p chemoradiation Diarrhea. C.diff neg 09/21 - ? Sec to chemo radiation. w/u for infection neg Herpes Zoster. - Finished 7-day Famciclovir OP recently. Pyuria, ? UTI - on cipro OP per PCP- MRSA on cult - ? contamination given neg nitrate/LE and + squamous cells Dysphagia Esophageal cancer, stage II s/p chemoradiation -Diagnosed in June 2018 -s/p Port placement on 08/05/2018 RA - on methotrexate A-fib, Xarelto DM w/ hypoglycemic episode of 60 CAD h/o stroke Mild CHF on cxr MRSA in urine, 09/19 Plan Plan of Care ID to sign off D/w YENI BENITEZ MD Sep 26, 2018 08:45
--- NOTE | 2018-09-26 08:52 | PDOC ---
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 ROS - has diarrhea Objective Objective Vital Signs Date Time Temp Pulse Resp B/P (MAP) Pulse Ox O2 Delivery O2 Flow Rate FiO2 09/26/18 07:00 98.5 103 20 130/55 (80) 94 Room Air 98.5 09/23/18 03:00 2.0 Intake and Output 09/26/18 07:00 Intake Total 780 ml Output Total 1630 ml Balance -850 ml Intake Oral 780 ml Output Urine Total 1250 ml Stool Total 380 ml # Voids 1 # Bowel Movements 1 Physical Exam General: Alert, Oriented X3, No acute distress Neuro: Normal speech Psych/Mental Status: Mental status NL Assessment Assessment IMPRESSION AND PLAN: 1. 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 She was started on concurrent chemoradiation on 08/07/2018. She received her fourth dose of carboplatin and Taxol on 09/11/2018. Chemo was then discontinued because of toxicities. She had nausea, vomiting and generalized weakness. She subsequently also developed shingles. No further chemotherapy planned. I will plan for a followup CT scan in about 2 months to evaluate for response. 2. Neutropenia due to chemotherapy. On Granix 480 mcg 09/20/18. d/c on 09/23/18 as wbc 20 on 09/23/18. WBC 8.5 on 09/25/18 3. Fever of 101.3 on 09/19/2018. Consulted Infectious Diseases. Fever has now improved. 4. Rheumatoid arthritis. She is on methotrexate weekly. 5. Atrial fibrillation. Follow up with Cardiology. 6. History of cerebrovascular accident. 7. Anemia. Hemoglobin 8.9. Continue to monitor. 8. Diarrhea - cont supportive care Comment Review of Relevant I have reviewed the following items aviva (where applicable) has been applied. Labs Laboratory Tests Test 09/24/18 11:20 09/24/18 16:37 09/24/18 20:50 09/25/18 06:40 Glucose (Fingerstick) 151 mg/dL (70-99) 169 mg/dL (70-99) 164 mg/dL (70-99) White Blood Count 8.5 x10^3/uL (4.0-11.0) Red Blood Count 3.07 x10^6/uL (3.50-5.40) Hemoglobin 8.9 g/dL (12.0-15.5) Hematocrit 26.1 % (36.0-47.0) Mean Corpuscular Volume 85 fL (79-100) Mean Corpuscular Hemoglobin 29 pg (25-35) Mean Corpuscular Hemoglobin Concent 34 g/dL (31-37) Red Cell Distribution Width 20.5 % (11.5-14.5) Platelet Count 203 x10^3/uL (140-400) Neutrophils (%) (Auto) 82 % (31-73) Lymphocytes (%) (Auto) 6 % (24-48) Monocytes (%) (Auto) 11 % (0-9) Eosinophils (%) (Auto) 0 % (0-3) Basophils (%) (Auto) 0 % (0-3) Neutrophils # (Auto) 7.0 x10^3uL (1.8-7.7) Lymphocytes # (Auto) 0.5 x10^3/uL (1.0-4.8) Monocytes # (Auto) 0.9 x10^3/uL (0.0-1.1) Eosinophils # (Auto) 0.0 x10^3/uL (0.0-0.7) Basophils # (Auto) 0.0 x10^3/uL (0.0-0.2) Segmented Neutrophils % 66 % (35-66) Band Neutrophils % 15 % (0-9) Lymphocytes % 2 % (24-48) Monocytes % 15 % (0-10) Eosinophils % 1 % (0-5) Metamyelocytes % 1 % (0-0) Platelet Estimate Adequate (ADEQUATE) Sodium Level 137 mmol/L (136-145) Potassium Level 3.4 mmol/L (3.5-5.1) Chloride Level 101 mmol/L (98-107) Carbon Dioxide Level 28 mmol/L (21-32) Anion Gap 8 (6-14) Blood Urea Nitrogen 6 mg/dL (7-20) Creatinine 1.0 mg/dL (0.6-1.0) Estimated GFR (Cockcroft-Gault) 53.0 Glucose Level 99 mg/dL (70-99) Calcium Level 7.1 mg/dL (8.5-10.1) Test 09/25/18 08:32 09/25/18 11:34 09/25/18 16:46 09/25/18 20:48 Glucose (Fingerstick) 120 mg/dL (70-99) 119 mg/dL (70-99) 106 mg/dL (70-99) 140 mg/dL (70-99) Test 09/26/18 07:51 Glucose (Fingerstick) 98 mg/dL (70-99) Laboratory Tests Test 09/25/18 11:34 09/25/18 16:46 09/25/18 20:48 09/26/18 07:51 Glucose (Fingerstick) 119 mg/dL (70-99) 106 mg/dL (70-99) 140 mg/dL (70-99) 98 mg/dL (70-99) Microbiology 09/21/18 Blood Culture - Final, Complete NO GROWTH AFTER 5 DAYS 09/22/18 Stool Culture - Final, Resulted 09/22/18 Stool Culture Result 1 (NICK) - Final, Resulted 09/22/18 Campylobacter Antigen Assay - Preliminary, Resulted 09/22/18 Campylobactor Result 1 - Preliminary, Resulted 09/22/18 Shiga Toxin Test - Final, Resulted 09/19/18 Urine Culture - Final, Complete 09/19/18 Urine Culture Result 1 (NICK) - Final, Complete 09/19/18 Antimicrobic Susceptibility - Final, Complete Medications Current Medications Potassium Chloride/Sodium Chloride 1,000 ml @ 100 mls/hr Q10H IV Last administered on 09/26/18 00:57; Start 09/19/18 at 17:30 Alprazolam (Xanax) 0.25 mg PRN Q6HRS PRN PO ANXIETY / AGITATION Last administered on 09/25/18at 20:42; Start 09/19/18 at 17:15 Carvedilol (Coreg) 3.125 mg BIDWMEALS PO Last administered on 09/25/18 17:39; Start 09/19/18 at 18:00 Ciprofloxacin (Cipro) 250 mg BID PO Last administered on 09/20/18at 10:45; Start 09/19/18 at 21:00; Stop 09/20/18 at 15:50; Status DC Citalopram Hydrobromide (CeleXA) 10 mg DAILY PO Last administered on 09/20/18at 10:45; Start 09/19/18 at 18:00; Stop 09/21/18 at 18:26; Status DC Diphenhydramine HCl (Benadryl) 50 mg QHS PO Last administered on 09/25/18 20: 43; Start 09/19/18 at 21:00 Docusate Sodium (Colace) 100 mg DAILY PO Last administered on 09/23/18 08:39; Start 09/19/18 at 18:00 Insulin Glargine (Lantus) 17 units DAILYWBKFT SQ Last administered on 09:46; Start 09/20/18 at 08:00 Isosorbide Mononitrate (Imdur) 30 mg DAILY PO Last administered on 09/25/18 09 :30; Start 09/19/18 at 18:00 Lisinopril (Prinivil) 10 mg DAILY PO Last administered on 09/25/18 09:29; Start 09/19/18 at 18:00 Rivaroxaban (Xarelto) 15 mg DAILYWSUP PO Last administered on 09/25/18 17:38; Start 09/19/18 at 18:00 Multivitamins/ Minerals (I-Myah) 1 tab BID PO Last administered on 09/25/18 20 :43; Start 09/19/18 at 21:00 Bumetanide (Bumex) 2 mg DAILY PO Last administered on 09/25/18 09:26; Start 09/19/18 at 18:00 Vitamin D (Vitamin D3) 1,000 unit DAILY PO Last administered on 09/19/18 17:53 ; Start 09/19/18 at 18:00; Stop 09/19/18 at 19:01; Status DC Non-Formulary Medication 1 ea TID PO Last administered on 09/20/18 10:48; Start 09/19/18 at 21:00; Stop 09/24/18 at 13:52; Status DC Insulin Human Lispro (HumaLOG) 4 units TIDWMEALS SQ Last administered on 12:02; Start 09/19/18 at 18:00 Methotrexate (Rheumatrex) 15 mg WEEKLY PO Last administered on 09/19/18 17:55 ; Start 09/19/18 at 18:00 Multivitamins (Thera M Plus) 1 tab DAILY PO Last administered on 09/25/18 09: 28; Start 09/19/18 at 18:00 Pantoprazole Sodium (Protonix) 40 mg DAILYAC PO Last administered on 09/25/18 09:25; Start 09/19/18 at 18:00 Ondansetron HCl (Zofran Odt) 8 mg PRN BID PRN PO NAUSEA/VOMITING Last administered on 09/25/18 09:28; Start 09/19/18 at 17:30 Simvastatin (Zocor) 40 mg QHS PO Last administered on 09/25/18 20:43; Start 09/19/18 at 21:00 Info (Anti-Coagulation Monitoring By Pharmacy) 1 each PRN DAILY PRN MC SEE COMMENTS Last administered on 09/25/18 14:11; Start 09/19/18 at 17:30 Lactobacillus Rhamnosus (Culturelle) 1 cap BID PO Last administered on 22:22; Start 09/19/18 at 21:00; Stop 09/20/18 at 08:28; Status DC Acetaminophen (Tylenol) 500 mg PRN Q6HRS PRN PO MILD PAIN / TEMP Last administered on 09/25/18 09:41; Start 09/19/18 at 19:00 Tbo-Filgrastim (Granix) 480 mcg QHS SQ Last administered on 09/22/18 21:08; Start 09/20/18 at 21:00; Stop 09/23/18 at 08:17; Status DC Vancomycin HCl (Vanco Per Pharmacy) 1 each PRN DAILY PRN MC SEE COMMENTS Last administered on 09/23/18 00:04; Start 09/20/18 at 15:45; Stop 09/24/18 at 09:43 ; Status DC Cefepime HCl 1 gm/ Dextrose 50 ml @ 100 mls/hr Q8HRS IV ; Start 09/20/18 at 22: 00; Status UNV Micafungin Sodium 100 mg/Dextrose 100 ml @ 100 mls/hr Q24H IV Last administered on 09/25/18 17:40; Start 09/20/18 at 17:00 Cefepime HCl (Maxipime) 1 gm Q8HRS IVP Last administered on 09/24/18 05:33; Start 09/20/18 at 16:30; Stop 09/24/18 at 09:43; Status DC Vancomycin HCl 2 gm/Sodium Chloride 500 ml @ 250 mls/hr 1X ONCE IV Last administered on 09/20/18at 19:36; Start 09/20/18 at 16:30; Stop 09/20/18 at 18:29 ; Status DC Vancomycin HCl 1.5 gm/Sodium Chloride 500 ml @ 250 mls/hr Q24H IV Last administered on 09/22/18at 21:07; Start 09/21/18 at 19:30; Stop 09/22/18 at 23:53 ; Status DC Vancomycin HCl (Vancomycin Trough Level) 1 each 1X ONCE MC Last administered on 09/22/18at 19:00; Start 09/22/18 at 19:00; Stop 09/22/18 at 19:01; Status DC Vancomycin HCl (Vancomycin Oral Solution) 125 mg [id number] PO Last administered on 09/22/18at 10:13; Start 09/21/18 at 13:00; Stop 09/22/18 at 10:42; Status DC Dextrose (Dextrose 50%-Water Syringe) 12.5 gm PRN Q15MIN PRN IV SEE COMMENTS; Start 09/21/18 at 17:00 Citalopram Hydrobromide (CeleXA) 10 mg QHS PO Last administered on 09/25/18at 20 :42; Start 09/21/18 at 21:00 Vancomycin HCl 1.5 gm/Sodium Chloride 500 ml @ 250 mls/hr Q18H IV Last administered on 09/23/18at 15:40; Start 09/23/18 at 15:30; Stop 09/24/18 at 09:42 ; Status DC Vancomycin HCl (Vancomycin Trough Level) 1 each 1X ONCE MC Last administered on 09/24/18at 08:48; Start 09/24/18 at 09:00; Stop 09/24/18 at 09:01; Status DC Iohexol (Omnipaque 240 Mg/ml) 50 ml 1X ONCE PO ; Start 09/23/18 at 15:00; Stop 09/23/18 at 15:08; Status DC Iohexol (Omnipaque 240 Mg/ml) 50 ml 1X ONCE PO ; Start 09/23/18 at 15:00; Stop 09/23/18 at 15:08; Status DC Info (CONTRAST GIVEN -- Rx MONITORING) 1 each PRN DAILY PRN MC SEE COMMENTS; Start 09/23/18 at 15:15; Stop 09/25/18 at 15:14; Status DC Linezolid/Dextrose 300 ml @ 300 mls/hr Q12HR IV Last administered on at 20:31; Start 09/24/18 at 10:00; Stop 09/25/18 at 09:52; Status DC Diphenoxylate HCl/ Atropine (Lomotil) 1 tab PRN QID PRN PO DIARRHEA Last administered on 09/25/18at 09:24; Start 09/25/18 at 09:00 Active Scripts Active Reported Famciclovir 500 Mg Tablet 500 Mg PO TID 1 Days Ciprofloxacin Hcl 250 Mg Tablet 1 Tab PO BID Zofran (Ondansetron Hcl) 8 Mg Tablet 8 Mg PO BID PRN Xarelto (Rivaroxaban) 15 Mg Tablet 15 Mg PO DAILY Carvedilol 3.125 Mg Tablet 3.125 Mg PO BID Methotrexate (Methotrexate Sodium) 2.5 Mg Tablet 6 Tab PO WEEKLY Benadryl (Diphenhydramine Hcl) 25 Mg Capsule 2 Cap PO QHS Bumetanide 2 Mg Tablet 2 Mg PO DAILY Ocuvite Tablet (Vit A,C & E/Lutein/Minerals) 1 Each Tablet 1 Each PO BID Citalopram Hbr (Citalopram Hydrobromide) 10 Mg Tablet 10 Mg PO DAILY Alprazolam 0.25 Mg Tablet 0.25 Mg PO PRN Q6HRS PRN Isosorbide Mononitrate Er (Isosorbide Mononitrate) 30 Mg Tab.er.24h 30 Mg PO DAILY Prilosec Otc (Omeprazole Magnesium) 20 Mg Tablet.dr 20 Mg PO DAILY Novolog Flexpen (Insulin Aspart) 100 Unit/1 Ml Insuln.pen 4 Unit SQ TIDBFRMEAL Lantus Solostar (Insulin Glargine,Hum.rec.anlog) 100 Unit/1 Ml Insuln.pen 17 Unit SQ DAILYWBKFT Vitamin D-3 (Cholecalciferol (Vitamin D3)) 2,000 Unit Capsule 1,000 Unit PO DAILY Lisinopril 10 Mg Tablet 10 Mg PO DAILY Simvastatin 40 Mg Tablet 40 Mg PO DAILY Colace (Docusate Sodium) 100 Mg Capsule 100 Mg PO DAILY Garlic 1,000 Mg Capsule 1,000 Mg PO DAILY Multivitamins (Multivitamin) 1 Each Capsule 1 Each PO DAILY Vitals/I & O Vital Sign - Last 24 Hours 09/25/18 09/25/18 09/25/18 09/25/18 09:29 09:29 09:30 11:00 Temp 97.9 97.9 Pulse 104 104 104 94 Resp 24 B/P (MAP) 144/54 144/54 144/54 114/51 (72) Pulse Ox 96 O2 Delivery Room Air 09/25/18 09/25/18 09/25/18 09/25/18 15:00 17:39 19:00 20:00 Temp 97.9 97.8 97.9 97.8 Pulse 20 94 93 Resp 20 20 B/P (MAP) 113/43 (66) 114/51 121/57 (78) Pulse Ox 98 97 O2 Delivery Room Air Room Air 09/25/18 09/26/18 09/26/18 23:00 03:00 07:00 Temp 98.7 99.2 98.5 98.7 99.2 98.5 Pulse 97 100 103 Resp 20 18 20 B/P (MAP) 120/59 (79) 107/54 (71) 130/55 (80) Pulse Ox 93 91 94 O2 Delivery Room Air Intake and Output 09/25/18 09/25/18 09/26/18 15:00 23:00 07:00 Intake Total 660 ml 120 ml Output Total 780 ml 500 ml 350 ml Balance -120 ml -380 ml -350 ml Nutrition Consultation Dietary Evaluation: Recommendations by RD: Increase Calorie Intake, Protein supplementation Comments: ensure tid continue mvi Expected Outcomes/Goals: to meet > 75%est nutr needs Interpretation of weight loss: >5% in 1 month Malnutrition Findings: Food and Nutrition Intake (Sev: <50% est energy req 5days Weight Status: Morbidly Obese MICHAEL VIDES MD Sep 26, 2018 08:52
[2018-09-26] MEDS ORDERED: DIPH1TAB5 PO (09:07)
[2018-09-26] MEDS ORDERED: ACET500T55 PO (09:07)
--- NOTE | 2018-09-26 09:09 | DISCH ---
DISCHARGE DISCHARGE INFORMATION: DISCHARGE DATE: Sep 26, 2018 CONDITION ON DISCHARGE: Stable CODE STATUS: Code Status: Full [facility]: SNF STAY <30 DAYS: Yes POST DISCHARGE ORDERS: ACTIVITY ORDERS: No restrictions, Resume previous activity, Activity as tolerated WEIGHT BEARING STATUS: No restrictions DIET AFTER DISCHARGE: ADA WOUND/INCISION CARE: Keep wound/cast CDI CHECKS AFTER DISCHARGE: CHECKS AFTER DISCHARGE: Check blood press - daily, Check blood sugar, ac/hs, Check your Temp as needed TREATMENT/EQUIPMENT ORDERS: Physical Therapy For: Evalulation/Treatment Occupational Therapy For: Evaluation/Treatment DISCHARGE MEDICATIONS: Home Meds Active Scripts Diphenoxylate Hcl/Atropine (DIPHENOXYLATE-ATROPINE TABLET) 1 Each Tablet, 1 TAB PO PRN QID PRN for DIARRHEA for 30 Days, TAB Prov:ARTHUR GUERRA MD 09/26/18 Acetaminophen (MAPAP) 500 Mg Tablet, 500 MG PO PRN Q6HRS PRN for MILD PAIN / TEMP for 30 Days, TAB Prov:ARTHUR GUERRA MD 09/26/18 Reported Medications Famciclovir (FAMCICLOVIR) 500 Mg Tablet, 500 MG PO TID for Shingles for 1 Day, # 3 TAB 09/19/18 Ciprofloxacin Hcl (CIPROFLOXACIN HCL) 250 Mg Tablet, 1 TAB PO BID for UTI, #10 TAB 09/19/18 Ondansetron Hcl (ZOFRAN) 8 Mg Tablet, 8 MG PO BID PRN for NAUSEA/VOMITING 08/19/18 Rivaroxaban (XARELTO) 15 Mg Tablet, 15 MG PO DAILY 08/05/18 Carvedilol (CARVEDILOL) 3.125 Mg Tablet, 3.125 MG PO BID, TAB 06/21/18 Methotrexate Sodium (METHOTREXATE) 2.5 Mg Tablet, 6 TAB PO WEEKLY 06/21/18 Diphenhydramine Hcl (BENADRYL) 25 Mg Capsule, 2 CAP PO QHS 06/21/18 Bumetanide (BUMETANIDE) 2 Mg Tablet, 2 MG PO DAILY, TAB 06/21/18 Vit A,C & E/Lutein/Minerals (OCUVITE TABLET) 1 Each Tablet, 1 EACH PO BID, TAB 06/21/18 Citalopram Hydrobromide (CITALOPRAM HBR) 10 Mg Tablet, 10 MG PO DAILY, TAB 06/21/18 Alprazolam (ALPRAZOLAM) 0.25 Mg Tablet, 0.25 MG PO PRN Q6HRS PRN for ANXIETY / AGITATION 06/21/18 Isosorbide Mononitrate (ISOSORBIDE MONONITRATE ER) 30 Mg Tab.er.24h, 30 MG PO DAILY, TAB.SR 06/21/18 Omeprazole Magnesium (PRILOSEC OTC) 20 Mg Tablet.dr, 20 MG PO DAILY, TAB 06/21/18 Insulin Aspart (NOVOLOG FLEXPEN) 100 Unit/1 Ml Insuln.pen, 4 UNIT SQ TIDBFRMEAL 06/21/18 Insulin Glargine,Hum.rec.anlog (LANTUS SOLOSTAR) 100 Unit/1 Ml Insuln.pen, 17 UNIT SQ DAILYWBKFT 06/21/18 Cholecalciferol (Vitamin D3) (VITAMIN D-3) 2,000 Unit Capsule, 1000 UNIT PO DAILY 06/21/18 Lisinopril (LISINOPRIL) 10 Mg Tablet, 10 MG PO DAILY 06/21/18 Simvastatin (SIMVASTATIN) 40 Mg Tablet, 40 MG PO DAILY 06/21/18 Docusate Sodium (COLACE) 100 Mg Capsule, 100 MG PO DAILY, CAP 06/21/18 Garlic (GARLIC) 1,000 Mg Capsule, 1000 MG PO DAILY 06/21/18 Multivitamin (MULTIVITAMINS) 1 Each Capsule, 1 EACH PO DAILY 06/21/18 ARTHUR GUERRA MD Sep 26, 2018 09:09
[2018-09-26] MEDS: BUMETANIDE 1 MG TABLET. PO SCH (10:11)
[2018-09-26] MEDS: CARVEDILOL 3.125 MG TABLET. PO SCH (10:12)
--- NOTE | 2018-09-26 10:12 | PDOC2 ---
CARDIAC CONSULT DATE OF CONSULT Date of Consult DATE: 09/26/18 TIME: 09:45 REASON FOR CONSULT Reason for Consult: Chest pressure, abnormal EKG REFERRING PHYSICIAN Referring Physician: Appl SOURCE Source: Chart review, Patient HISTORY OF PRESENT ILLNESS HISTORY OF PRESENT ILLNESS This is a pleasant 83 yo female admitted for complains of vomiting and diarrhea. She was started on chemotherapy/radiation recently for her esophageal CA but chemo discontinued for now due to intolerance and toxicity. There was no signs of bleed nor SOA but has been noted with AFIB RVR and chest pain last night. Her chest pain is more towards the epigastric/lower sternal region that radiates to immediate back and it was hurting when she took deep breaths. Today the pain is gone. There was no associated SOA nor nausea at that time. She also was noted with shingles and so far pain has been controlled in regards to this. PAST MEDICAL HISTORY Past Medical History Cardiovascular: CAD, HTN, Hyperlipidemia CENTRAL NERVOUS SYSTEM: CVA, TIA GI: GERD Heme/Onc: Cancer (breast), Stage 1 esophageal adenocarcinoma noted 06/2018 and on chemoradiation Musculoskeletal: Osteoarthritis Rheumatologic: Rheumatoid arthritis Endocrine: Diabetes PAST SURGICAL HISTORY Past Surgical History CABG (details unknown ), Total knee replacement (bilateral ), left chest portacath SOCIAL HISTORY Smoke: Quit ALCOHOL: none Drugs: None Lives: with Family ALLERGIES ALLERGIES: Coded Allergies: milk (Verified Allergy, Intermediate, 06/27/18) montelukast (Verified Allergy, Intermediate, 06/27/18) I S O L A T I O N *CONTACT* (Verified Allergy, Unknown, 09/23/18) mrsa ROS Review of System 14 point ROS evaluated with pertinent positives noted per HPI PHYSICAL EXAM General: Alert, Oriented X3, Cooperative, No acute distress HEENT: Atraumatic, Mucous membr. moist/pink Lungs: Other (diminished bases) Heart: Other (AFIB; 3/6 diffuse systolic murmur) Abdomen: Soft, No tenderness, Other (obese) Extremities: No cyanosis, Other (2+ bilateral LE pitting edema) Skin: No breakdown, No significant lesion Neuro: Normal speech, Sensation intact Psych/Mental Status: Mental status NL, Mood NL MUSCULOSKELETAL: Osteoarthritic changes both hands VITALS VITALS Vital Signs Date Time Temp Pulse Resp B/P (MAP) Pulse Ox O2 Delivery O2 Flow Rate FiO2 09/26/18 07:00 98.5 103 20 130/55 (80) 94 Room Air 98.5 LABS Lab: Laboratory Tests Test 09/25/18 11:34 09/25/18 16:46 09/25/18 20:48 09/26/18 07:51 Glucose (Fingerstick) 119 mg/dL (70-99) 106 mg/dL (70-99) 140 mg/dL (70-99) 98 mg/dL (70-99) ECHOCARDIOGRAM ECHOCARDIOGRAM <Conclusion> Left ventricle systolic function is moderately to severely impaired. The Ejection Fraction is 30-35%. Septal motion consistent with post-operative state. Moderate to severe global hypokinesis. The right ventricular systolic function is mild diminished. Doppler and Color Flow revealed moderate aortic regurgitation. Doppler and Color-flow revealed moderate mitral regurgitation. Doppler and Color Flow revealed moderate tricuspid regurgitation.The PA pressure was estimated at 53 mmHg. DATE: 06/24/181925 ASSESSMENT/PLAN ASSESSMENT/PLAN 1. Atypical CP: Doubt ACS. more in the epigastric region likely from CA/ esophageal erosion with recent vomiting and radiation. 2. Chronic AFIB RVR: in the setting of shingles and GI symptoms. Rate at 90-110 3. Stage 1C esophageal adenocarcinoma: was on chemo discontinued due to toxicity 4. Shingles: left chest and buttock lesions 5. Recent Hx of CVA 6. NICM/ICM: Recent EF at 30-35%, clinically compensated 7. Hx of CAD; S/P CABG x4 in 2008 8. Hx of anemia with GI bleed/possible AVM 9. DM2HLP 10. HTN: controlled Recommendations 1. Hgb stable in the 8s. Continue on current xarelto for stroke prevention if no signs of bleed. 2. Maintain hydration adequacy if GI symptoms are better. Continue with diuretic therapy. 3. Pain control per PCP. Will change coreg to toprol XL 50 mg moving forward for better HR control. 4. Presently she is not an ideal candidate for ICD given her significant multiple comorbid conditions including CA. 5. Will need to ascertain prognosis/life expectancy in regards to her esophageal CA for LAAO consideration 6. OK for SNU transfer. Follow up in office on 11/01. GISELA HALLMAN APRN Sep 26, 2018 10:12
[2018-09-26] MEDS: MULTIVITAMIN I-VITE TABLET. PO SCH (10:13)
[2018-09-26] MEDS: PANTOPRAZOLE 40 MG TABLET.DR. PO SCH (10:13)
[2018-09-26] MEDS: LISINOPRIL 10 MG TABLET PO SCH (10:13)
[2018-09-26] MEDS: MULTIVITAMIN with MINERAL TABLET. PO SCH (10:13)
[2018-09-26] MEDS: ISOSORBIDE MONONITRATE ER 30 MG TAB.ER.24H PO SCH (10:15)
[2018-09-26] MEDS: METHOTREXATE SODIUM 2.5 MG TABLET PO SCH (10:23)
[2018-09-26] MEDS: INSULIN GLARGINE 300 UNITS/3 ML INSULN.PEN. SQ SCH (10:24)
[2018-09-26] MEDS: ANTI-COAG MONITOR BY PHARMACY. MC PRN (10:55)
[2018-09-26 11:00] VITALS: BP 130/74
[2018-09-26] MEDS: DIPHENOXYLATE/ATROPINE TABLET. PO PRN (11:54)
[2018-09-26] MEDS ORDERED: METO-239 PO (12:18)
[2018-09-26] MEDS ORDERED: POTA20TA82 PO (12:19)
--- NOTE | 2018-09-26 19:44 | DS ---
DATE OF DISCHARGE: 09/26/2018 PRIMARY DIAGNOSIS: Neutropenic fever. 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 CHIEF COMPLAINT AND HISTORY OF PRESENT ILLNESS: This is an 83-year-old white female, who was admitted through the office on the day of admission with intractable vomiting and diarrhea while undergoing chemoradiation for esophagus with dehydration. SUMMARY OF STAY: The patient was admitted, hydrated, was found to be profoundly neutropenic on admission with white count of 1800, ANC of around 900 and ran some fevers. She was started on broad spectrum antibiotics with cultures including blood culture, stool, etc. being negative with the exception of 25-50,000 colony-forming units per mL of MRSA in her urine. ID followed along. She was treated with broad spectrum antibiotics. Oncology following along gave her white cell stimulating agents with recovery. During the stay of her white count, hemoglobin 9.4 on admission and 8.9 on discharge. She did feel better. She was finally started on some Lomotil for the diarrhea and it was decreasing. She was quite weak and felt that she needed detention for rehab following this and this was accomplished on the day of discharge. DISPOSITION: The patient is discharged to detention, on an ADA diet, activity as tolerated with PT and OT to evaluate and treat. Meds have been addressed and are on the med rec. ARTHUR GUERRA MD DR: MAYA/vandana JOB#: [id number] / [id number]
[2018-09-27] MEDS ORDERED: POTASSIUM CHLORIDE 20 MEQ TABLET.ER. PO SCH (08:00)
[2018-09-27] MEDS ORDERED: METOPROLOL SUCC 24HR ER 50 MG TAB.ER.24H. PO SCH (09:00)
== END 2018-09-26 12:30 | DRG 871 ==
LOC: OPSVCIP 12:17 → 5 SOUTH 12:44
PROVIDERS: ADMIT Family Medicine; ATTEND Family Medicine
DX: A41.9 Sepsis, unspecified organism (principal); E43 Unspecified severe protein-calorie malnutrition; N39.0 Urinary tract infection, site not specified; C15.9 Malignant neoplasm of esophagus, unspecified; Z68.41 Body mass index [BMI] 40.0-44.9, adult; F32.9 Major depressive disorder, single episode, unspecified; F41.9 Anxiety disorder, unspecified; D64.9 Anemia, unspecified; B02.9 Zoster without complications; D70.1 Agranulocytosis secondary to cancer chemotherapy; E11.649 Type 2 diabetes mellitus with hypoglycemia without coma; E78.00 Pure hypercholesterolemia, unspecified; I11.0 Hypertensive heart disease with heart failure; E86.0 Dehydration; E78.5 Hyperlipidemia, unspecified; I25.10 Atherosclerotic heart disease of native coronary artery without angina pectoris; I27.20 Pulmonary hypertension, unspecified; I25.5 Ischemic cardiomyopathy; I48.2 Chronic atrial fibrillation; I50.9 Heart failure, unspecified; K21.9 Gastro-esophageal reflux disease without esophagitis; K22.70 Barrett's esophagus without dysplasia; Z96.653 Presence of artificial knee joint, bilateral; M06.9 Rheumatoid arthritis, unspecified; M53.3 Sacrococcygeal disorders, not elsewhere classified; R32 Unspecified urinary incontinence; R50.81 Fever presenting with conditions classified elsewhere; T45.1X5A Adverse effect of antineoplastic and immunosuppressive drugs, initial encounter; W18.39XA Other fall on same level, initial encounter; Y93.89 Activity, other specified; Y92.098 Other place in other non-institutional residence as the place of occurrence of the external cause; Y99.8 Other external cause status; Z79.899 Other long term (current) drug therapy; Z79.01 Long term (current) use of anticoagulants; Z85.01 Personal history of malignant neoplasm of esophagus; Z85.3 Personal history of malignant neoplasm of breast; Z86.73 Personal history of transient ischemic attack (TIA), and cerebral infarction without residual deficits; Z90.11 Acquired absence of right breast and nipple; Z87.891 Personal history of nicotine dependence; Z90.12 Acquired absence of left breast and nipple; Z92.3 Personal history of irradiation; Z95.1 Presence of aortocoronary bypass graft; Z95.5 Presence of coronary angioplasty implant and graft
CPT/HCPCS: 36415; 71045; 71250; 74176; 80048; 80053; 80202; 81001; 82565; 82962; 85007; 85025; 87040; 87045; 87086; 87186; 87493; 93005; J0692; J1442; J1815; J2020; J2248; J3370; J7040; J8610; Q0162; Q0163; 97535

== ENCOUNTER 2018-12-23 14:38 | Inpatient (IN) | payer MEDICARE ==
[~2018-12-23] VITALS: Ht 149.9 cm; Wt 87.7 kg
[~2018-12-23 14:38] MED LIST changes: +ACET500T55 PO; -ALEN70TA5 PO; +ALEN70TA6 PO; +ALPR0.25 PO; -BUME2TAB PO; +BUME2TAB3 PO; +CARV3.1210 PO; -CARV3.122 PO; +CIPR250T PO; +DIPH1TAB5 PO; +FAMC500T PO; +HYDR-2761 PO; +INSU100I32 SQ; +METO-239 PO; +POTA20TA82 PO
[2018-12-23 16:50] VITALS: BP 122/44
[2018-12-23] MEDS ORDERED: DEXTROSE 50% 25 GM / 50ML DISP.SYRIN. IV PRN (17:00)
[2018-12-23] MEDS: IV 1/2 NORMAL SALINE 1,000 ML IV SCH (17:30)
[2018-12-23] MEDS: INSULIN LISPRO 300 UNITS/3 ML INSULN.PEN. SQ SCH (18:00)
[2018-12-23 18:31] LABS: BASO % 1 % (0-3); EOS % 1 % (0-3); HEMATOCRIT 26.5 % (36.0-47.0); HEMOGLOBIN 8.9 g/dL (12.0-15.5); LYMPH # 0.3 x10^3/uL (1.0-4.8); LYMPH % 9 % (24-48); MEAN CORPUSCULAR HEMOGLOBIN 34 pg (25-35); MEAN CORPUSCULAR HGB CONC 34 g/dL (31-37); MEAN CORPUSCULAR VOLUME 101 fL (79-100); MONO % 1 % (0-9); NEUT # 3.3 x10^3uL (1.8-7.7); NEUT % 89 % (31-73); PLATELET COUNT 160 x10^3/uL (140-400); RED BLOOD COUNT 2.62 x10^6/uL (3.50-5.40); RED CELL DISTRIBUTION WIDTH 24.4 % (11.5-14.5); WHITE BLOOD COUNT 3.6 x10^3/uL (4.0-11.0)
[2018-12-23 18:32] LABS: COLOR,URINE RED; NITRITE,URINE NEGATIVE (NEG); PH,URINE 5.5; PROTEIN,URINE 100 mg/dL (NEG-TRACE)
[2018-12-23 18:40] LABS: PROTHROMBIN TIME PATIENT 28.9 SEC (11.7-14.0)
[2018-12-23 18:43] LABS: ALBUMIN 2.6 g/dL (3.4-5.0); ALBUMIN/GLOBULIN RATIO 0.7 (1.0-1.7); CALCIUM 8.8 mg/dL (8.5-10.1); CREATININE 0.8 mg/dL (0.6-1.0); GFR 68.5; POTASSIUM 3.4 mmol/L (3.5-5.1); TOTAL BILIRUBIN 1.1 mg/dL (0.2-1.0); TOTAL PROTEIN 6.4 g/dL (6.4-8.2)
[2018-12-23 18:43] LABS: BILIRUBIN,URINE NEGATIVE (NEG); CLARITY,URINE BLOODY
[2018-12-23 18:44] LABS: BACTERIA,URINE MANY /HPF (0-FEW); HYALINE CASTS, URINE OCCASIONAL /HPF; RBC,URINE TNTC /HPF (0-2); SQUAMOUS EPITHELIAL CELL,UR OCC /LPF; WBC,URINE TNTC /HPF (0-4)
[2018-12-23 18:52] LABS: % BASOS 1 % (0-3); % LYMPHS 4 % (24-48); % SEGS 95 % (35-66)
[2018-12-23 18:57] LABS: ANISOCYTOSIS MOD; PLT ESTIMATE ADEQUATE (ADEQUATE); POLYCHROMASIA SLIGHT; SCHISTOCYTES OCC
[2018-12-23 19:30] VITALS: BP 124/33
--- NOTE | 2018-12-23 20:01 | HP ---
ADMIT DATE: 12/23/2018 CHIEF COMPLAINT AND HISTORY OF PRESENT ILLNESS: This 83-year-old white female well known to me from followup in the office. The patient was seen in the office on the day of admission. She has been feeling unwell for at least a week to 10 days. She had a mouthful of sores and had been not taking p.o. as well. She also had noticed blood in her urine at least since the day prior as well as a blood clot on the morning of admission, which was with urination in addition. She also had kind of a sore area in her vaginal area that she has been messing around with for the last week or so. In addition, last or Sunday, she was vomiting and vomited up some bile with blood and has had problems with somewhat of a bloody nose as well as blowing a lot of stuff out in the mornings with full of blood. She appeared weak in the office, pale, somewhat dehydrated and it was all the different bleeding in different areas. It was elected to admit her to the hospital with holding her Xarelto for some hydration as well as better figuring out this whole picture. PAST MEDICAL HISTORY: Remarkable for recently in the last couple of 3 months finishing chemoradiation for cancer of the esophagus. She has a history of carcinoma of the breast. She has a history of diabetes, atherosclerotic heart disease, anemia, postherpetic neuralgia, AFib, hypertension, depression, hyperlipidemia, osteoporosis. MEDICATIONS: Brought with the patient, listed on the computer and have been addressed. ALLERGIES: SHE IS ALLERGIC TO SINGULAIR. SOCIAL HISTORY: She is nonsmoker, nondrinker, does not use drugs. Lives at home alone, is a couple of years or so ago, has a very supportive niece. FAMILY HISTORY: Noncontributory. REVIEW OF SYSTEMS: As mentioned above. PHYSICAL EXAMINATION: GENERAL: She is a well-developed, well-nourished white female. Again, appears weak and pale. VITAL SIGNS: Stable. She is afebrile in the office. HEAD, EYE, EAR, NOSE AND THROAT: Remarkable for pallor. She does have mucositis present throughout the mouth. NECK: Supple without lymphadenopathy or thyromegaly. CHEST: Clear to auscultation and percussion. HEART: Regular rate and rhythm without S3, S4, or murmur. ABDOMEN: Soft, nontender, without hepatosplenomegaly or mass. EXTREMITIES: Without cyanosis, clubbing, edema. She has various bruises on her arms which she feels is about her usual. She does have a fairly large sized bruise just below her left knee with hematoma, which she relates to a recent fall. NEUROLOGIC: She is intact. IMPRESSION: Multiple areas of bleeding as outlined above in a patient with multiple other medical problems as outlined above and dehydration. PLAN: The patient is admitted at this point in time for hydration. Labs will be checked. ID will be asked to see her for the mucositis. The patient will be monitored, managed and treated appropriately. ARTHUR GUERRA MD DR: MAYA/vandana JOB#: [id number] / [id number]
[2018-12-23] MEDS: diphenhydrAMINE HCL 25 MG CAPSULE PO SCH (20:18)
[2018-12-23] MEDS: SIMVASTATIN 40 MG TABLET. PO SCH (20:18)
[2018-12-23] MEDS ORDERED: cefTRIAXone IV Push 1 GM VIAL. IVP SCH (21:00)
[2018-12-23 23:25] VITALS: BP 124/49
[2018-12-24] VITALS (7 sets, daily range): BP systolic 113–142; BP diastolic 34–57
[2018-12-24] MEDS: IV 1/2 NORMAL SALINE 1,000 ML IV SCH ×2 (06:50→20:20)
[2018-12-24] MEDS: INSULIN LISPRO 300 UNITS/3 ML INSULN.PEN. SQ SCH ×3 (07:48→17:00)
[2018-12-24] MEDS: CHOLECALCIFEROL (VITAMIN D3) 1,000 UNIT TABLET PO SCH (08:41)
[2018-12-24] MEDS: PANTOPRAZOLE 40 MG TABLET.DR. PO SCH (08:41)
[2018-12-24] MEDS: ISOSORBIDE MONONITRATE ER 30 MG TAB.ER.24H PO SCH (08:41)
[2018-12-24] MEDS: BUMETANIDE 1 MG TABLET. PO SCH (08:42)
[2018-12-24] MEDS: DOCUSATE SODIUM 100 MG CAPSULE. PO SCH (08:42)
--- NOTE | 2018-12-24 08:52 | NUR ---
IP: Pt has a hx of mrsa in urine on 09/20/18. Pt to be in contact precautions until there are 2 negative urine cultures 7 days apart without antibiotics.
[2018-12-24] MEDS: INSULIN GLARGINE 300 UNITS/3 ML INSULN.PEN. SQ SCH (08:58)
--- NOTE | 2018-12-24 09:22 | CONS ---
DATE OF CONSULTATION: HOSPITAL COURSE: This patient is an 83-year-old white female who is a 3, para 0, has had a tubal before and has had tubal surgery and the patient admitted to the hospital now because of pain as well as bleeding in the urine. She has had menopause at the age of 54. PHYSICAL EXAMINATION: PELVIC: Shows external genitalia with swelling in the urethral area, which is painful to touch and also bleeding from the urethral area. On bimanual exam, no adnexal masses are felt. EXTREMITIES: No edema of feet. 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 Recommendation would be for urologist to see the patient and also would recommend some antibiotics at this time. The patient probably needs evaluation by the urologist and further treatment. Thank you for giving me the opportunity to participate in the care and management of this patient. SHAJI CHRISTIANSON MD DR: MITCH/vandana JOB#: [id number] / [id number]
--- NOTE | 2018-12-24 11:05 | PDOC ---
Infectious Disease Note Vital Sign Vital Signs Vital Signs Date Time Temp Pulse Resp B/P (MAP) Pulse Ox O2 Delivery O2 Flow Rate FiO2 12/24/18 08:41 95 129/40 12/24/18 07:25 97.4 18 97 Room Air 97.4 Labs Lab Laboratory Tests Test 12/23/18 18:15 12/23/18 18:20 12/23/18 21:12 12/24/18 07:40 Urine Collection Type Unknown Urine Color Red Urine Clarity Bloody Urine pH 5.5 Urine Specific [place] 1.020 Urine Protein 100 mg/dL (NEG-TRACE) Urine Glucose (UA) Negative mg/dL (NEG) Urine Ketones (Stick) 15 mg/dL (NEG) Urine Blood Large (NEG) Urine Nitrite Negative (NEG) Urine Bilirubin Negative (NEG) Urine Urobilinogen Dipstick 1.0 mg/dL (0.2 mg/dL) Urine Leukocyte Esterase Large (NEG) Urine RBC Tntc /HPF (0-2) Urine WBC Tntc /HPF (0-4) Urine Squamous Epithelial Cells Occ /LPF Urine Bacteria Many /HPF (0-FEW) Urine Hyaline Casts Occasional /HPF Urine Mucus Mod /LPF White Blood Count 3.6 x10^3/uL (4.0-11.0) Red Blood Count 2.62 x10^6/uL (3.50-5.40) Hemoglobin 8.9 g/dL (12.0-15.5) Hematocrit 26.5 % (36.0-47.0) Mean Corpuscular Volume 101 fL (79-100) Mean Corpuscular Hemoglobin 34 pg (25-35) Mean Corpuscular Hemoglobin Concent 34 g/dL (31-37) Red Cell Distribution Width 24.4 % (11.5-14.5) Platelet Count 160 x10^3/uL (140-400) Neutrophils (%) (Auto) 89 % (31-73) Lymphocytes (%) (Auto) 9 % (24-48) Monocytes (%) (Auto) 1 % (0-9) Eosinophils (%) (Auto) 1 % (0-3) Basophils (%) (Auto) 1 % (0-3) Neutrophils # (Auto) 3.3 x10^3uL (1.8-7.7) Lymphocytes # (Auto) 0.3 x10^3/uL (1.0-4.8) Monocytes # (Auto) 0.0 x10^3/uL (0.0-1.1) Eosinophils # (Auto) 0.0 x10^3/uL (0.0-0.7) Basophils # (Auto) 0.0 x10^3/uL (0.0-0.2) Segmented Neutrophils % 95 % (35-66) Lymphocytes % 4 % (24-48) Basophils % 1 % (0-3) Platelet Estimate Adequate (ADEQUATE) Polychromasia Slight Anisocytosis Mod Schistocytes Occ Prothrombin Time 28.9 SEC (11.7-14.0) Prothromb Time International Ratio 2.7 (0.8-1.1) Activated Partial Thromboplast Time 42 SEC (24-38) Sodium Level 139 mmol/L (136-145) Potassium Level 3.4 mmol/L (3.5-5.1) Chloride Level 104 mmol/L (98-107) Carbon Dioxide Level 28 mmol/L (21-32) Anion Gap 7 (6-14) Blood Urea Nitrogen 17 mg/dL (7-20) Creatinine 0.8 mg/dL (0.6-1.0) Estimated GFR (Cockcroft-Gault) 68.5 BUN/Creatinine Ratio 21 (6-20) Glucose Level 137 mg/dL (70-99) Calcium Level 8.8 mg/dL (8.5-10.1) Total Bilirubin 1.1 mg/dL (0.2-1.0) Aspartate Amino Transf (AST/SGOT) 187 U/L (15-37) Alanine Aminotransferase (ALT/SGPT) 207 U/L (14-59) Alkaline Phosphatase 160 U/L (46-116) Total Protein 6.4 g/dL (6.4-8.2) Albumin 2.6 g/dL (3.4-5.0) Albumin/Globulin Ratio 0.7 (1.0-1.7) Glucose (Fingerstick) 125 mg/dL (70-99) 65 mg/dL (70-99) Test 12/24/18 08:02 Glucose (Fingerstick) 77 mg/dL (70-99) Objective Assessment Extensive ulcerative stomatitis, likely Methotrexate toxicity Hematuria, ? from Methotrexate vs other H/O Esophageal ca s/p chemo radiation RA H/O Lung ca Dehydration Elevated LFT sec to Methotrexate Plan Plan of Care stop Methotrexate Leukovorin fluids change rocephine to unasyn YOLANDA PEREIRA MD Dec 24, 2018 11:04
[2018-12-24] MEDS: LEUCOVORIN CALCIUM 5 MG TABLET PO SCH ×3 (12:44→23:23)
[2018-12-24] MEDS: AMPICILLIN/SULBACTAM 3 GM in IV NORMAL SALINE 100ML 100 ML IV SCH ×3 (12:44→23:25)
--- NOTE | 2018-12-24 16:05 | NUR ---
SW following pt for anticipated dc needs. Chart reviewed. Pt lives at home alone and is on Room Air. No PT/OT evaluation at this time. Rehab Screen pending. ID following pt. SW will continue to follow pt to assess needs.
[2018-12-24] MEDS: diphenhydrAMINE HCL 25 MG CAPSULE PO SCH (20:19)
[2018-12-24] MEDS: SIMVASTATIN 40 MG TABLET. PO SCH (20:19)
--- NOTE | 2018-12-24 21:25 | CONS ---
DATE OF CONSULTATION: REQUESTING PHYSICIAN: Dr. Diaz. REASON FOR CONSULTATION: Extensive mouth ulcerations. HISTORY OF PRESENT ILLNESS: This is an 83-year-old female who is admitted by Dr. Diaz from the office for unable to eat, dehydration, also hematuria other than ulcers in the mouth. The patient has history of esophageal cancer who has had chemoradiation in August, I believe she finished. The patient also has history of breast cancer and multiple other medical problems. The patient denies any nausea, vomiting, diarrhea. Denies any chest pain, shortness of breath, abdominal pain, urinary symptoms other than hematuria. PAST MEDICAL HISTORY: Positive for esophageal cancer status post chemoradiation, finished 3 months ago. The patient also has history of breast cancer, diabetes, atherosclerotic heart disease, anemia, atrial fibrillation, hypertension, depression and hyperlipidemia. SOCIAL HISTORY: Negative for smoking, alcohol or drug use. ALLERGIES: She is listed as allergic to SINGULAIR. REVIEW OF SYSTEMS: As per HPI. All other systems reviewed are negative. CURRENT MEDICATIONS: The patient is on methotrexate and Rocephin. PHYSICAL EXAMINATION: GENERAL: Alert and oriented female, not in distress. VITAL SIGNS: Stable, afebrile. HEENT: Pupils are round and reacting. No conjunctival lesion. Extensive oral ulceration present, very large with exudate and very tender. It does not have typical appearance of herpetic ulceration or aphthous ulcer or stomatitis from chemotherapy, which anyway she is too far out from chemotherapy. NECK: Supple, no JVP, no lymphadenopathy. LUNGS: Clear. HEART: S1, S2 regular. ABDOMEN: Benign. EXTREMITIES: No edema, cyanosis. SKIN: Unremarkable. The patient is neurologically intact. LABORATORY DATA: White count is 3.6, hemoglobin 8.9, platelets 160,000. BUN and creatinine is 17 and 0.8 with AST 187, ALT 207. Urinalysis, too numerous to count WBC. ASSESSMENT: 1. Extensive ulcerative stomatitis, most likely secondary to methotrexate toxicity. 2. Elevated liver function test, also likely secondary to methotrexate. 3. Hematuria, may have been related to methotrexate versus other etiology needs to be ruled out. 4. History of esophageal cancer status post chemoradiation, finishing around August. 5. Rheumatoid arthritis, on methotrexate. 6. History of lung cancer. 7. Dehydration. RECOMMENDATIONS: We will stop methotrexate, start leucovorin, fluids. Change Rocephin to Unasyn. Supportive care and we will continue to follow. Thank you very much, Dr. Diaz, for giving me the opportunity to participate in this patient's care. YOLANDA PEREIRA MD DR: INDERJIT/vandana JOB#: [id number] / [id number]
[2018-12-24] MEDS: ALPRAZolam 0.25 MG TABLET PO PRN (23:25)
--- NOTE | 2018-12-25 03:17 | CONS ---
DATE OF CONSULTATION: 12/24/2018 TYPE OF REPORT: Medical oncology consultation. CONSULTATION REQUESTING PHYSICIAN: Mark Diaz M.D. REASON FOR CONSULTATION: Esophageal cancer, status post chemoradiation therapy, now admitted with oral mucositis. HISTORY OF PRESENT ILLNESS: The patient is an 83-year-old female who was noted to have anemia with a hemoglobin of 8.0 in June of 2018. Upper endoscopy on 06/27/2018 revealed multiple nodules in the esophagus and the biopsy was consistent with poorly differentiated esophageal adenocarcinoma. It was staged as a T1b N0 M0, stage 1 esophageal cancer. She received concurrent chemoradiation therapy with carboplatin and Taxol from 08/07/2018. She received the fourth dose on 09/11/2018 and she developed significant nausea and vomiting and hence subsequent chemotherapy was discontinued. She is now on surveillance only. She was admitted to [facility] on 12/23/2018 with complaints of significant mouth sores and bleeding from oral mucositis and hematuria as well as epistaxis. She has been on Xarelto for atrial fibrillation, which was held. I was asked to see the patient for continued surveillance of esophageal cancer. PAST MEDICAL HISTORY: Esophageal cancer, TIA, coronary artery disease, CABG, hyperlipidemia, hypertension, diabetes, breast cancer status post left lumpectomy and right mastectomy. FAMILY HISTORY: Negative for esophageal cancer. No history of malignancy. SOCIAL HISTORY: No smoking or alcohol abuse. REVIEW OF SYSTEMS: A 12-point review of system was performed. Pertinent positives are mentioned in the history of present illness. Rest of the system review is negative. PHYSICAL EXAMINATION: GENERAL APPEARANCE: The patient is an 83-year-old female who is in no acute cardiorespiratory distress. VITAL SIGNS: Blood pressure 123/46 and temperature 99.9. HEENT: Atraumatic and normocephalic. Eyes: No icterus. NECK: Supple. CHEST: Bilaterally symmetrical. HEART: S1 and S2 normal. ABDOMEN: Soft and nontender. CENTRAL NERVOUS SYSTEM: No focal deficits. LYMPHATICS: No lymphadenopathy. SKIN: No rashes. PSYCHOLOGIC: Mood and affect are appropriate. MUSCULOSKELETAL: Oral exam reveals evidence of oral mucositis. LABORATORY DATA: WBC 3.6, hemoglobin 8.9 and platelet count 160. Creatinine 0.8. IMPRESSION AND PLAN: 1. 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 Completed chemoradiation therapy on 09/11/2018. I will plan for a surveillance CT scan this month. Clinically, I do not suspect recurrence but needs CT scan for further evaluation. I will order it after the oral mucositis subsides. 2. Oral mucositis could be from methotrexate. Continue to monitor. 3. Rheumatoid arthritis. She is on methotrexate, which will be held because of oral mucositis. 4. Atrial fibrillation. Continue management per Cardiology. Xarelto was kept on hold by Dr. Diaz because of bleeding from oral mucosa and hematuria. 5. History of cerebrovascular accident. 6. Anemia. Hemoglobin is worse at 8.9 on 12/23/2018. Continue to monitor. MICHAEL VIDES MD DR: FLETCHER/vandana JOB#: [id number] / [id number]
[2018-12-25 03:19] VITALS: BP 126/51
[2018-12-25] MEDS: LEUCOVORIN CALCIUM 5 MG TABLET PO SCH ×3 (05:27→18:11)
[2018-12-25] MEDS: AMPICILLIN/SULBACTAM 3 GM in IV NORMAL SALINE 100ML 100 ML IV SCH ×3 (05:28→18:11)
[2018-12-25 07:05] VITALS: BP 125/51
--- NOTE | 2018-12-25 07:16 | PN ---
DATE: 12/24/2018 LOCATION: She is in room 663. SUBJECTIVE: The patient is awake, alert, still complaining about mouth pain as well as generalized fatigue. LABORATORY DATA: Initial laboratory results show a relative leukopenia with a white count of 3600, but 95% segs. Hemoglobin is 8.9. Sugars have been good since admission. Potassium was 3.4. She does have some elevated liver function tests with an AST and ALT of 187 and 207 respectively and alkaline phosphatase of 160. Albumin is 2.6. INR was 2.7 on admission, although she is taking one of the NOACs. PTT was 42. This is currently on hold. Urine showed too numerous to count red cells and white cells and leukocyte esterase positive and Rocephin has been started for the same. She requests if possible to see Dr. Madera as well as she is here. She has repeat CAT scans coming up for her cancer of the esophagus and I will ask him to come by in addition. OBJECTIVE: VITAL SIGNS: Stable. She is afebrile. CHEST: Clear. HEART: Regular. ABDOMEN: Benign. HEENT: Mouth is still full of sores. ASSESSMENT: 1. Mouthful of sores. 2. Hematuria, likely related to urinary tract infection with all the white cells in addition. 3. As yet undefined vaginal lesion with APPLICATION PENETRATION TESTER to see today. 4. Diabetes. 5. Cancer of the esophagus. PLAN: Continue present antibiotics. Await ID, APPLICATION PENETRATION TESTER consults. We will ask Oncology to come by as noted above. Otherwise, continue present care. ARTHUR GUERRA MD DR: MAYA/vandana JOB#: [id number] / [id number]
--- NOTE | 2018-12-25 07:34 | NUR ---
Chart review done. Pt lives alone. Records indicate weakness. Pt may benefit from PT/OT Eval and Treat. Addendum: 12/25/18 at 0734 by NATY PEÑA OT Amended: Links added.
[2018-12-25] MEDS: INSULIN LISPRO 300 UNITS/3 ML INSULN.PEN. SQ SCH ×3 (08:00→18:17)
[2018-12-25] MEDS: PANTOPRAZOLE 40 MG TABLET.DR. PO SCH (08:25)
[2018-12-25] MEDS: ISOSORBIDE MONONITRATE ER 30 MG TAB.ER.24H PO SCH (08:25)
[2018-12-25] MEDS: DOCUSATE SODIUM 100 MG CAPSULE. PO SCH (08:25)
[2018-12-25] MEDS: CHOLECALCIFEROL (VITAMIN D3) 1,000 UNIT TABLET PO SCH (08:25)
[2018-12-25] MEDS: BUMETANIDE 1 MG TABLET. PO SCH (08:25)
--- NOTE | 2018-12-25 08:26 | PDOC ---
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 ROS - had bleeding from oral mucositis Objective Objective Vital Signs Date Time Temp Pulse Resp B/P (MAP) Pulse Ox O2 Delivery O2 Flow Rate FiO2 12/25/18 07:05 98.8 93 17 125/51 (75) 95 Room Air 98.8 Intake and Output 12/25/18 07:01 Intake Total 420 ml Output Total 900 ml Balance -480 ml Intake Oral 420 ml Output Urine Total 900 ml # Voids 3 Physical Exam Heart: Normal S1, Normal S2 General: Alert, Oriented X3 Lungs: Clear to auscultation Neuro: Normal speech Psych/Mental Status: Mental status NL Assessment Assessment IMPRESSION AND PLAN: 1. 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 Completed chemoradiation therapy on 09/11/2018. I will plan for a surveillance CT scan this month. Clinically, I do not suspect recurrence but needs CT scan for further evaluation. I will order it after the oral mucositis improves. I d/w RN 2. Oral mucositis could be from methotrexate. Continue to monitor. Ordered MAGIC MOUTHWASH. 3. Rheumatoid arthritis. She is on methotrexate, which will be held because of oral mucositis. 4. Atrial fibrillation. Continue management per Cardiology. Xarelto was kept on hold by Dr. Diaz because of bleeding from oral mucosa and hematuria. 5. History of cerebrovascular accident. 6. Anemia. Hemoglobin is worse at 8.9 on 12/23/2018. Continue to monitor. Comment Review of Relevant I have reviewed the following items aviva (where applicable) has been applied. Labs Laboratory Tests Test 12/23/18 18:15 12/23/18 18:20 12/23/18 21:12 12/24/18 07:40 Urine Collection Type Unknown Urine Color Red Urine Clarity Bloody Urine pH 5.5 Urine Specific [place] 1.020 Urine Protein 100 mg/dL (NEG-TRACE) Urine Glucose (UA) Negative mg/dL (NEG) Urine Ketones (Stick) 15 mg/dL (NEG) Urine Blood Large (NEG) Urine Nitrite Negative (NEG) Urine Bilirubin Negative (NEG) Urine Urobilinogen Dipstick 1.0 mg/dL (0.2 mg/dL) Urine Leukocyte Esterase Large (NEG) Urine RBC Tntc /HPF (0-2) Urine WBC Tntc /HPF (0-4) Urine Squamous Epithelial Cells Occ /LPF Urine Bacteria Many /HPF (0-FEW) Urine Hyaline Casts Occasional /HPF Urine Mucus Mod /LPF White Blood Count 3.6 x10^3/uL (4.0-11.0) Red Blood Count 2.62 x10^6/uL (3.50-5.40) Hemoglobin 8.9 g/dL (12.0-15.5) Hematocrit 26.5 % (36.0-47.0) Mean Corpuscular Volume 101 fL (79-100) Mean Corpuscular Hemoglobin 34 pg (25-35) Mean Corpuscular Hemoglobin Concent 34 g/dL (31-37) Red Cell Distribution Width 24.4 % (11.5-14.5) Platelet Count 160 x10^3/uL (140-400) Neutrophils (%) (Auto) 89 % (31-73) Lymphocytes (%) (Auto) 9 % (24-48) Monocytes (%) (Auto) 1 % (0-9) Eosinophils (%) (Auto) 1 % (0-3) Basophils (%) (Auto) 1 % (0-3) Neutrophils # (Auto) 3.3 x10^3uL (1.8-7.7) Lymphocytes # (Auto) 0.3 x10^3/uL (1.0-4.8) Monocytes # (Auto) 0.0 x10^3/uL (0.0-1.1) Eosinophils # (Auto) 0.0 x10^3/uL (0.0-0.7) Basophils # (Auto) 0.0 x10^3/uL (0.0-0.2) Segmented Neutrophils % 95 % (35-66) Lymphocytes % 4 % (24-48) Basophils % 1 % (0-3) Platelet Estimate Adequate (ADEQUATE) Polychromasia Slight Anisocytosis Mod Schistocytes Occ Prothrombin Time 28.9 SEC (11.7-14.0) Prothromb Time International Ratio 2.7 (0.8-1.1) Activated Partial Thromboplast Time 42 SEC (24-38) Sodium Level 139 mmol/L (136-145) Potassium Level 3.4 mmol/L (3.5-5.1) Chloride Level 104 mmol/L (98-107) Carbon Dioxide Level 28 mmol/L (21-32) Anion Gap 7 (6-14) Blood Urea Nitrogen 17 mg/dL (7-20) Creatinine 0.8 mg/dL (0.6-1.0) Estimated GFR (Cockcroft-Gault) 68.5 BUN/Creatinine Ratio 21 (6-20) Glucose Level 137 mg/dL (70-99) Calcium Level 8.8 mg/dL (8.5-10.1) Total Bilirubin 1.1 mg/dL (0.2-1.0) Aspartate Amino Transf (AST/SGOT) 187 U/L (15-37) Alanine Aminotransferase (ALT/SGPT) 207 U/L (14-59) Alkaline Phosphatase 160 U/L (46-116) Total Protein 6.4 g/dL (6.4-8.2) Albumin 2.6 g/dL (3.4-5.0) Albumin/Globulin Ratio 0.7 (1.0-1.7) Glucose (Fingerstick) 125 mg/dL (70-99) 65 mg/dL (70-99) Test 12/24/18 08:02 12/24/18 16:47 12/24/18 20:18 12/25/18 07:12 Glucose (Fingerstick) 77 mg/dL (70-99) 96 mg/dL (70-99) 191 mg/dL (70-99) 89 mg/dL (70-99) Laboratory Tests Test 12/24/18 16:47 12/24/18 20:18 12/25/18 07:12 Glucose (Fingerstick) 96 mg/dL (70-99) 191 mg/dL (70-99) 89 mg/dL (70-99) Medications Current Medications Dextrose (Dextrose 50%-Water Syringe) 12.5 gm PRN Q15MIN PRN IV SEE COMMENTS; Start 12/23/18 at 17:00 Sodium Chloride 1,000 ml @ 75 mls/hr [id number] IV Last administered on 12/24/18at 20:20; Start 12/23/18 at 17:30 Alprazolam (Xanax) 0.25 mg PRN QHS PRN PO ANXIETY / AGITATION Last administered on 12/24/18at 23:25; Start 12/23/18 at 17:30 Diphenhydramine HCl (Benadryl) 25 mg QHS PO Last administered on 12/24/18 20:19 ; Start 12/23/18 at 21:00 Docusate Sodium (Colace) 100 mg DAILY PO Last administered on 12/24/18 08:42; Start 12/24/18 at 09:00 Acetaminophen/ Hydrocodone Bitart (Lortab 5/325) 1 tab PRN Q6HRS PRN PO MODERATE PAIN; Start 12/23/18 at 17:30 Insulin Glargine (Lantus) 17 units DAILYWBKFT SQ Last administered on 12/24/18 08:58; Start 12/24/18 at 08:00 Isosorbide Mononitrate (Imdur) 30 mg DAILY PO Last administered on 12/24/18 08: 41; Start 12/24/18 at 09:00 Bumetanide (Bumex) 4 mg DAILY PO Last administered on 12/24/18 08:42; Start 12/24/18 at 09:00 Vitamin D (Vitamin D3) 1,000 unit DAILY PO Last administered on 12/24/18 08:41 ; Start 12/24/18 at 09:00 Insulin Human Lispro (HumaLOG) 4 units TIDWMEALS SQ Last administered on 12:55; Start 12/23/18 at 18:00 Methotrexate (Rheumatrex) 15 mg Th PO ; Start 01/02/19 at 09:00; Stop 01/02/19 at 09:00; Status DC Pantoprazole Sodium (Protonix) 40 mg DAILYAC PO Last administered on 12/24/18 08:41; Start 12/24/18 at 07:30 Simvastatin (Zocor) 40 mg QHS PO Last administered on 12/24/18 20:19; Start 12/23/18 at 21:00 Ceftriaxone Sodium (Rocephin) 1 gm Q24H IVP Last administered on 12/23/18 21:40 ; Start 12/23/18 at 21:00; Stop 12/24/18 at 11:06; Status DC Leucovorin Calcium (Wellcovorin) 15 mg Q6HRS PO Last administered on 12/25/18 05:27; Start 12/24/18 at 12:00 Ampicillin Sodium/ Sulbactam Sodium 3 gm/Sodium Chloride 100 ml @ 200 mls/hr Q6HRS IV Last administered on 12/25/18at 05:28; Start 12/24/18 at 12:00 Active Scripts Active Reported Hydrocodone-Apap 5-325 (Hydrocodone Bit/Acetaminophen) 1 Tab Tablet 1 Tab PO PRN Q6HRS PRN Xanax (Alprazolam) 0.25 Mg Tablet 0.25 Mg PO HS PRN Basaglar Kwikpen U-100 (Insulin Glargine,Hum.rec.anlog) 100 Unit/1 Ml Insuln.pen 17 Unit SQ DAILYWBKFT Methotrexate (Methotrexate Sodium) 2.5 Mg Tablet 6 Tab PO WEEKLY ON SUNDAY Benadryl (Diphenhydramine Hcl) 25 Mg Capsule 1 Cap PO QHS Bumetanide 2 Mg Tablet 2 Tab PO DAILY Isosorbide Mononitrate Er (Isosorbide Mononitrate) 30 Mg Tab.er.24h 30 Mg PO DAILY Prilosec Otc (Omeprazole Magnesium) 20 Mg Tablet.dr 20 Mg PO DAILY Novolog Flexpen (Insulin Aspart) 100 Unit/1 Ml Insuln.pen 4 Unit SQ TIDBFRMEAL Vitamin D-3 (Cholecalciferol (Vitamin D3)) 2,000 Unit Capsule 1,000 Unit PO DAILY Simvastatin 40 Mg Tablet 40 Mg PO DAILY Colace (Docusate Sodium) 100 Mg Capsule 100 Mg PO DAILY Vitals/I & O Vital Sign - Last 24 Hours 12/24/18 12/24/18 12/24/18 12/24/18 08:41 11:16 15:44 19:14 Temp 98.3 99.9 98.1 98.3 99.9 98.1 Pulse 95 101 100 99 Resp 20 20 20 B/P (MAP) 129/40 142/57 (85) 123/46 (71) 121/34 (63) Pulse Ox 97 100 97 O2 Delivery Room Air Room Air Room Air 12/24/18 12/24/18 12/24/18 12/25/18 20:00 23:00 23:17 03:19 Temp 98.1 99.3 98.9 98.1 99.3 98.9 Pulse 99 84 81 Resp 20 16 B/P (MAP) 121/34 (63) 132/42 (72) 126/51 (76) Pulse Ox 97 97 96 O2 Delivery Room Air Room Air Room Air Room Air 12/25/18 07:05 Temp 98.8 98.8 Pulse 93 Resp 17 B/P (MAP) 125/51 (75) Pulse Ox 95 O2 Delivery Room Air Intake and Output 12/24/18 12/24/18 12/25/18 15:01 23:01 07:01 Intake Total 220 ml 200 ml Output Total 900 ml Balance 220 ml 200 ml -900 ml Nutrition Consultation Dietary Evaluation: Recommendations by RD: Increase Calorie Intake, Protein supplementation Comments: send ensure puddings and ensure enlive shakes with meals Expected Outcomes/Goals: to meet > 75% est nutr needs Malnutrition Findings: Food and Nutrition Intake (Sev: <50% est energy req 5days Body Fat Depletion (Non Severe: Mild Depletion Weight Status: Obese MICHAEL VIDES MD Dec 25, 2018 08:26
[2018-12-25] MEDS ORDERED: LIDO:MAALOX:BENADRYL 1:1:1 180 ML BOTTLE. PO PRN (08:30)
[2018-12-25] MEDS: INSULIN GLARGINE 300 UNITS/3 ML INSULN.PEN. SQ SCH (08:30)
[2018-12-25 10:48] VITALS: BP 134/47
--- NOTE | 2018-12-25 11:04 | PDOC ---
Infectious Disease Note Subjective Subjective feeling slightly better ROS ROS no n/v/d/fever Vital Sign Vital Signs Vital Signs Date Time Temp Pulse Resp B/P (MAP) Pulse Ox O2 Delivery O2 Flow Rate FiO2 12/25/18 10:48 98.3 84 18 134/47 (76) 97 Room Air 98.3 Physical Exam PHYSICAL EXAM VITAL SIGNS: Stable, afebrile. HEENT: Pupils are round and reacting. No conjunctival lesion. Extensive oral ulceration present, very large with exudate and very tender. It does not have typical appearance of herpetic ulceration or aphthous ulcer or stomatitis from chemotherapy, which anyway she is too far out from chemotherapy. NECK: Supple, no JVP, no lymphadenopathy. LUNGS: Clear. HEART: S1, S2 regular. ABDOMEN: Benign. EXTREMITIES: No edema, cyanosis. SKIN: Unremarkable. The patient is neurologically intact. Labs Lab Laboratory Tests Test 12/24/18 16:47 12/24/18 20:18 12/25/18 07:12 Glucose (Fingerstick) 96 mg/dL (70-99) 191 mg/dL (70-99) 89 mg/dL (70-99) Objective Assessment Extensive ulcerative stomatitis, likely Methotrexate toxicity Hematuria, ? from Methotrexate vs other H/O Esophageal ca s/p chemo radiation RA H/O Lung ca Dehydration Elevated LFT sec to Methotrexate Plan Plan of Care stop Methotrexate Leukovorin fluids YOLANDA Miller MD Dec 25, 2018 11:04
[2018-12-25] MEDS: IV 1/2 NORMAL SALINE 1,000 ML IV SCH (13:46)
[2018-12-25] MEDS: HYDROcodone/APAP 5/325MG 1 TAB TABLET PO PRN ×2 (13:54→20:26)
--- NOTE | 2018-12-25 14:34 | NUR ---
SW following pt. PT/OT recommends home independent. No skilled needs indicating at this time. SW will continue to evaluate needs.
[2018-12-25 15:15] VITALS: BP 110/36
[2018-12-25 19:34] VITALS: BP 124/45
[2018-12-25] MEDS: ALPRAZolam 0.25 MG TABLET PO PRN (20:25)
[2018-12-25] MEDS: diphenhydrAMINE HCL 25 MG CAPSULE PO SCH (20:26)
[2018-12-25] MEDS: SIMVASTATIN 40 MG TABLET. PO SCH (20:26)
[2018-12-25 23:26] VITALS: BP 137/50
[2018-12-26] MEDS: AMPICILLIN/SULBACTAM 3 GM in IV NORMAL SALINE 100ML 100 ML IV SCH ×4 (00:07→17:51)
[2018-12-26] MEDS: LEUCOVORIN CALCIUM 5 MG TABLET PO SCH ×4 (00:13→17:51)
--- NOTE | 2018-12-26 01:42 | PN ---
DATE: 12/25/2018 LOCATION: Room 663. SUBJECTIVE: The patient is awake and alert, states she feels like she felt a little bit better overall yesterday, but this morning is not sure that she is any better. OBJECTIVE: VITAL SIGNS: Stable. T-max 99.5. GENERAL: The patient is awake and alert. CHEST: With good breath sounds. HEART: Regular. ABDOMEN: Benign. Stomatitis continues to be severe. NEUROLOGIC: She is intact. LABORATORY DATA: The patient's hematuria seemed to be gone yesterday, but is back today. There is no urine culture report present yet, but with urine full of white blood cells in addition, infection is a consideration, although I suppose it could be from the vaginal lesion in addition. Gynecological examination has been done and they recommend urologist to see the patient and this will be ordered. IMPRESSION: 1. Stomatitis. 2. Hematuria, urinary tract infection versus methotrexate. SLEEP TECH evaluation is noted in her note with Urology consult to be ordered. 3. Diabetes. 4. Cancer of the esophagus. PLAN: Continue present care, help of all consultants appreciated. We will ask for Urology input and check a CBC again tomorrow and add leucovorin. ARTHUR GUERRA MD DR: MAYA/vandana JOB#: [id number] / [id number]
[2018-12-26] MEDS: HYDROcodone/APAP 5/325MG 1 TAB TABLET PO PRN ×3 (02:38→19:40)
[2018-12-26] MEDS: IV 1/2 NORMAL SALINE 1,000 ML IV SCH ×2 (02:38→14:50)
[2018-12-26 03:49] VITALS: BP 124/44
[2018-12-26 05:49] LABS: BASO % 1 % (0-3); EOS # 0.2 x10^3/uL (0.0-0.7); EOS % 8 % (0-3); HEMATOCRIT 23.7 % (36.0-47.0); LYMPH # 0.3 x10^3/uL (1.0-4.8); LYMPH % 15 % (24-48); MEAN CORPUSCULAR HEMOGLOBIN 35 pg (25-35); MEAN CORPUSCULAR HGB CONC 34 g/dL (31-37); MEAN CORPUSCULAR VOLUME 102 fL (79-100); MONO # 0.2 x10^3/uL (0.0-1.1); MONO % 7 % (0-9); NEUT # 1.6 x10^3uL (1.8-7.7); NEUT % 69 % (31-73); PLATELET COUNT 175 x10^3/uL (140-400); RED BLOOD COUNT 2.32 x10^6/uL (3.50-5.40); RED CELL DISTRIBUTION WIDTH 24.8 % (11.5-14.5); WHITE BLOOD COUNT 2.3 x10^3/uL (4.0-11.0)
[2018-12-26 07:11] VITALS: BP 122/62
[2018-12-26] MEDS: DOCUSATE SODIUM 100 MG CAPSULE. PO SCH (08:08)
[2018-12-26] MEDS: PANTOPRAZOLE 40 MG TABLET.DR. PO SCH (08:08)
[2018-12-26] MEDS: ISOSORBIDE MONONITRATE ER 30 MG TAB.ER.24H PO SCH (08:09)
[2018-12-26] MEDS: CHOLECALCIFEROL (VITAMIN D3) 1,000 UNIT TABLET PO SCH (08:10)
[2018-12-26] MEDS: BUMETANIDE 1 MG TABLET. PO SCH (08:11)
[2018-12-26] MEDS: INSULIN LISPRO 300 UNITS/3 ML INSULN.PEN. SQ SCH ×3 (08:23→18:08)
[2018-12-26] MEDS: INSULIN GLARGINE 300 UNITS/3 ML INSULN.PEN. SQ SCH (08:24)
[2018-12-26] MEDS ORDERED: ONDANSETRON PF 4 MG/2 ML VIAL. IV PRN (08:45)
[2018-12-26] MEDS ORDERED: CONTRAST GIVEN. MC PRN (09:45)
[2018-12-26] MEDS ORDERED: IOHEXOL 300 MG/ML 100ML VIAL. IV ONE (10:00)
--- NOTE | 2018-12-26 10:42 | PDOC ---
Infectious Disease Note Subjective Subjective feeling slightly better ROS ROS no n/v/d/ Vital Sign Vital Signs Vital Signs Date Time Temp Pulse Resp B/P (MAP) Pulse Ox O2 Delivery O2 Flow Rate FiO2 12/26/18 09:10 Room Air 12/26/18 08:09 93 122/62 12/26/18 07:11 98.9 18 92 98.9 Physical Exam PHYSICAL EXAM VITAL SIGNS: Stable, afebrile. HEENT: Pupils are round and reacting. No conjunctival lesion. Extensive oral ulceration present, very large with exudate and very tender. It does not have typical appearance of herpetic ulceration or aphthous ulcer or stomatitis from chemotherapy, which anyway she is too far out from chemotherapy. NECK: Supple, no JVP, no lymphadenopathy. LUNGS: Clear. HEART: S1, S2 regular. ABDOMEN: Benign. EXTREMITIES: No edema, cyanosis. SKIN: Unremarkable. The patient is neurologically intact. Labs Lab Laboratory Tests Test 12/25/18 11:42 12/25/18 17:23 12/25/18 20:25 12/26/18 05:30 Glucose (Fingerstick) 201 mg/dL (70-99) 152 mg/dL (70-99) 113 mg/dL (70-99) White Blood Count 2.3 x10^3/uL (4.0-11.0) Red Blood Count 2.32 x10^6/uL (3.50-5.40) Hemoglobin 8.0 g/dL (12.0-15.5) Hematocrit 23.7 % (36.0-47.0) Mean Corpuscular Volume 102 fL (79-100) Mean Corpuscular Hemoglobin 35 pg (25-35) Mean Corpuscular Hemoglobin Concent 34 g/dL (31-37) Red Cell Distribution Width 24.8 % (11.5-14.5) Platelet Count 175 x10^3/uL (140-400) Neutrophils (%) (Auto) 69 % (31-73) Lymphocytes (%) (Auto) 15 % (24-48) Monocytes (%) (Auto) 7 % (0-9) Eosinophils (%) (Auto) 8 % (0-3) Basophils (%) (Auto) 1 % (0-3) Neutrophils # (Auto) 1.6 x10^3uL (1.8-7.7) Lymphocytes # (Auto) 0.3 x10^3/uL (1.0-4.8) Monocytes # (Auto) 0.2 x10^3/uL (0.0-1.1) Eosinophils # (Auto) 0.2 x10^3/uL (0.0-0.7) Basophils # (Auto) 0.0 x10^3/uL (0.0-0.2) Test 12/26/18 06:51 Glucose (Fingerstick) 87 mg/dL (70-99) Micro Microbiology 12/23/18 Urine Culture - Preliminary, Resulted 12/23/18 Urine Culture Result 1 (NICK) - Preliminary, Resulted Objective Assessment Extensive ulcerative stomatitis, likely Methotrexate toxicity Hematuria, ? from Methotrexate vs other H/O Esophageal ca s/p chemo radiation RA H/O Lung ca Dehydration Elevated LFT sec to Methotrexate Plan Plan of Care Leukovorin fluids YOLANDA Miller MD Dec 26, 2018 10:42
[2018-12-26 11:00] VITALS: BP 139/55
--- NOTE | 2018-12-26 12:46 | PDOC ---
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 ROS - has mucositis Objective Objective Vital Signs Date Time Temp Pulse Resp B/P (MAP) Pulse Ox O2 Delivery O2 Flow Rate FiO2 12/26/18 11:07 Room Air 12/26/18 11:00 98.1 107 16 139/55 (83) 98 98.1 Intake and Output 12/26/18 07:01 Intake Total 1380 ml Output Total 300 ml Balance 1080 ml Intake Oral 1380 ml Output Urine Total 300 ml # Voids 6 Physical Exam Heart: Normal S1, Normal S2 General: Alert, Oriented X3 Lungs: Clear to auscultation Neuro: Normal speech Psych/Mental Status: Mental status NL Assessment Assessment IMPRESSION AND PLAN: 1. 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 Completed chemoradiation therapy on 09/11/2018. I will plan for a surveillance CT scan this month. Clinically, I do not suspect recurrence but needs CT scan for further evaluation. I will order it after the oral mucositis improves. I d/w RN 2. Oral mucositis could be from methotrexate. Continue to monitor. Ordered MAGIC MOUTHWASH 12/25/18. 3. Rheumatoid arthritis. She is on methotrexate, which will be held because of oral mucositis. 4. Atrial fibrillation. Continue management per Cardiology. Xarelto was kept on hold by Dr. Diaz because of bleeding from oral mucosa and hematuria. 5. History of cerebrovascular accident. 6. Anemia. Hemoglobin is worse at 8.9 on 12/23/2018 and 8.0 on 12/26/18. Continue to monitor. Comment Review of Relevant I have reviewed the following items aviva (where applicable) has been applied. Labs Laboratory Tests Test 12/24/18 16:47 12/24/18 20:18 12/25/18 07:12 12/25/18 11:42 Glucose (Fingerstick) 96 mg/dL (70-99) 191 mg/dL (70-99) 89 mg/dL (70-99) 201 mg/dL (70-99) Test 12/25/18 17:23 12/25/18 20:25 12/26/18 05:30 12/26/18 06:51 Glucose (Fingerstick) 152 mg/dL (70-99) 113 mg/dL (70-99) 87 mg/dL (70-99) White Blood Count 2.3 x10^3/uL (4.0-11.0) Red Blood Count 2.32 x10^6/uL (3.50-5.40) Hemoglobin 8.0 g/dL (12.0-15.5) Hematocrit 23.7 % (36.0-47.0) Mean Corpuscular Volume 102 fL (79-100) Mean Corpuscular Hemoglobin 35 pg (25-35) Mean Corpuscular Hemoglobin Concent 34 g/dL (31-37) Red Cell Distribution Width 24.8 % (11.5-14.5) Platelet Count 175 x10^3/uL (140-400) Neutrophils (%) (Auto) 69 % (31-73) Lymphocytes (%) (Auto) 15 % (24-48) Monocytes (%) (Auto) 7 % (0-9) Eosinophils (%) (Auto) 8 % (0-3) Basophils (%) (Auto) 1 % (0-3) Neutrophils # (Auto) 1.6 x10^3uL (1.8-7.7) Lymphocytes # (Auto) 0.3 x10^3/uL (1.0-4.8) Monocytes # (Auto) 0.2 x10^3/uL (0.0-1.1) Eosinophils # (Auto) 0.2 x10^3/uL (0.0-0.7) Basophils # (Auto) 0.0 x10^3/uL (0.0-0.2) Test 12/26/18 11:49 Glucose (Fingerstick) 110 mg/dL (70-99) Laboratory Tests Test 12/25/18 17:23 12/25/18 20:25 12/26/18 05:30 12/26/18 06:51 Glucose (Fingerstick) 152 mg/dL (70-99) 113 mg/dL (70-99) 87 mg/dL (70-99) White Blood Count 2.3 x10^3/uL (4.0-11.0) Red Blood Count 2.32 x10^6/uL (3.50-5.40) Hemoglobin 8.0 g/dL (12.0-15.5) Hematocrit 23.7 % (36.0-47.0) Mean Corpuscular Volume 102 fL (79-100) Mean Corpuscular Hemoglobin 35 pg (25-35) Mean Corpuscular Hemoglobin Concent 34 g/dL (31-37) Red Cell Distribution Width 24.8 % (11.5-14.5) Platelet Count 175 x10^3/uL (140-400) Neutrophils (%) (Auto) 69 % (31-73) Lymphocytes (%) (Auto) 15 % (24-48) Monocytes (%) (Auto) 7 % (0-9) Eosinophils (%) (Auto) 8 % (0-3) Basophils (%) (Auto) 1 % (0-3) Neutrophils # (Auto) 1.6 x10^3uL (1.8-7.7) Lymphocytes # (Auto) 0.3 x10^3/uL (1.0-4.8) Monocytes # (Auto) 0.2 x10^3/uL (0.0-1.1) Eosinophils # (Auto) 0.2 x10^3/uL (0.0-0.7) Basophils # (Auto) 0.0 x10^3/uL (0.0-0.2) Test 12/26/18 11:49 Glucose (Fingerstick) 110 mg/dL (70-99) Microbiology 12/23/18 Urine Culture - Preliminary, Resulted 12/23/18 Urine Culture Result 1 (NICK) - Preliminary, Resulted Medications Current Medications Dextrose (Dextrose 50%-Water Syringe) 12.5 gm PRN Q15MIN PRN IV SEE COMMENTS; Start 12/23/18 at 17:00 Sodium Chloride 1,000 ml @ 75 mls/hr [id number] IV Last administered on 12/26/18at 02:38; Start 12/23/18 at 17:30 Alprazolam (Xanax) 0.25 mg PRN QHS PRN PO ANXIETY / AGITATION Last administered on 12/25/18at 20:25; Start 12/23/18 at 17:30 Diphenhydramine HCl (Benadryl) 25 mg QHS PO Last administered on 12/25/18at 20:26 ; Start 12/23/18 at 21:00 Docusate Sodium (Colace) 100 mg DAILY PO Last administered on 12/26/18at 08:08; Start 12/24/18 at 09:00 Acetaminophen/ Hydrocodone Bitart (Lortab 5/325) 1 tab PRN Q6HRS PRN PO MODERATE PAIN Last administered on 12/26/18 08:10; Start 12/23/18 at 17:30 Insulin Glargine (Lantus) 17 units DAILYWBKFT SQ Last administered on 12/26/18 08:24; Start 12/24/18 at 08:00 Isosorbide Mononitrate (Imdur) 30 mg DAILY PO Last administered on 12/26/18 08: 09; Start 12/24/18 at 09:00 Bumetanide (Bumex) 4 mg DAILY PO Last administered on 12/26/18 08:11; Start 12/24/18 at 09:00 Vitamin D (Vitamin D3) 1,000 unit DAILY PO Last administered on 12/26/18 08:10 ; Start 12/24/18 at 09:00 Insulin Human Lispro (HumaLOG) 4 units TIDWMEALS SQ Last administered on 08:23; Start 12/23/18 at 18:00 Methotrexate (Rheumatrex) 15 mg Th PO ; Start 01/02/19 at 09:00; Stop 01/02/19 at 09:00; Status DC Pantoprazole Sodium (Protonix) 40 mg DAILYAC PO Last administered on 12/26/18 08:08; Start 12/24/18 at 07:30 Simvastatin (Zocor) 40 mg QHS PO Last administered on 12/25/18 20:26; Start 12/23/18 at 21:00 Ceftriaxone Sodium (Rocephin) 1 gm Q24H IVP Last administered on 12/23/18 21:40 ; Start 12/23/18 at 21:00; Stop 12/24/18 at 11:06; Status DC Leucovorin Calcium (Wellcovorin) 15 mg Q6HRS PO Last administered on 12/26/18 05:42; Start 12/24/18 at 12:00 Ampicillin Sodium/ Sulbactam Sodium 3 gm/Sodium Chloride 100 ml @ 200 mls/hr Q6HRS IV Last administered on 12/26/18 05:36; Start 12/24/18 at 12:00 Multi-Ingredient Mouthwash/Gargle (Magic Mouthwash) 10 ml PRN QID PRN PO MOUTH PAIN Last administered on 12/25/18at 12:15; Start 12/25/18 at 08:30 Ondansetron HCl (Zofran) 4 mg PRN Q4HRS PRN IV NAUSEA/VOMITING Last administered on 12/26/18at 08:38; Start 12/26/18 at 08:45 Iohexol (Omnipaque 300 Mg/ml) 75 ml 1X ONCE IV Last administered on 12/26/18at 10:00; Start 12/26/18 at 10:00; Stop 12/26/18 at 10:01; Status DC Info (CONTRAST GIVEN -- Rx MONITORING) 1 each PRN DAILY PRN MC SEE COMMENTS; Start 12/26/18 at 09:45; Stop 12/28/18 at 09:44 Active Scripts Active Reported Hydrocodone-Apap 5-325 (Hydrocodone Bit/Acetaminophen) 1 Tab Tablet 1 Tab PO PRN Q6HRS PRN Xanax (Alprazolam) 0.25 Mg Tablet 0.25 Mg PO HS PRN Basaglar Kwikpen U-100 (Insulin Glargine,Hum.rec.anlog) 100 Unit/1 Ml Insuln.pen 17 Unit SQ DAILYWBKFT Methotrexate (Methotrexate Sodium) 2.5 Mg Tablet 6 Tab PO WEEKLY ON SUNDAY Benadryl (Diphenhydramine Hcl) 25 Mg Capsule 1 Cap PO QHS Bumetanide 2 Mg Tablet 2 Tab PO DAILY Isosorbide Mononitrate Er (Isosorbide Mononitrate) 30 Mg Tab.er.24h 30 Mg PO DAILY Prilosec Otc (Omeprazole Magnesium) 20 Mg Tablet.dr 20 Mg PO DAILY Novolog Flexpen (Insulin Aspart) 100 Unit/1 Ml Insuln.pen 4 Unit SQ TIDBFRMEAL Vitamin D-3 (Cholecalciferol (Vitamin D3)) 2,000 Unit Capsule 1,000 Unit PO DAILY Simvastatin 40 Mg Tablet 40 Mg PO DAILY Colace (Docusate Sodium) 100 Mg Capsule 100 Mg PO DAILY Vitals/I & O Vital Sign - Last 24 Hours 12/25/18 12/25/18 12/25/18 12/25/18 15:15 19:34 20:00 20:26 Temp 98.6 98.7 98.6 98.7 Pulse 104 83 Resp 17 20 B/P (MAP) 110/36 (60) 124/45 (71) Pulse Ox 97 98 O2 Delivery Room Air Room Air Room Air Room Air 12/25/18 12/26/18 12/26/18 12/26/18 23:26 02:38 03:49 07:11 Temp 98.2 98.1 98.9 98.2 98.1 98.9 Pulse 53 90 93 Resp 18 16 18 B/P (MAP) 137/50 (79) 124/44 (70) 122/62 (82) Pulse Ox 96 93 92 O2 Delivery Room Air Room Air Room Air Room Air 12/26/18 12/26/18 12/26/18 12/26/18 08:09 09:10 11:00 11:07 Temp 98.1 98.1 Pulse 93 107 Resp 16 B/P (MAP) 122/62 139/55 (83) Pulse Ox 98 O2 Delivery Room Air Room Air Room Air Intake and Output 12/25/18 12/25/18 12/26/18 15:01 23:01 07:01 Intake Total 500 ml 390 ml 490 ml Output Total 300 ml Balance 500 ml 390 ml 190 ml Nutrition Consultation Dietary Evaluation: Recommendations by RD: Increase Calorie Intake, Protein supplementation Comments: send ensure puddings and ensure enlive shakes with meals Expected Outcomes/Goals: to meet > 75% est nutr needs Malnutrition Findings: Food and Nutrition Intake (Sev: <50% est energy req 5days Body Fat Depletion (Non Severe: Mild Depletion Weight Status: Obese MICHAEL VIDES MD Dec 26, 2018 12:46
--- NOTE | 2018-12-26 13:03 | RAD ---
CT CHEST ABD PELVIS W/CONTRAST Indication: Esophageal cancer, post chemoradiation. Exposure: One or more of the following individualized dose reduction techniques were utilized for this examination: 1. Automated exposure control 2. Adjustment of the mA and/or kV according to patient size 3. Use of iterative reconstruction technique. Comparison: September 23, 2018 Contrast: Intravenous and oral contrast. CHEST: Atherosclerotic calcifications of the aorta without gross aneurysm. Ascending aorta is mildly ectatic, measuring 3.8 cm, stable. Pulmonary artery dilatation again seen suggesting pulmonary artery hypertension. Coronary artery calcification. Cardiomegaly. Scattered small mediastinal lymph nodes are seen. No significant change, no significant lymph node enlargement. No significant pleural effusion. Thickening of the distal esophagus is again identified. Multiple pulmonary nodules identified. These have increased in size and number since prior study. For example, right lower lobe nodule abutting the major fissure measures 12 mm, not seen previously. A left upper lobe nodule measures 8 mm, increased from 4 mm previously. Trachea and central airways are patent. Degenerative spondylosis. Postsurgical changes of the chest and sternum. Left chest wall port identified tip identified in superior vena cava. No aggressive bone destruction. ABDOMEN PELVIS: Areas of subtle hypoattenuation in the liver, difficult to identify and characterize on this exam, correlate with previous PET scan report. At least one of these in the lower right lobe appears more prominent than on prior study. Spleen calcified otherwise unremarkable. Pancreas unremarkable. No adrenal mass. Kidneys demonstrate no evidence of a mass. No hydronephrosis. Gallbladder surgically absent. Aorta calcified without aneurysm. Dense calcification at major aortic branch origins. No evidence of pathologic lymph node enlargement. No bowel obstruction. No evidence of acute colitis. No evidence of pneumoperitoneum. No ascites identified. No evidence of pelvic mass. Urinary bladder is unremarkable. Severe degenerative spondylosis and spondylolisthesis, overall appears similar on sagittal image. No aggressive bone destruction. IMPRESSION: 1. Multiple pulmonary nodules, have increased in size and number since prior study, compatible with metastatic disease. 2. Areas of subtle hepatic hypodensity, at least one of which may have progressed, but difficult to characterize on this exam. 3. Thickening of the distal esophagus appears similar. 4. Mild ascending aorta ectasia is stable. Electronically signed by: Braeden Deras MD (12/26/2018 12:58 PM) [facility]
--- NOTE | 2018-12-26 13:56 | PDOC2 ---
YANDEL WEISS LOAD DISPATCHER LOCAL 12/26/18 1356: UROLOGY CONSULT Date of Consult Date of Consult DATE: 12/26/18 TIME: 13:43 Reason for Consult Reason for Consult: Gross Hematuria Identification/Chief Complaint Chief Complaint Gross Hematuria Source Source: Caregiver, Chart review, Patient History of Present Illness Reason for Visit: Patient is an 83 year old female complaining of a five day history of gross hematuria. It started on Sunday morning. She wiped after going to the bathroom and saw it in the toilet. Presently, she is still having hematuria, but no clots. It resembles a koolade or Gatorade and it does not hurt when she goes to the bathroom. She feels like she empties her bladder well. She denies a history of bladder cancer or kidney cancer or problems,and this is the first time she has ever seen blood in her urine. She also denies a history of kidney stones. Past Medical History Cardiovascular: CAD, HTN, Hyperlipidemia CENTRAL NERVOUS SYSTEM: CVA, TIA GI: GERD Heme/Onc: Cancer Musculoskeletal: Osteoarthritis Rheumatologic: Rheumatoid arthritis Endocrine: Diabetes Grav: 3 Para: 0 Past Surgical History Past Surgical History: CABG, Total knee replacement Family History Family History: Family History Unknown Social History Quit (Quit in 1982 and smoked less than 1/2 pack a day when she did smoke. ) ALCOHOL: none Drugs: None Lives: with Family Current Problem List Problems: (1) Gross hematuria Current Medications Current Medications Current Medications Info (CONTRAST GIVEN -- Rx MONITORING) 1 each PRN DAILY PRN MC SEE COMMENTS; Start 12/26/18 at 09:45; Stop 12/28/18 at 09:44 Iohexol (Omnipaque 300 Mg/ml) 75 ml 1X ONCE IV Last administered on 12/26/18at 10:00; Start 12/26/18 at 10:00; Stop 12/26/18 at 10:01; Status DC Methotrexate (Rheumatrex) 15 mg Th PO ; Start 01/02/19 at 09:00; Stop 01/02/19 at 09:00; Status DC Ondansetron HCl (Zofran) 4 mg PRN Q4HRS PRN IV NAUSEA/VOMITING Last administered on 12/26/18at 08:38; Start 12/26/18 at 08:45 Allergies Allergies: Coded Allergies: milk (Verified Allergy, Intermediate, 06/27/18) montelukast (Verified Allergy, Intermediate, 06/27/18) I S O L A T I O N *CONTACT* (Verified Allergy, Unknown, 09/23/18) mrsa ROS Review Of Systems: CONSTITUTIONAL: No fever or chills EYES: No recent changes SKIN: + mouth sores, + open areas in folds. CARDIOVASCULAR: No chest pain, syncope, palpitations, or edema RESPIRATORY: No SOB or cough GASTROINTESTINAL: No nausea, vomiting or abdominal pain NEUROLOGICAL: No headaches or weakness ENDOCRINE: No cold or heat intolerance GENITOURINARY: + Gross Hematuria, no dysuria or difficulty emptying bladder. MUSCULOSKELETAL: No back pain or joint pain LYMPHATICS: No enlarged lymph nodes PSYCHIATRIC: No anxiety or depression Physical Exam Physical Exam: General: Pleasant, no acute distress, well groomed Eyes: conjunctiva anicteric, eyes full range of motion ENT: moist oral mucosa, normal dentition Neck: Trachea midline, no masses Respiratory: unlabored breathing, not using accessory muscles Abdomen: soft nontender, nondistended, obese : small dab of blood noted at urethra entrance. Skin: + skin breakdown noted in folds below abdomen. Psych: normal mood, affect. Alert and oriented x 3. Vitals VITALS Vital Signs Date Time Temp Pulse Resp B/P (MAP) Pulse Ox O2 Delivery O2 Flow Rate FiO2 12/26/18 11:07 Room Air 12/26/18 11:00 98.1 107 16 139/55 (83) 98 98.1 Labs Labs Laboratory Tests Test 12/24/18 16:47 12/24/18 20:18 12/25/18 07:12 12/25/18 11:42 Glucose (Fingerstick) 96 mg/dL (70-99) 191 mg/dL (70-99) 89 mg/dL (70-99) 201 mg/dL (70-99) Test 12/25/18 17:23 12/25/18 20:25 12/26/18 05:30 12/26/18 06:51 Glucose (Fingerstick) 152 mg/dL (70-99) 113 mg/dL (70-99) 87 mg/dL (70-99) White Blood Count 2.3 x10^3/uL (4.0-11.0) Red Blood Count 2.32 x10^6/uL (3.50-5.40) Hemoglobin 8.0 g/dL (12.0-15.5) Hematocrit 23.7 % (36.0-47.0) Mean Corpuscular Volume 102 fL (79-100) Mean Corpuscular Hemoglobin 35 pg (25-35) Mean Corpuscular Hemoglobin Concent 34 g/dL (31-37) Red Cell Distribution Width 24.8 % (11.5-14.5) Platelet Count 175 x10^3/uL (140-400) Neutrophils (%) (Auto) 69 % (31-73) Lymphocytes (%) (Auto) 15 % (24-48) Monocytes (%) (Auto) 7 % (0-9) Eosinophils (%) (Auto) 8 % (0-3) Basophils (%) (Auto) 1 % (0-3) Neutrophils # (Auto) 1.6 x10^3uL (1.8-7.7) Lymphocytes # (Auto) 0.3 x10^3/uL (1.0-4.8) Monocytes # (Auto) 0.2 x10^3/uL (0.0-1.1) Eosinophils # (Auto) 0.2 x10^3/uL (0.0-0.7) Basophils # (Auto) 0.0 x10^3/uL (0.0-0.2) Test 12/26/18 11:49 Glucose (Fingerstick) 110 mg/dL (70-99) Laboratory Tests Test 12/25/18 17:23 12/25/18 20:25 12/26/18 05:30 12/26/18 06:51 Glucose (Fingerstick) 152 mg/dL (70-99) 113 mg/dL (70-99) 87 mg/dL (70-99) White Blood Count 2.3 x10^3/uL (4.0-11.0) Red Blood Count 2.32 x10^6/uL (3.50-5.40) Hemoglobin 8.0 g/dL (12.0-15.5) Hematocrit 23.7 % (36.0-47.0) Mean Corpuscular Volume 102 fL (79-100) Mean Corpuscular Hemoglobin 35 pg (25-35) Mean Corpuscular Hemoglobin Concent 34 g/dL (31-37) Red Cell Distribution Width 24.8 % (11.5-14.5) Platelet Count 175 x10^3/uL (140-400) Neutrophils (%) (Auto) 69 % (31-73) Lymphocytes (%) (Auto) 15 % (24-48) Monocytes (%) (Auto) 7 % (0-9) Eosinophils (%) (Auto) 8 % (0-3) Basophils (%) (Auto) 1 % (0-3) Neutrophils # (Auto) 1.6 x10^3uL (1.8-7.7) Lymphocytes # (Auto) 0.3 x10^3/uL (1.0-4.8) Monocytes # (Auto) 0.2 x10^3/uL (0.0-1.1) Eosinophils # (Auto) 0.2 x10^3/uL (0.0-0.7) Basophils # (Auto) 0.0 x10^3/uL (0.0-0.2) Test 12/26/18 11:49 Glucose (Fingerstick) 110 mg/dL (70-99) Images Images IMPRESSION: 1. Multiple pulmonary nodules, have increased in size and number since prior study, compatible with metastatic disease. 2. Areas of subtle hepatic hypodensity, at least one of which may have progressed, but difficult to characterize on this exam. 3. Thickening of the distal esophagus appears similar. 4. Mild ascending aorta ectasia is stable. Assessment/Plan Assessment/Plan Gross Hematuria: CT ABD PELVIS reviewed by [facility] Weiss and Dr. Banegas: No obvious causes for hematuria found on film Continue treatment for UTI, urine culture did show E. Coli. Cystoscopy as an outpatient. Will coordinate with medical appointment scheduler to arrange appointment. NICOLE BANEGAS MD 12/28/18 1450: UROLOGY CONSULT Assessment/Plan Assessment/Plan Patient seen and examined. Agree with assessment and plan. Hematuria likely due to UTI. Outpatient followup for cystoscopy. YANDEL WEISS APRN Dec 26, 2018 13:56 NICOLE BANEGAS MD Dec 28, 2018 14:50
[2018-12-26 15:00] VITALS: BP 119/72
[2018-12-26] MEDS: SIMVASTATIN 40 MG TABLET. PO SCH (19:39)
[2018-12-26] MEDS: ALPRAZolam 0.25 MG TABLET PO PRN (19:39)
[2018-12-26 19:40] VITALS: BP 118/79
[2018-12-26] MEDS: diphenhydrAMINE HCL 25 MG CAPSULE PO SCH (19:40)
--- NOTE | 2018-12-26 19:58 | PN ---
DATE: 12/26/2018 LOCATION: Room 663. SUBJECTIVE: The patient is awake, alert, definitely feels somewhat better today, feels like the mouth has improved slightly. Would prefer never to be on methotrexate again if that is what is causing it and I agree. OBJECTIVE: VITAL SIGNS: Stable. She has been afebrile over the last 24 hours. CHEST: Clear. HEART: Regular. ABDOMEN: Benign. HEENT: Stomatitis has slightly improved. LABORATORY DATA: White count is only 2300 this morning despite leucovorin, hemoglobin has dipped to 8, platelet count remains good at 175. Sugars are good. Urine culture is growing out E. coli greater than 100,000 without sensitivities to date. IMPRESSION: 1. Hematuria likely due to infection with Escherichia coli in the urine, on antibiotics. 2. Stomatitis with slight improvement. 3. Diabetes. 4. Cancer of the esophagus. 5. Leukopenia and anemia. PLAN: Continue present care. Help from Oncology and Infectious Disease are appreciated. Unasyn is ongoing at this point in time for urine infection. We will await final cultures and adjust from there. From the patient's description, she is doing fairly well in therapy and would much prefer to return to home when she is ready rather than any sort of stay at a fdc or otherwise at the time of discharge:. ARTHUR GUERRA MD DR: MAYA/vandana JOB#: [id number] / [id number]
[2018-12-26 23:55] VITALS: BP 119/72
[2018-12-27] MEDS: AMPICILLIN/SULBACTAM 3 GM in IV NORMAL SALINE 100ML 100 ML IV SCH ×2 (00:22→05:20)
[2018-12-27] MEDS: HYDROcodone/APAP 5/325MG 1 TAB TABLET PO PRN ×2 (01:33→13:09)
[2018-12-27] MEDS: LEUCOVORIN CALCIUM 5 MG TABLET PO SCH ×4 (01:33→17:47)
[2018-12-27 03:35] VITALS: BP 134/47
[2018-12-27] MEDS: IV 1/2 NORMAL SALINE 1,000 ML IV SCH ×2 (05:18→17:47)
[2018-12-27 07:00] VITALS: BP 131/52
[2018-12-27] MEDS: INSULIN LISPRO 300 UNITS/3 ML INSULN.PEN. SQ SCH ×3 (08:00→18:04)
[2018-12-27] MEDS: BUMETANIDE 1 MG TABLET. PO SCH (08:56)
[2018-12-27] MEDS: PANTOPRAZOLE 40 MG TABLET.DR. PO SCH (08:57)
[2018-12-27] MEDS: CHOLECALCIFEROL (VITAMIN D3) 1,000 UNIT TABLET PO SCH (08:57)
[2018-12-27] MEDS: ISOSORBIDE MONONITRATE ER 30 MG TAB.ER.24H PO SCH (08:57)
[2018-12-27] MEDS: DOCUSATE SODIUM 100 MG CAPSULE. PO SCH (08:57)
--- NOTE | 2018-12-27 09:18 | PDOC ---
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 ROS - no fever Objective Objective Vital Signs Date Time Temp Pulse Resp B/P (MAP) Pulse Ox O2 Delivery O2 Flow Rate FiO2 12/27/18 07:00 97.0 99 16 131/52 (78) 90 Room Air 97.0 Intake and Output 12/27/18 07:01 Intake Total 780 ml Output Total 1400 ml Balance -620 ml Intake Oral 780 ml Output Urine Total 1400 ml # Voids 2 Physical Exam Heart: Normal S1, Normal S2 General: Alert, Oriented X3 Lungs: Clear to auscultation Neuro: Normal speech Psych/Mental Status: Mental status NL Assessment Assessment IMPRESSION AND PLAN: 1. 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 Completed chemoradiation therapy on 09/11/2018. CT 12/26/18 reveals Multiple pulmonary nodules, have increased in size and number since prior study, compatible with metastatic disease. - Areas of subtle hepatic hypodensity, at least one of which may have progressed, but difficult to characterize on this exam. - Thickening of the distal esophagus appears similar. I will order PD-L1 test to see if she would qualify for immunotherapy. 2. Oral mucositis could be from methotrexate. Continue to monitor. Ordered MAGIC MOUTHWASH 12/25/18. 3. Rheumatoid arthritis. She is on methotrexate, which will be held because of oral mucositis. 4. Atrial fibrillation. Continue management per Cardiology. Xarelto was kept on hold by Dr. Diaz because of bleeding from oral mucosa and hematuria. 5. History of cerebrovascular accident. 6. Anemia. Hemoglobin is worse at 8.9 on 12/23/2018 and 8.0 on 12/26/18. Continue to monitor. Comment Review of Relevant I have reviewed the following items aviva (where applicable) has been applied. Labs Laboratory Tests Test 12/25/18 11:42 12/25/18 17:23 12/25/18 20:25 12/26/18 05:30 Glucose (Fingerstick) 201 mg/dL (70-99) 152 mg/dL (70-99) 113 mg/dL (70-99) White Blood Count 2.3 x10^3/uL (4.0-11.0) Red Blood Count 2.32 x10^6/uL (3.50-5.40) Hemoglobin 8.0 g/dL (12.0-15.5) Hematocrit 23.7 % (36.0-47.0) Mean Corpuscular Volume 102 fL (79-100) Mean Corpuscular Hemoglobin 35 pg (25-35) Mean Corpuscular Hemoglobin Concent 34 g/dL (31-37) Red Cell Distribution Width 24.8 % (11.5-14.5) Platelet Count 175 x10^3/uL (140-400) Neutrophils (%) (Auto) 69 % (31-73) Lymphocytes (%) (Auto) 15 % (24-48) Monocytes (%) (Auto) 7 % (0-9) Eosinophils (%) (Auto) 8 % (0-3) Basophils (%) (Auto) 1 % (0-3) Neutrophils # (Auto) 1.6 x10^3uL (1.8-7.7) Lymphocytes # (Auto) 0.3 x10^3/uL (1.0-4.8) Monocytes # (Auto) 0.2 x10^3/uL (0.0-1.1) Eosinophils # (Auto) 0.2 x10^3/uL (0.0-0.7) Basophils # (Auto) 0.0 x10^3/uL (0.0-0.2) Test 12/26/18 06:51 12/26/18 11:49 12/26/18 16:53 12/26/18 20:38 Glucose (Fingerstick) 87 mg/dL (70-99) 110 mg/dL (70-99) 141 mg/dL (70-99) 150 mg/dL (70-99) Test 12/27/18 07:16 Glucose (Fingerstick) 71 mg/dL (70-99) Laboratory Tests Test 12/26/18 11:49 12/26/18 16:53 12/26/18 20:38 12/27/18 07:16 Glucose (Fingerstick) 110 mg/dL (70-99) 141 mg/dL (70-99) 150 mg/dL (70-99) 71 mg/dL (70-99) Microbiology 12/23/18 Urine Culture - Final, Complete 12/23/18 Urine Culture Result 1 (NICK) - Final, Complete 12/23/18 Antimicrobic Susceptibility - Final, Complete Medications Current Medications Dextrose (Dextrose 50%-Water Syringe) 12.5 gm PRN Q15MIN PRN IV SEE COMMENTS; Start 12/23/18 at 17:00 Sodium Chloride 1,000 ml @ 75 mls/hr [id number] IV Last administered on 12/27/18 05:18; Start 12/23/18 at 17:30 Alprazolam (Xanax) 0.25 mg PRN QHS PRN PO ANXIETY / AGITATION Last administered on 12/26/18 19:39; Start 12/23/18 at 17:30 Diphenhydramine HCl (Benadryl) 25 mg QHS PO Last administered on 12/26/18 19:40 ; Start 12/23/18 at 21:00 Docusate Sodium (Colace) 100 mg DAILY PO Last administered on 12/26/18 08:08; Start 12/24/18 at 09:00 Acetaminophen/ Hydrocodone Bitart (Lortab 5/325) 1 tab PRN Q6HRS PRN PO MODERATE PAIN Last administered on 12/27/18 01:33; Start 12/23/18 at 17:30 Insulin Glargine (Lantus) 17 units DAILYWBKFT SQ Last administered on 12/26/18 08:24; Start 12/24/18 at 08:00 Isosorbide Mononitrate (Imdur) 30 mg DAILY PO Last administered on 12/26/18 08: 09; Start 12/24/18 at 09:00 Bumetanide (Bumex) 4 mg DAILY PO Last administered on 12/26/18 08:11; Start 12/24/18 at 09:00 Vitamin D (Vitamin D3) 1,000 unit DAILY PO Last administered on 12/26/18 08:10 ; Start 12/24/18 at 09:00 Insulin Human Lispro (HumaLOG) 4 units TIDWMEALS SQ Last administered on 18:08; Start 12/23/18 at 18:00 Methotrexate (Rheumatrex) 15 mg Th PO ; Start 01/02/19 at 09:00; Stop 01/02/19 at 09:00; Status DC Pantoprazole Sodium (Protonix) 40 mg DAILYAC PO Last administered on 12/26/18 08:08; Start 12/24/18 at 07:30 Simvastatin (Zocor) 40 mg QHS PO Last administered on 12/26/18 19:39; Start 12/23/18 at 21:00 Ceftriaxone Sodium (Rocephin) 1 gm Q24H IVP Last administered on 12/23/18 21:40 ; Start 12/23/18 at 21:00; Stop 12/24/18 at 11:06; Status DC Leucovorin Calcium (Wellcovorin) 15 mg Q6HRS PO Last administered on 12/27/18 05:22; Start 12/24/18 at 12:00 Ampicillin Sodium/ Sulbactam Sodium 3 gm/Sodium Chloride 100 ml @ 200 mls/hr Q6HRS IV Last administered on 12/27/18 05:20; Start 12/24/18 at 12:00 Multi-Ingredient Mouthwash/Gargle (Magic Mouthwash) 10 ml PRN QID PRN PO MOUTH PAIN Last administered on 12/25/18 12:15; Start 12/25/18 at 08:30 Ondansetron HCl (Zofran) 4 mg PRN Q4HRS PRN IV NAUSEA/VOMITING Last administered on 12/26/18 08:38; Start 12/26/18 at 08:45 Iohexol (Omnipaque 300 Mg/ml) 75 ml 1X ONCE IV Last administered on 12/26/18 10:00; Start 12/26/18 at 10:00; Stop 12/26/18 at 10:01; Status DC Info (CONTRAST GIVEN -- Rx MONITORING) 1 each PRN DAILY PRN MC SEE COMMENTS; Start 12/26/18 at 09:45; Stop 12/28/18 at 09:44 Active Scripts Active Reported Hydrocodone-Apap 5-325 (Hydrocodone Bit/Acetaminophen) 1 Tab Tablet 1 Tab PO PRN Q6HRS PRN Xanax (Alprazolam) 0.25 Mg Tablet 0.25 Mg PO HS PRN Basaglar Kwikpen U-100 (Insulin Glargine,Hum.rec.anlog) 100 Unit/1 Ml Insuln.pen 17 Unit SQ DAILYWBKFT Methotrexate (Methotrexate Sodium) 2.5 Mg Tablet 6 Tab PO WEEKLY ON SUNDAY Benadryl (Diphenhydramine Hcl) 25 Mg Capsule 1 Cap PO QHS Bumetanide 2 Mg Tablet 2 Tab PO DAILY Isosorbide Mononitrate Er (Isosorbide Mononitrate) 30 Mg Tab.er.24h 30 Mg PO DAILY Prilosec Otc (Omeprazole Magnesium) 20 Mg Tablet.dr 20 Mg PO DAILY Novolog Flexpen (Insulin Aspart) 100 Unit/1 Ml Insuln.pen 4 Unit SQ TIDBFRMEAL Vitamin D-3 (Cholecalciferol (Vitamin D3)) 2,000 Unit Capsule 1,000 Unit PO DAILY Simvastatin 40 Mg Tablet 40 Mg PO DAILY Colace (Docusate Sodium) 100 Mg Capsule 100 Mg PO DAILY Vitals/I & O Vital Sign - Last 24 Hours 12/26/18 12/26/18 12/26/18 12/26/18 11:00 11:07 15:00 19:40 Temp 98.1 98.6 98.1 98.6 Pulse 107 90 Resp 16 18 B/P (MAP) 139/55 (83) 119/72 (88) Pulse Ox 98 96 O2 Delivery Room Air Room Air Room Air Room Air 12/26/18 12/26/18 12/26/18 12/27/18 19:40 20:00 23:55 01:33 Temp 99.0 98.9 99.0 98.9 Pulse 86 86 Resp 20 16 B/P (MAP) 118/79 (92) 119/72 (88) Pulse Ox 98 93 O2 Delivery Room Air Room Air Room Air Room Air 12/27/18 12/27/18 12/27/18 02:33 03:35 07:00 Temp 97.0 97.0 97.0 97.0 Pulse 95 99 Resp 16 16 B/P (MAP) 134/47 (76) 131/52 (78) Pulse Ox 92 90 O2 Delivery Room Air Room Air Room Air Intake and Output 12/26/18 12/26/18 12/27/18 15:01 23:01 07:01 Intake Total 300 ml 480 ml Output Total 800 ml 600 ml Balance -500 ml 480 ml -600 ml Nutrition Consultation Dietary Evaluation: Recommendations by RD: Increase Calorie Intake, Protein supplementation Comments: send ensure puddings and ensure enlive shakes with meals Expected Outcomes/Goals: to meet > 75% est nutr needs Malnutrition Findings: Food and Nutrition Intake (Sev: <50% est energy req 5days Body Fat Depletion (Non Severe: Mild Depletion Weight Status: Obese MICHAEL VIDES MD Dec 27, 2018 09:18
[2018-12-27] MEDS: INSULIN GLARGINE 300 UNITS/3 ML INSULN.PEN. SQ SCH (09:23)
--- NOTE | 2018-12-27 09:34 | PDOC ---
YANDEL WEISS REGISTERED DIETITIAN 12/27/18 0934: SUBJECTIVE Subjective Patient's urine is varying between a light red and a normal yellow color with no dysuria or problems emptying. Patient was just told that her cancer is spreading and not likely to be cured. She is not sure where she wants to go from here. May not want the cysto but is ok with keeping the appointment and thinking about if for now. She will let us know for sure on Sunday. Ok with social work consult to discuss transportation/available senior services. OBJECTIVE Objective Physical Exam: General appearance: Alert and Oriented Head: Normocephalic, without obvious abnormality Eyes: conjunctivae/corneas clear. PERRL, EOM's intact. Fundi benign Lungs: Regular respirations, non labored breathing Vital Signs Vital Signs Date Time Temp Pulse Resp B/P (MAP) Pulse Ox O2 Delivery O2 Flow Rate FiO2 12/27/18 07:00 97.0 99 16 131/52 (78) 90 Room Air 97.0 12/27/18 03:35 97.0 95 16 134/47 (76) 92 Room Air 97.0 12/27/18 02:33 Room Air 12/27/18 01:33 Room Air 12/26/18 23:55 98.9 86 16 119/72 (88) 93 Room Air 98.9 12/26/18 20:00 Room Air 12/26/18 19:40 99.0 86 20 118/79 (92) 98 Room Air 99.0 12/26/18 19:40 Room Air 12/26/18 15:00 98.6 90 18 119/72 (88) 96 Room Air 98.6 12/26/18 11:07 Room Air 12/26/18 11:00 98.1 107 16 139/55 (83) 98 Room Air 98.1 I & O Intake and Output 12/27/18 07:01 Intake Total 780 ml Output Total 1400 ml Balance -620 ml Intake Oral 780 ml Output Urine Total 1400 ml # Voids 2 PHYSICAL EXAM Physical Exam Physical Exam: General appearance: Alert and Oriented Head: Normocephalic, without obvious abnormality Eyes: conjunctivae/corneas clear. PERRL, EOM's intact. Fundi benign Lungs: Regular respirations, non labored breathing ASSESSMENT/PLAN Assessment/Plan Patient has an appointment for [place] [facility] [place] 1040 [place]. Appointment card and new patient paperwork given to patient. All questions answered. Pt will let us know for sure if she wants to keep this appointment or not on Sunday. Social work consult entered for transportation concerns. Continue antibiotics for UTI. Will follow peripherally over the weekend but please call with questions or changes in patient condition and we will happily address them. Problems: (1) Gross hematuria COMMENT Lab Laboratory Tests Test 12/26/18 11:49 12/26/18 16:53 12/26/18 20:38 12/27/18 07:16 Glucose (Fingerstick) 110 mg/dL (70-99) 141 mg/dL (70-99) 150 mg/dL (70-99) 71 mg/dL (70-99) Nutrition Consultation Dietary Evaluation: Recommendations by RD: Increase Calorie Intake, Protein supplementation Comments: send ensure puddings and ensure enlive shakes with meals Expected Outcomes/Goals: to meet > 75% est nutr needs Malnutrition Findings: Food and Nutrition Intake (Sev: <50% est energy req 5days Body Fat Depletion (Non Severe: Mild Depletion Weight Status: Obese NICOLE BANEGAS MD 12/28/18 1451: ASSESSMENT/PLAN Assessment/Plan Agree with assessment and plan. YANDEL WEISS APRN Dec 27, 2018 09:34 NICOLE BANEGAS MD Dec 28, 2018 14:51
[2018-12-27 11:00] VITALS: BP 128/41
--- NOTE | 2018-12-27 11:37 | PDOC ---
Infectious Disease Note Subjective Subjective feeling slightly better ROS ROS no n/v/d/ Vital Sign Vital Signs Vital Signs Date Time Temp Pulse Resp B/P (MAP) Pulse Ox O2 Delivery O2 Flow Rate FiO2 12/27/18 11:00 97.0 92 18 128/41 (70) 93 Room Air 97.0 Physical Exam PHYSICAL EXAM VITAL SIGNS: Stable, afebrile. HEENT: Pupils are round and reacting. No conjunctival lesion. Extensive oral ulceration present, very large with exudate and very tender. It does not have typical appearance of herpetic ulceration or aphthous ulcer or stomatitis from chemotherapy, which anyway she is too far out from chemotherapy. NECK: Supple, no JVP, no lymphadenopathy. LUNGS: Clear. HEART: S1, S2 regular. ABDOMEN: Benign. EXTREMITIES: No edema, cyanosis. SKIN: Unremarkable. The patient is neurologically intact. 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 from Methotrexate vs other H/O Esophageal ca s/p chemo radiation RA H/O Lung ca Dehydration Elevated LFT sec to Methotrexate Urine with e coli Plan Plan of Care Leukovorin fluids unasyn,, change to po augmentin ct noted YOLANDA PEREIRA MD Dec 27, 2018 11:37
--- NOTE | 2018-12-27 14:02 | NUR ---
SW consulted to assist with transportation/finance. SW provided pt with [facility] area of aging information. Pt accepted resources.
[2018-12-27 15:00] VITALS: BP 122/40
[2018-12-27 19:57] VITALS: BP 118/43
[2018-12-27] MEDS: SIMVASTATIN 40 MG TABLET. PO SCH (20:42)
[2018-12-27] MEDS: AMOXICILLIN/K CLAV 875/125MG TABLET. PO SCH (20:42)
[2018-12-27] MEDS: diphenhydrAMINE HCL 25 MG CAPSULE PO SCH (20:42)
[2018-12-27 23:20] VITALS: BP 115/43
[2018-12-28] MEDS: LEUCOVORIN CALCIUM 5 MG TABLET PO SCH ×4 (00:16→17:53)
[2018-12-28 03:44] VITALS: BP 123/43
[2018-12-28] MEDS: IV 1/2 NORMAL SALINE 1,000 ML IV SCH ×2 (06:18→17:52)
[2018-12-28 07:10] VITALS: BP 122/43
[2018-12-28] MEDS: INSULIN LISPRO 300 UNITS/3 ML INSULN.PEN. SQ SCH ×3 (08:00→17:57)
[2018-12-28] MEDS: PANTOPRAZOLE 40 MG TABLET.DR. PO SCH (09:07)
[2018-12-28] MEDS: DOCUSATE SODIUM 100 MG CAPSULE. PO SCH (09:08)
[2018-12-28] MEDS: CHOLECALCIFEROL (VITAMIN D3) 1,000 UNIT TABLET PO SCH (09:08)
[2018-12-28] MEDS: ISOSORBIDE MONONITRATE ER 30 MG TAB.ER.24H PO SCH (09:08)
[2018-12-28] MEDS: BUMETANIDE 1 MG TABLET. PO SCH (09:08)
[2018-12-28] MEDS: AMOXICILLIN/K CLAV 875/125MG TABLET. PO SCH ×2 (09:10→19:50)
[2018-12-28] MEDS: INSULIN GLARGINE 300 UNITS/3 ML INSULN.PEN. SQ SCH (09:13)
[2018-12-28] MEDS ORDERED: VIT1CAPS12 PO (09:18)
[2018-12-28 11:00] VITALS: BP 132/45
--- NOTE | 2018-12-28 11:18 | PDOC ---
Infectious Disease Note Subjective Subjective Mouth ulcers better, able to wear dentures, but lower lip ulcers still pretty sore Also reports ongoing left leg pain and bruising after she fell couple of weeks ago Walking some Denies F/C/S/N/V/D/SOA ROS ROS per HPI otherwise neg Vital Sign Vital Signs Vital Signs Date Time Temp Pulse Resp B/P (MAP) Pulse Ox O2 Delivery O2 Flow Rate FiO2 12/28/18 09:08 89 122/43 12/28/18 08:00 Room Air 12/28/18 07:10 98.6 18 93 98.6 Physical Exam PHYSICAL EXAM GENERAL Sitting in the chair, alert, NAD HEENT: Oral mucosal ulcerations, improving NECK: Supple, LUNGS: Clear. HEART: S1, S2 regular. ABDOMEN: Soft and nontender EXTREMITIES: No edema or cyanosis. Left anterior leg, below the knee is bruised , swollen, warm and tender. SKIN: No rash MILK RUNNER: Alert and oriented Port clean Labs Lab Laboratory Tests Test 12/27/18 16:34 12/27/18 20:30 12/28/18 07:23 Glucose (Fingerstick) 163 mg/dL (70-99) 79 mg/dL (70-99) 91 mg/dL (70-99) Micro Microbiology 12/23/18 Urine Culture - Final, Complete 12/23/18 Urine Culture Result 1 (NICK) - Final, Complete 12/23/18 Antimicrobic Susceptibility - Final, Complete Objective Assessment Extensive ulcerative stomatitis, likely Methotrexate toxicity - improving LLE hematoma. h/o fall about 2 weeks ago. Hematuria, ? from Methotrexate vs other. Has a cystoscopy with Dr. Brand of [facility] [place] on 01/16/19 H/O Esophageal ca s/p chemo radiation. CT scan compatible with metastatic disease. RA H/O Lung ca Dehydration Elevated LFT sec to Methotrexate Urine with e coli (12/23) A-fib Plan Plan of Care cont Augmentin (12/27), was on unasyn Leucovorin fluids patient wants upcoming appt with Dr. Alcala cancelled. D/w RN 12/27 Patient seen, examined, I agree with above assessment and plan DEXTER MICHEL APRN Dec 28, 2018 11:18 GENEVIEVE PEREIRA MD Dec 28, 2018 14:47
--- NOTE | 2018-12-28 12:18 | PN ---
DATE: 12/27/2018 LOCATION: She is in room 663. SUBJECTIVE: The patient is resting quietly time at the time of my exam. Does not respond to voice. OBJECTIVE: CHEST: Clear. HEART: Regular. ABDOMEN: Benign. VITAL SIGNS: She is afebrile. LABORATORY DATA: Urine is now growing out E. coli, which is pansensitive. Hematuria per nursing has been easing. CT scanning chest, abdomen and pelvis showed multiple pulmonary nodules that have increased in size and number since prior study, compatible with metastatic disease, areas of subtle hepatic hypodensity at least one of which may have progressed but difficult to characterize. Thickening of the distal esophagus appeared similar. IMPRESSION: 1. Hematuria, likely due to Escherichia coli urinary tract infection, but supposed could be impacted by methotrexate. 2. Stomatitis likely due to methotrexate with slow improvement. 3. Diabetes. 4. Metastatic cancer of the esophagus. 5. Leukopenia and anemia. PLAN: We will continue present care including antibiotics at this point in time. The patient will need to be mobilized prior to considering discharge to home and also will need to be able to eat prior to discharge in addition, otherwise continue same. ARTHUR GUERRA MD DR: MAYA/vandana JOB#: [id number] / [id number]
[2018-12-28] MEDS: MULTIVITAMIN I-VITE TABLET. PO SCH ×2 (13:13→19:50)
[2018-12-28 15:00] VITALS: BP 116/41
[2018-12-28] MEDS ORDERED: POLYVINYL ALCOHOL 1.4% OPHTH SOLUTION 15ML BOTTLE. OU PRN (15:30)
[2018-12-28 19:45] VITALS: BP 113/56
[2018-12-28] MEDS: ALPRAZolam 0.25 MG TABLET PO PRN (19:50)
[2018-12-28] MEDS: HYDROcodone/APAP 5/325MG 1 TAB TABLET PO PRN (19:51)
[2018-12-28] MEDS: SIMVASTATIN 40 MG TABLET. PO SCH (19:51)
[2018-12-28] MEDS: diphenhydrAMINE HCL 25 MG CAPSULE PO SCH (19:55)
[2018-12-28 23:43] VITALS: BP 132/45
[2018-12-29] MEDS: LEUCOVORIN CALCIUM 5 MG TABLET PO SCH ×4 (00:11→18:06)
[2018-12-29] MEDS: HYDROcodone/APAP 5/325MG 1 TAB TABLET PO PRN ×2 (03:24→21:01)
[2018-12-29 03:41] VITALS: BP 137/47
--- NOTE | 2018-12-29 05:48 | PN ---
DATE: 12/28/2018 LOCATION: She is in room 663. SUBJECTIVE: The patient is awake, alert, nursing is in attendance. We did have a long discussion regarding the findings on her CT and implications of the same with metastatic adenocarcinoma of the esophagus. I discussed with her likely hospice on discharge and she is amenable to the same this morning. OBJECTIVE: VITAL SIGNS: Stable. She is afebrile. CHEST: Clear. HEART: Regular. ABDOMEN: Benign. Mouth is slowly healing. Sugars have been good. She does have ongoing antibiotic therapy and methotrexate remains on hold. IMPRESSION: 1. Stomatitis felt likely due to methotrexate. 2. Urinary tract infection with Escherichia coli with hematuria that is improved. 3. Metastatic esophageal cancer of the esophagus. 4. Diabetes. PLAN: Continue present care and anticipate discharge first part of the week and she is starting to take p.o. better at this point in time. We will attempt one time looking for hospice on discharge. ARTHUR GUERRA MD DR: MAYA/vandana JOB#: [id number] / [id number]
[2018-12-29 07:00] VITALS: BP 127/56
[2018-12-29] MEDS: PANTOPRAZOLE 40 MG TABLET.DR. PO SCH (07:40)
[2018-12-29] MEDS: IV 1/2 NORMAL SALINE 1,000 ML IV SCH ×2 (07:42→20:10)
[2018-12-29] MEDS: INSULIN LISPRO 300 UNITS/3 ML INSULN.PEN. SQ SCH ×3 (08:00→18:11)
--- NOTE | 2018-12-29 09:12 | PDOC ---
Infectious Disease Note Subjective Subjective Tired this morning, didn't sleep well last night Denies F/C/S/N/V/D/SOA ROS ROS per HPI Vital Sign Vital Signs Vital Signs Date Time Temp Pulse Resp B/P (MAP) Pulse Ox O2 Delivery O2 Flow Rate FiO2 12/29/18 07:00 98.6 97 16 127/56 (79) 96 Room Air 98.6 Physical Exam PHYSICAL EXAM GENERAL: Resting quietly HEENT: Oral mucosal ulcerations, improving NECK: Supple, LUNGS: Clear. HEART: S1, S2 regular. ABDOMEN: Soft and nontender EXTREMITIES: No edema or cyanosis. Left anterior leg, below the knee is bruised , swollen, warm and tender. SKIN: No rash TRIP FOLLOWER: Arouses to gentle stimuli, responds appropriately Port clean Labs Lab Laboratory Tests Test 12/28/18 11:44 12/28/18 17:09 12/28/18 20:52 Glucose (Fingerstick) 156 mg/dL (70-99) 137 mg/dL (70-99) 104 mg/dL (70-99) Micro Microbiology 12/23/18 Urine Culture - Final, Complete 12/23/18 Urine Culture Result 1 (NICK) - Final, Complete 12/23/18 Antimicrobic Susceptibility - Final, Complete Objective Assessment Extensive ulcerative stomatitis, likely Methotrexate toxicity - improving LLE hematoma. h/o fall about 2 weeks ago. Hematuria, ? from Methotrexate vs other. Has a cystoscopy with Dr. Brand of [facility] [place] on 01/16/19 H/O Esophageal ca s/p chemo radiation. CT scan compatible with metastatic disease. RA H/O Lung ca Dehydration Elevated LFT sec to Methotrexate Urine with e coli (12/23) A-fib Plan Plan of Care cont Augmentin (12/27), was on Unasyn, wean soon Leucovorin fluids patient wants upcoming appt with Dr. Alcala cancelled. D/w RN Patient seen, examined, I agree with above a/p DEXTER MICHEL APRN Dec 29, 2018 09:12 GENEVIEVE PEREIRA MD Dec 29, 2018 14:07
[2018-12-29] MEDS: INSULIN GLARGINE 300 UNITS/3 ML INSULN.PEN. SQ SCH (10:17)
[2018-12-29] MEDS: AMOXICILLIN/K CLAV 875/125MG TABLET. PO SCH ×2 (10:18→21:01)
[2018-12-29] MEDS: DOCUSATE SODIUM 100 MG CAPSULE. PO SCH (10:19)
[2018-12-29] MEDS: CHOLECALCIFEROL (VITAMIN D3) 1,000 UNIT TABLET PO SCH (10:19)
[2018-12-29] MEDS: MULTIVITAMIN I-VITE TABLET. PO SCH ×2 (10:19→21:01)
[2018-12-29] MEDS: BUMETANIDE 1 MG TABLET. PO SCH (10:19)
[2018-12-29] MEDS: ISOSORBIDE MONONITRATE ER 30 MG TAB.ER.24H PO SCH (10:21)
[2018-12-29 11:00] VITALS: BP 126/46
[2018-12-29 14:00] VITALS: BP 130/50
[2018-12-29 19:36] VITALS: BP 118/45
--- NOTE | 2018-12-29 20:59 | PDOC ---
PROGRESS NOTE SUBJECTIVE: ROS: ROS: RESPIRATORY: Shortness of breath denies. Cough denies. UROLOGY: Denies blood in urine. Denies difficulty urinating HPI: No longer having hematuria, urine is now yellow. She has no complaints at this time. OBJECTIVE: Vital Signs: Vital Signs Date Time Temp Pulse Resp B/P (MAP) Pulse Ox O2 Delivery O2 Flow Rate FiO2 12/29/18 19:36 98.7 98 20 118/45 (69) 95 Room Air 98.7 12/29/18 14:00 97.8 67 16 130/50 (76) 98 Room Air 97.8 12/29/18 11:00 98.4 93 16 126/46 (72) 97 Room Air 98.4 12/29/18 10:21 97 127/56 12/29/18 08:00 Room Air 12/29/18 07:00 98.6 97 16 127/56 (79) 96 Room Air 98.6 12/29/18 04:24 Room Air 12/29/18 03:41 99.1 89 18 137/47 (77) 92 Room Air 99.1 12/29/18 03:24 Room Air 12/28/18 23:43 98.3 81 18 132/45 (74) 94 Room Air 98.3 I & O Intake and Output 12/29/18 07:01 Intake Total 790 ml Output Total 600 ml Balance 190 ml Intake Oral 790 ml Output Urine Total 600 ml PHYSICAL EXAM: Physical Exam: General: Pleasant, no acute distress, well groomed Respiratory: unlabored breathing Psych: normal mood, affect. Alert and oriented x 3. LABS: Laboratory Tests Test 12/27/18 07:16 12/27/18 10:54 12/27/18 16:34 12/27/18 20:30 Glucose (Fingerstick) 71 mg/dL (70-99) 138 mg/dL (70-99) 163 mg/dL (70-99) 79 mg/dL (70-99) Test 12/28/18 07:23 12/28/18 11:44 12/28/18 17:09 12/28/18 20:52 Glucose (Fingerstick) 91 mg/dL (70-99) 156 mg/dL (70-99) 137 mg/dL (70-99) 104 mg/dL (70-99) Test 12/29/18 07:20 12/29/18 12:23 12/29/18 17:03 Glucose (Fingerstick) 84 mg/dL (70-99) 156 mg/dL (70-99) 150 mg/dL (70-99) Microbiology 12/23/18 Urine Culture - Final, Complete 12/23/18 Urine Culture Result 1 (NICK) - Final, Complete 12/23/18 Antimicrobic Susceptibility - Final, Complete MEDICATIONS: Current Medications Medications (Trade) Dose Ordered Sig/Frank Start Time Stop Time Status Last Admin Dose Admin Acetaminophen/ Hydrocodone Bitart (Lortab 5/325) 1 tab PRN Q6HRS PRN 12/23/18 17:30 12/29/18 03:24 1 TAB Alprazolam (Xanax) 0.25 mg PRN QHS PRN 12/23/18 17:30 12/28/18 19:50 0.25 MG Amoxicillin/ Clavulanate Potassium (Augmentin 875/ 125mg) 1 tab BID 12/27/18 21:00 12/29/18 10:18 1 TAB Ampicillin Sodium/ Sulbactam Sodium 3 gm/Sodium Chloride 100 ml @ 200 mls/hr Q6HRS 12/24/18 12:00 12/27/18 11:37 DC 12/27/18 05:20 200 MLS/HR Artificial Tears (Artificial Tears) 1 drop PRN Q15MIN PRN 12/28/18 15:30 Bumetanide (Bumex) 4 mg DAILY 12/24/18 09:00 12/29/18 10:19 4 MG Ceftriaxone Sodium (Rocephin) 1 gm Q24H 12/23/18 21:00 12/24/18 11:06 DC 12/23/18 21:40 1 GM Dextrose (Dextrose 50%-Water Syringe) 12.5 gm PRN Q15MIN PRN 12/23/18 17:00 Diphenhydramine HCl (Benadryl) 25 mg QHS 12/23/18 21:00 12/28/18 19:55 25 MG Docusate Sodium (Colace) 100 mg DAILY 12/24/18 09:00 12/29/18 10:19 100 MG Info (CONTRAST GIVEN -- Rx MONITORING) 1 each PRN DAILY PRN 12/26/18 09:45 12/28/18 09:44 DC Insulin Glargine (Lantus) 17 units DAILYWBKFT 12/24/18 08:00 12/29/18 10:17 17 UNITS Insulin Human Lispro (HumaLOG) 4 units TIDWMEALS 12/23/18 18:00 12/29/18 18:11 4 UNITS Iohexol (Omnipaque 300 Mg/ml) 75 ml 1X ONCE 12/26/18 10:00 12/26/18 10:01 DC 12/26/18 10:00 75 ML Isosorbide Mononitrate (Imdur) 30 mg DAILY 12/24/18 09:00 12/29/18 10:21 30 MG Leucovorin Calcium (Wellcovorin) 15 mg Q6HRS 12/24/18 12:00 12/29/18 18:06 15 MG Methotrexate (Rheumatrex) 15 mg Th 01/02/19 09:00 01/02/19 09:00 DC Multi-Ingredient Mouthwash/Gargle (Magic Mouthwash) 10 ml PRN QID PRN 12/25/18 08:30 12/25/18 12:15 10 ML Multivitamins/ Minerals (I-Myah) 1 tab BID 12/28/18 10:00 12/29/18 10:19 1 TAB Ondansetron HCl (Zofran) 4 mg PRN Q4HRS PRN 12/26/18 08:45 12/26/18 08:38 4 MG Pantoprazole Sodium (Protonix) 40 mg DAILYAC 12/24/18 07:30 12/29/18 07:40 40 MG Simvastatin (Zocor) 40 mg QHS 12/23/18 21:00 12/28/18 19:51 40 MG Sodium Chloride 1,000 ml @ 75 mls/hr [id number] 12/23/18 17:30 12/29/18 07:42 75 MLS/HR Vitamin D (Vitamin D3) 1,000 unit DAILY 12/24/18 09:00 12/29/18 10:19 1,000 UNIT ASSESSMENT & PLAN Will sign off, hematuria has resolved. Was probably due to E coli UTI - management per ID. Discussed outpatient cystoscopy to rule out bladder cancer - she declines due ongoing comorbidities, likely starting hospice soon. NICOLE BANEGAS MD Dec 29, 2018 20:58
[2018-12-29] MEDS: diphenhydrAMINE HCL 25 MG CAPSULE PO SCH (21:00)
[2018-12-29] MEDS: ALPRAZolam 0.25 MG TABLET PO PRN (21:00)
[2018-12-29] MEDS: SIMVASTATIN 40 MG TABLET. PO SCH (21:01)
--- NOTE | 2018-12-29 21:57 | PN ---
DATE: 12/29/2018 PATIENT LOCATION: Room 663. SUBJECTIVE: The patient is awake, alert, did not sleep well last night and feels like she is doing a lot of thinking. OBJECTIVE: VITAL SIGNS: Stable. She is afebrile. HEENT: She does admit to a new mouth ulcer on her right upper inner lip area and it is examined and appears same as the others. Mouth is becoming slightly less tender to take in p.o. Sugars are excellent. CHEST: Reveals diminished breath sounds, but clear. HEART: Regular rate and rhythm. ABDOMEN: Benign. Ongoing IV antibiotics for E. coli urinary tract infection. No further hematuria reported. IMPRESSION: 1. Stomatitis with slow improvement, with a new mouth lesion today felt due to methotrexate. 2. Urinary tract infection with Escherichia coli with hematuria, improving. 3. Metastatic esophageal cancer. 4. Diabetes. PLAN: Continue present care, begin to mobilize. Anticipate discharge in the next couple of days to home and I have asked hospice to come to have informational visit. ARTHUR GUERRA MD DR: MAYA/vandana JOB#: [id number] / [id number]
[2018-12-29 23:46] VITALS: BP 130/45
[2018-12-30] MEDS: LEUCOVORIN CALCIUM 5 MG TABLET PO SCH ×4 (00:16→18:18)
[2018-12-30 03:14] VITALS: BP 133/41
[2018-12-30] MEDS: HYDROcodone/APAP 5/325MG 1 TAB TABLET PO PRN (04:38)
[2018-12-30 05:12] LABS: PROTHROMBIN TIME PATIENT 15.8 SEC (11.7-14.0)
[2018-12-30 06:55] VITALS: BP 134/51
[2018-12-30] MEDS: INSULIN GLARGINE 300 UNITS/3 ML INSULN.PEN. SQ SCH (08:00)
[2018-12-30] MEDS: INSULIN LISPRO 300 UNITS/3 ML INSULN.PEN. SQ SCH ×3 (08:00→18:23)
--- NOTE | 2018-12-30 08:11 | PDOC ---
Infectious Disease Note Subjective: Subjective Pt continues to feel tired Denies F/C/S/N/V/D/SOA awaiting hospice evaluation ROS: ROS Negative except for above. Vital Signs: Vital Signs Vital Signs Date Time Temp Pulse Resp B/P (MAP) Pulse Ox O2 Delivery O2 Flow Rate FiO2 12/30/18 06:55 98.9 89 18 134/51 (78) 92 Room Air 98.9 Physical Exam: PHYSICAL EXAM GENERAL: Resting quietly HEENT: Oral mucosal ulcerations, improving NECK: Supple, LUNGS: Clear. HEART: S1, S2 regular. ABDOMEN: Soft and nontender EXTREMITIES: No edema or cyanosis. Left anterior leg, below the knee is bruised , swollen, warm and tender. SKIN: No rash LEVELMAN: Arouses to gentle stimuli, responds appropriately Port clean Medications: Inpatient Meds: Current Medications Medications (Trade) Dose Ordered Sig/Frank Start Time Stop Time Status Last Admin Dose Admin Acetaminophen/ Hydrocodone Bitart (Lortab 5/325) 1 tab PRN Q6HRS PRN 12/23/18 17:30 12/30/18 04:38 1 TAB Alprazolam (Xanax) 0.25 mg PRN QHS PRN 12/23/18 17:30 12/29/18 21:00 0.25 MG Amoxicillin/ Clavulanate Potassium (Augmentin 875/ 125mg) 1 tab BID 12/27/18 21:00 12/29/18 21:01 1 TAB Ampicillin Sodium/ Sulbactam Sodium 3 gm/Sodium Chloride 100 ml @ 200 mls/hr Q6HRS 12/24/18 12:00 12/27/18 11:37 DC 12/27/18 05:20 200 MLS/HR Artificial Tears (Artificial Tears) 1 drop PRN Q15MIN PRN 12/28/18 15:30 Bumetanide (Bumex) 4 mg DAILY 12/24/18 09:00 12/29/18 10:19 4 MG Ceftriaxone Sodium (Rocephin) 1 gm Q24H 12/23/18 21:00 12/24/18 11:06 DC 12/23/18 21:40 1 GM Dextrose (Dextrose 50%-Water Syringe) 12.5 gm PRN Q15MIN PRN 12/23/18 17:00 Diphenhydramine HCl (Benadryl) 25 mg QHS 12/23/18 21:00 12/29/18 21:00 25 MG Docusate Sodium (Colace) 100 mg DAILY 12/24/18 09:00 12/29/18 10:19 100 MG Info (CONTRAST GIVEN -- Rx MONITORING) 1 each PRN DAILY PRN 12/26/18 09:45 12/28/18 09:44 DC Insulin Glargine (Lantus) 17 units DAILYWBKFT 12/24/18 08:00 12/29/18 10:17 17 UNITS Insulin Human Lispro (HumaLOG) 4 units TIDWMEALS 12/23/18 18:00 12/29/18 18:11 4 UNITS Iohexol (Omnipaque 300 Mg/ml) 75 ml 1X ONCE 12/26/18 10:00 12/26/18 10:01 DC 12/26/18 10:00 75 ML Isosorbide Mononitrate (Imdur) 30 mg DAILY 12/24/18 09:00 12/29/18 10:21 30 MG Leucovorin Calcium (Wellcovorin) 15 mg Q6HRS 12/24/18 12:00 12/30/18 04:38 15 MG Methotrexate (Rheumatrex) 15 mg Th 01/02/19 09:00 01/02/19 09:00 DC Multi-Ingredient Mouthwash/Gargle (Magic Mouthwash) 10 ml PRN QID PRN 12/25/18 08:30 12/25/18 12:15 10 ML Multivitamins/ Minerals (I-Myah) 1 tab BID 12/28/18 10:00 12/29/18 21:01 1 TAB Ondansetron HCl (Zofran) 4 mg PRN Q4HRS PRN 12/26/18 08:45 12/26/18 08:38 4 MG Pantoprazole Sodium (Protonix) 40 mg DAILYAC 12/24/18 07:30 12/29/18 07:40 40 MG Simvastatin (Zocor) 40 mg QHS 12/23/18 21:00 12/29/18 21:01 40 MG Sodium Chloride 1,000 ml @ 75 mls/hr [id number] 12/23/18 17:30 12/29/18 07:42 75 MLS/HR Vitamin D (Vitamin D3) 1,000 unit DAILY 12/24/18 09:00 12/29/18 10:19 1,000 UNIT Labs: Lab Laboratory Tests Test 12/29/18 12:23 12/29/18 17:03 12/30/18 04:40 12/30/18 07:12 Glucose (Fingerstick) 156 mg/dL (70-99) 150 mg/dL (70-99) 84 mg/dL (70-99) Prothrombin Time 15.8 SEC (11.7-14.0) Prothromb Time International Ratio 1.3 (0.8-1.1) Objective: Assessment: Extensive ulcerative stomatitis, likely Methotrexate toxicity - improving LLE hematoma. h/o fall about 2 weeks ago. Hematuria, ? from Methotrexate vs other. Has a cystoscopy with Dr. Brand of [facility] [place] on 01/16/19 H/O Esophageal ca s/p chemo radiation. CT scan compatible with metastatic disease. RA H/O Lung ca Dehydration Elevated LFT sec to Methotrexate Urine with e coli (12/23) sens to augmentin urology input noted, pt is refusing for cystoscopy A-fib Plan: Plan of Care cont Augmentin (12/27), was on Unasyn,cont through Jan 01 depending on goals of treatment can dc Leucovorin urology input noted D/w GENEVIEVE STEVENS MD Dec 30, 2018 08:10
[2018-12-30] MEDS: ISOSORBIDE MONONITRATE ER 30 MG TAB.ER.24H PO SCH (09:00)
--- NOTE | 2018-12-30 09:19 | PDOC ---
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 Completed chemoradiation therapy on 09/11/2018. CT 12/26/18 reveals Multiple pulmonary nodules, have increased in size and number since prior study, compatible with metastatic disease. - Areas of subtle hepatic hypodensity, at least one of which may have progressed, but difficult to characterize on this exam. - Thickening of the distal esophagus appears similar. I will order PD-L1 test to see if she would qualify for immunotherapy. f/u with me in 1-2 weeks. 2. Oral mucositis could be from methotrexate. Continue to monitor. Ordered MAGIC MOUTHWASH 12/25/18. 3. Rheumatoid arthritis. She is on methotrexate, which will be held because of oral mucositis. 4. Atrial fibrillation. Continue management per Cardiology. Xarelto was kept on hold by Dr. Diaz because of bleeding from oral mucosa and hematuria. 5. History of cerebrovascular accident. 6. Anemia. Hemoglobin is worse at 8.9 on 12/23/2018 and 8.0 on 12/26/18. Continue to monitor. Comment Review of Relevant I have reviewed the following items aviva (where applicable) has been applied. Labs Laboratory Tests Test 12/28/18 11:44 12/28/18 17:09 12/28/18 20:52 12/29/18 07:20 Glucose (Fingerstick) 156 mg/dL (70-99) 137 mg/dL (70-99) 104 mg/dL (70-99) 84 mg/dL (70-99) Test 12/29/18 12:23 12/29/18 17:03 12/30/18 04:40 12/30/18 07:12 Glucose (Fingerstick) 156 mg/dL (70-99) 150 mg/dL (70-99) 84 mg/dL (70-99) Prothrombin Time 15.8 SEC (11.7-14.0) Prothromb Time International Ratio 1.3 (0.8-1.1) Laboratory Tests Test 12/29/18 12:23 12/29/18 17:03 12/30/18 04:40 12/30/18 07:12 Glucose (Fingerstick) 156 mg/dL (70-99) 150 mg/dL (70-99) 84 mg/dL (70-99) Prothrombin Time 15.8 SEC (11.7-14.0) Prothromb Time International Ratio 1.3 (0.8-1.1) Microbiology 12/23/18 Urine Culture - Final, Complete 12/23/18 Urine Culture Result 1 (NICK) - Final, Complete 12/23/18 Antimicrobic Susceptibility - Final, Complete Medications Current Medications Dextrose (Dextrose 50%-Water Syringe) 12.5 gm PRN Q15MIN PRN IV SEE COMMENTS; Start 12/23/18 at 17:00 Sodium Chloride 1,000 ml @ 75 mls/hr [id number] IV Last administered on at 07:42; Start 12/23/18 at 17:30 Alprazolam (Xanax) 0.25 mg PRN QHS PRN PO ANXIETY / AGITATION Last administered on 12/29/18 21:00; Start 12/23/18 at 17:30 Diphenhydramine HCl (Benadryl) 25 mg QHS PO Last administered on 12/29/18at 21: 00; Start 12/23/18 at 21:00 Docusate Sodium (Colace) 100 mg DAILY PO Last administered on 12/29/18 10:19; Start 12/24/18 at 09:00 Acetaminophen/ Hydrocodone Bitart (Lortab 5/325) 1 tab PRN Q6HRS PRN PO MODERATE PAIN Last administered on 12/30/18at 04:38; Start 12/23/18 at 17:30 Insulin Glargine (Lantus) 17 units DAILYWBKFT SQ Last administered on 10:17; Start 12/24/18 at 08:00 Isosorbide Mononitrate (Imdur) 30 mg DAILY PO Last administered on 12/29/18 10 :21; Start 12/24/18 at 09:00 Bumetanide (Bumex) 4 mg DAILY PO Last administered on 12/29/18 10:19; Start at 09:00 Vitamin D (Vitamin D3) 1,000 unit DAILY PO Last administered on 12/29/18 10:19 ; Start 12/24/18 at 09:00 Insulin Human Lispro (HumaLOG) 4 units TIDWMEALS SQ Last administered on 18:11; Start 12/23/18 at 18:00 Methotrexate (Rheumatrex) 15 mg Th PO ; Start 01/02/19 at 09:00; Stop 01/02/19 at 09:00; Status DC Pantoprazole Sodium (Protonix) 40 mg DAILYAC PO Last administered on 12/29/18 07:40; Start 12/24/18 at 07:30 Simvastatin (Zocor) 40 mg QHS PO Last administered on 12/29/18 21:01; Start at 21:00 Ceftriaxone Sodium (Rocephin) 1 gm Q24H IVP Last administered on 12/23/18 21:40 ; Start 12/23/18 at 21:00; Stop 12/24/18 at 11:06; Status DC Leucovorin Calcium (Wellcovorin) 15 mg Q6HRS PO Last administered on 12/30/18 04:38; Start 12/24/18 at 12:00 Ampicillin Sodium/ Sulbactam Sodium 3 gm/Sodium Chloride 100 ml @ 200 mls/hr Q6HRS IV Last administered on 12/27/18 05:20; Start 12/24/18 at 12:00; Stop 12/27 at 11:37; Status DC Multi-Ingredient Mouthwash/Gargle (Magic Mouthwash) 10 ml PRN QID PRN PO MOUTH PAIN Last administered on 12/25/18 12:15; Start 12/25/18 at 08:30 Ondansetron HCl (Zofran) 4 mg PRN Q4HRS PRN IV NAUSEA/VOMITING Last administered on 12/26/18at 08:38; Start 12/26/18 at 08:45 Iohexol (Omnipaque 300 Mg/ml) 75 ml 1X ONCE IV Last administered on 12/26/18at 10:00; Start 12/26/18 at 10:00; Stop 12/26/18 at 10:01; Status DC Info (CONTRAST GIVEN -- Rx MONITORING) 1 each PRN DAILY PRN MC SEE COMMENTS; Start 12/26/18 at 09:45; Stop 12/28/18 at 09:44; Status DC Amoxicillin/ Clavulanate Potassium (Augmentin 875/ 125mg) 1 tab BID PO Last administered on 12/29/18at 21:01; Start 12/27/18 at 21:00 Multivitamins/ Minerals (I-Myah) 1 tab BID PO Last administered on 12/29/18at 21 :01; Start 12/28/18 at 10:00 Artificial Tears (Artificial Tears) 1 drop PRN Q15MIN PRN OU DRY EYE; Start 12/28/18 at 15:30 Active Scripts Active Reported Preservision Areds Softgel (Vit A/Vit C/Vit E/Zinc/Copper) 1 Each Capsule 1 Each PO BID Hydrocodone-Apap 5-325 (Hydrocodone Bit/Acetaminophen) 1 Tab Tablet 1 Tab PO PRN Q6HRS PRN Xanax (Alprazolam) 0.25 Mg Tablet 0.25 Mg PO HS PRN Basaglar Kwikpen U-100 (Insulin Glargine,Hum.rec.anlog) 100 Unit/1 Ml Insuln.pen 17 Unit SQ DAILYWBKFT Methotrexate (Methotrexate Sodium) 2.5 Mg Tablet 6 Tab PO WEEKLY ON SUNDAY Benadryl (Diphenhydramine Hcl) 25 Mg Capsule 1 Cap PO QHS Bumetanide 2 Mg Tablet 2 Tab PO DAILY Isosorbide Mononitrate Er (Isosorbide Mononitrate) 30 Mg Tab.er.24h 30 Mg PO DAILY Prilosec Otc (Omeprazole Magnesium) 20 Mg Tablet.dr 20 Mg PO DAILY Novolog Flexpen (Insulin Aspart) 100 Unit/1 Ml Insuln.pen 4 Unit SQ TIDBFRMEAL Vitamin D-3 (Cholecalciferol (Vitamin D3)) 2,000 Unit Capsule 1,000 Unit PO DAILY Simvastatin 40 Mg Tablet 40 Mg PO DAILY Colace (Docusate Sodium) 100 Mg Capsule 100 Mg PO DAILY Vitals/I & O Vital Sign - Last 24 Hours 12/29/18 12/29/18 12/29/18 12/29/18 10:21 11:00 14:00 19:36 Temp 98.4 97.8 98.7 98.4 97.8 98.7 Pulse 97 93 67 98 Resp 16 16 20 B/P (MAP) 127/56 126/46 (72) 130/50 (76) 118/45 (69) Pulse Ox 97 98 95 O2 Delivery Room Air Room Air Room Air 12/29/18 12/29/18 12/29/18 12/30/18 20:00 21:01 23:46 03:14 Temp 99.1 98.8 99.1 98.8 Pulse 73 97 Resp 20 20 B/P (MAP) 130/45 (73) 133/41 (71) Pulse Ox 97 94 O2 Delivery Room Air Room Air Room Air Room Air 12/30/18 12/30/18 12/30/18 04:38 05:38 06:55 Temp 98.9 98.9 Pulse 89 Resp 18 B/P (MAP) 134/51 (78) Pulse Ox 9 92 O2 Delivery Room Air Room Air Room Air Intake and Output 12/29/18 12/29/18 12/30/18 15:01 23:01 07:01 Intake Total 180 ml 350 ml Output Total 600 ml 600 ml Balance -420 ml -600 ml 350 ml Nutrition Consultation Dietary Evaluation: Recommendations by RD: Increase Calorie Intake, Protein supplementation Comments: send deanna glucerna tid Expected Outcomes/Goals: to meet > 75% est nutr needs- goal ongoing Malnutrition Findings: Food and Nutrition Intake (Sev: <50% est energy req 5days Body Fat Depletion (Non Severe: Mild Depletion Weight Status: Obese MICHAEL VIDES MD Dec 30, 2018 09:19
[2018-12-30] MEDS: MULTIVITAMIN I-VITE TABLET. PO SCH ×2 (09:39→20:34)
[2018-12-30] MEDS: AMOXICILLIN/K CLAV 875/125MG TABLET. PO SCH ×2 (09:41→20:35)
[2018-12-30] MEDS: CHOLECALCIFEROL (VITAMIN D3) 1,000 UNIT TABLET PO SCH (09:41)
[2018-12-30] MEDS: PANTOPRAZOLE 40 MG TABLET.DR. PO SCH (09:42)
[2018-12-30] MEDS: BUMETANIDE 1 MG TABLET. PO SCH (09:42)
[2018-12-30] MEDS: DOCUSATE SODIUM 100 MG CAPSULE. PO SCH (09:42)
--- NOTE | 2018-12-30 10:32 | PN ---
DATE: 12/30/2018 PATIENT LOCATION: She is in room 663. SUBJECTIVE: The patient is awake, alert, still complaining about her mouth, but feels like it is definitely improving and feels like she can take enough p.o. at this point in time to sustain herself. OBJECTIVE: VITAL SIGNS: Stable. She is afebrile. HEENT: Mouth is slowly improving. Again, mouth looks somewhat better. CHEST: Clear. HEART: Regular. ABDOMEN: Benign. LABORATORY DATA: Sugars are good. INR is down to normal, as expected, with Xarelto being held and this will be a question for discharge. She does not see, with all the bleeding, to be a good candidate for anticoagulation again. IMPRESSION: 1. Stomatitis with slow improvement, felt due to methotrexate. 2. Urinary tract infection with Escherichia coli and hematuria, improving. 3. Metastatic esophageal cancer. 4. Diabetes. PLAN: Continue to mobilize. I told her that I anticipate possibly back home tomorrow depending on ID feelings on the same and how she does today with physical therapy, as she does live alone. ARTHUR GUERRA MD DR: MAYA/vandana JOB#: [id number] / [id number]
[2018-12-30 11:26] VITALS: BP 126/39
--- NOTE | 2018-12-30 16:05 | NUR ---
VANNESA following. Dr. Diaz consulted [facility] to evaluate pt. Taylor from [facility] met with pt and pt has signed up with hospice services. VANNESA provided Clinicals to Taylor. Dr. Elias has already provided orders for [facility] and a nurse will visit pt at home once pt is discharged. VANNESA will continue to follow.
--- NOTE | 2018-12-30 16:54 | RAD ---
Left tibia and fibula, 2 views, 12/30/2018: History: Pain, bruising and swelling No fracture or destructive bony lesion is seen. There is moderate degenerative change at the knee joint and mild degenerative change at the ankle joint. Arterial calcifications are present. There is moderate diffuse subcutaneous edema. IMPRESSION: No acute bony abnormality is detected.
[2018-12-30 19:50] VITALS: BP 158/52
[2018-12-30] MEDS: diphenhydrAMINE HCL 25 MG CAPSULE PO SCH (20:34)
[2018-12-30] MEDS: SIMVASTATIN 40 MG TABLET. PO SCH (20:35)
[2018-12-30 23:30] VITALS: BP 125/45
[2018-12-31 03:45] VITALS: BP 130/48
[2018-12-31] MEDS: LEUCOVORIN CALCIUM 5 MG TABLET PO SCH ×3 (06:22→12:00)
[2018-12-31 06:50] VITALS: BP 107/72
[2018-12-31 08:00] VITALS: BP 121/43
[2018-12-31] MEDS ORDERED: AMOX1TAB11 PO (08:22)
--- NOTE | 2018-12-31 08:29 | PDOC ---
Infectious Disease Note Subjective: Subjective pt says she is going home mouth lesions are improving no f/c/v/d able tolerate po intake ROS: ROS Negative except for above. Vital Signs: Vital Signs Vital Signs Date Time Temp Pulse Resp B/P (MAP) Pulse Ox O2 Delivery O2 Flow Rate FiO2 12/31/18 08:00 98.0 82 16 121/43 (69) 96 Room Air 98.0 Physical Exam: PHYSICAL EXAM GENERAL: Resting quietly HEENT: Oral mucosal ulcerations, improving NECK: Supple, LUNGS: Clear. HEART: S1, S2 regular. ABDOMEN: Soft and nontender EXTREMITIES: No edema or cyanosis. Left anterior leg, below the knee is bruised , swollen, warm and tender. 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, responds appropriately Port clean Medications: Inpatient Meds: Current Medications Medications (Trade) Dose Ordered Sig/Frank Start Time Stop Time Status Last Admin Dose Admin Acetaminophen/ Hydrocodone Bitart (Lortab 5/325) 1 tab PRN Q6HRS PRN 12/23/18 17:30 12/30/18 04:38 1 TAB Alprazolam (Xanax) 0.25 mg PRN QHS PRN 12/23/18 17:30 12/29/18 21:00 0.25 MG Amoxicillin/ Clavulanate Potassium (Augmentin 875/ 125mg) 1 tab BID 12/27/18 21:00 12/30/18 20:35 1 TAB Ampicillin Sodium/ Sulbactam Sodium 3 gm/Sodium Chloride 100 ml @ 200 mls/hr Q6HRS 12/24/18 12:00 12/27/18 11:37 DC 12/27/18 05:20 200 MLS/HR Artificial Tears (Artificial Tears) 1 drop PRN Q15MIN PRN 12/28/18 15:30 Bumetanide (Bumex) 4 mg DAILY 12/24/18 09:00 12/30/18 09:42 4 MG Ceftriaxone Sodium (Rocephin) 1 gm Q24H 12/23/18 21:00 12/24/18 11:06 DC 12/23/18 21:40 1 GM Dextrose (Dextrose 50%-Water Syringe) 12.5 gm PRN Q15MIN PRN 12/23/18 17:00 Diphenhydramine HCl (Benadryl) 25 mg QHS 12/23/18 21:00 12/30/18 20:34 25 MG Docusate Sodium (Colace) 100 mg DAILY 12/24/18 09:00 12/30/18 09:42 100 MG Info (CONTRAST GIVEN -- Rx MONITORING) 1 each PRN DAILY PRN 12/26/18 09:45 12/28/18 09:44 DC Insulin Glargine (Lantus) 17 units DAILYWBKFT 12/24/18 08:00 12/29/18 10:17 17 UNITS Insulin Human Lispro (HumaLOG) 4 units TIDWMEALS 12/23/18 18:00 12/30/18 18:23 4 UNITS Iohexol (Omnipaque 300 Mg/ml) 75 ml 1X ONCE 12/26/18 10:00 12/26/18 10:01 DC 12/26/18 10:00 75 ML Isosorbide Mononitrate (Imdur) 30 mg DAILY 12/24/18 09:00 12/29/18 10:21 30 MG Leucovorin Calcium (Wellcovorin) 15 mg Q6HRS 12/24/18 12:00 12/31/18 06:22 15 MG Methotrexate (Rheumatrex) 15 mg Th 01/02/19 09:00 01/02/19 09:00 DC Multi-Ingredient Mouthwash/Gargle (Magic Mouthwash) 10 ml PRN QID PRN 12/25/18 08:30 12/25/18 12:15 10 ML Multivitamins/ Minerals (I-Myah) 1 tab BID 12/28/18 10:00 12/30/18 20:34 1 TAB Ondansetron HCl (Zofran) 4 mg PRN Q4HRS PRN 12/26/18 08:45 12/26/18 08:38 4 MG Pantoprazole Sodium (Protonix) 40 mg DAILYAC 12/24/18 07:30 12/30/18 09:42 40 MG Simvastatin (Zocor) 40 mg QHS 12/23/18 21:00 12/30/18 20:35 40 MG Sodium Chloride 1,000 ml @ 75 mls/hr [id number] 12/23/18 17:30 12/30/18 11:39 DC 12/29/18 07:42 75 MLS/HR Vitamin D (Vitamin D3) 1,000 unit DAILY 12/24/18 09:00 12/30/18 09:41 1,000 UNIT Labs: Lab Laboratory Tests Test 12/30/18 11:15 12/30/18 17:02 12/30/18 20:42 12/31/18 08:18 Glucose (Fingerstick) 198 mg/dL (70-99) 169 mg/dL (70-99) 145 mg/dL (70-99) 132 mg/dL (70-99) Objective: Assessment: Extensive ulcerative stomatitis, 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 h/o fall about 2 weeks ago. Hematuria, pt has declined further urology evaluation H/O Esophageal ca s/p chemo radiation. CT scan compatible with metastatic disease. RA H/O Lung ca Dehydration Elevated LFT sec to Methotrexate Urine with e coli (2/) sens to augmentin A-fib Plan: Plan of Care cont Augmentin through Jan 01 and then dc ok to dc from id standpoint GENEVIEVE PEREIRA MD Dec 31, 2018 08:29
--- NOTE | 2018-12-31 08:51 | DS ---
DATE OF DISCHARGE: 12/31/2018 PRIMARY DIAGNOSIS: Gross hematuria secondary to urinary tract infection. ADDITIONAL DIAGNOSES: Stomatitis felt due to methotrexate, anemia with discharge hemoglobin of approximately 8, metastatic adenocarcinoma of the colon, diabetes, atherosclerotic heart disease, history of AFib on Xarelto on admission and urinary tract infection. CHIEF COMPLAINT AND HISTORY OF PRESENT ILLNESS: This 83-year-old white female admitted through the office on the day of admission with severe stomatitis, difficulties taking in p.o., was having hematuria as well as had vomited up some blood several days earlier. She was admitted for the same. SUMMARY OF STAY: The patient was admitted. Blood thinners were held. Urine showed E. coli urinary tract infection, which was treated. The hematuria resolved. The Xarelto was held. The stomatitis gradually improved. She was given leucovorin as well as mouth care with improvement to where she was able to take p.o. by the time of discharge. She was covered with antibiotics throughout the stay and has two more days of Augmentin at the time of discharge. I did have hospice visit with her during the stay with the findings on CT showing progression of her adenocarcinoma of the esophagus with pulmonary disease at this point in time. She felt no further treatment that she was going to go through no further unless hospice was instituted and they will follow her to the home. DISPOSITION: The patient is discharged to home. DIET: ADA diet. ACTIVITY: As tolerated. FOLLOWUP: Office in 2 weeks. Hospice to follow. DISCHARGE MEDICATIONS: Listed on the med rec and have been addressed and briefly are her regular home medications short of the Xarelto, which will be held at this point in time as well as addition of Augmentin 875 b.i.d. for 2 more days. ARTHUR GUERRA MD DR: MAYA/vandana JOB#: [id number] / [id number]
--- NOTE | 2018-12-31 08:54 | PDOC ---
PROGRESS NOTES Subjective Subjective HPI - f/u of Stage IV esophageal ca with lung mets ROS - no CP Objective Objective Vital Signs Date Time Temp Pulse Resp B/P (MAP) Pulse Ox O2 Delivery O2 Flow Rate FiO2 12/31/18 08:00 98.0 82 16 121/43 (69) 96 Room Air 98.0 Intake and Output 12/31/18 06:59 Intake Total 1780 ml Balance 1780 ml Intake Oral 1780 ml # Voids 6 Physical Exam General: Alert, Oriented X3, No acute distress Neuro: Normal speech Psych/Mental Status: Mental status NL Assessment Assessment IMPRESSION AND PLAN: 1. 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 Completed chemoradiation therapy on 09/11/2018. CT 12/26/18 reveals Multiple pulmonary nodules, have increased in size and number since prior study, compatible with metastatic disease. - Areas of subtle hepatic hypodensity, at least one of which may have progressed, but difficult to characterize on this exam. - Thickening of the distal esophagus appears similar. She prefers palliative care with hospice. Appreciate eval by [facility]. 2. Oral mucositis could be from methotrexate. Continue to monitor. Ordered MAGIC MOUTHWASH 12/25/18. 3. Rheumatoid arthritis. She is on methotrexate, which will be held because of oral mucositis. 4. Atrial fibrillation. Continue management per Cardiology. Xarelto was kept on hold by Dr. Diaz because of bleeding from oral mucosa and hematuria. 5. History of cerebrovascular accident. 6. Anemia. Hemoglobin is worse at 8.9 on 12/23/2018 and 8.0 on 12/26/18. Continue to monitor. Comment Review of Relevant I have reviewed the following items aviva (where applicable) has been applied. Labs Laboratory Tests Test 12/29/18 12:23 12/29/18 17:03 12/30/18 04:40 12/30/18 07:12 Glucose (Fingerstick) 156 mg/dL (70-99) 150 mg/dL (70-99) 84 mg/dL (70-99) Prothrombin Time 15.8 SEC (11.7-14.0) Prothromb Time International Ratio 1.3 (0.8-1.1) Test 12/30/18 11:15 12/30/18 17:02 12/30/18 20:42 12/31/18 08:18 Glucose (Fingerstick) 198 mg/dL (70-99) 169 mg/dL (70-99) 145 mg/dL (70-99) 132 mg/dL (70-99) Laboratory Tests Test 12/30/18 11:15 12/30/18 17:02 12/30/18 20:42 12/31/18 08:18 Glucose (Fingerstick) 198 mg/dL (70-99) 169 mg/dL (70-99) 145 mg/dL (70-99) 132 mg/dL (70-99) Microbiology 12/23/18 Urine Culture - Final, Complete 12/23/18 Urine Culture Result 1 (NICK) - Final, Complete 12/23/18 Antimicrobic Susceptibility - Final, Complete Medications Current Medications Dextrose (Dextrose 50%-Water Syringe) 12.5 gm PRN Q15MIN PRN IV SEE COMMENTS; Start 12/23/18 at 17:00 Sodium Chloride 1,000 ml @ 75 mls/hr [id number] IV Last administered on 07:42; Start 12/23/18 at 17:30; Stop 12/30/18 at 11:39; Status DC Alprazolam (Xanax) 0.25 mg PRN QHS PRN PO ANXIETY / AGITATION Last administered on 12/29/18 21:00; Start 12/23/18 at 17:30 Diphenhydramine HCl (Benadryl) 25 mg QHS PO Last administered on 12/30/18 20: 34; Start 12/23/18 at 21:00 Docusate Sodium (Colace) 100 mg DAILY PO Last administered on 12/30/18 09:42; Start 12/24/18 at 09:00 Acetaminophen/ Hydrocodone Bitart (Lortab 5/325) 1 tab PRN Q6HRS PRN PO MODERATE PAIN Last administered on 12/30/18 04:38; Start 12/23/18 at 17:30 Insulin Glargine (Lantus) 17 units DAILYWBKFT SQ Last administered on 10:17; Start 12/24/18 at 08:00 Isosorbide Mononitrate (Imdur) 30 mg DAILY PO Last administered on 12/29/18 10 :21; Start 12/24/18 at 09:00 Bumetanide (Bumex) 4 mg DAILY PO Last administered on 12/30/18 09:42; Start at 09:00 Vitamin D (Vitamin D3) 1,000 unit DAILY PO Last administered on 12/30/18 09:41 ; Start 12/24/18 at 09:00 Insulin Human Lispro (HumaLOG) 4 units TIDWMEALS SQ Last administered on 18:23; Start 12/23/18 at 18:00 Methotrexate (Rheumatrex) 15 mg Th PO ; Start 01/02/19 at 09:00; Stop 01/02/19 at 09:00; Status DC Pantoprazole Sodium (Protonix) 40 mg DAILYAC PO Last administered on 12/30/18 09:42; Start 12/24/18 at 07:30 Simvastatin (Zocor) 40 mg QHS PO Last administered on 12/30/18 20:35; Start at 21:00 Ceftriaxone Sodium (Rocephin) 1 gm Q24H IVP Last administered on 12/23/18 21:40 ; Start 12/23/18 at 21:00; Stop 12/24/18 at 11:06; Status DC Leucovorin Calcium (Wellcovorin) 15 mg Q6HRS PO Last administered on 12/31/18 06:22; Start 12/24/18 at 12:00 Ampicillin Sodium/ Sulbactam Sodium 3 gm/Sodium Chloride 100 ml @ 200 mls/hr Q6HRS IV Last administered on 12/27/18 05:20; Start 12/24/18 at 12:00; Stop 12/27 at 11:37; Status DC Multi-Ingredient Mouthwash/Gargle (Magic Mouthwash) 10 ml PRN QID PRN PO MOUTH PAIN Last administered on 12/25/18 12:15; Start 12/25/18 at 08:30 Ondansetron HCl (Zofran) 4 mg PRN Q4HRS PRN IV NAUSEA/VOMITING Last administered on 12/26/18 08:38; Start 12/26/18 at 08:45 Iohexol (Omnipaque 300 Mg/ml) 75 ml 1X ONCE IV Last administered on 12/26/18at 10:00; Start 12/26/18 at 10:00; Stop 12/26/18 at 10:01; Status DC Info (CONTRAST GIVEN -- Rx MONITORING) 1 each PRN DAILY PRN MC SEE COMMENTS; Start 12/26/18 at 09:45; Stop 12/28/18 at 09:44; Status DC Amoxicillin/ Clavulanate Potassium (Augmentin 875/ 125mg) 1 tab BID PO Last administered on 12/30/18at 20:35; Start 12/27/18 at 21:00 Multivitamins/ Minerals (I-Myah) 1 tab BID PO Last administered on 12/30/18at 20 :34; Start 12/28/18 at 10:00 Artificial Tears (Artificial Tears) 1 drop PRN Q15MIN PRN OU DRY EYE; Start 12/28/18 at 15:30 Active Scripts Active Reported Preservision Areds Softgel (Vit A/Vit C/Vit E/Zinc/Copper) 1 Each Capsule 1 Each PO BID Hydrocodone-Apap 5-325 (Hydrocodone Bit/Acetaminophen) 1 Tab Tablet 1 Tab PO PRN Q6HRS PRN Xanax (Alprazolam) 0.25 Mg Tablet 0.25 Mg PO HS PRN Basaglar Kwikpen U-100 (Insulin Glargine,Hum.rec.anlog) 100 Unit/1 Ml Insuln.pen 17 Unit SQ DAILYWBKFT Methotrexate (Methotrexate Sodium) 2.5 Mg Tablet 6 Tab PO WEEKLY ON SUNDAY Benadryl (Diphenhydramine Hcl) 25 Mg Capsule 1 Cap PO QHS Bumetanide 2 Mg Tablet 2 Tab PO DAILY Isosorbide Mononitrate Er (Isosorbide Mononitrate) 30 Mg Tab.er.24h 30 Mg PO DAILY Prilosec Otc (Omeprazole Magnesium) 20 Mg Tablet.dr 20 Mg PO DAILY Novolog Flexpen (Insulin Aspart) 100 Unit/1 Ml Insuln.pen 4 Unit SQ TIDBFRMEAL Vitamin D-3 (Cholecalciferol (Vitamin D3)) 2,000 Unit Capsule 1,000 Unit PO DAILY Simvastatin 40 Mg Tablet 40 Mg PO DAILY Colace (Docusate Sodium) 100 Mg Capsule 100 Mg PO DAILY Vitals/I & O Vital Sign - Last 24 Hours 12/30/18 12/30/18 12/30/18 12/30/18 09:00 11:26 19:50 20:00 Temp 98.6 98.2 98.6 98.2 Pulse 89 84 96 Resp 18 16 B/P (MAP) 134/51 126/39 (68) 158/52 (87) Pulse Ox 97 99 O2 Delivery Room Air Room Air Room Air 12/30/18 12/31/18 12/31/18 23:30 03:45 08:00 Temp 98.1 98.8 98.0 98.1 98.8 98.0 Pulse 89 83 82 Resp 16 16 16 B/P (MAP) 125/45 (71) 130/48 (75) 121/43 (69) Pulse Ox 95 95 96 O2 Delivery Room Air Room Air Room Air Intake and Output 12/30/18 12/30/18 12/31/18 14:59 22:59 06:59 Intake Total 340 ml 1100 ml 340 ml Balance 340 ml 1100 ml 340 ml Nutrition Consultation Dietary Evaluation: Recommendations by RD: Increase Calorie Intake, Protein supplementation Comments: send deanna glucerna q day Expected Outcomes/Goals: to meet > 75% est nutr needs- goal ongoing Malnutrition Findings: Food and Nutrition Intake (Sev: <50% est energy req 5days Body Fat Depletion (Non Severe: Mild Depletion Weight Status: Obese MICHAEL VIDES MD Dec 31, 2018 08:54
[2018-12-31] MEDS: BUMETANIDE 1 MG TABLET. PO SCH (09:08)
[2018-12-31 09:09] VITALS: BP 121/43
[2018-12-31] MEDS: ISOSORBIDE MONONITRATE ER 30 MG TAB.ER.24H PO SCH (09:09)
[2018-12-31] MEDS: CHOLECALCIFEROL (VITAMIN D3) 1,000 UNIT TABLET PO SCH (09:09)
[2018-12-31] MEDS: DOCUSATE SODIUM 100 MG CAPSULE. PO SCH (09:09)
[2018-12-31] MEDS: AMOXICILLIN/K CLAV 875/125MG TABLET. PO SCH (09:09)
[2018-12-31] MEDS: MULTIVITAMIN I-VITE TABLET. PO SCH (09:09)
[2018-12-31] MEDS: PANTOPRAZOLE 40 MG TABLET.DR. PO SCH (09:09)
[2018-12-31] MEDS: INSULIN LISPRO 300 UNITS/3 ML INSULN.PEN. SQ SCH ×2 (09:18→12:00)
[2018-12-31] MEDS: INSULIN GLARGINE 300 UNITS/3 ML INSULN.PEN. SQ SCH (09:21)
[2018-12-31] MEDS ORDERED: HEPARIN PF 500 UNIT/5 ML DISP.SYRIN. IV ONE (11:00)
--- NOTE | 2018-12-31 11:34 | NUR ---
Reviewed d/c information with patient. No further questions at this time, niece coming to pick patient up. Discussed with SW.
--- NOTE | 2018-12-31 12:00 | NUR ---
VANNESA following. VANNESA notified [facility] pt is discharging today. Pt aware a nurse from [facility] will visit her at home today. TACO CAMACHO.
--- NOTE | 2018-12-31 12:14 | NUR ---
VANNESA notified physician for documentation regarding walker. Marc howell requesting 'patient needs walker with seat due to the listed diagnoses' added on discharge summary. Addendum: 12/31/18 at 1216 by LATASHA GRANADO Disregard above note. Wrong patient.
[2019-01-02] MEDS ORDERED: METHOTREXATE SODIUM 2.5 MG TABLET PO SCH (09:00)
== END 2018-12-31 12:06 | disposition hospice, home (50) | DRG 871 ==
LOC: 6 SOUTH 16:22
PROVIDERS: ADMIT Family Medicine; ATTEND Family Medicine
DX: A41.9 Sepsis, unspecified organism (principal); E43 Unspecified severe protein-calorie malnutrition; N39.0 Urinary tract infection, site not specified; C15.9 Malignant neoplasm of esophagus, unspecified; C78.00 Secondary malignant neoplasm of unspecified lung; K12.1 Other forms of stomatitis; E78.5 Hyperlipidemia, unspecified; I25.10 Atherosclerotic heart disease of native coronary artery without angina pectoris; I10 Essential (primary) hypertension; E11.9 Type 2 diabetes mellitus without complications; M81.0 Age-related osteoporosis without current pathological fracture; T45.1X5A Adverse effect of antineoplastic and immunosuppressive drugs, initial encounter; M06.9 Rheumatoid arthritis, unspecified; K12.30 Oral mucositis (ulcerative), unspecified; R79.89 Other specified abnormal findings of blood chemistry; D63.8 Anemia in other chronic diseases classified elsewhere; E86.0 Dehydration; D72.819 Decreased white blood cell count, unspecified; D64.9 Anemia, unspecified; R31.0 Gross hematuria; B96.20 Unspecified Escherichia coli [E. coli] as the cause of diseases classified elsewhere; I48.91 Unspecified atrial fibrillation; S80.12XA Contusion of left lower leg, initial encounter; N89.8 Other specified noninflammatory disorders of vagina; M19.90 Unspecified osteoarthritis, unspecified site; K21.9 Gastro-esophageal reflux disease without esophagitis; Z51.5 Encounter for palliative care; Z96.659 Presence of unspecified artificial knee joint; F32.9 Major depressive disorder, single episode, unspecified; Z79.01 Long term (current) use of anticoagulants; Z85.01 Personal history of malignant neoplasm of esophagus; Z85.3 Personal history of malignant neoplasm of breast; Z86.73 Personal history of transient ischemic attack (TIA), and cerebral infarction without residual deficits; Z92.3 Personal history of irradiation; Z85.118 Personal history of other malignant neoplasm of bronchus and lung; Z79.899 Other long term (current) drug therapy; Z95.1 Presence of aortocoronary bypass graft; Z90.11 Acquired absence of right breast and nipple; Z68.39 Body mass index [BMI] 39.0-39.9, adult
CPT/HCPCS: 36415; 71260; 73590; 74177; 80053; 81001; 82962; 85007; 85025; 85610; 85730; 87086; 87186; J0295; J0696; J1815; J2405; Q0163; Q9967